=== PATIENT | male | born 1955 ===

== ENCOUNTER 2017-11-10 12:17 | Emergency (ER) | payer MEDICARE, MEDICAID ==
[2017-11-10 12:18] VITALS: BMI 22.7
[2017-11-10] MEDS ORDERED: Morphine 4 mg/ml ISec IVP STA (12:34)
[2017-11-10 12:37] VITALS: TEMP 97.8; O2SAT 98
--- NOTE | 2017-11-10 12:43 | ED PDOC ---
Arrival/HPI - General Chief Complaint: Abdominal Pain Time Seen by Provider: 11/10/17 12:21 Historian: Patient, Spouse - History of Present Illness Time/Duration: 1 week Symptom Onset: Gradual Symptom Course: Worsening Quality: Aching Severity Level: Moderate Activities at Onset: Rest Associated Symptoms (Text): 11/10/17 12:43 Patient complains of approximately a one-week history of right flank and right upper quadrant pain. Overnight he developed epigastric abdominal pain and presented to the emergency department for evaluation. Nausea but no vomiting or diarrhea. He did have dialysis yesterday. No fever or chills. No chest pain palpitations or dyspnea. No injury or trauma. He does make some urine. Past Medical History - Infectious Disease Hx of Infectious Diseases: None - Tetanus Immunization Tetanus Immunization: Unknown - Cardiac Hx Congestive Heart Failure: Yes Hx Hypertension: Yes Hx Pacemaker: No Hx Peripheral Edema: Yes Other/Comment: cardiac stent - Pulmonary Hx Respiratory Disorders: Yes Hx Asthma: Yes Hx Pneumonia: Yes - Neurological Hx Neurological Disorder: No Hx Paralysis: No - HEENT Hx HEENT Disorder: Yes Hx Cataracts: Yes Hx Deafness: Yes Hx Glaucoma: Yes - Renal Hx Renal Disorder: Yes Date of Last Dialysis Treatment: 11/09/17 - Endocrine/Metabolic Hx Endocrine Disorders: Yes Hx Diabetes Mellitus Type 2: Yes - Hematological/Oncological Hx Blood Disorders: No Hx Blood Transfusions: No - Integumentary Hx Dermatological Disorder: No - Musculoskeletal/Rheumatological Hx Musculoskeletal Disorders: No - Gastrointestinal Hx Gastrointestinal Disorders: Yes Hx Constipation: Yes - Genitourinary/Gynecological Hx Genitourinary Disorders: No Hx Reproductive Disorders: No - Psychiatric Hx Psychophysiologic Disorder: No Hx Emotional Abuse: No Hx Physical Abuse: No Hx Substance Use: No - Surgical History Hx Cholecystectomy: Yes Hx Coronary Artery Bypass Graft: Yes Hx Coronary Stent: Yes - Anesthesia Hx Anesthesia Reactions: No Hx Malignant Hyperthermia: No - Suicidal Assessment Feels Threatened In Home Enviroment: No Family/Social History - Physician Review Nursing Documentation Reviewed: Yes Family/Social History: Unknown Family HX Smoking Status: Never Smoked Hx Alcohol Use: No Hx Substance Use: No Hx Substance Use Treatment: No Allergies/Home Meds Allergies/Adverse Reactions: Allergies No Known Allergies Allergy (Verified 10/18/16 16:58) Home Medications: Home Meds Medication Instructions Recorded Confirmed Albuterol Sulfate [Proair Hfa] 2 puff INH Q6H 04/13/15 11/10/17 Aspirin [Aspirin EC] 325 mg PO DAILY 07/12/16 11/10/17 Cilostazol [Pletal] 1 tab PO BID 07/12/16 11/10/17 Clopidogrel [Plavix] 75 mg PO DAILY 07/12/16 11/10/17 Gabapentin [Neurontin] 300 mg PO DAILY 07/12/16 11/10/17 Mupirocin 2% Ointment [Bactroban 1 appful TOP BID 07/12/16 11/10/17 Ointment] Simvastatin 20 mg PO DAILY 07/12/16 11/10/17 predniSONE [predniSONE Tab] 5 mg PO DAILY 07/12/16 11/10/17 Acetaminophen with Codeine 1 tab PO PRN PRN 11/10/17 11/10/17 [Tylenol with Codeine No. 3 300 mg-30 mg] Albuterol/Ipratropium [Duoneb 3 3 ml IH Q6 11/10/17 11/10/17 MG/3 Ml-0.5 MG/3 Ml 3 Ml] Furosemide [Lasix] 80 mg PO DAILY 11/10/17 11/10/17 Hydroxyzine HCl 25 mg PO PRN 11/10/17 11/10/17 Insulin Degludec [Tresiba 6 unit SQ DAILY 11/10/17 11/10/17 Flextouch U-100] Isosorbide Mononitrate [Imdur] 120 mg PO DAILY 11/10/17 11/10/17 Levocetirizine Dihydrochloride 5 mg PO DAILY 11/10/17 11/10/17 [Xyzal] Linagliptin [Tradjenta] 5 mg PO DAILY 11/10/17 11/10/17 Sacubitril/Valsartan [Entresto 97 1 each PO BID 11/10/17 11/10/17 mg-103 mg Tablet] Review of Systems - Physician Review All systems were reviewed & negative as marked: Yes - Review of Systems Constitutional: Fatigue. absent: Fevers Respiratory: absent: SOB, Cough, Wheezing Cardiovascular: absent: Chest Pain, Palpitations, Syncope Gastrointestinal: Abdominal Pain, Nausea. absent: Diarrhea, Vomiting Neurological: absent: Headache, Dizziness, Focal Weakness Physical Exam Vital Signs Temp Pulse Resp BP Pulse Ox 11/10/17 14:18 84 18 144/74 98 11/10/17 12:21 97.8 F 86 20 155/84 H 98 Temperature: Afebrile Blood Pressure: Hypertensive Pulse: Regular Respiratory Rate: Normal Appearance: Positive for: Well-Appearing, Non-Toxic, Uncomfortable Pain Distress: Mild Mental Status: Positive for: Alert and Oriented X 3 - Systems Exam Head: Present: Atraumatic, Normocephalic Pupils: Present: PERRL Extroacular Muscles: Present: EOMI Conjunctiva: Present: Normal Mouth: Present: Moist Mucous Membranes Pharnyx: No: ERYTHEMA, EXUDATE, TONSILS ENLARGED Neck: Present: Normal Range of Motion Respiratory/Chest: Present: Clear to Auscultation, Good Air Exchange, Decreased Breath Sounds. No: Respiratory Distress, Accessory Muscle Use Cardiovascular: Present: Regular Rate and Rhythm, Normal S1, S2. No: Murmurs Abdomen: Present: Tenderness (Mild generalized abdominal tenderness with no guarding and no rebound and no CVA tenderness), Normal Bowel Sounds. No: Distention, Peritoneal Signs, Rebound, Guarding Back: Present: Normal Inspection. No: CVA Tenderness, Midline Tenderness, Paraspinal Tenderness Upper Extremity: Present: Normal Inspection. No: Cyanosis, Edema Lower Extremity: Present: Normal Inspection. No: Edema Neurological: Present: GCS=15, CN II-XII Intact, Speech Normal, Motor Func Grossly Intact Skin: Present: Warm, Dry, Normal Color. No: Rashes Psychiatric: Present: Alert, Oriented x 3, Normal Insight, Normal Concentration Medical Decision Making ED Course and Treatment: 11/10/17 13:45 EKG shows normal sinus rhythm rate approximately 85 with inverted T waves laterally and nonspecific intraventricular conduction delay with no old available for comparison 11/10/17 15:15 Symptoms have improved. Workup shows no acute findings. Discharged home accompanied by to follow up with PMD. Follow up in ER as needed. - Lab Interpretations Lab Results: 11/10/17 12:30 11/10/17 12:30 Lab Results 11/10/17 12:30: Sodium 138, Potassium 4.1, Chloride 93 L, Carbon Dioxide 33, Anion Gap 16, BUN 18, Creatinine 4.1 H, Est GFR ( Amer) 18, Est GFR (Non- Af Amer) 15, Random Glucose 126 H, Calcium 8.9, Total Bilirubin 1.0, AST 46, ALT 37, Alkaline Phosphatase 245 H, Lactate Dehydrogenase 506, Total Creatine Kinase 58, Troponin I 0.10 D, Total Protein 7.4, Albumin 3.6, Globulin 3.8, Albumin/Globulin Ratio 0.9 L, Amylase 81, Lipase 117 11/10/17 12:30: PT 19.6 H, INR 1.69 H, APTT 32.1 11/10/17 12:30: WBC 6.0 D, RBC 3.79, Hgb 10.5 L, Hct 31.6 L, MCV 83.4, MCH 27.7 , MCHC 33.2, RDW 16.8 H, Plt Count 113 L, MPV 10.7, Gran % 81.1 H, Lymph % (Auto ) 9.0 L, [place] % (Auto) 6.2 H, Eos % (Auto) 3.4, Baso % (Auto) 0.3, Gran # 4.84, Lymph # (Auto) 0.5 L, [place] # (Auto) 0.4, Eos # (Auto) 0.2, Baso # (Auto) 0.02 - RAD Interpretation Radiology Orders: 11/10/17 12:34 ABDOMEN COMPLETE [US] Stat 11/10/17 12:35 CHEST PORTABLE [RAD] Stat Ultrasound of the abdomen is read by the radiologist shows small pleural effusion and ascites, unchanged from previous. Chest one view shows a small right pleural effusion as read by the radiologist. Game Room Attendant: Radiologist - Medication Orders Current Medication Orders: Discontinued Medications Morphine Sulfate (Morphine) 4 mg IVP STAT STA Stop: 11/10/17 12:35 Last Admin: 11/10/17 12:53 Dose: 4 mg MAR Pain Assessment Document 11/10/17 12:53 EW (Rec: 11/10/17 12:54 [facility] [id number]) Pain Reassessment Is this a pain reassessment? No Sleep Is patient sleeping during reassessment? No Presence of Pain Presence of Pain Yes Pain Scale Used Pain Scale Used Numeric Location Pain Location Body Site Abdomen Description Description Constant Intensity of Pain at present 8 Pain Behavior Moaning IVP Administration Document 11/10/17 12:53 EWO (Rec: 11/10/17 12:54 [facility] [id number]) Charges for Administration # of IVP Administrations 1 Ondansetron HCl (Zofran Inj) 4 mg IVP STAT STA Stop: 11/10/17 12:35 Last Admin: 11/10/17 12:53 Dose: 4 mg IVP Administration Document 11/10/17 12:53 EW (Rec: 11/10/17 12:53 [facility] [id number]) Charges for Administration # of IVP Administrations 1 Disposition/Present on Arrival - Present on Arrival Any Indicators Present on Arrival: No History of DVT/PE: No History of Uncontrolled Diabetes: No Urinary Catheter: No History of Decub. Ulcer: No History Surgical Site Infection Following: None - Disposition Have Diagnosis and Disposition been Completed?: Yes Diagnosis: Chronic renal failure syndrome, Abdominal pain Disposition: HOME/ ROUTINE Disposition Time: 15:15 Patient Plan: Discharge Condition: IMPROVED Discharge Instructions (ExitCare): Acute Abdomen (Belly Pain) Additional Instructions: Tylenol as directed on bottle as needed. Follow-up with PMD. Follow up in the ER as needed. Forms: [employer] (Bulgarian)
[2017-11-10 12:57] LABS: BASO # 0.02 K/mm3 (0.0-2.0); BASO % 0.3 % (0.0-3.0); EOS # 0.2 (0.0-0.7); EOS % 3.4 % (1.5-5.0); GRAN # 4.84 (1.4-6.5); GRAN % 81.1 % (50.0-68.0); HEMOGLOBIN 10.5 g/dL (14.0-18.0); LYMPH # 0.5 (1.2-3.4); MEAN CELL VOLUME 83.4 fl (80.0-105.0); MEAN CORPUSCULAR HEMOGLOBIN 27.7 pg (25.0-35.0); MEAN CORPUSCULAR HGB CONC 33.2 g/dl (31.0-37.0); MEAN PLATELET VOLUME 10.7 fl (7.0-11.0); MONO # 0.4 (0.1-0.6); MONO % 6.2 % (1.0-6.0); RBC 3.79 10^6/uL (3.5-6.1); RED CELL DISTRIBUTION WIDTH 16.8 % (11.5-14.5)
[2017-11-10 13:07] LABS: INR 1.69 (0.93-1.08); PARTIAL THROMBOPLASTIN TIME 32.1 Seconds (25.1-36.5); PROTHROMBIN TIME 19.6 SECONDS (9.4-12.5)
[2017-11-10 13:08] LABS: ALB/GLOB RATIO 0.9 (1.1-1.8); ALBUMIN 3.6 g/dL (3.0-4.8); CALCIUM 8.9 mg/dL (8.4-10.5)
[2017-11-10 13:18] LABS: TROPONIN I 0.1 ng/mL
--- NOTE | 2017-11-10 14:35 | US ---
HISTORY: Right upper quadrant pain. COMPARISON: 04/08/2017 TECHNIQUE: Sonographic evaluation of the abdomen. FINDINGS: LIVER: Measures 16.5 cm. Hepatopedal blood flow. Fatty infiltration manifest ultrasonographically as increased echogenicity of the liver parenchyma. Nodular contour to the liver. GALLBLADDER: Status post cholecystectomy. No abnormality is seen in the gallbladder fossa. COMMON BILE DUCT: Measures 3.5 mm. No stones. No dilatation. PANCREAS: Unremarkable as visualized. No mass. No ductal dilatation. RIGHT KIDNEY: Measures 3.8 x 8.3cm. Increased echogenicity compatible with medical renal disease. LEFT KIDNEY: Measures 4.2 x 7.5 cm. Increased echogenicity compatible with medical renal disease. Incidental finding(s): Simple cyst 6 mm left kidney SPLEEN: Normal in size and contour. No mass. AORTA: No aneurysmal dilatation. IVC: Unremarkable. OTHER FINDINGS: Low volume ascites. Right pleural effusion. IMPRESSION: No acute findings related to/accounting for the clinical presentation. Right pleural effusion, incompletely visualized, low volume ascites. Additional benign and/or incidental findings described above.
--- NOTE | 2017-11-10 14:53 | RAD ---
HISTORY: Abdominal pain COMPARISON: 04/29/2017 FINDINGS: LUNGS: Increasing right lower lobe infiltrate. Interval improvement left lower lobe infiltrate. PLEURA: Increasing right pleural effusion. Decreasing left pleural effusion. CARDIOVASCULAR: No significant interval change compared to the prior examination(s). OSSEOUS STRUCTURES: No significant abnormalities. VISUALIZED UPPER ABDOMEN: Normal. OTHER FINDINGS: None. IMPRESSION: Increasing right pleural effusion and right lower lobe infiltrate. Interval improvement in left lower lobe infiltrate, left pleural effusion.
[2017-11-10 15:20] VITALS: BP 144/74; PULSE 84; RESP 18
--- NOTE | 2017-11-10 22:49 | CARD ---
APPROVED REPORT EKG Measurement Heart [id number] <Conclusion> Normal sinus rhythm Left axis deviation Incomplete left bundle branch block Minimal voltage criteria for LVH, may be normal variant T wave abnormality, consider lateral ischemia Prolonged QT Abnormal ECG
== END 2017-11-10 15:25 | disposition home or self-care (01) ==
LOC: ED 12:17
DX: I12.9 Hypertensive chronic kidney disease with stage 1 through stage 4 chronic kidney disease, or unspecified chronic kidney disease (principal); E11.22 Type 2 diabetes mellitus with diabetic chronic kidney disease; N18.9 Chronic kidney disease, unspecified; Z99.2 Dependence on renal dialysis; R10.9 Unspecified abdominal pain
CPT/HCPCS: 71045; 76700; 80053; 82150; 82550; 83615; 83690; 84484; 85025; 85610; 85730; 93005; 96374; 96375; 99284; J2270; J2405

== ENCOUNTER 2018-03-22 02:52 | Emergency (ER) | payer MEDICARE, MEDICAID ==
[2018-03-22 02:53] VITALS: BMI 22.7
[2018-03-22 03:06] VITALS: RESP 18; TEMP 98.3
[2018-03-22] MEDS ORDERED: Collagen Hemostat Powder MM ONE (03:30)
--- NOTE | 2018-03-22 05:09 | ED PDOC ---
Arrival/HPI - General Chief Complaint: Dental Pain Time Seen by Provider: 03/22/18 02:56 Historian: Patient - History of Present Illness Narrative History of Present Illness (Text): 03/22/18 05:06 62 year old male, whose past medical history includes end stage renal disease and diabetes, who presents to the emergency department complaining of bleeding from the posterior gum sight of mouth. Patient states he was cleaning his teeth with an electric tooth brush, when shortly after hsi gums began to bleed. Patient states oozing of blood has not stopped despite applied pressure. Patient denies any fever, chills, chest pain, shortness of breath, nausea, vomiting, diarrhea, back pain, neck pain, headache, dizziness, or any other complaints. Time/Duration: Prior to Arrival Symptom Onset: Sudden Symptom Course: Unchanged Activities at Onset: Light Context: Home Past Medical History - Provider Review Nursing Documentation Reviewed: Yes - Infectious Disease Hx of Infectious Diseases: None - Tetanus Immunization Tetanus Immunization: Unknown - Cardiac Hx Cardiac Disorders: Yes Hx Congestive Heart Failure: Yes Hx Hypertension: Yes - Pulmonary Hx Respiratory Disorders: Yes Hx Asthma: Yes Hx Pneumonia: Yes - Neurological Hx Neurological Disorder: No Hx Paralysis: No - HEENT Hx HEENT Disorder: Yes Hx Cataracts: Yes Hx Deafness: Yes Hx Glaucoma: Yes - Renal Hx Renal Failure: Yes (ESRD, CKD) - Endocrine/Metabolic Hx Diabetes Mellitus Type 2: Yes - Hematological/Oncological Hx Blood Disorders: Yes Hx Anemia: Yes - Integumentary Hx Dermatological Disorder: No - Musculoskeletal/Rheumatological Hx Musculoskeletal Disorders: No Hx Falls: No - Gastrointestinal Hx Gastrointestinal Disorders: Yes Hx Constipation: Yes - Genitourinary/Gynecological Hx Genitourinary Disorders: No Hx Reproductive Disorders: No - Psychiatric Hx Psychophysiologic Disorder: Yes Hx Depression: Yes Hx Substance Use: No - Surgical History Hx Cholecystectomy: Yes Hx Coronary Artery Bypass Graft: Yes Hx Coronary Stent: Yes - Anesthesia Hx Anesthesia: Yes Hx Anesthesia Reactions: No Hx Malignant Hyperthermia: No - Suicidal Assessment Feels Threatened In Home Enviroment: No Family/Social History - Physician Review Nursing Documentation Reviewed: Yes Family/Social History: Unknown Family HX Smoking Status: Never Smoked Hx Alcohol Use: No Hx Substance Use: No Hx Substance Use Treatment: No Allergies/Home Meds Allergies/Adverse Reactions: Allergies No Known Allergies Allergy (Verified 11/13/17 00:48) Home Medications: Home Meds Medication Instructions Recorded Confirmed Albuterol Sulfate [Proair Hfa] 2 puff INH Q6H 04/13/15 03/22/18 Aspirin [Aspirin EC] 325 mg PO DAILY 07/12/16 03/22/18 Cilostazol [Pletal] 1 tab PO BID 07/12/16 03/22/18 Clopidogrel [Plavix] 75 mg PO DAILY 07/12/16 03/22/18 Gabapentin [Neurontin] 300 mg PO DAILY 07/12/16 03/22/18 Simvastatin 20 mg PO DAILY 07/12/16 03/22/18 predniSONE [predniSONE Tab] 2.5 mg PO DAILY 07/12/16 03/22/18 Acetaminophen with Codeine 1 tab PO PRN PRN 11/10/17 03/22/18 [Tylenol with Codeine #3 Tablet] Furosemide [Lasix] 80 mg PO DAILY 11/10/17 03/22/18 Hydroxyzine HCl 25 mg PO PRN 11/10/17 03/22/18 Isosorbide Mononitrate [Imdur] 120 mg PO DAILY 11/10/17 03/22/18 Albuterol HFA [Ventolin HFA 90 2 puff IH [id number] PRN 03/22/18 03/22/18 mcg/actuation (8 g)] Benzonatate [Tessalon Perles] 100 mg PO TID PRN 03/22/18 03/22/18 Budesonide/Formoterol Fumarate 2 puff IH BID 03/22/18 03/22/18 [Symbicort] Clindamycin 1% [Cleocin] 1 appl TP DAILY 03/22/18 03/22/18 Doxycycline Hyclate [Doryx] 100 mg PO DAILY 03/22/18 03/22/18 Insulin Aspart [Novolog FLEXPEN] 3 - 10 units SC TID 03/22/18 03/22/18 Lactulose [Generlac] 10 gm PO HS 03/22/18 03/22/18 Mupirocin 1 gm TP TID 03/22/18 03/22/18 SITagliptin [Januvia] 25 mg PO DAILY 03/22/18 03/22/18 Sacubitril/Valsartan [Entresto 97 1 each PO DAILY 07/21/18 07/21/18 mg-103 mg Tablet] Spironolactone [Aldactone] 25 mg PO DAILY 03/22/18 03/22/18 hydrALAZINE [hydralazine 25 mg PO DAILY 03/22/18 03/22/18 Hydrochloride] Review of Systems - Physician Review All systems were reviewed & negative as marked: Yes - Review of Systems Constitutional: Normal Eyes: Normal ENT: Other (bleeding from gum sight of mouth) Respiratory: Normal. absent: SOB, Cough Cardiovascular: Normal. absent: Chest Pain Gastrointestinal: Normal. absent: Abdominal Pain, Diarrhea, Nausea, Vomiting Genitourinary Male: Normal. absent: Dysuria, Frequency Musculoskeletal: Normal. absent: Back Pain, Neck Pain Skin: Normal. absent: Rash Neurological: Normal. absent: Headache, Dizziness Endocrine: Normal Hemo/Lymphatic: Normal Psychiatric: Normal Physical Exam Vital Signs Reviewed: Yes Vital Signs Temp Pulse Resp BP Pulse Ox 03/22/18 07:25 82 18 136/75 99 03/22/18 03:05 98.3 F 77 18 148/73 95 Temperature: Afebrile Blood Pressure: Normal Pulse: Regular Respiratory Rate: Normal Appearance: Positive for: Well-Appearing, Non-Toxic, Comfortable Pain Distress: None Mental Status: Positive for: Alert and Oriented X 3 - Systems Exam Head: Present: Atraumatic, Normocephalic Pupils: Present: PERRL Extroacular Muscles: Present: EOMI Conjunctiva: Present: Normal Mouth: Present: Other (oozing of blood from rigth posteriot upper molar gingival area; no evidence of laceration) Neck: Present: Normal Range of Motion Respiratory/Chest: Present: Clear to Auscultation, Good Air Exchange. No: Respiratory Distress, Accessory Muscle Use Cardiovascular: Present: Regular Rate and Rhythm, Normal S1, S2. No: Murmurs Abdomen: No: Tenderness, Distention, Peritoneal Signs Back: Present: Normal Inspection Upper Extremity: Present: Normal Inspection. No: Cyanosis, Edema Lower Extremity: Present: Normal Inspection. No: Edema Neurological: Present: GCS=15, CN II-XII Intact, Speech Normal Skin: Present: Warm, Dry, Normal Color. No: Rashes Psychiatric: Present: Alert, Oriented x 3, Normal Insight, Normal Concentration Medical Decision Making ED Course and Treatment: 03/22/18 05:12 Impression: 62 year old male presents to the emergency department complaining of bleeding from posterior gum sight of mouth. Plan: -- Labs -- Ativene -- Reassess and disposition Progress Notes: Treated in emergency department with Avitene hemostat, applied with direct pressure to area of bleeding to tamponade the bleeding. 03/22/18 06:50 Patient with period of observation in emergency department with no recurrent bleeding. - Lab Interpretations Lab Results: 03/22/18 04:45 03/22/18 04:45 Lab Results 03/22/18 04:45: WBC 4.3 L D, RBC 4.06, Hgb 11.4 L, Hct 33.4 L, MCV 82.3, MCH 28.1, MCHC 34.1, RDW 16.1 H, Plt Count 140, MPV 11.3 H 03/22/18 04:45: Sodium 142, Potassium 4.8, Chloride 95 L, Carbon Dioxide 32, Anion Gap 20, BUN 28 H, Creatinine 4.4 H, Est GFR ( Amer) 17, Est GFR ( Non-Af Amer) 14, Random Glucose 164 H, Calcium 8.8, Total Bilirubin 1.4 H, AST 51, ALT 31, Alkaline Phosphatase 263 H D, Total Protein 7.7, Albumin 3.9, Globulin 3.8, Albumin/Globulin Ratio 1.0 L 03/22/18 04:45: PT 19.7 H, INR 1.69 H, APTT 32.8 - Medication Orders Current Medication Orders: Discontinued Medications Collagen (Avitene) 1 pow MM ONCE ONE Stop: 03/22/18 03:31 Last Admin: 03/22/18 03:39 Dose: 1 pow - Scribe Statement The provider has reviewed the documentation as recorded by the Scribrush Cortes All medical record entries made by the Scribe were at my direction and personally dictated by me. I have reviewed the chart and agree that the record accurately reflects my personal performance of the history, physical exam, medical decision making, and the department course for this patient. I have also personally directed, reviewed, and agree with the discharge instructions and disposition. Disposition/Present on Arrival - Present on Arrival Any Indicators Present on Arrival: No History of DVT/PE: No History of Uncontrolled Diabetes: No Urinary Catheter: No History of Decub. Ulcer: No History Surgical Site Infection Following: None - Disposition Have Diagnosis and Disposition been Completed?: Yes Diagnosis: Gingival bleeding Disposition: HOME/ ROUTINE Disposition Time: 07:00 Patient Plan: Discharge Condition: GOOD Discharge Instructions (ExitCare): Bleeding Gums (DC) Additional Instructions: Avoid any trauma to the area /follow up with your doctor /dentist this week/any recurrent persistent bleeding return to the emergency room Referrals: Chip Mensah [Primary Care Provider] - Follow up with primary Forms: [employer] (Irish)
[2018-03-22 05:39] LABS: ALBUMIN 3.9 g/dL (3.0-4.8); CALCIUM 8.8 mg/dL (8.4-10.5)
[2018-03-22 05:45] LABS: HEMOGLOBIN 11.4 g/dL (14.0-18.0); MEAN CELL VOLUME 82.3 fl (80.0-105.0); MEAN CORPUSCULAR HEMOGLOBIN 28.1 pg (25.0-35.0); MEAN CORPUSCULAR HGB CONC 34.1 g/dl (31.0-37.0); MEAN PLATELET VOLUME 11.3 fl (7.0-11.0); RBC 4.06 10^6/uL (3.5-6.1); RED CELL DISTRIBUTION WIDTH 16.1 % (11.5-14.5); WHITE BLOOD COUNT 4.3 10^3/ul (4.5-11.0)
[2018-03-22 06:23] LABS: INR 1.69 (0.93-1.08); PARTIAL THROMBOPLASTIN TIME 32.8 Seconds (25.1-36.5); PROTHROMBIN TIME 19.7 SECONDS (9.4-12.5)
[2018-03-22 07:26] VITALS: BP 136/75; PULSE 82; O2SAT 99
== END 2018-03-22 07:25 | disposition home or self-care (01) ==
LOC: ED 02:52
DX: K06.8 Other specified disorders of gingiva and edentulous alveolar ridge (principal); I50.9 Heart failure, unspecified; I12.0 Hypertensive chronic kidney disease with stage 5 chronic kidney disease or end stage renal disease; N18.6 End stage renal disease; E11.9 Type 2 diabetes mellitus without complications

== ENCOUNTER 2018-04-18 04:13 | Inpatient (IN) | payer MEDICARE, MEDICAID ==
--- NOTE | 2018-04-18 04:52 | ED PDOC ---
Arrival/HPI - General Chief Complaint: Abdominal Pain Time Seen by Provider: 04/18/18 04:39 Historian: Patient, Spouse - History of Present Illness Narrative History of Present Illness (Text): 04/18/18 04:48 62 y/o M w/ h/o CAD w/ multiple stents, CABG, CHF, PVD, DM, dyslipidemia, ESRD ( on HD:T/TH/Sat), HTN, osteoporosis, osteoarthritis, and sarcoidosis, presents to the emergency department complaining of abdominal pain on going for the past 3 days. Patient said he's been experiencing more discomfort as well as difficulty with food intact. Patient is unable to keep anything down. As per , she noticed patient's abdomen is distended and reported symptoms began after dialysis treatment 3 days ago. Patient reports vomiting x3 today and nausea, but denies any fever, chills, chest pain, shortness of breath, diarrhea , urinary symptoms, back pain, neck pain, headache, dizziness, or any other complaints. PMD: Dr. Eid Time/Duration: Prior to Arrival Symptom Onset: Gradual Symptom Course: Worsening Quality: Unable to Describe Severity Level: Moderate Activities at Onset: Light Context: Home Past Medical History - Provider Review Nursing Documentation Reviewed: Yes - Travel History Have you recently traveled outside [place] w/in the past 3 mons?: No - Infectious Disease Hx of Infectious Diseases: None - Tetanus Immunization Tetanus Immunization: Unknown - Cardiac Hx Cardiac Disorders: Yes Hx Congestive Heart Failure: Yes Hx Hypertension: Yes - Pulmonary Hx Respiratory Disorders: Yes Hx Asthma: Yes Hx Pneumonia: Yes - Neurological Hx Neurological Disorder: No Hx Paralysis: No - HEENT Hx HEENT Disorder: Yes Hx Cataracts: Yes Hx Deafness: Yes Hx Glaucoma: Yes - Renal Hx Renal Failure: Yes (ESRD, CKD) - Endocrine/Metabolic Hx Diabetes Mellitus Type 2: Yes - Hematological/Oncological Hx Blood Disorders: Yes Hx Anemia: Yes - Integumentary Hx Dermatological Disorder: No - Musculoskeletal/Rheumatological Hx Musculoskeletal Disorders: No Hx Falls: No - Gastrointestinal Hx Gastrointestinal Disorders: Yes Hx Constipation: Yes - Genitourinary/Gynecological Hx Genitourinary Disorders: No Hx Reproductive Disorders: No - Psychiatric Hx Psychophysiologic Disorder: Yes Hx Depression: Yes Hx Substance Use: No - Surgical History Hx Cholecystectomy: Yes Hx Coronary Artery Bypass Graft: Yes Hx Coronary Stent: Yes - Anesthesia Hx Anesthesia: Yes Hx Anesthesia Reactions: No Hx Malignant Hyperthermia: No - Suicidal Assessment Feels Threatened In Home Enviroment: No Family/Social History - Physician Review Nursing Documentation Reviewed: Yes Family/Social History: No Known Family HX Smoking Status: Never Smoked Hx Alcohol Use: No Hx Substance Use: No Hx Substance Use Treatment: No Allergies/Home Meds Allergies/Adverse Reactions: Allergies No Known Allergies Allergy (Verified 11/13/17 00:48) Home Medications: Home Meds Medication Instructions Recorded Confirmed Albuterol Sulfate [Proair Hfa] 2 puff INH Q6H 04/13/15 04/18/18 Aspirin [Aspirin EC] 325 mg PO DAILY 07/12/16 04/19/18 Cilostazol [Pletal] 1 tab PO BID 07/12/16 04/19/18 Clopidogrel [Plavix] 75 mg PO DAILY 07/12/16 04/19/18 Gabapentin [Neurontin] 300 mg PO DAILY 07/12/16 04/19/18 Simvastatin 20 mg PO DAILY 07/12/16 04/18/18 Acetaminophen with Codeine 1 tab PO PRN PRN 11/10/17 04/18/18 [Tylenol with Codeine #3 Tablet] Hydroxyzine HCl 25 mg PO PRN 11/10/17 04/18/18 Isosorbide Mononitrate [Imdur] 120 mg PO DAILY 11/10/17 04/19/18 Albuterol HFA [Ventolin HFA 90 2 puff IH [id number] PRN 03/22/18 04/18/18 mcg/actuation (8 g)] Benzonatate [Tessalon Perle] 100 mg PO TID PRN 03/22/18 04/18/18 Budesonide/Formoterol Fumarate 2 puff IH BID 03/22/18 04/18/18 [Symbicort 160-4.5 Mcg Inhaler] Clindamycin 1% [Cleocin] 1 appl TP DAILY 03/22/18 04/18/18 Doxycycline Hyclate [Doryx] 100 mg PO DAILY 03/22/18 04/18/18 Insulin Aspart [Novolog Flexpen] 3 - 10 units SC TID 03/22/18 04/18/18 Lactulose [Generlac] 10 gm PO HS 03/22/18 04/18/18 Mupirocin 1 gm TP TID 03/22/18 04/18/18 SITagliptin [Januvia] 25 mg PO DAILY 03/22/18 04/18/18 Sacubitril/Valsartan [Entresto 97 1 each PO DAILY 03/22/18 04/18/18 mg-103 mg Tablet] hydrALAZINE [Apresoline] 25 mg PO DAILY 03/22/18 04/18/18 Review of Systems - Physician Review All systems were reviewed & negative as marked: Yes - Review of Systems Constitutional: absent: Fevers, Other (Chills) Cardiovascular: absent: Chest Pain Gastrointestinal: Abdominal Pain (noted abdomen is distended), Nausea, Vomiting , Other (difficulty with food intact). absent: Diarrhea Genitourinary Male: absent: Dysuria, Frequency, Hematuria Musculoskeletal: absent: Back Pain, Neck Pain Neurological: absent: Headache, Dizziness Physical Exam Vital Signs Reviewed: Yes Vital Signs Temp Pulse Resp BP Pulse Ox 04/18/18 08:51 98.0 F 69 18 142/71 96 04/18/18 08:09 142/71 04/18/18 07:10 70 18 142/75 94 L 04/18/18 04:14 112 H 12 166/84 H 94 L Temperature: Afebrile Blood Pressure: Hypertensive Pulse: Tachycardic Respiratory Rate: Normal Appearance: Positive for: Non-Toxic, Comfortable, Cachectic (Older man) Pain Distress: None Mental Status: Positive for: Alert and Oriented X 3 - Systems Exam Head: Present: Atraumatic, Normocephalic Pupils: Present: PERRL Extroacular Muscles: Present: EOMI Conjunctiva: Present: Normal Mouth: Present: Moist Mucous Membranes Neck: Present: Normal Range of Motion Respiratory/Chest: Present: Clear to Auscultation, Good Air Exchange. No: Respiratory Distress, Accessory Muscle Use Cardiovascular: Present: Regular Rate and Rhythm, Normal S1, S2. No: Murmurs Abdomen: Present: Distention (Ascities postive fluid shift.). No: Tenderness, Peritoneal Signs Back: Present: Normal Inspection Upper Extremity: Present: Normal Inspection. No: Cyanosis, Edema Lower Extremity: Present: Normal Inspection. No: Edema Neurological: Present: GCS=15, CN II-XII Intact, Speech Normal Skin: Present: Warm, Dry, Normal Color. No: Rashes Psychiatric: Present: Alert, Oriented x 3, Normal Insight, Normal Concentration Medical Decision Making ED Course and Treatment: 04/18/18 04:45 Impression: 62 year old male presents complaining of abdominal pain associated with difficulty with food intact, nausea and vomiting x3 that began 3 days ago after dialysis treatment. Plan: -- Labs -- Chest X-Ray -- Blood Culture -- EKG -- CT Abd and Pelvis -- Morphine -- reassess and disposition Prior Visits: Notes and results from pervious visits were reviewed. Patient was last seen in the emergency department on11/10/17 presents complaining of one-week history of right flank and right upper quadrant pain. Overnight he developed epigastric abdominal pain. Patient was admitted. Progress Notes: 04/18/18 04:22 EKG shows NSR at 78 BPM with left axis deviation and diffuse flipped t-wave. Interpreted by me. 04/18/18 06:16 CXR Impression: As read by me, cardiomegaly, pulmonary congestion noted to the lungs bilaterally. Right sided cardiac silhouette obscured slightly. Case discussed with house physician who will come down to evaluate patient. 04/18/18 0630 Patient admitted to hospitalist service. - Lab Interpretations Microbiology Results: Microbiology Results 04/18/18 05:26 Blood Blood Culture - Preliminary NO GROWTH AFTER 48 HOURS 04/18/18 04:56 Blood Blood Culture - Preliminary NO GROWTH AFTER 48 HOURS Lab Results: 04/18/18 04:56 04/18/18 04:56 Lab Results 04/18/18 04:56: Sodium 142, Potassium 3.6, Chloride 95 L, Carbon Dioxide 35 H, Anion Gap 17, BUN 28 H, Creatinine 3.4 H, Est GFR ( Amer) 22, Est GFR ( Non-Af Amer) 19, Random Glucose 276 H, Calcium 8.5, Total Bilirubin 1.2, AST 60 H, ALT 48, Alkaline Phosphatase 256 H, Troponin I 0.09, NT-Pro-B Natriuret Pep > [id number] H, Total Protein 7.7, Albumin 3.8, Globulin 3.9, Albumin/Globulin Ratio 1.0 L, Lipase 144 04/18/18 04:56: PT 19.6 H, INR 1.69, APTT 30.8 04/18/18 04:56: WBC 4.3 L, RBC 4.02, Hgb 11.4 L, Hct 32.9 L, MCV 81.8, MCH 28.4 , MCHC 34.7, RDW 17.2 H, Plt Count 131, Gran % 79.0 H, Lymph % (Auto) 12.6 L, [place] % (Auto) 6.3 H, Eos % (Auto) 1.9, Baso % (Auto) 0.2, Gran # 3.37, Lymph # ( Auto) 0.5 L, [place] # (Auto) 0.3, Eos # (Auto) 0.1, Baso # (Auto) 0.01 I have reviewed the lab results: Yes - RAD Interpretation Radiology Orders: 04/18/18 04:42 CHEST PORTABLE [RAD] Stat 04/18/18 05:01 ABD & PELVIS W/O PO OR IV CONT [CT] Stat - EKG Interpretation Interpreted by ED Physician: Yes Type: 12 lead EKG - Medication Orders Current Medication Orders: Discontinued Medications Albuterol Sulfate (Albuterol 0.083% Inhal Catarina (2.5 Mg/3 Ml) Ud) 2.5 mg INH [id number] [facility] Last Admin: 04/19/18 14:00 Dose: Aspirin (Ecotrin) 325 mg PO DAILY [facility] Last Admin: 04/19/18 09:09 Dose: Not Given Non-Admin Reason: Patient in Dialysis Cilostazol (Pletal) 50 mg PO BID [facility] Last Admin: 04/19/18 09:10 Dose: Not Given Non-Admin Reason: Patient in Dialysis Clopidogrel Bisulfate (Plavix) 75 mg PO DAILY [facility] Last Admin: 04/19/18 09:10 Dose: Not Given Non-Admin Reason: Patient in Dialysis Dextrose (Dextrose 50% Inj) 50 ml IV STAT PRN; Protocol PRN Reason: Hypoglycemia Protocol Famotidine (Pepcid) 40 mg PO HS [facility] Last Admin: 04/18/18 21:34 Dose: 40 mg Famotidine (Pepcid) 20 mg PO HS [facility] Furosemide (Lasix) 40 mg IVP STAT STA Stop: 04/18/18 06:54 Last Admin: 04/18/18 08:09 Dose: 40 mg MAR Blood Pressure Document 04/18/18 08:09 SF (Rec: 04/18/18 08:09 [id number]) Blood Pressure Blood Pressure (100/60-150/90) 142/71 IVP Administration Document 04/18/18 08:09 SF (Rec: 04/18/18 08:09 [id number]) Charges for Administration # of IVP Administrations 1 Furosemide (Lasix) 40 mg PO DAILY [facility] Last Admin: 04/19/18 09:09 Dose: Not Given Non-Admin Reason: Patient in Dialysis Gabapentin (Neurontin) 300 mg PO DAILY [facility] PRN Reason: Protocol Last Admin: 04/19/18 09:10 Dose: Not Given Non-Admin Reason: Patient in Dialysis Hydralazine HCl (Apresoline) 25 mg PO DAILY [facility] Last Admin: 04/19/18 09:08 Dose: Not Given Non-Admin Reason: Patient in Dialysis Dextrose (Dextrose 5% In Water 1000 Ml) 1,000 mls @ 0 mls/hr IV .Q0M PRN; Protocol; Per Protocol PRN Reason: Hypoglycemia Protocol Insulin Human Lispro (Humalog Low) 0 units SC ACHS [facility] PRN Reason: Protocol Last Admin: 04/19/18 09:09 Dose: Not Given Non-Admin Reason: Patient in Dialysis [facility] Blood Glucose Document 04/19/18 09:09 LM (Rec: 04/19/18 09:09 LM [id number]) Blood Glucose Finger Stick Blood Glucose (70-120) 203 Isosorbide Mononitrate (Imdur) 120 mg PO DAILY [facility] Last Admin: 04/19/18 09:09 Dose: Not Given Non-Admin Reason: Patient in Dialysis Metoprolol Tartrate (Lopressor) 50 mg PO BID [facility] Last Admin: 04/19/18 09:10 Dose: Not Given Non-Admin Reason: Patient in Dialysis Morphine Sulfate (Morphine) 4 mg IVP STAT STA Stop: 04/18/18 05:01 Last Admin: 04/18/18 05:17 Dose: 4 mg [facility] Pain Assessment Document 04/18/18 05:17 JOL (Rec: 04/18/18 05:18 JOL [id number]) Pain Reassessment Is this a pain reassessment? No Sleep Is patient sleeping during reassessment? No Presence of Pain Presence of Pain Yes Pain Scale Used Pain Scale Used Numeric Location Upper or Lower Upper Pain Location Body Site Abdomen Description Intensity of Pain at present 6 Acceptable Level of Pain 2 Pain Behavior Moaning Withdrawal from Touch Restlessness Facial Grimacing Aggravating Factors ADL's IVP Administration Document 04/18/18 05:17 JO (Rec: 04/18/18 05:18 [id number]) Charges for Administration # of IVP Administrations 1 Re-Assess: KIM Pain Assessment Document 04/18/18 10:36 CD (Rec: 04/18/18 10:36 CD [id number]) Pain Reassessment Is this a pain reassessment? Yes Presence of Pain Presence of Pain No Non-Formulary Medication (Budesonide/Formoterol Fumarate [Symbicort 160-4.5 Mcg Inhaler]) 2 puff IH BID [facility] Last Admin: 04/19/18 09:09 Dose: Not Given Non-Admin Reason: Patient in Dialysis Ondansetron HCl (Zofran Inj) 2 mg IVP STAT STA Stop: 04/18/18 05:03 Last Admin: 04/18/18 05:17 Dose: 2 mg IVP Administration Document 04/18/18 05:17 JO (Rec: 04/18/18 05:17 [id number]) Charges for Administration # of IVP Administrations 1 Prednisone (Prednisone Tab) 2.5 mg PO DAILY [facility] Last Admin: 04/19/18 09:10 Dose: Not Given Non-Admin Reason: Patient in Dialysis Spironolactone (Aldactone) 50 mg PO BID [facility] Last Admin: 04/19/18 09:08 Dose: Not Given Non-Admin Reason: Patient in Dialysis - Scribe Statement The provider has reviewed the documentation as recorded by the Rudi Rogers Provider Scribe Attestation: All medical record entries made by the Rudi were at my direction and personally dictated by me. I have reviewed the chart and agree that the record accurately reflects my personal performance of the history, physical exam, medical decision making, and the department course for this patient. I have also personally directed, reviewed, and agree with the discharge instructions and disposition. Disposition/Present on Arrival - Present on Arrival Any Indicators Present on Arrival: No History of DVT/PE: No History of Uncontrolled Diabetes: No Urinary Catheter: No History of Decub. Ulcer: No History Surgical Site Infection Following: None - Disposition Have Diagnosis and Disposition been Completed?: Yes Diagnosis: Dyspnea Disposition: HOSPITALIZED Disposition Time: 06:00 Patient Plan: Admission Condition: GOOD
[2018-04-18] MEDS ORDERED: Morphine 4 mg/ml ISec IVP STA (05:00)
[2018-04-18] MEDS ORDERED: Morphine 4 mg/ml ISec ONE (05:14)
[2018-04-18 05:23] LABS: INR 1.69; PARTIAL THROMBOPLASTIN TIME 30.8 Seconds (25.1-36.5); PROTHROMBIN TIME 19.6 SECONDS (9.4-12.5)
[2018-04-18 05:30] LABS: BASO # 0.01 K/mm3 (0.0-2.0); BASO % 0.2 % (0.0-3.0); EOS # 0.1 (0.0-0.7); EOS % 1.9 % (1.5-5.0); GRAN # 3.37 (1.4-6.5); HEMOGLOBIN 11.4 g/dL (14.0-18.0); LYMPH # 0.5 (1.2-3.4); LYMPH % 12.6 % (22.0-35.0); MEAN CELL VOLUME 81.8 fl (80.0-105.0); MEAN CORPUSCULAR HEMOGLOBIN 28.4 pg (25.0-35.0); MEAN CORPUSCULAR HGB CONC 34.7 g/dl (31.0-37.0); MONO # 0.3 (0.1-0.6); MONO % 6.3 % (1.0-6.0); PLATELET COUNT 131 10^3/uL (120.0-450.0); RBC 4.02 10^6/uL (3.5-6.1); RED CELL DISTRIBUTION WIDTH 17.2 % (11.5-14.5); WHITE BLOOD COUNT 4.3 10^3/ul (4.5-11.0)
[2018-04-18 05:57] LABS: TROPONIN I 0.09 ng/mL
[2018-04-18 06:32] LABS: ALBUMIN 3.8 g/dL (3.0-4.8); ALT/SGPT 48 U/L (7-56); AST/SGOT 60 U/L (17-59); B-TYPE NATRIURETIC PEPTIDE > 175000 pg/mL (0-450); BLOOD UREA NITROGEN 28 mg/dL (7-21); CALCIUM 8.5 mg/dL (8.4-10.5); GFR AFRICAN-AMERICAN 22; GFR NON-AFRICAN AMERICAN 19; LIPASE 144 U/L (23-300)
--- NOTE | 2018-04-18 09:00 | CARD ---
APPROVED REPORT Date of service: 04/18/2018 EKG Measurement Heart [id number] <Conclusion> Normal sinus rhythm Possible Left atrial enlargement Left axis deviation Left bundle branch block Abnormal ECG
[2018-04-18] MEDS ORDERED: Dextrose 50% SYRINGE Inj (50 ml) IV PRN ×2 (09:53→10:01)
--- NOTE | 2018-04-18 09:57 | CT ---
Date of service: 04/18/2018 PROCEDURE: CT Abdomen and Pelvis without intravenous contrast HISTORY: abdominal pain COMPARISON: None. TECHNIQUE: Without contrast.. Contrast dose: Radiation dose: Total exam DLP = 390 mGy-cm. This CT exam was performed using one or more of the following dose reduction techniques: Automated exposure control, adjustment of the mA and/or kV according to patient size, and/or use of iterative reconstruction technique. FINDINGS: LOWER THORAX: Large bilateral pleural effusions and bibasilar atelectasis. LIVER: There is an irregular contour of the liver consistent with cirrhosis. GALLBLADDER AND BILE DUCTS: Gallbladder removed PANCREAS: Unremarkable. No gross lesion or ductal dilatation. SPLEEN: Unremarkable. ADRENALS: Unremarkable. No mass. KIDNEYS AND URETERS: Unremarkable. No hydronephrosis. No solid mass. VASCULATURE: Unremarkable. No aortic aneurysm. BOWEL: Unremarkable. No obstruction. No gross mural thickening. APPENDIX: Unremarkable. Normal appendix. PERITONEUM: There is severe ascites and mesenteric edema. Anasarca LYMPH NODES: Unremarkable. No enlarged lymph nodes. BLADDER: Unremarkable. REPRODUCTIVE: Unremarkable. BONES: No acute fracture. OTHER FINDINGS: The report concurs with the preliminary [facility] report IMPRESSION: Cirrhosis. Large bilateral pleural effusions, ascites, mesenteric edema and anasarca Bibasilar consolidation adjacent to pleural effusions.
[2018-04-18] MEDS ORDERED: Cilostazol 50 mg Tab UD PO SCH (10:00)
[2018-04-18] MEDS ORDERED: Non Formulary Medication (Budesonide/Formoterol Fumarate [Symbicort 160-4.5 Mcg Inhaler] 2 IH SCH (10:00)
--- NOTE | 2018-04-18 10:21 | RAD ---
Date of service: 04/18/2018 HISTORY: Shortness of breath COMPARISON: 11/10/2017. FINDINGS: Stable appearance of left axillary endovascular stent graft. LUNGS: There is interval improved aeration in the right lower lobe with persistent residual consolidation. PLEURA: Small pleural effusions, larger on the right. No pneumothorax apparent. CARDIOVASCULAR: Persistent mild cardiomegaly with prominent central vasculature. Status post CABG. OSSEOUS STRUCTURES: No significant abnormalities. VISUALIZED UPPER ABDOMEN: Normal. OTHER FINDINGS: None. IMPRESSION: Improving right lower lobe pneumonia. Background of congestive heart failure.
--- NOTE | 2018-04-18 10:25 | CP.PCM.CON ---
<Hawa Sims - Last Filed: 04/18/18 11:35> History of Present Illness - History of Present Illness History of Present Illness: PGY-[address] Siu Nephro consult: ESRD on HD, TTSa Mr Estrada, 62 M, PMHx of Sarcoidosis, DM, vasculopath complicated with CAD w/ CABG/stents, CHF, cirrhosis, PVD, ESRD on hemodialysis T//Sat, complaining of abdominal pain x 1 day with intractable nausea and vomiting. He experienced 3 vomiting episodes yesterday, bilous vomitus, non-bloody. He denies increase salt intake, recent change of medicine, increase water intake. Last dialysis was here on the ground floor yesterday. ROS: (+) chills. (+) SOB (+) N/V. No abdominal pain. (+) constipation. (+) Oliguria, chronic (+) claudication (+) blister. Denies CP, KRUEGER, dizziness ED course: VS Afebrile hr 112. BNP [id number] EKG shows NSR at 78 BPM with left axis deviation and diffuse flipped t-wave CXR cardiomegaly, pulmonary congestion noted to the lungs bilaterally He received lasix, morphine, zofran CT C/A/P: large b/l pleural effusion, ascites mesenteric edema, anarsarca, PMH CAD w/ CABG/stents, CHF PVD/HLD/HTN Diabetes DM2 ESRD on hemodialysis T//Sat. Started HD x 3 and a half years ago osteoporosis, osteoarthritis, sarcoidosis Constipation Cirrhosis complicated by new onset ascites in 11/16/17 hard of hearing, hearing aids Depression PSHx: CAD with PCI, CABG, cholecystectomy, left arm fistula FHx: NC SHx: Denied any tobacco, ETOH or illicit drug use All: NKDA Meds: As per OCT PMD: Dr Chip Mensah Belt Buckle Maker: Dr Lockwood Moving Van Driver: Dr Moses Past Patient History - Infectious Disease Hx of Infectious Diseases: None - Tetanus Immunizations Tetanus Immunization: Unknown - Past Medical History & Family History Past Medical History?: Yes - Past Social History Smoking Status: Never Smoked - CARDIAC Hx Cardiac Disorders: Yes Hx Congestive Heart Failure: Yes Hx Hypertension: Yes - PULMONARY Hx Respiratory Disorders: Yes Hx Asthma: Yes Hx Pneumonia: Yes - NEUROLOGICAL Hx Neurological Disorder: No Hx Paralysis: No - HEENT Hx HEENT Problems: Yes Hx Cataracts: Yes Hx Deafness: Yes Hx Glaucoma: Yes - RENAL Hx Renal Failure: Yes (ESRD, CKD) - ENDOCRINE/METABOLIC Hx Diabetes Mellitus Type 2: Yes - HEMATOLOGICAL/ONCOLOGICAL Hx Blood Disorders: Yes Hx Anemia: Yes - INTEGUMENTARY Hx Dermatological Problems: No - MUSCULOSKELETAL/RHEUMATOLOGICAL Hx Musculoskeletal Disorders: No Hx Falls: No - GASTROINTESTINAL Hx Gastrointestinal Disorders: Yes Hx Constipation: Yes - GENITOURINARY/GYNECOLOGICAL Hx Genitourinary Disorders: No Hx Reproductive Disorders: No - PSYCHIATRIC Hx Psychophysiologic Disorder: Yes Hx Depression: Yes Hx Substance Use: No - SURGICAL HISTORY Hx Cholecystectomy: Yes Hx Coronary Artery Bypass Graft: Yes Hx Coronary Stent: Yes - ANESTHESIA Hx Anesthesia: Yes Hx Anesthesia Reactions: No Hx Malignant Hyperthermia: No Meds Allergies/Adverse Reactions: Allergies Allergy/AdvReac Type Severity Reaction Status Date / Time No Known Allergies Allergy Verified 11/13/17 00:48 - Medications Medications: Current Medications Albuterol Sulfate (Albuterol 0.083% Inhal Catarina (2.5 Mg/3 Ml) Ud) 2.5 mg INH [id number] [facility] Aspirin (Ecotrin) 325 mg PO DAILY [facility] Cilostazol (Pletal) 50 mg PO BID [facility] Clopidogrel Bisulfate (Plavix) 75 mg PO DAILY [facility] Dextrose (Dextrose 50% Inj) 50 ml IV STAT PRN; Protocol PRN Reason: Hypoglycemia Protocol Furosemide (Lasix) 40 mg PO DAILY [facility] Gabapentin (Neurontin) 300 mg PO DAILY [facility] PRN Reason: Protocol Hydralazine HCl (Apresoline) 25 mg PO DAILY [facility] Dextrose (Dextrose 5% In Water 1000 Ml) 1,000 mls @ 0 mls/hr IV .Q0M PRN; Protocol; Per Protocol PRN Reason: Hypoglycemia Protocol Insulin Human Lispro (Humalog Low) 0 units SC ACHS [facility] PRN Reason: Protocol Isosorbide Mononitrate (Imdur) 120 mg PO DAILY [facility] Metoprolol Tartrate (Lopressor) 50 mg PO BID [facility] Non-Formulary Medication (Budesonide/Formoterol Fumarate [Symbicort 160-4.5 Mcg Inhaler]) 2 puff IH BID [facility] Prednisone (Prednisone Tab) 2.5 mg PO DAILY [facility] Spironolactone (Aldactone) 50 mg PO BID [facility] Physical Exam - Constitutional Appears: No Acute Distress - Head Exam Head Exam: ATRAUMATIC, NORMAL INSPECTION, NORMOCEPHALIC - Eye Exam Eye Exam: EOMI, Normal appearance, PERRL. absent: Scleral icterus - ENT Exam ENT Exam: Mucous Membranes Moist - Neck Exam Additional comments: supple - Respiratory Exam Respiratory Exam: Decreased Breath Sounds (b/l lung bases), Rales, Wheezes. absent: Rhonchi - Cardiovascular Exam Cardiovascular Exam: REGULAR RHYTHM, +S1, +S2 - GI/Abdominal Exam GI & Abdominal Exam: Distended, Normal Bowel Sounds, Soft. absent: Firm, Guarding, Rigid, Tenderness - Extremities Exam Extremities exam: Positive for: normal capillary refill, pedal edema (R > L), pedal pulses present. Negative for: calf tenderness - Back Exam Back exam: absent: CVA tenderness (L), CVA tenderness (R) - Neurological Exam Neurological exam: Alert, Oriented x3 - Psychiatric Exam Psychiatric exam: Normal Affect, Normal Mood - Skin Skin Exam: Dry, Warm Results - Vital Signs Recent Vital Signs: Last Vital Signs Temp 98.0 F 04/18/18 08:51 Pulse 72 04/18/18 09:30 Resp 18 04/18/18 09:30 BP 141/69 04/18/18 09:30 Pulse Ox 95 04/18/18 09:30 - Labs Result Diagrams: 04/18/18 04:56 04/18/18 04:56 Assessment & Plan - Assessment and Plan (Free Text) Plan: Fluid overload manifested as dyspnea, b/l pleural effusion, mesenteric edema, ascites, anarsarca, likely due to decompensated cirrhosis. R/O CHF exacerbation - O2 NC PRN - lasix large Bibasilar pleural effusion - NPO for IR intervention Ascites - NPO for IR intervention to r/o SBP - F/u AFP, hepatitis panel - resume lasic BOD and aldactone per GI Bibasilar consolidation r/o PNA (HCAP) - (+) chills per patient. Afebrile. No leukopenia/leukocytosis - manage per primary. f/u blood culture, observe off antibiotics ESRD likely from sarcoidosis, DM, HTN - Dialysis tomorrow Anemia, likely due to Fe def and ESRD, stable - Follow up Fe study Alkalosis likely from vomiting Elevated troponin likely due to fluid overload in thoracic area - treat primary cause: fluid removal Sarcoidosis - on chronic prednison Hx CAD - continue ASA, plavix, metoprolol, imdur DM - tight sugar control. f/u A1c s/r/d/w Dr Siu <Pascual Siu S - Last Filed: 04/18/18 17:45> Meds - Medications Medications: Current Medications Albuterol Sulfate (Albuterol 0.083% Inhal Catarina (2.5 Mg/3 Ml) Ud) 2.5 mg INH [id number] [facility] Last Admin: 04/18/18 15:55 Dose: 2.5 mg Aspirin (Ecotrin) 325 mg PO DAILY [facility] Cilostazol (Pletal) 50 mg PO BID [facility] Last Admin: 04/18/18 10:48 Dose: 50 mg Clopidogrel Bisulfate (Plavix) 75 mg PO DAILY [facility] Dextrose (Dextrose 50% Inj) 50 ml IV STAT PRN; Protocol PRN Reason: Hypoglycemia Protocol Furosemide (Lasix) 40 mg PO DAILY [facility] Last Admin: 04/18/18 10:57 Dose: 40 mg Gabapentin (Neurontin) 300 mg PO DAILY [facility] PRN Reason: Protocol Last Admin: 04/18/18 10:49 Dose: 300 mg Hydralazine HCl (Apresoline) 25 mg PO DAILY [facility] Last Admin: 04/18/18 10:57 Dose: 25 mg Dextrose (Dextrose 5% In Water 1000 Ml) 1,000 mls @ 0 mls/hr IV .Q0M PRN; Protocol; Per Protocol PRN Reason: Hypoglycemia Protocol Insulin Human Lispro (Humalog Low) 0 units SC ACHS [facility] PRN Reason: Protocol Last Admin: 04/18/18 11:02 Dose: Not Given Isosorbide Mononitrate (Imdur) 120 mg PO DAILY [facility] Last Admin: 04/18/18 10:49 Dose: 120 mg Metoprolol Tartrate (Lopressor) 50 mg PO BID [facility] Last Admin: 04/18/18 10:57 Dose: 50 mg Non-Formulary Medication (Budesonide/Formoterol Fumarate [Symbicort 160-4.5 Mcg Inhaler]) 2 puff IH BID [facility] Last Admin: 04/18/18 17:15 Dose: Not Given Prednisone (Prednisone Tab) 2.5 mg PO DAILY [facility] Last Admin: 04/18/18 10:49 Dose: 2.5 mg Spironolactone (Aldactone) 50 mg PO BID [facility] Results - Vital Signs Recent Vital Signs: Last Vital Signs Temp 97.7 F 04/18/18 17:23 Pulse 73 04/18/18 17:23 Resp 19 04/18/18 17:23 BP 121/59 L 04/18/18 17:23 Pulse Ox 91 L 04/18/18 17:23 - Labs Result Diagrams: 04/18/18 04:56 04/18/18 04:56 Labs: Laboratory Results - last 24 hr 04/18/18 04/18/18 04/18/18 10:30 10:30 11:02 POC Glucose (mg/dL) 191 H Alpha Fetoprotein 6.8 Fluid Source Fluid Appearance Fluid WBC Fluid RBC Fluid Tot Cell Count Fluid Neutrophils Fluid Lymphocytes Fld Monocyte/Macrophag Fluid Comment Hepatitis A IgM Ab Negative Hep Bs Antigen Negative Hep B Core IgM Ab Negative Hepatitis C Antibody Negative 04/18/18 04/18/18 13:00 16:24 POC Glucose (mg/dL) 231 H Alpha Fetoprotein Fluid Source Peritoneal/ascites Fluid Appearance Turbid Fluid WBC 350.0 H Fluid RBC 33569.0 H Fluid Tot Cell Count 100 H Fluid Neutrophils 4.6 H Fluid Lymphocytes 95.4 H Fld Monocyte/Macrophag TEST NOT PERFORMED Fluid Comment TEST NOT PERFORMED Hepatitis A IgM Ab Hep Bs Antigen Hep B Core IgM Ab Hepatitis C Antibody Assessment & Plan - Assessment and Plan (Free Text) Plan: Pt seen and examined. I have reviewed the note of the medical and health services manager and agree with it. I have discussed the assessment and plan with the resident. I have reviewed the patient's labs and medications. Pt with volume overload. He will continue with HD on T//. He has ascites and may need tap. Spoke to at bedside. spoke to HD nurse. He has consent on the chart.
--- NOTE | 2018-04-18 10:45 | CON ---
Copied To: Luis Friedman MD Attending MD: Luis Friedman MD DATE: 04/18/2018 CONSULTATION IN GASTROENTEROLOGY REQUESTING PHYSICIAN: Dr. Flynn. REASON FOR CONSULT: I have been asked to see this 62-year-old male with multiple comorbidities including coronary artery disease; end-stage renal disease, on dialysis; congestive heart failure; peripheral vascular disease; hypertension; diabetes mellitus; sarcoidosis; cirrhosis of the liver, presumably secondary to sarcoidosis; who comes to the hospital with 1-day history of diffuse abdominal pain, nausea, vomiting and loss of appetite. The patient was unable to keep any food or liquid down. CT scan of the abdomen and pelvis performed in the emergency room shows large bilateral pleural effusions as well as a large amount of ascites with a cirrhotic-appearing liver. He currently denies any abdominal pain, nausea, vomiting and is asking for something to eat. There is no evidence of bowel obstruction on the CAT scan. He denies any fevers, chills, hematemesis or melena. PAST MEDICAL HISTORY: As above. Again, he has a history of coronary artery disease, status post multiple coronary artery stents; end-stage renal disease, on hemodialysis; diabetes mellitus; cirrhosis of the liver; sarcoidosis; congestive heart failure; peripheral vascular disease. PAST SURGICAL HISTORY: Notable for coronary artery bypass surgery, cholecystectomy. SOCIAL HISTORY: He denies cigarette smoking or alcohol use. FAMILY HISTORY: Noncontributory. REVIEW OF SYSTEMS: Fourteen-point review of systems is notable for abdominal pain, nausea, vomiting. MEDICATIONS AT HOME: Include aspirin, Pletal, Plavix, Neurontin, simvastatin, prednisone, Tylenol No. 3, Lasix, hydroxyzine and aspirin. PHYSICAL EXAMINATION: GENERAL: Well-developed male, lying in bed, in no acute distress. VITAL SIGNS: Reveal temperature of 98, blood pressure 141/69, heart rate of 72. HEENT: Reveals sclerae to be white. Conjunctivae pale. NECK: Supple. CHEST: Reveals decreased breath sounds. HEART: Reveals a regular rate and rhythm. ABDOMEN: Distended with ascites, nontender. No mass. EXTREMITIES: Show 2+ pedal edema. LABORATORY DATA: Reveal white blood cell count 4.3, hemoglobin 11.4, platelet count of 131,000. Coags reveal PT 19.6, INR 1.69. Chemistries reveal BUN 28, creatinine 3.4, blood sugar 276, AST 60, ALT 48, alkaline phosphatase of 256, BNP of 175,000, albumin of 3.8. IMPRESSION: A 62-year-old male with multiple comorbidities including coronary artery disease, congestive heart failure, diabetes mellitus, end-stage renal disease, cirrhosis, apparently secondary to sarcoidosis with chronic ascites with a 1-day history of diffuse abdominal pain, nausea and vomiting. I suspect that this is related to a gastroenteritis. There is no evidence of bowel obstruction on CAT scan. One must to also rule out spontaneous bacterial peritonitis. The patient is now hungry, asking for something to eat. There is no evidence of any diarrhea. The patient is volume overloaded with large amount of ascites and bilateral pleural effusions. He does make some urine stating he urinates twice a day. RECOMMENDATIONS: 1. We will request Interventional Radiology to do a paracentesis to rule out SBP. 2. We will resume the patient's Lasix 40 mg twice a day as well as Aldactone 50 mg b.i.d. 3. We will advance diet. If diet is tolerated and the paracentesis is okay, the patient can be discharged home with outpatient followup. 4. Check hepatitis serology and alpha-fetoprotein tumor marker levels. Luis Friedman MD
[2018-04-18] MEDS: Cilostazol 50 mg Tab UD PO SCH ×2 (10:48→17:51)
[2018-04-18] MEDS: Insulin Lispro (humaLOG) LOW Coverage SC SCH ×3 (11:02→21:33)
[2018-04-18 13:34] LABS: BODY FLUID TYPE PERITONEAL/ASCITES
--- NOTE | 2018-04-18 13:41 | CP.PCM.HP ---
<José Perrin - Last Filed: 04/18/18 18:07> History of Present Illness - History of Present Illness History of Present Illness: Hospitalist Service H&P José Perrin, PGY-3 IM CC: Nausea/emesis x3 since yesterday, Abd fullness This is a 62 yo M with PMH of Sarcoidosis, DM, HTN, HLD, CAD s/p Stents and CABG, CHF, cirrhosis, PVD, ESRD on HD (//Sat), osteoarthritis, and osteoporosis who presents with complaint of nausea and 3x emesis (non-bloody /non-bilious), and also with complaint of increasing abdominal fullness, all beginning yesterday. Reports compliance with HD schedule, last went yesterday for 3.5 hrs, which is his normal amount. Reports mild sensation of malaise later in day, and then emesis after eating a light meal at approx 4pm yesterday. Nausea has persisted, and pt reports worsening sensation of abdominal fullness, but no other acute complaints. Denies abdominal pain, fevers, chills, bilious or bloody emesis, diarrhea, melena, hematochezia, PO intolerance (still tolerating fluids), chest pain, shortness of breath. Admits to baseline constipation, chronic cough with clear-yellow secretions, and abdominal fullness (but not pain). Does still make some urine. Reports these symptoms are similar to those he experienced before being admitted to [facility] in October 2017 (when he was found to have cirrhosis), except he did not have any emesis prior to that admission. Reports compliance with all home medications. All other ROS in 12-system review were negative. Of note, in the ED, labs were concerning for BNP > 175,000, and CT abd/pelvis was notable for Cirrhosis, Large bilateral pleural effusions, ascites, mesenteric edema, anasarca, and bibasilar consolidation adjacent to pleural effusions. PMH: as above PSH: cardiac cath with stenting, CABG, cholecystectomy, left arm fistula Fam Hx: denies any fam hx of renal disease, liver disease, or malignancy Soc Hx: Denies ever any tobacco, ETOH, or illicits/IVDA PMD: Dr. Mensah Materials Buyer: Dr. Lockwood Colorer Machine: Dr. Perdue Present on Admission - Present on Admission Any Indicators Present on Admission: No History of DVT/PE: No History of Uncontrolled Diabetes: No Urinary Catheter: No Review of Systems - Review of Systems All systems: reviewed and no additional remarkable complaints except (as per HPI ) Past Patient History - Infectious Disease Hx of Infectious Diseases: None - Tetanus Immunizations Tetanus Immunization: Unknown - Past Medical History & Family History Past Medical History?: Yes - Past Social History Smoking Status: Never Smoked - CARDIAC Hx Cardiac Disorders: Yes Hx Congestive Heart Failure: Yes Hx Hypertension: Yes - PULMONARY Hx Respiratory Disorders: Yes Hx Asthma: Yes Hx Pneumonia: Yes - NEUROLOGICAL Hx Neurological Disorder: No Hx Paralysis: No - HEENT Hx HEENT Problems: Yes Hx Cataracts: Yes Hx Deafness: Yes Hx Glaucoma: Yes - RENAL Hx Renal Failure: Yes (ESRD, CKD) - ENDOCRINE/METABOLIC Hx Diabetes Mellitus Type 2: Yes - HEMATOLOGICAL/ONCOLOGICAL Hx Blood Disorders: Yes Hx Anemia: Yes - INTEGUMENTARY Hx Dermatological Problems: No - MUSCULOSKELETAL/RHEUMATOLOGICAL Hx Musculoskeletal Disorders: No Hx Falls: No - GASTROINTESTINAL Hx Gastrointestinal Disorders: Yes Hx Constipation: Yes - GENITOURINARY/GYNECOLOGICAL Hx Genitourinary Disorders: No Hx Reproductive Disorders: No - PSYCHIATRIC Hx Psychophysiologic Disorder: Yes Hx Depression: Yes Hx Substance Use: No - SURGICAL HISTORY Hx Cholecystectomy: Yes Hx Coronary Artery Bypass Graft: Yes Hx Coronary Stent: Yes - ANESTHESIA Hx Anesthesia: Yes Hx Anesthesia Reactions: No Hx Malignant Hyperthermia: No Meds Allergies/Adverse Reactions: Allergies Allergy/AdvReac Type Severity Reaction Status Date / Time No Known Allergies Allergy Verified 11/13/17 00:48 Physical Exam - Constitutional Appears: Non-toxic, No Acute Distress - Head Exam Head Exam: ATRAUMATIC, NORMAL INSPECTION, NORMOCEPHALIC - Eye Exam Eye Exam: EOMI, Normal appearance. absent: Conjunctival injection, Scleral icterus Pupil Exam: absent: Fixed, Irregular - ENT Exam ENT Exam: Mucous Membranes Moist. absent: Mucous Membranes Dry - Neck Exam Neck exam: Positive for: Full Rom. Negative for: Lymphadenopathy - Respiratory Exam Respiratory Exam: Decreased Breath Sounds (decreased breath sounds at bilateral bases), Rales (mild bibasilar rales), NORMAL BREATHING PATTERN. absent: Accessory Muscle Use, Chest Wall Tenderness, Clear to Auscultation Bilateral, Rhonchi, Wheezes, Respiratory Distress - Cardiovascular Exam Cardiovascular Exam: REGULAR RHYTHM, RRR, +S1, +S2. absent: Bradycardia, Tachycardia, Irregular Rhythm, JVD, +S4 - GI/Abdominal Exam Additional comments: abd grossly distended, firm but not rigid on palpation, mildly pitting on palpation of abd (trace to +1), hyper-resonant bowel sounds, abdominal fullness dependant on gravity/changing with position changes, dullness to percussion throughout abdomen - Rectal Exam Rectal Exam: Deferred - Extremities Exam Extremities exam: Positive for: pedal edema (+2-3 pitting edema in bilateral feet, +2 from ankle to mid-millan, R>L). Negative for: calf tenderness, joint swelling, tenderness, pedal pulses present (unable to palpate through edema) Additional comments: bandage on right medial aspect of right millan, site of burst fluid-filled bulla ( several days prior as per pt), no appreciable blood or pus at site, no surrounding erythema or fluctuance, no tenderness on palpation - Back Exam Back exam: absent: CVA tenderness (L), CVA tenderness (R) - Neurological Exam Additional comments: awake and alert, following all commands appropriately, moving all extremities spontaneously - Psychiatric Exam Psychiatric exam: Normal Affect, Normal Mood - Skin Skin Exam: Dry, Intact (except as documented in extremities exam), Normal Color , Warm Results - Vital Signs Recent Vital Signs: Last Vital Signs Temp 98.0 F 04/18/18 08:51 Pulse 69 04/18/18 10:57 Resp 18 04/18/18 09:30 BP 135/76 04/18/18 10:57 Pulse Ox 95 04/18/18 09:30 - Labs Result Diagrams: 04/18/18 04:56 04/18/18 04:56 Labs: Laboratory Results - last 24 hr 04/18/18 11:02 POC Glucose (mg/dL) 191 H Assessment & Plan - Assessment and Plan (Free Text) Assessment: This is a 62 yo M with PMH of Sarcoidosis, DM, HTN, HLD, CAD s/p Stents and CABG, CHF, cirrhosis, PVD, ESRD on HD (//Sat), osteoarthritis, and osteoporosis who presents with complaint of nausea and 3x emesis (non-bloody /non-bilious), and also with complaint of increasing abdominal fullness, all beginning yesterday. Being worked up for significant abdominal ascites in setting of ESRD and Cirrhosis, as well as likely pleural effusion. Plan: 1) Nausea/emesis - improved by time of exam -likely 2/2 extensive abdominal ascites compressing stomach +/- cirrhotic gastropathy -no current emesis or nausea, but will keep NPO pending possible paracentesis for ascites -labs obtained in ED negative for acute electrolyte abnormalities, will continue to monitor; suggestive of mild alkalosis, most likely 2/2 emesis -given heart history, will defer on Zofran, if becomes acutely nauseous or has new episodes of emesis will reconsider 2) Abdominal ascites -ddx: 2/2 cirrhosis vs ESRD vs CHF, likely multifactorial -Pt reports ESRD and Cirrhosis 2/2 Sarcoidosis -compliant with T/Th/Sat HD, last session yesterday, no recent shortened or missed sessions as per patient -LFTs reviewed, mild AST and Alk phos elevations, appears to be new baseline when compared to levels from October 2017 admission -BNP severely elevated at > [id number], will recheck in AM to confirm real elevation and not machine error -lack of fever or leukocytosis, no abd pain, low suspicion for SBP -Pt's Colorer Machine is Dr. Siu, consulted, appreciate all recs; will continue home diuretic regimen pending his recs -GI (Dr. Friedman) consulted, appreciate all recs -IR consulted for possible therapeutic and diagnostic paracentesis 3) ESRD -Nephro consulted, appreciate all recs -Schedule is T/Th/Sat, defer to Nephro for determination if extra session needed 4) Hx Sarcoidosis -continue home steroids 5) Anemia -borderline microcytic with wide RDW, Iron deficiency vs anemia of chronic disease vs anemia 2/2 ESRD -iron studies pending -no need for transfusion at this time, will monitor on daily labs 6) Elevated troponin -likely renal leak from ESRD vs myocardial strain 2/2 CHF with severely elevated BNP -appears to be baseline for this patient based on chart review -not complaining of any chest pain or shortness of breath -EKG NSR without signs of ST depressions or elevations, only notable for LBBB also seen on EKG in October 2017 -concern/suspicion for ACS very low, will repeat trop in AM 7) Hx CAD/CABG/CHF, HTN -holding ASA/Plavix today for possible procedure, will restart tomorrow -continue home Imdur, Metoprolol, Aldactone, Hydralazine, holding other BP meds at this time to prevent too-aggressive BP drop, will restart others as tolerated or as per Nephro/GI recs Dispo: Telemetry, pending possible paracentesis, pending HD as per Nephro FEN: NPO pending possible procedure, if no procedure then will start on clear liquid diet Access: Peripheral IV, L arm AV fistula Consults: Nephro, GI, IR Ppx: Pepcid for GI ppx, SCDs for DVT (avoid AC in setting of active liver disease, increased risk of bleeding) Patient seen, reviewed, and discussed with attending, Dr. Flynn Decision To Admit - Pt Status Changed To: Hospital Disposition Of: Inpatient Admission - Admit Certification Admit to Inpatient:: After my assessment, the patient will require hospitalization for at least two midnights. This is because of the severity of symptoms shown, intensity of services needed, and/or the medical risk in this patient being treated as an outpatient. - . Bed Request Type: Telemetry <Miracle Flynn - Last Filed: 04/19/18 07:21> Results - Vital Signs Recent Vital Signs: Last Vital Signs Temp 97.8 F 04/19/18 06:00 Pulse 69 04/19/18 06:00 Resp 20 04/19/18 06:00 BP 146/82 04/19/18 06:00 Pulse Ox 95 04/19/18 06:00 - Labs Result Diagrams: 04/18/18 04:56 04/18/18 04:56 Labs: Laboratory Results - last 24 hr 04/18/18 04/18/18 04/18/18 10:30 10:30 11:02 POC Glucose (mg/dL) 191 H Alpha Fetoprotein 6.8 Fluid Source Fluid Appearance Fluid WBC Fluid RBC Fluid Tot Cell Count Fluid Neutrophils Fluid Lymphocytes Fld Monocyte/Macrophag Fluid Comment Hepatitis A IgM Ab Negative Hep Bs Antigen Negative Hep B Core IgM Ab Negative Hepatitis C Antibody Negative 04/18/18 04/18/18 13:00 16:24 POC Glucose (mg/dL) 231 H Alpha Fetoprotein Fluid Source Peritoneal/ascites Fluid Appearance Turbid Fluid WBC 350.0 H Fluid RBC 12155.0 H Fluid Tot Cell Count 100 H Fluid Neutrophils 4.6 H Fluid Lymphocytes 95.4 H Fld Monocyte/Macrophag TEST NOT PERFORMED Fluid Comment TEST NOT PERFORMED Hepatitis A IgM Ab Hep Bs Antigen Hep B Core IgM Ab Hepatitis C Antibody Attending/Attestation - Attestation I have personally seen and examined this patient.: Yes I have fully participated in the care of the patient.: Yes I have reviewed all pertinent clinical information: Yes Notes (Text): 04/18/18 62 year old male with past medical history of diabetes, hypertension, CAD, CHF, cirrhosis and ESRD on HD T// who presents with complaint of abdominal pain with nausea and vomiting. On CT scan he was found to have significant ascites and pleural effusion in setting of ESRD and cirrhosis. GI and IR evaluation were requested for paracentesis. He is on lasix and spironalactone. Nephrology consulted for hemodialysis, next session would be tomorrow. Miracle Flynn MD Hospitalist.
[2018-04-18 13:50] LABS: BF GROSS APPEARANCE TURBID (CLEAR)
[2018-04-18 13:51] LABS: BODY FLUID TOTAL COUNT 100 (0-0)
--- NOTE | 2018-04-18 15:03 | US ---
PROCEDURE: Ultrasound guided paracentesis. HISTORY: CHF. Sarcoid cirrhosis. Recurrent ascites with abdominal pain. Needs diagnostic and therapeutic paracentesis PHYSICIAN(S): Nolberto Fitzgerald MD. TECHNIQUE: The relative risks and indications for the procedure were explained to the patient and informed written consent obtained. Sonography of the abdomen was performed in a supine position. This revealed a small to moderate amount of non-loculated ascites, greatest in the right lower abdomen. A puncture site was selected and the area was prepped and draped in the usual sterile fashion. 1% Xylocaine was used to anesthetize the skin and soft tissues. A 7 Maori paracentesis catheter was trocared into the right lower abdomenand 2100 cc of johnathan fluid aspirated. The appropriate labs were sent. IMPRESSION: Ultrasound-guided paracentesis in the right lower abdomen. 2100 cc of fluid were aspirated. Labs were sent
--- NOTE | 2018-04-18 15:03 | US ---
HISTORY: Leg pain and swelling. Evaluate for DVT PHYSICIAN(S): Nolberto Fitzgerald MD. TECHNIQUE: Duplex sonography and color-flow Doppler with graded compression were used to evaluate the deep venous systems of both lower extremities. The exam is limited by the FINDINGS: The visualized deep venous systems of both lower extremities are sonographically normal and compressible. Normal wave forms and augmentation are seen. There is no sonographic evidence for deep venous thrombosis in the visualized segments of both lower extremities. IMPRESSION: No sonographic evidence for deep venous thrombosis in the visualized segments of both lower extremities.
[2018-04-18] MEDS: Albuterol 0.083% Inhal Sol (2.5 mg/3 mL) UD INH SCH ×2 (15:55→19:32)
[2018-04-18 16:21] LABS: HEPATITIS B SURFACE AG Negative (NEGATIVE)
[2018-04-18 16:27] LABS: HEPATITIS A IGM NEGATIVE (NEGATIVE); HEPATITIS B CORE AB NEGATIVE (NEGATIVE)
[2018-04-18 16:38] LABS: HEPATITIS C ANTIBODY NEGATIVE (NEGATIVE)
[2018-04-18] MEDS: Non Formulary Medication (Budesonide/Formoterol Fumarate [Symbicort 160-4.5 Mcg Inhaler] 2 IH SCH (17:15)
[2018-04-19] MEDS: Albuterol 0.083% Inhal Sol (2.5 mg/3 mL) UD INH SCH ×3 (02:17→14:00)
[2018-04-19 02:55] VITALS: RESP 20; TEMP 97.8
[2018-04-19 06:50] VITALS: O2SAT 95
[2018-04-19 07:08] LABS: BASO # 0.02 K/mm3 (0.0-2.0); BASO % 0.5 % (0.0-3.0); EOS # 0.2 (0.0-0.7); EOS % 5.3 % (1.5-5.0); GRAN # 2.91 (1.4-6.5); GRAN % 70.3 % (50.0-68.0); LYMPH # 0.7 (1.2-3.4); LYMPH % 17.1 % (22.0-35.0); MEAN CELL VOLUME 81.8 fl (80.0-105.0); MEAN CORPUSCULAR HEMOGLOBIN 28.4 pg (25.0-35.0); MEAN CORPUSCULAR HGB CONC 34.7 g/dl (31.0-37.0); MONO # 0.3 (0.1-0.6); MONO % 6.8 % (1.0-6.0); PLATELET COUNT 118 10^3/uL (120.0-450.0); RBC 4.23 10^6/uL (3.5-6.1); WHITE BLOOD COUNT 4.1 10^3/ul (4.5-11.0)
[2018-04-19 07:21] LABS: IRON 60 ug/dL (45-180)
[2018-04-19 07:23] LABS: ALBUMIN 3.4 g/dL (3.0-4.8); CALCIUM 8.1 mg/dL (8.4-10.5)
[2018-04-19 07:30] LABS: % IRON SATURATION 26 % (20-55); TOTAL IRON BINDING CAPACITY 233 ug/dL (261-462)
[2018-04-19] MEDS: Non Formulary Medication (Budesonide/Formoterol Fumarate [Symbicort 160-4.5 Mcg Inhaler] 2 IH SCH (09:09)
[2018-04-19] MEDS: Insulin Lispro (humaLOG) LOW Coverage SC SCH (09:09)
[2018-04-19] MEDS: Cilostazol 50 mg Tab UD PO SCH (09:10)
[2018-04-19] MEDS ORDERED: Aspirin 325 mg EC Tablets PO SCH (10:00)
--- NOTE | 2018-04-19 10:56 | CP.PCM.PN ---
Addendum entered and electronically signed by Hawa Sims DO 04/19/18 10:57 : small volume 2100 cc ascitic fluid removed. turbid. wbc only 350. Original Note: <Hawa Sims - Last Filed: 04/19/18 10:53> Subjective - Date & Time of Evaluation Date of Evaluation: 04/19/18 Time of Evaluation: 10:53 - Subjective Subjective: PGY-[address] Siu No acute event overnight. No acute complained. Objective - Vital Signs/Intake and Output Vital Signs (last 24 hours): Temp Pulse Resp BP Pulse Ox 97.8 F 69 20 146/82 95 04/19/18 06:00 04/19/18 06:00 04/19/18 06:00 04/19/18 06:00 04/19/18 06:00 Intake and Output: 04/19/18 04/19/18 06:59 18:59 Intake Total 0 Balance 0 - Medications Medications: Current Medications Albuterol Sulfate (Albuterol 0.083% Inhal Catarina (2.5 Mg/3 Ml) Ud) 2.5 mg INH [id number] [facility] Last Admin: 04/19/18 07:38 Dose: 2.5 mg Aspirin (Ecotrin) 325 mg PO DAILY [facility] Last Admin: 04/19/18 09:09 Dose: Not Given Cilostazol (Pletal) 50 mg PO BID [facility] Last Admin: 04/19/18 09:10 Dose: Not Given Clopidogrel Bisulfate (Plavix) 75 mg PO DAILY [facility] Last Admin: 04/19/18 09:10 Dose: Not Given Dextrose (Dextrose 50% Inj) 50 ml IV STAT PRN; Protocol PRN Reason: Hypoglycemia Protocol Famotidine (Pepcid) 20 mg PO HS [facility] Furosemide (Lasix) 40 mg PO DAILY [facility] Last Admin: 04/19/18 09:09 Dose: Not Given Gabapentin (Neurontin) 300 mg PO DAILY [facility] PRN Reason: Protocol Last Admin: 04/19/18 09:10 Dose: Not Given Hydralazine HCl (Apresoline) 25 mg PO DAILY [facility] Last Admin: 04/19/18 09:08 Dose: Not Given Dextrose (Dextrose 5% In Water 1000 Ml) 1,000 mls @ 0 mls/hr IV .Q0M PRN; Protocol; Per Protocol PRN Reason: Hypoglycemia Protocol Insulin Human Lispro (Humalog Low) 0 units SC ACHS [facility] PRN Reason: Protocol Last Admin: 04/19/18 09:09 Dose: Not Given Isosorbide Mononitrate (Imdur) 120 mg PO DAILY [facility] Last Admin: 04/19/18 09:09 Dose: Not Given Metoprolol Tartrate (Lopressor) 50 mg PO BID [facility] Last Admin: 04/19/18 09:10 Dose: Not Given Non-Formulary Medication (Budesonide/Formoterol Fumarate [Symbicort 160-4.5 Mcg Inhaler]) 2 puff IH BID [facility] Last Admin: 04/19/18 09:09 Dose: Not Given Prednisone (Prednisone Tab) 2.5 mg PO DAILY [facility] Last Admin: 04/19/18 09:10 Dose: Not Given Spironolactone (Aldactone) 50 mg PO BID [facility] Last Admin: 04/19/18 09:08 Dose: Not Given - Labs Labs: 04/19/18 06:00 04/19/18 06:00 PT 19.6 SECONDS (9.4-12.5) H 04/18/18 04:56 INR 1.69 04/18/18 04:56 APTT 30.8 Seconds (25.1-36.5) 04/18/18 04:56 - Constitutional Appears: No Acute Distress - Head Exam Head Exam: ATRAUMATIC, NORMAL INSPECTION, NORMOCEPHALIC - Eye Exam Eye Exam: EOMI, Normal appearance, PERRL. absent: Scleral icterus Pupil Exam: NORMAL ACCOMODATION - ENT Exam ENT Exam: Mucous Membranes Moist - Neck Exam Additional comments: supple - Respiratory Exam Respiratory Exam: Decreased Breath Sounds (b/l lung bases - improve as compared to yesterday), Rales. absent: Rhonchi, Wheezes - Cardiovascular Exam Cardiovascular Exam: REGULAR RHYTHM, +S1, +S2 - GI/Abdominal Exam GI & Abdominal Exam: Distended, Hypoactive Bowel Sounds. absent: Tenderness Additional comments: dressing with mild serous drainage - Extremities Exam Extremities Exam: Normal Capillary Refill, Pedal Edema. absent: Calf Tenderness - Back Exam Back Exam: absent: CVA tenderness (L), CVA tenderness (R) - Neurological Exam Neurological Exam: Alert, Awake, Oriented x3 - Psychiatric Exam Psychiatric exam: Normal Affect, Normal Mood - Skin Skin Exam: Dry, Warm Assessment and Plan - Assessment and Plan (Free Text) Plan: Fluid overload manifested as dyspnea, b/l pleural effusion, mesenteric edema, ascites, anarsarca likely due to decompensated cirrhosis. R/O CHF exacerbation Elevated BNP - O2 NC PRN - Continue diuresis & hemodialysis T T Sa with ultrafiltration to remove fluid Ascites, s/p paracentesis, POD #__1__ - Pending SAAG, gram stain, culture, cytology - Hepatitis negative - F/u AFP HTN - continue hydralazine, lasix, aldactone large Bibasilar pleural effusion Bibasilar consolidation unlikely PNA (HCAP) - (+) chills per patient. Afebrile. Obseerve off ABX. managed per primar - breathing improves s/p paracentesis Anemia, likely due to ESRD, stable - Not Fe deficient - Pending ferritin Alkalosis likely from vomiting - improves Elevated troponin likely due to fluid overload in thoracic area in the setting of decrease clearance from ESRD - treat primary cause: fluid removal ESRD likely from sarcoidosis, DM, HTN - Continue dialysis Sarcoidosis - on chronic prednison Hx CAD - continue ASA, plavix, metoprolol, imdur Hx COPD - continue symbicort DM - tight sugar control. f/u A1c Prophylaxis - renal dose of pepcid s/r/d/w Dr Siu <Pascual Siu S - Last Filed: 04/19/18 18:24> Objective - Vital Signs/Intake and Output Vital Signs (last 24 hours): Temp Pulse Resp BP Pulse Ox 97.8 F 76 20 136/54 L 95 04/19/18 06:00 04/19/18 14:00 04/19/18 06:00 04/19/18 13:15 04/19/18 06:00 Intake and Output: 04/19/18 04/19/18 06:59 18:59 Intake Total 0 Balance 0 - Medications Medications: Current Medications Albuterol Sulfate (Albuterol 0.083% Inhal Catarina (2.5 Mg/3 Ml) Ud) 2.5 mg INH [id number] [facility] Last Admin: 04/19/18 14:00 Dose: Not Given Aspirin (Ecotrin) 325 mg PO DAILY [facility] Last Admin: 04/19/18 09:09 Dose: Not Given Cilostazol (Pletal) 50 mg PO BID [facility] Last Admin: 04/19/18 09:10 Dose: Not Given Clopidogrel Bisulfate (Plavix) 75 mg PO DAILY [facility] Last Admin: 04/19/18 09:10 Dose: Not Given Dextrose (Dextrose 50% Inj) 50 ml IV STAT PRN; Protocol PRN Reason: Hypoglycemia Protocol Famotidine (Pepcid) 20 mg PO [facility] Furosemide (Lasix) 40 mg PO DAILY [facility] Last Admin: 04/19/18 09:09 Dose: Not Given Gabapentin (Neurontin) 300 mg PO DAILY [facility] PRN Reason: Protocol Last Admin: 04/19/18 09:10 Dose: Not Given Hydralazine HCl (Apresoline) 25 mg PO DAILY [facility] Last Admin: 04/19/18 09:08 Dose: Not Given Dextrose (Dextrose 5% In Water 1000 Ml) 1,000 mls @ 0 mls/hr IV .Q0M PRN; Protocol; Per Protocol PRN Reason: Hypoglycemia Protocol Insulin Human Lispro (Humalog Low) 0 units SC ACHS [facility] PRN Reason: Protocol Last Admin: 04/19/18 09:09 Dose: Not Given Isosorbide Mononitrate (Imdur) 120 mg PO DAILY [facility] Last Admin: 04/19/18 09:09 Dose: Not Given Metoprolol Tartrate (Lopressor) 50 mg PO BID [facility] Last Admin: 04/19/18 09:10 Dose: Not Given Non-Formulary Medication (Budesonide/Formoterol Fumarate [Symbicort 160-4.5 Mcg Inhaler]) 2 puff IH BID [facility] Last Admin: 04/19/18 09:09 Dose: Not Given Prednisone (Prednisone Tab) 2.5 mg PO DAILY [facility] Last Admin: 04/19/18 09:10 Dose: Not Given Spironolactone (Aldactone) 50 mg PO BID [facility] Last Admin: 04/19/18 09:08 Dose: Not Given - Labs Labs: 04/19/18 06:00 04/19/18 06:00 PT 19.6 SECONDS (9.4-12.5) H 04/18/18 04:56 INR 1.69 04/18/18 04:56 APTT 30.8 Seconds (25.1-36.5) 04/18/18 04:56 Assessment and Plan - Assessment and Plan (Free Text) Plan: Pt seen and examined. I have reviewed the note of the medical billing specialist and agree with it. I have discussed the assessment and plan with the resident. I have reviewed the patient's labs and medications. Pt has volume overload and ascites. He had a abd tap done yesterday. He feels better. He was seen on dialysis. Pt is feeling better. Eating well. Pain is controlled. Will try to remove fluid on HD today.
--- NOTE | 2018-04-19 14:02 | PN ---
Copied To: Luis Friedman MD Attending MD: Luis Friedman MD DATE: 04/19/2018 SUBJECTIVE: The patient was seen in hemodialysis. He feels much better. He is status post paracentesis. He denies any further nausea, vomiting, abdominal pain. He is tolerating solid foods. PHYSICAL EXAMINATION: VITAL SIGNS: Reveal temperature of 97.8, blood pressure 146/82, heart rate of 69. HEENT: Reveals sclerae to be white. Conjunctivae are pale. NECK: Supple. CHEST: Reveals lungs to be clear. HEART: Reveals a regular rate and rhythm. ABDOMEN: Distended with ascites. EXTREMITIES: Show trace pedal edema. LABORATORY DATA: Reveals white blood cell count 4.1, hemoglobin 12. Ascites fluid shows wbc's of 350 with total cell count of 100 and fluid neutrophils of 4.6. CBC reveals white blood cell count 4.1, hemoglobin 12, platelet count of 118,000. Serologies show hepatitis serology to be negative. IMPRESSION: 1. A 62-year-old male with end-stage renal disease, on hemodialysis with cirrhosis of the liver, ascites. Admitted to the hospital with abdominal pain, nausea and vomiting. The patient underwent a paracentesis. The cell count of the fluid is not suggestive of spontaneous bacterial peritonitis. 2. Coronary artery disease. 3. Congestive heart failure. 4. Sarcoid. 5. Peripheral vascular disease. RECOMMENDATIONS: Continue Lasix and Aldactone. Luis Friedman MD
[2018-04-19 14:16] VITALS: BMI 23.8
[2018-04-19 14:41] VITALS: BP 136/54
--- NOTE | 2018-04-19 14:58 | CP.PCM.DIS ---
Provider - Provider Date of Admission: 04/18/18 07:13 Attending physician: Miracle Flynn MD Primary care physician: Meli Eid MD Time Spent in preparation of Discharge (in minutes): 45 Diagnosis - Discharge Diagnosis (1) Ascites Status: Resolved Priority: Medium (2) ESRD (end stage renal disease) Status: Chronic Priority: Medium (3) Nausea Status: Resolved Priority: Medium (4) Diabetes mellitus Status: Chronic Priority: Medium (5) Sarcoidosis Status: Chronic Priority: Medium (6) CHF (congestive heart failure) Status: Chronic Priority: Medium (7) HLD (hyperlipidemia) Status: Chronic Priority: Medium (8) HTN (hypertension) Status: Chronic Priority: Medium (9) CAD (coronary artery disease) Status: Chronic Priority: Medium Hospital Course - Lab Results Lab Results: Micro Results 04/18/18 13:00 Ascitic Fluid Gram Stain - Final 04/18/18 13:00 Ascitic Fluid Anaerobic Culture - Final NO ANAEROBES ISOLATED. 04/18/18 13:00 Ascitic Fluid Body Fluid Culture - Preliminary NO GROWTH AFTER 24 HOURS Most Recent Lab Values WBC 4.1 10^3/ul (4.5-11.0) L 04/19/18 06:00 RBC 4.23 10^6/uL (3.5-6.1) 04/19/18 06:00 Hgb 12.0 g/dL (14.0-18.0) L 04/19/18 06:00 Hct 34.6 % (42.0-52.0) L 04/19/18 06:00 MCV 81.8 fl (80.0-105.0) 04/19/18 06:00 MCH 28.4 pg (25.0-35.0) 04/19/18 06:00 MCHC 34.7 g/dl (31.0-37.0) 04/19/18 06:00 RDW 17.0 % (11.5-14.5) H 04/19/18 06:00 Plt Count 118 10^3/uL (120.0-450.0) L 04/19/18 06:00 Gran % 70.3 % (50.0-68.0) H 04/19/18 06:00 Lymph % (Auto) 17.1 % (22.0-35.0) L 04/19/18 06:00 [place] % (Auto) 6.8 % (1.0-6.0) H 04/19/18 06:00 Eos % (Auto) 5.3 % (1.5-5.0) H 04/19/18 06:00 Baso % (Auto) 0.5 % (0.0-3.0) 04/19/18 06:00 Gran # 2.91 (1.4-6.5) 04/19/18 06:00 Lymph # (Auto) 0.7 (1.2-3.4) L 04/19/18 06:00 [place] # (Auto) 0.3 (0.1-0.6) 04/19/18 06:00 Eos # (Auto) 0.2 (0.0-0.7) 04/19/18 06:00 Baso # (Auto) 0.02 K/mm3 (0.0-2.0) 04/19/18 06:00 PT 19.6 SECONDS (9.4-12.5) H 04/18/18 04:56 INR 1.69 04/18/18 04:56 APTT 30.8 Seconds (25.1-36.5) 04/18/18 04:56 Sodium 138 mmol/L (132-148) 04/19/18 06:00 Potassium 4.3 mmol/L (3.6-5.0) 04/19/18 06:00 Chloride 93 mmol/L (98-107) L 04/19/18 06:00 Carbon Dioxide 32 mmol/L (21-33) 04/19/18 06:00 Anion Gap 17 (10-20) 04/19/18 06:00 BUN 37 mg/dL (7-21) H 04/19/18 06:00 Creatinine 4.2 mg/dl (0.8-1.5) H 04/19/18 06:00 Est GFR ( Amer) 18 04/19/18 06:00 Est GFR (Non-Af Amer) 15 04/19/18 06:00 POC Glucose (mg/dL) 231 mg/dL (65-110) H 04/18/18 16:24 Random Glucose 200 mg/dL (70-110) H 04/19/18 06:00 Calcium 8.1 mg/dL (8.4-10.5) L 04/19/18 06:00 Phosphorus 4.2 mg/dL (2.5-4.5) 04/19/18 06:00 Magnesium 2.8 mg/dL (1.7-2.2) H 04/19/18 06:00 Iron 60 ug/dL (45-180) 04/19/18 06:00 TIBC 233 ug/dL (261-462) L 04/19/18 06:00 % Saturation 26 % (20-55) 04/19/18 06:00 Ferritin 579.0 ng/mL 04/19/18 06:00 Total Bilirubin 1.0 mg/dL (0.2-1.3) 04/19/18 06:00 AST 51 U/L (17-59) 04/19/18 06:00 ALT 40 U/L (7-56) 04/19/18 06:00 Alkaline Phosphatase 248 U/L (38-126) H 04/19/18 06:00 Troponin I 0.09 ng/mL 04/18/18 04:56 NT-Pro-B Natriuret Pep > 913199 pg/mL (0-450) H 04/18/18 04:56 Total Protein 6.9 g/dL (5.8-8.3) 04/19/18 06:00 Albumin 3.4 g/dL (3.0-4.8) 04/19/18 06:00 Globulin 3.5 gm/dL 04/19/18 06:00 Albumin/Globulin Ratio 1.0 (1.1-1.8) L 04/19/18 06:00 Lipase 144 U/L (23-300) 04/18/18 04:56 Alpha Fetoprotein 6.8 ng/mL (0.0-7.5) 04/18/18 10:30 Fluid Source Peritoneal/ascites 04/18/18 13:00 Fluid Appearance Turbid (CLEAR) 04/18/18 13:00 Fluid WBC 350.0 /uL (0.0-300.0) H 04/18/18 13:00 Fluid RBC 20738.0 /uL (0.0-0.0) H 04/18/18 13:00 Fluid Tot Cell Count 100 (0-0) H 04/18/18 13:00 Fluid Neutrophils 4.6 % (0-0) H 04/18/18 13:00 Fluid Lymphocytes 95.4 % (0-0) H 04/18/18 13:00 Fld Monocyte/Macrophag TEST NOT PERFORMED 04/18/18 13:00 Fluid Comment TEST NOT PERFORMED 04/18/18 13:00 Hepatitis A IgM Ab Negative (NEGATIVE) 04/18/18 10:30 Hep Bs Antigen Negative (NEGATIVE) 04/18/18 10:30 Hep B Core IgM Ab Negative (NEGATIVE) 04/18/18 10:30 Hepatitis C Antibody Negative (NEGATIVE) 04/18/18 10:30 - Hospital Course Hospital Course: This is a 62 yo male with PMH of Sarcoidosis, DM, HTN, HLD, CAD s/p Stents and CABG, CHF, cirrhosis, PVD, ESRD on HD (//Sat), osteoarthritis, and osteoporosis who was admitted for the management and treatment of abdominal ascites. Patient was treated with albuterol, aspirin, clopidogrel, pepcid, lasix , gabapentin, hydralazine, insulin, isosorbide mononitrate, lopressor, symbicort , predisone, and aldactone. Paracentesis was done and 2100cc of fluid was aspirated. During the course of his hospital stay, patient got an EKG that showed NSR at 77 bpm, and no signs of ischemia. Chest xray showed improving lower right pneumonia and background of congestive heart failure. Extremity ultrasound showed no DVT. CT abdomen and pelvis showed cirrhosis, large bilateral pleural effusions, ascites, mesenteric edema, and anasarca. Nephrology (Dr. Siu) was consulted and recommended to continue diuresis and hemodialysis with ultrafiltration to remove fluid. Also to continue hydralazine, lasix, and aldactone. Patient instructed to continue home medications upon discharge. He was instructed to stop taking Lasix 80mg and start new dose: Lasix 40mg by mouth, once daily. Patient was also instructed to take new medication Aldactone 25mg by mouth, twice daily. He was educated on the correct way to take medications and to follow up with his primary doctor within 3-5 days of discharge, Dr. Chip Mensah and follow up with his solar sales associate (Dr. Siu) within 1-2 weeks of discharge. Patient was instructed to resume activity as tolerated. Patient further informed to return to the ED for worsening or newly concerning symptoms.Patient is now medically stable for discharge. Discharge Exam - Head Exam Head Exam: ATRAUMATIC, NORMAL INSPECTION, NORMOCEPHALIC - Eye Exam Eye Exam: Normal appearance - ENT Exam ENT Exam: Mucous Membranes Moist - Respiratory Exam Respiratory Exam: Clear to PA & Lateral. absent: Rales, Rhonchi, Wheezes, Respiratory Distress - Cardiovascular Exam Cardiovascular Exam: REGULAR RHYTHM, +S1, +S2. absent: Gallop, Rubs, Systolic Murmur - GI/Abdominal Exam GI & Abdominal Exam: Normal Bowel Sounds, Soft. absent: Tenderness - Extremities Exam Additional comments: +2 pitting edema in bilateral feet, +2 from ankle to mid-millan - Neurological Exam Neurological exam: Alert, Oriented x3 - Psychiatric Exam Psychiatric exam: Normal Affect, Normal Mood - Skin Skin Exam: Dry, Intact, Normal Color, Warm Discharge Plan - Discharge Medications Prescriptions: Furosemide [Lasix] 40 mg PO DAILY #30 tab Spironolactone [Aldactone] 25 mg PO BID #60 tab - Follow Up Plan Condition: GOOD Disposition: HOME/ ROUTINE Instructions: Heart Failure (DC), Ascites (DC) Additional Instructions: 1. Please resume all home medications as previously prescribed except for the following changes: -Stop taking Lasix 80mg. Start new dose: Lasix 40mg by mouth, once daily -Please take Aldactone 25mg by mouth, twice daily 2. Please follow up with your primary care doctor (Dr. Chip Mensah) within one week of discharge 3. Please follow up with your solar sales associate (Dr. Siu) within 1-2 weeks of discharge 4. Return to the nearest emergency room if you experience worsening or newly concerning symptoms Referrals: Chip Mensah [Medical Doctor] - (Primary Care doctor) Pascual Siu MD [Staff Provider] -
[2018-04-19 16:41] VITALS: PULSE 76
== END 2018-04-19 15:45 | disposition home or self-care (01) | DRG 947 ==
LOC: ED 04:13 → ERH 07:13 → 2RNO 09:38
PROVIDERS: ADMIT Internal Medicine; ATTEND Internal Medicine
PROC: BW40ZZZ Ultrasonography of Abdomen (ICD-10-PCS; 2018-04-18)
PROC: 5A1D70Z Performance of Urinary Filtration, Intermittent, Less than 6 Hours Per Day (ICD-10-PCS; 2018-04-18)
PROC: 0W9G3ZZ Drainage of Peritoneal Cavity, Percutaneous Approach (ICD-10-PCS; principal; 2018-04-18 13:00)
DX: R18.8 Other ascites (principal); N18.6 End stage renal disease; J18.9 Pneumonia, unspecified organism; I13.2 Hypertensive heart and chronic kidney disease with heart failure and with stage 5 chronic kidney disease, or end stage renal disease; K74.60 Unspecified cirrhosis of liver; I50.9 Heart failure, unspecified; D86.9 Sarcoidosis, unspecified; E11.22 Type 2 diabetes mellitus with diabetic chronic kidney disease; E11.51 Type 2 diabetes mellitus with diabetic peripheral angiopathy without gangrene; E78.5 Hyperlipidemia, unspecified; H40.9 Unspecified glaucoma; H91.90 Unspecified hearing loss, unspecified ear; I25.10 Atherosclerotic heart disease of native coronary artery without angina pectoris; J45.909 Unspecified asthma, uncomplicated; K59.00 Constipation, unspecified; M19.90 Unspecified osteoarthritis, unspecified site; E11.36 Type 2 diabetes mellitus with diabetic cataract; M81.0 Age-related osteoporosis without current pathological fracture; D64.9 Anemia, unspecified; Z79.02 Long term (current) use of antithrombotics/antiplatelets; Z79.51 Long term (current) use of inhaled steroids; Z79.82 Long term (current) use of aspirin; Z87.01 Personal history of pneumonia (recurrent); Z90.49 Acquired absence of other specified parts of digestive tract; Z95.1 Presence of aortocoronary bypass graft; Z95.5 Presence of coronary angioplasty implant and graft; Z99.2 Dependence on renal dialysis

== ENCOUNTER 2018-06-02 12:28 | Inpatient (IN) | payer MEDICARE, MEDICAID ==
[2018-06-02 12:46] VITALS: BMI 22.1
[2018-06-02] MEDS ORDERED: Albuterol-Ipratrop 3 mg / 0.5 (3 ml) UD IH STA (12:48)
--- NOTE | 2018-06-02 13:03 | ED PDOC ---
Arrival/HPI - General Chief Complaint: Dizziness/Lightheaded Time Seen by Provider: 06/02/18 12:34 Historian: Patient - History of Present Illness Narrative History of Present Illness (Text): 06/02/18 12:40 62 year old male, whose past medical history includes CAD w/ multiple stents, CABG, CHF, PVD, DM, dyslipidemia, ESRD (on HD:T//Sat), HTN, osteoporosis, osteoarthritis, and sarcoidosis, who presents to the Emergency department complaining of several days of lightheadedness. Patient notes several days of weakness/fatigue, nonproductive cough, light headedness, dizziness, shortness of breath, nausea, and loss of appetite. Patient states his most recent dialysis was on 05/31/18. Patient denies vomiting, diarrhea, chest pain, sputum, fever, or any other complaints. Patient never smoker and not a drinker. Time/Duration: Other (patient notes symptoms present for several days) Symptom Onset: Sudden Symptom Course: Unchanged Activities at Onset: Light Associated Symptoms (Text): 06/02/18 13:53 Multiple complaints including several days of cough congestion shortness of breath weakness fatigue poor by mouth intake dizziness and lightheadedness. Straight coronary artery disease with stents and renal failure with hepatic failure and ascites. Past Medical History - Provider Review Nursing Documentation Reviewed: Yes - Infectious Disease Hx of Infectious Diseases: None - Tetanus Immunization Tetanus Immunization: Unknown - Cardiac Hx Cardiac Disorders: Yes Hx Circulatory Problems: Yes Hx Congestive Heart Failure: Yes Hx Hypertension: Yes Hx Pacemaker: No Hx Peripheral Edema: Yes Hx Peripheral Vascular Disease: Yes Other/Comment: cardiac stent - Pulmonary Hx Respiratory Disorders: Yes Hx Asthma: Yes Hx Chronic Obstructive Pulmonary Disease (COPD): Yes Hx Pneumonia: Yes Hx Respiratory Tract Infection: Yes Hx Sleep Apnea: Yes Other/Comment: Sarcoidosis - Neurological Hx Neurological Disorder: No Hx Paralysis: No Other/Comment: sarcoidosis - HEENT Hx HEENT Disorder: Yes Hx Cataracts: Yes Hx Deafness: Yes Hx Glaucoma: Yes - Renal Hx Renal Disorder: Yes Date of Last Dialysis Treatment: 05/27/18 Hx Kidney Stones: No Hx Neurogenic Bladder: No Hx Pyelonephritis: No Hx Renal Cancer: No Hx Renal Failure: Yes (ESRD, CKD) - Endocrine/Metabolic Hx Endocrine Disorders: Yes Hx Diabetes Mellitus Type 1: Yes Hx Diabetes Mellitus Type 2: Yes - Hematological/Oncological Hx Blood Disorders: Yes Hx Anemia: Yes Hx Blood Transfusions: No Hx Cirrhosis: Yes Hx Shingles: Yes - Integumentary Hx Dermatological Disorder: No - Musculoskeletal/Rheumatological Hx Musculoskeletal Disorders: No Hx Back Pain: Yes Hx Falls: No Hx Unsteady Gait: Yes - Gastrointestinal Hx Gastrointestinal Disorders: Yes Hx Gall Bladder Disease: Yes - Genitourinary/Gynecological Hx Genitourinary Disorders: No Hx Reproductive Disorders: No - Psychiatric Hx Psychophysiologic Disorder: Yes Hx Depression: Yes Hx Emotional Abuse: No Hx Physical Abuse: No Hx Substance Use: No - Surgical History Hx Arteriovenous Shunt: Yes (LT ARM) Hx Cardiac Catheterization: Yes Hx Cholecystectomy: Yes Hx Coronary Artery Bypass Graft: Yes Hx Coronary Stent: Yes Hx Eye Surgery: Yes Hx Open Heart Surgery: Yes Other/Comment: cardiac bypass 2010, FISTULOGRAM, RT SHOULDER TENDON - Anesthesia Hx Anesthesia: Yes Hx Anesthesia Reactions: No Hx Malignant Hyperthermia: No - Suicidal Assessment Feels Threatened In Home Enviroment: No Family/Social History - Physician Review Nursing Documentation Reviewed: Yes Family/Social History: No Known Family HX Smoking Status: Never Smoked Hx Alcohol Use: No Hx Substance Use: No Hx Substance Use Treatment: No Allergies/Home Meds Allergies/Adverse Reactions: Allergies No Known Allergies Allergy (Verified 06/02/18 15:09) Home Medications: Home Meds Medication Instructions Recorded Confirmed RX: Aspirin [Aspirin EC] 325 mg PO DAILY 07/12/16 05/28/18 RX: Cilostazol [Pletal] 1 tab PO BID 07/12/16 05/28/18 RX: Clopidogrel [Plavix] 75 mg PO DAILY 07/12/16 04/19/18 RX: Gabapentin [Neurontin] 300 mg PO DAILY 07/12/16 04/19/18 RX: Simvastatin 20 mg PO DAILY 07/12/16 04/18/18 RX: Hydroxyzine HCl 25 mg PO PRN 11/10/17 04/18/18 RX: Isosorbide Mononitrate [Imdur] 120 mg PO DAILY 11/10/17 04/19/18 RX: Albuterol HFA [Ventolin HFA 90 2 puff IH [id number] PRN 03/22/18 05/28/18 mcg/actuation (8 g)] RX: Budesonide/Formoterol Fumarate 2 puff IH BID 03/22/18 05/28/18 [Symbicort 160-4.5 Mcg Inhaler] RX: Insulin Aspart [Novolog 3 - 10 units SC TID 03/22/18 04/18/18 Flexpen] RX: Mupirocin 1 gm TP TID 03/22/18 05/28/18 RX: SITagliptin [Januvia] 25 mg PO DAILY 03/22/18 05/28/18 RX: Sacubitril/Valsartan [Entresto 1 each PO DAILY 03/22/18 04/18/18 97 mg-103 mg Tablet] RX: hydrALAZINE [Apresoline] 25 mg PO DAILY 03/22/18 05/28/18 RX: Famotidine 1 tab PO DAILY 05/28/18 05/28/18 RX: predniSONE 1 tab PO DAILY 05/28/18 05/28/18 Review of Systems - Physician Review All systems were reviewed & negative as marked: Yes - Review of Systems Constitutional: Fatigue (patient notes several days of fatigue/weakness). absent: Normal, Fevers Respiratory: SOB (Patient notes SOB ), Cough (patient notes nonproductive cough). absent: Normal, Sputum, Wheezing Cardiovascular: absent: Chest Pain, Palpitations, Syncope Gastrointestinal: Nausea (Patient notes nausea), Appetite Changes (Patient notes loss of appetite). absent: Normal, Diarrhea, Vomiting Neurological: Dizziness (patient notes dizziness), Other (Patient notes lightheadedness). absent: Normal, Headache, Focal Weakness Physical Exam Vital Signs Reviewed: Yes Vital Signs Temp Pulse Resp BP Pulse Ox 06/02/18 12:47 99.7 F H 88 23 142/76 100 06/02/18 12:42 99.7 F H 88 18 142/76 99 Temperature: Febrile (at 99.7) Blood Pressure: Normal Pulse: Regular Respiratory Rate: Normal Appearance: Positive for: Non-Toxic, Comfortable, Ill-Appearing (Chronically ill-appearing) Pain Distress: None Mental Status: Positive for: Alert and Oriented X 3 - Systems Exam Head: Present: Atraumatic, Normocephalic Pupils: Present: PERRL Extroacular Muscles: Present: EOMI Conjunctiva: Present: Normal Ears: Present: NORMAL TM, Normal Canal. No: Erythema, TM Bulging Mouth: Present: Moist Mucous Membranes Pharnyx: Present: Normal. No: ERYTHEMA, EXUDATE, TONSILS ENLARGED Neck: Present: Normal Range of Motion Respiratory/Chest: Present: Clear to Auscultation, Good Air Exchange, Wheezes (mild bilaterally), Decreased Breath Sounds, Rhonchi (rhonci mild bilaterally). No: Respiratory Distress, Accessory Muscle Use, Rales Cardiovascular: Present: Regular Rate and Rhythm, Normal S1, S2. No: Murmurs Abdomen: Present: Distention (abdomen mildly distended), Other (Ascites). No: Tenderness, Peritoneal Signs, Rebound, Guarding Back: Present: Normal Inspection Upper Extremity: Present: Normal Inspection. No: Cyanosis, Edema Lower Extremity: Present: Edema (2+ edema bilateral lower extremities) Neurological: Present: GCS=15, CN II-XII Intact, Speech Normal, Motor Func Grossly Intact Skin: Present: Warm, Dry, Normal Color. No: Rashes Psychiatric: Present: Alert, Oriented x 3, Normal Insight, Normal Concentration Medical Decision Making ED Course and Treatment: 06/02/18 12:40 Impression: 62 year old male complaining of several days of lightheadedness, weakness/fatigue, nonproductive cough, light headedness, dizziness, shortness of breath, nausea, and loss of appetite. Plan: -- EKG -- Labs -- CBC (with differential) -- Partial Thromboplastin time (coag) -- Prothrombin time (coag) -- X-Ray of chest -- Duoneb 3mg/0.5 mg (3 mL) Progress notes: 06/02/2018 13:26 Chest X-ray IMPRESSION: Persistent right lower lobe infiltrate. Dictator: Stephan Hi MD 06/02/18 13:55 EKG shows normal sinus rhythm rate approximately 90 with a left bundle branch block and nonspecific lateral T-wave changes - RAD Interpretation Radiology Orders: 06/02/18 12:49 CHEST PORTABLE [RAD] Stat Chest one view as read by the radiologist shows a persistent unchanged right lower lobe infiltrate. Header Up: Radiologist - Medication Orders Current Medication Orders: Discontinued Medications Albuterol/Ipratropium (Duoneb 3 Mg/0.5 Mg (3 Ml) Ud) 3 ml IH STAT STA Stop: 06/02/18 12:49 - Scribe Statement The provider has reviewed the documentation as recorded by the Scribe Sil Grover All medical record entries made by the Scribe were at my direction and personally dictated by me. I have reviewed the chart and agree that the record accurately reflects my personal performance of the history, physical exam, medical decision making, and the department course for this patient. I have also personally directed, reviewed, and agree with the discharge instructions and disposition. Disposition/Present on Arrival - Present on Arrival Any Indicators Present on Arrival: No History of DVT/PE: No History of Uncontrolled Diabetes: No Urinary Catheter: No History of Decub. Ulcer: No History Surgical Site Infection Following: None - Disposition Have Diagnosis and Disposition been Completed?: Yes Diagnosis: Pneumonia, IDDM (insulin dependent diabetes mellitus), HTN (hypertension), Ascites, Dyspnea, ESRD (end stage renal disease), CAD (coronary artery disease), Near syncope, Dizziness, Elevated troponin Disposition: HOSPITALIZED Disposition Time: 14:11 Patient Plan: Observation, Telemetry Patient Problems: Current Active Problems Problem Status Onset Ascites Acute Dizziness Acute Dyspnea Acute IDDM (insulin dependent diabetes mellitus) Acute Near syncope Acute Pneumonia Acute CAD (coronary artery disease) Chronic ESRD (end stage renal disease) Chronic HTN (hypertension) Chronic Condition: FAIR
--- NOTE | 2018-06-02 13:28 | RAD ---
Date of service: 06/02/2018 HISTORY: sob COMPARISON: 04/18/2018 FINDINGS: LUNGS: There is a persistent infiltrate in the right lower lobe. The left lung is clear PLEURA: No significant pleural effusion identified, no pneumothorax apparent. CARDIOVASCULAR: Mild cardiomegaly OSSEOUS STRUCTURES: Sternal wires VISUALIZED UPPER ABDOMEN: Normal. OTHER FINDINGS: None. IMPRESSION: Persistent right lower lobe infiltrate
[2018-06-02 13:39] LABS: VENOUS BLOOD GAS BASE EXCESS 5.8 mmol/L (0.0-2.0); VENOUS BLOOD GAS PO2 172 mm/Hg (30-55); VENOUS BLOOD PH 7.48 (7.32-7.43)
[2018-06-02 13:44] LABS: BASO # 0.02 K/mm3 (0.0-2.0); BASO % 0.4 % (0.0-3.0); EOS # 0.3 (0.0-0.7); GRAN # 4.19 (1.4-6.5); GRAN % 74.7 % (50.0-68.0); HEMOGLOBIN 10.4 g/dL (14.0-18.0); LYMPH # 0.7 (1.2-3.4); LYMPH % 11.9 % (22.0-35.0); MEAN CELL VOLUME 80.6 fl (80.0-105.0); MEAN CORPUSCULAR HEMOGLOBIN 27.3 pg (25.0-35.0); MEAN CORPUSCULAR HGB CONC 33.9 g/dl (31.0-37.0); MONO # 0.5 (0.1-0.6); PLATELET COUNT 92 10^3/uL (120.0-450.0); RBC 3.81 10^6/uL (3.5-6.1); RED CELL DISTRIBUTION WIDTH 17.4 % (11.5-14.5); WHITE BLOOD COUNT 5.6 10^3/ul (4.5-11.0)
[2018-06-02 13:48] LABS: INR 1.74; PARTIAL THROMBOPLASTIN TIME 32.7 Seconds (25.1-36.5); PROTHROMBIN TIME 20.1 SECONDS (9.4-12.5)
[2018-06-02 13:50] LABS: ALB/GLOB RATIO 0.9 (1.1-1.8); ALBUMIN 3.8 g/dL (3.0-4.8); CALCIUM 8.4 mg/dL (8.4-10.5)
[2018-06-02 14:01] LABS: TROPONIN I 0.05 ng/mL
[2018-06-02] MEDS ORDERED: Albuterol-Ipratrop 3 mg / 0.5 (3 ml) UD IH PRN (15:37)
--- NOTE | 2018-06-02 15:54 | CP.PCM.HP ---
<Jensen Agelly - Last Filed: 06/02/18 17:14> History of Present Illness - History of Present Illness History of Present Illness: PGY-1 Emily Ag H&P for Dr. Shahid's service Patient is a 62yo male with PMH of CAD w/ multiple stents, CABG, CHF (EF 67 in 2017), PVD, DM, dyslipidemia, ESRD (T, Th Sat), HTN, osteoporosis, osteoarthritis, sarcoidosis presents to hospital for 2 days of weakness, lightheadedness, cough productive at times, and dizziness for past. Patient states that his had the cold for last couple of days. Patient has been taking Tylenol for relief at home but was unhelpful. Patient states he has no appetite due to him feeling overall weak. Patient states the appetite has been decreased due to ongoing nausea during this time as well. Patient had recent colonoscopy/EGD with Dr. Kendrick however it was a bad prep and needs to be repeated. Patient is on 3L of oxygen only at night time. Patient states he had an episode of PNA 3 years ago. Patient admits to chills, nausea, weakeness, dizziness, lightheadedness, and cough. Patient denies fevers, headaches, sob, pleuritic pain, chest pain, abomdinal pain, constipation or diarrhea, COLLIER, dysuria. PMH- AD w/ multiple stents, CABG, CHF (EF 67 in 2017), PVD, DM, dyslipidemia, ESRD (T, Th Sat), HTN, osteoporosis, osteoarthritis, sarcoidosis PSH- CABG, cholecystectomy FH- Mom (heart disease) Meds- Prednisone, Hydralazine, Aldactone, Simvastatin, Entresto, Januvia, Lopressor, Imdur, Symbicort, Cilastozol, Plavix, Famotidine, Lasix, Neurontin, Insulin, Hydroxyzine, ASA, Albuterol Social hx- Denies alcohol, tobacco, and drug use PMD- Dr. Mensah; Alisonhpro: Vee Pulm: Shantel; Cardio: Tashi Code: Full code Present on Admission - Present on Admission Any Indicators Present on Admission: No Review of Systems - Review of Systems Review of Systems: 12 point ROS noted and listed in HPI Past Patient History - Infectious Disease Hx of Infectious Diseases: None - Tetanus Immunizations Tetanus Immunization: Unknown - Past Medical History & Family History Past Medical History?: Yes - Past Social History Smoking Status: Never Smoked - CARDIAC Hx Cardiac Disorders: Yes Hx Circulatory Problems: Yes Hx Congestive Heart Failure: Yes Hx Hypertension: Yes Hx Pacemaker: No Hx Peripheral Edema: Yes Hx Peripheral Vascular Disease: Yes Other/Comment: cardiac stent - PULMONARY Hx Respiratory Disorders: Yes Hx Asthma: Yes Hx Chronic Obstructive Pulmonary Disease (COPD): Yes Hx Pneumonia: Yes Hx Respiratory Tract Infection: Yes Hx Sleep Apnea: Yes Other/Comment: Sarcoidosis - NEUROLOGICAL Hx Neurological Disorder: No Hx Paralysis: No Other/Comment: sarcoidosis - HEENT Hx HEENT Problems: Yes Hx Cataracts: Yes Hx Deafness: Yes Hx Glaucoma: Yes - RENAL Hx Chronic Kidney Disease: Yes Date of Last Dialysis Treatment: 05/27/18 Hx Kidney Stones: No Hx Neurogenic Bladder: No Hx Pyelonephritis: No Hx Renal (Kidney) Cancer: No Hx Renal Failure: Yes (ESRD, CKD) - ENDOCRINE/METABOLIC Hx Endocrine Disorders: Yes Hx Diabetes Mellitus Type 1: Yes Hx Diabetes Mellitus Type 2: Yes - HEMATOLOGICAL/ONCOLOGICAL Hx Blood Disorders: Yes Hx Anemia: Yes Hx Blood Transfusions: No Hx Cirrhosis: Yes Hx Shingles: Yes - INTEGUMENTARY Hx Dermatological Problems: No - MUSCULOSKELETAL/RHEUMATOLOGICAL Hx Musculoskeletal Disorders: No Hx Back Pain: Yes Hx Falls: No Hx Unsteady Gait: Yes - GASTROINTESTINAL Hx Gastrointestinal Disorders: Yes Hx Gall Bladder Disease: Yes - GENITOURINARY/GYNECOLOGICAL Hx Genitourinary Disorders: No Hx Reproductive Disorders: No - PSYCHIATRIC Hx Psychophysiologic Disorder: Yes Hx Depression: Yes Hx Emotional Abuse: No Hx Physical Abuse: No Hx Substance Use: No - SURGICAL HISTORY Hx Arteriovenous Shunt: Yes (LT ARM) Hx Cardiac Catheterization: Yes Hx Cholecystectomy: Yes Hx Coronary Artery Bypass Graft: Yes Hx Coronary Stent: Yes Hx Eye Surgery: Yes Hx Open Heart Surgery: Yes Other/Comment: cardiac bypass 2010, FISTULOGRAM, RT SHOULDER TENDON - ANESTHESIA Hx Anesthesia: Yes Hx Anesthesia Reactions: No Hx Malignant Hyperthermia: No Meds Allergies/Adverse Reactions: Allergies Allergy/AdvReac Type Severity Reaction Status Date / Time No Known Allergies Allergy Verified 06/02/18 15:09 Physical Exam - Constitutional Appears: Non-toxic, No Acute Distress - Head Exam Head Exam: NORMAL INSPECTION, NORMOCEPHALIC - Eye Exam Eye Exam: EOMI, Normal appearance. absent: Nystagmus, Scleral icterus - ENT Exam ENT Exam: Mucous Membranes Moist - Respiratory Exam Respiratory Exam: Rhonchi, Wheezes, NORMAL BREATHING PATTERN. absent: Accessory Muscle Use, Rales - Cardiovascular Exam Cardiovascular Exam: REGULAR RHYTHM, +S1, +S2. absent: Systolic Murmur - GI/Abdominal Exam GI & Abdominal Exam: Distended, Normal Bowel Sounds, Soft. absent: Firm, Guarding, Tenderness Additional comments: R>L - Extremities Exam Extremities exam: Positive for: normal inspection, pedal edema. Negative for: calf tenderness Additional comments: +2 pitting edema b/l - Neurological Exam Neurological exam: Alert, Oriented x3 - Psychiatric Exam Psychiatric exam: Normal Affect, Normal Mood - Skin Skin Exam: Intact, Normal Color Results - Vital Signs Recent Vital Signs: Last Vital Signs Temp 99.7 F H 06/02/18 12:47 Pulse 88 06/02/18 12:47 Resp 23 06/02/18 12:47 BP 142/76 06/02/18 12:47 Pulse Ox 100 06/02/18 12:47 - Labs Result Diagrams: 06/02/18 13:20 06/02/18 13:20 Labs: Laboratory Results - last 24 hr 06/02/18 06/02/18 06/02/18 13:20 13:20 13:20 WBC 5.6 D RBC 3.81 Hgb 10.4 L Hct 30.7 L MCV 80.6 MCH 27.3 MCHC 33.9 RDW 17.4 H Plt Count 92 L Gran % 74.7 H Lymph % (Auto) 11.9 L [place] % (Auto) 8.0 H Eos % (Auto) 5.0 Baso % (Auto) 0.4 Gran # 4.19 Lymph # (Auto) 0.7 L [place] # (Auto) 0.5 Eos # (Auto) 0.3 Baso # (Auto) 0.02 PT 20.1 H INR 1.74 APTT 32.7 pO2 172 H VBG pH 7.48 H VBG pCO2 40.0 VBG HCO3 29.8 H VBG Total CO2 31.0 H VBG O2 Sat (Calc) 99.6 H VBG Base Excess 5.8 H VBG Potassium 4.7 Sodium 132.0 Chloride 97.0 L Glucose 160 H Lactate 1.3 FiO2 21.0 Potassium Carbon Dioxide Anion Gap BUN Creatinine Est GFR ( Amer) Est GFR (Non-Af Amer) Random Glucose Calcium Magnesium Total Bilirubin AST ALT Alkaline Phosphatase Lactate Dehydrogenase Total Creatine Kinase Troponin I Total Protein Albumin Globulin Albumin/Globulin Ratio Lipase Venous Blood Potassium 4.7 06/02/18 13:20 WBC RBC Hgb Hct MCV MCH MCHC RDW Plt Count Gran % Lymph % (Auto) [place] % (Auto) Eos % (Auto) Baso % (Auto) Gran # Lymph # (Auto) [place] # (Auto) Eos # (Auto) Baso # (Auto) PT INR APTT pO2 VBG pH VBG pCO2 VBG HCO3 VBG Total CO2 VBG O2 Sat (Calc) VBG Base Excess VBG Potassium Sodium 134 Chloride 93 L Glucose Lactate FiO2 Potassium 4.6 Carbon Dioxide 28 Anion Gap 17 BUN 32 H Creatinine 4.3 H Est GFR ( Amer) 17 Est GFR (Non-Af Amer) 14 Random Glucose 155 H Calcium 8.4 Magnesium 2.2 Total Bilirubin 1.5 H AST 38 ALT 26 Alkaline Phosphatase 292 H Lactate Dehydrogenase 586 Total Creatine Kinase 47 Troponin I 0.05 D Total Protein 7.9 Albumin 3.8 Globulin 4.1 Albumin/Globulin Ratio 0.9 L Lipase 125 Venous Blood Potassium Assessment & Plan - Assessment and Plan (Free Text) Assessment: Patient is a 62 yo male w/ PMH CAD w/ multiple stents, CABG, CHF (EF 67 in 2017), PVD, DM, dyslipidemia, ESRD (T, Th Sat), HTN, osteoporosis, osteoarthritis, sarcoidosis presents for lightheadedness and cough Plan: Cough PNA vs pleural effusion Pulm/Crit Care Consult- Dr. Urena- recommendations appreciated- considering paracentesis 06-02-18 Right basilar opacity suspicious for PNA. Possible small right upper lobe opacity. Small bilateral pleural effusion PNA studies pending; Strated patient on linezolid and Cefepime Duonebs q6h jesse Duonebs q4h prn PAD Cilostazol 50mg po bid Aspirin 325mg po daily Lipitor 10mg po din CHF exacerbation Echo pending Lasix IVP 60mg bid Aldactone 25mg po bid Isosorbide Mononitrate 120mg po daily DM2 with neuropathy ISS low dose ACHS Januvia 25mg po daily Gabapentin 300mg po daily HTN Metoprolol 50mg po bid Entresto po daily Hydralazine 25mg po daily Aldactone 25mg po bid Isosorbide Mononitrate 120mg po daily ESRD Nephrology Consult- Dr. Siu- consent for HD possibly tomorrow- further recs appreciated On Dialysis (T, Th, Sat); Possible HD for tomrrow as per nephro Dyslipidemia Lipitor 10mg po din Hx of CABG Plavix 75 mg po daily Asa 325mg po daily Metoprol 50mg po bid Entresto po daily Hx of Sarcoidosis Prednisone 2.5mg po daily PPx GI ppx- Pepcid 40mg HS DVT ppx- heparin 5000 sc q12 <Roldan Shahid - Last Filed: 06/03/18 07:57> Results - Vital Signs Recent Vital Signs: Last Vital Signs Temp 98.2 F 06/03/18 06:00 Pulse 81 06/03/18 06:00 Resp 22 06/03/18 06:00 BP 135/79 06/03/18 06:00 Pulse Ox 100 06/03/18 06:00 - Labs Result Diagrams: 06/02/18 13:20 06/02/18 13:20 Labs: Laboratory Results - last 24 hr 06/02/18 06/02/18 06/02/18 13:20 13:20 13:20 WBC 5.6 D RBC 3.81 Hgb 10.4 L Hct 30.7 L MCV 80.6 MCH 27.3 MCHC 33.9 RDW 17.4 H Plt Count 92 L Gran % 74.7 H Lymph % (Auto) 11.9 L [place] % (Auto) 8.0 H Eos % (Auto) 5.0 Baso % (Auto) 0.4 Gran # 4.19 Lymph # (Auto) 0.7 L [place] # (Auto) 0.5 Eos # (Auto) 0.3 Baso # (Auto) 0.02 PT 20.1 H INR 1.74 APTT 32.7 pO2 172 H VBG pH 7.48 H VBG pCO2 40.0 VBG HCO3 29.8 H VBG Total CO2 31.0 H VBG O2 Sat (Calc) 99.6 H VBG Base Excess 5.8 H VBG Potassium 4.7 Sodium 132.0 Chloride 97.0 L Glucose 160 H Lactate 1.3 FiO2 21.0 Potassium Carbon Dioxide Anion Gap BUN Creatinine Est GFR ( Amer) Est GFR (Non-Af Amer) POC Glucose (mg/dL) Random Glucose Calcium Magnesium Total Bilirubin AST ALT Alkaline Phosphatase Ammonia Lactate Dehydrogenase Total Creatine Kinase Troponin I Total Protein Albumin Globulin Albumin/Globulin Ratio Lipase Venous Blood Potassium 4.7 06/02/18 06/02/18 06/02/18 13:20 15:45 16:48 WBC RBC Hgb Hct MCV MCH MCHC RDW Plt Count Gran % Lymph % (Auto) [place] % (Auto) Eos % (Auto) Baso % (Auto) Gran # Lymph # (Auto) [place] # (Auto) Eos # (Auto) Baso # (Auto) PT INR APTT pO2 VBG pH VBG pCO2 VBG HCO3 VBG Total CO2 VBG O2 Sat (Calc) VBG Base Excess VBG Potassium Sodium 134 Chloride 93 L Glucose Lactate FiO2 Potassium 4.6 Carbon Dioxide 28 Anion Gap 17 BUN 32 H Creatinine 4.3 H Est GFR ( Amer) 17 Est GFR (Non-Af Amer) 14 POC Glucose (mg/dL) 133 H Random Glucose 155 H Calcium 8.4 Magnesium 2.2 Total Bilirubin 1.5 H AST 38 ALT 26 Alkaline Phosphatase 292 H Ammonia 17 Lactate Dehydrogenase 586 Total Creatine Kinase 47 Troponin I 0.05 D Total Protein 7.9 Albumin 3.8 Globulin 4.1 Albumin/Globulin Ratio 0.9 L Lipase 125 Venous Blood Potassium 06/02/18 06/03/18 21:39 07:30 WBC RBC Hgb Hct MCV MCH MCHC RDW Plt Count Gran % Lymph % (Auto) [place] % (Auto) Eos % (Auto) Baso % (Auto) Gran # Lymph # (Auto) [place] # (Auto) Eos # (Auto) Baso # (Auto) PT INR APTT pO2 VBG pH VBG pCO2 VBG HCO3 VBG Total CO2 VBG O2 Sat (Calc) VBG Base Excess VBG Potassium Sodium Chloride Glucose Lactate FiO2 Potassium Carbon Dioxide Anion Gap BUN Creatinine Est GFR ( Amer) Est GFR (Non-Af Amer) POC Glucose (mg/dL) 154 H 154 H Random Glucose Calcium Magnesium Total Bilirubin AST ALT Alkaline Phosphatase Ammonia Lactate Dehydrogenase Total Creatine Kinase Troponin I Total Protein Albumin Globulin Albumin/Globulin Ratio Lipase Venous Blood Potassium Attending/Attestation - Attestation I have personally seen and examined this patient.: Yes I have fully participated in the care of the patient.: Yes I have reviewed all pertinent clinical information: Yes Notes (Text): 06/03/18 07:50 Medical record note made by the resident after discussion with my direction and input after the patient was personally seen and examined by me. I have reviewed the chart and agree that the record accurately reflects by personal performance of the history, physical exam, data review, and medical decision-making, in the course for the patient. I have also personally directed the plan of care. 62 year old male with past medical history of diabetes, hypertension, CAD, CHF, cirrhosis and ESRD on HD Saturday//Saturday, ascites is admitted with H/O cough, worsening dyspnea and leg swelling Patient symptoms are likely due to fluid overload rather than infection etiology.Pleural effusion is chronic.Patient has been started on treatment for possible HCAP Pneumonia.We will follow up blood cultures and Procalcitonin level.Antibiotics can be discontinued if Procalcitonin level is normal. Patient is scheduled for hemodialysis on Saturday, currently on IV lasix.We will pulmonary consult as he may need thoracentesis as his right pleural effusion has not improved with dialysis and diuretics. Management plan was discussed in detail with patient. Education was provided.
--- NOTE | 2018-06-02 16:27 | RAD ---
Date of service: 06/02/2018 HISTORY: Eval BL pleural effusions COMPARISON: 06/02/2018 at 12:58 p.m. TECHNIQUE: Chest PA and lateral FINDINGS: LUNGS: Extensive opacity at right base suspicious for pneumonia. Unchanged. Possible small right upper lobe opacity as well. No abnormal left-sided opacity. PLEURA: Small bilateral pleural effusion. No pneumothorax. CARDIOVASCULAR: Normal heart size. Sternotomy wires. Left axillary/brachials vascular stent. OSSEOUS STRUCTURES: No significant abnormalities. VISUALIZED UPPER ABDOMEN: Normal. OTHER FINDINGS: None. IMPRESSION: Right basilar opacity suspicious for pneumonia. Possible small right upper lobe opacity. Small bilateral pleural effusion.
--- NOTE | 2018-06-02 17:36 | CARD ---
APPROVED REPORT Date of service: 06/02/2018 EKG Measurement Heart [id number] <Conclusion> Normal sinus rhythm Left axis deviation Incomplete left bundle branch block T wave abnormality, consider lateral ischemia Prolonged QT Abnormal ECG
[2018-06-02] MEDS: Insulin Reg-LOW-Coverage SC SCH ×2 (17:38→22:30)
[2018-06-02] MEDS ORDERED: MUPIROCIN 1 GM TP SCH (18:00)
[2018-06-02] MEDS: Cefepime 1gm in NS 100ml 1 GM/100 ML BAG IVPB SCH (18:20)
[2018-06-02] MEDS: Cilostazol 50 mg Tab UD PO SCH (18:21)
[2018-06-02] MEDS ORDERED: Pneumococcal 23-Valent Vaccine IM ONE (18:57)
[2018-06-02] MEDS ORDERED: Influenza Vaccine 60 mcg/0.5 mL SYR (4YR UP) IM ONE (18:57)
[2018-06-02] MEDS: Albuterol-Ipratrop 3 mg / 0.5 (3 ml) UD IH SCH (19:50)
[2018-06-02] MEDS ORDERED: Linezolid 600 mg in D5W 300 ml 600 MG/300 ML BAG IVPB SCH (22:00)
[2018-06-03] MEDS: Albuterol-Ipratrop 3 mg / 0.5 (3 ml) UD IH SCH ×4 (02:25→19:43)
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
[2018-06-03 07:58] LABS: BASO # 0.02 K/mm3 (0.0-2.0); BASO % 0.5 % (0.0-3.0); EOS # 0.2 (0.0-0.7); EOS % 4.5 % (1.5-5.0); GRAN # 2.77 (1.4-6.5); GRAN % 69.8 % (50.0-68.0); LYMPH # 0.6 (1.2-3.4); LYMPH % 15.4 % (22.0-35.0); MEAN CORPUSCULAR HEMOGLOBIN 27.4 pg (25.0-35.0); MEAN CORPUSCULAR HGB CONC 34.2 g/dl (31.0-37.0); MONO # 0.4 (0.1-0.6); MONO % 9.8 % (1.0-6.0); PLATELET COUNT 73 10^3/uL (120.0-450.0); RBC 3.65 10^6/uL (3.5-6.1); RED CELL DISTRIBUTION WIDTH 17.3 % (11.5-14.5)
[2018-06-03] MEDS: Insulin Reg-LOW-Coverage SC SCH ×3 (08:01→17:52)
[2018-06-03 08:11] LABS: ALBUMIN 3.8 g/dL (3.0-4.8); CALCIUM 8.4 mg/dL (8.4-10.5)
[2018-06-03 11:33] LABS: FREE T4 1.55 ng/dL (0.78-2.19)
--- NOTE | 2018-06-03 13:24 | CP.PCM.PN ---
Addendum entered and electronically signed by Emily Ag DO 06/04/18 09:25: Under plan the ABx listed should be meropenem and doxycycline Addendum entered and electronically signed by Emily Ag DO 06/03/18 13:43: U/S was prefromed with Dr. Urena which showed PNA. Will consult IR for thoracentesis and paracentesis. Original Note: <Emily Ag - Last Filed: 06/03/18 13:14> Subjective - Date & Time of Evaluation Date of Evaluation: 06/03/18 Time of Evaluation: 10:00 - Subjective Subjective: PGY-1 Emily Ag Medicine Progress note for Dr. Shahid's service Patient seen and examined in dialysis room. Patient continues to have cough productive at times. Patient states he had diarrhea yesterday but no episodes today. Patient denies abdominal pain, fevers, chills, n/v, chest pain, sob, headaches, dysuria. Objective - Vital Signs/Intake and Output Vital Signs (last 24 hours): Temp Pulse Resp BP Pulse Ox 98.2 F 81 22 135/79 100 06/03/18 06:00 06/03/18 06:00 06/03/18 06:00 06/03/18 06:00 06/03/18 06:00 Intake and Output: 06/03/18 06/03/18 06:59 18:59 Intake Total 240 Balance 240 - Medications Medications: Current Medications Acetaminophen (Tylenol 325mg Tab) 650 mg PO Q6H PRN PRN Reason: Fever >100.4 F Albuterol/Ipratropium (Duoneb 3 Mg/0.5 Mg (3 Ml) Ud) 3 ml IH [id number] [facility] Last Admin: 06/03/18 08:10 Dose: Not Given Albuterol/Ipratropium (Duoneb 3 Mg/0.5 Mg (3 Ml) Ud) 3 ml IH [id number] PRN PRN Reason: Shortness of Breath Aspirin (Ecotrin) 325 mg PO DAILY [facility] Atorvastatin Calcium (Lipitor) 10 mg PO DIN [facility] Last Admin: 06/02/18 18:21 Dose: 10 mg Cilostazol (Pletal) 50 mg PO BID [facility] Last Admin: 06/02/18 18:21 Dose: 50 mg Clopidogrel Bisulfate (Plavix) 75 mg PO DAILY [facility] Famotidine (Pepcid) 40 mg PO HS [facility] Last Admin: 06/02/18 22:19 Dose: 40 mg Furosemide (Lasix) 60 mg IVP Q12 [facility] Last Admin: 06/02/18 22:18 Dose: 60 mg Gabapentin (Neurontin) 300 mg PO DAILY [facility]; Protocol Heparin Sodium (Porcine) (Heparin) 5,000 units SC Q8 [facility]; Protocol Last Admin: 06/03/18 05:52 Dose: 5,000 units Hydralazine HCl (Apresoline) 25 mg PO DAILY [facility] Hydroxyzine HCl (Atarax) 25 mg PO DAILY PRN PRN Reason: Itching / Pruritus Cefepime HCl (Maxipime 1gm) 1 gm in 100 mls @ 100 mls/hr IVPB Q24H [facility]; Protocol Last Admin: 06/02/18 18:20 Dose: 100 mls/hr Insulin Human Regular (Humulin R Low) 0 units SC ACHS [facility]; Protocol Last Admin: 06/03/18 08:01 Dose: Not Given Isosorbide Mononitrate (Imdur) 120 mg PO DAILY [facility] Metoprolol Tartrate (Lopressor) 50 mg PO BID [facility] Last Admin: 06/02/18 18:22 Dose: 50 mg Prednisone (Prednisone Tab) 40 mg PO DAILY [facility] Sacubitril/Valsartan (Entresto 97 Mg-103 Mg Tablet) 1 each PO DAILY [facility] Sitagliptin Phosphate (Januvia) 25 mg PO DAILY [facility] Spironolactone (Aldactone) 25 mg PO BID [facility] Last Admin: 06/02/18 18:21 Dose: 25 mg - Labs Labs: 06/03/18 07:50 06/03/18 07:50 PT 20.1 SECONDS (9.4-12.5) H 06/02/18 13:20 INR 1.74 06/02/18 13:20 APTT 32.7 Seconds (25.1-36.5) 06/02/18 13:20 - Additional Findings Additional findings: - Constitutional Appears: Non-toxic, No Acute Distress - Head Exam Head Exam: NORMAL INSPECTION, NORMOCEPHALIC - Eye Exam Eye Exam: EOMI, Normal appearance. absent: Nystagmus, Scleral icterus - ENT Exam ENT Exam: Mucous Membranes Moist - Respiratory Exam Respiratory Exam: Rhonchi, Wheezes, NORMAL BREATHING PATTERN. absent: Accessory Muscle Use, Rales Additional comments: R>L - Cardiovascular Exam Cardiovascular Exam: REGULAR RHYTHM, +S1, +S2. absent: Systolic Murmur - GI/Abdominal Exam GI & Abdominal Exam: Distended, Normal Bowel Sounds, Soft. absent: Firm, Guarding, Tenderness - Extremities Exam Extremities exam: Positive for: normal inspection, pedal edema. Negative for: calf tenderness Additional comments: +2 pitting edema b/l - Neurological Exam Neurological exam: Alert, Oriented x3 - Psychiatric Exam Psychiatric exam: Normal Affect, Normal Mood - Skin Skin Exam: Intact, Normal Color Assessment and Plan - Assessment and Plan (Free Text) Assessment: Patient is a 62 yo male w/ PMH CAD w/ multiple stents, CABG, CHF (EF 67 in 2017), PVD, DM, dyslipidemia, ESRD (T, Th Sat), HTN, osteoporosis, osteoarthritis, sarcoidosis presents for lightheadedness and cough. Patient had dialysis scheduled for today (71kg) to removed 2500L of fluid. Possible paracentesis as per ICU team. Plan: Cough HCAP PNA vs pleural effusion Pulm/Crit Care Consult- Dr. Urena- recommendations appreciated- considering paracentesis Nephrology consult- Dr. Siu- patient underwent dialysis today ID consult- Dr. Garcia- recommendations appreciated 06-02-18 Right basilar opacity suspicious for PNA. Possible small right upper lobe opacity. Small bilateral pleural effusion PNA studies pending; Continuing patient on linezolid and Cefepime until ID furth er recommendations Procal 7.8; Afebrile; No leukocytosis Duonebs q6h jesse Duonebs q4h prn Patient had Dialysis today with goal of 2500 ultrafiltrate removal PAD Cilostazol 50mg po bid Aspirin 325mg po daily Lipitor 10mg po din CHF exacerbation Echo pending Lasix and Aldactone held in setting of very minimal urine output Isosorbide Mononitrate 120mg po daily DM2 with neuropathy ISS low dose ACHS Januvia 25mg po daily Gabapentin 300mg po daily HTN Metoprolol 50mg po bid Entresto po daily Hydralazine 25mg po daily Aldactone 25mg po bid Isosorbide Mononitrate 120mg po daily ESRD Nephrology Consult- Dr. Siu- consent for HD possibly tomorrow- further recs appreciated On Dialysis (T, Th, Sat); Possible HD for tomrrow as per nephro Dyslipidemia Lipitor 10mg po din Hx of CABG Plavix 75 mg po daily Asa 325mg po daily Metoprol 50mg po bid Entresto po daily Hx of Sarcoidosis Prednisone 40mg po daily PPx GI ppx- Pepcid 40mg HS DVT ppx- heparin 5000 sc q12 Plan discussed with Dr. Shahid. Emily Ag PGY-2 <Roldan Shahid - Last Filed: 06/05/18 15:12> Objective - Vital Signs/Intake and Output Vital Signs (last 24 hours): Temp Pulse Resp BP Pulse Ox 98.1 F 75 19 156/81 H 95 06/05/18 12:00 06/05/18 12:00 06/05/18 12:00 06/05/18 12:00 06/05/18 05:58 Intake and Output: 06/05/18 06/05/18 06:59 18:59 Intake Total 1180 Output Total 0 Balance 1180 - Medications Medications: Current Medications Acetaminophen (Tylenol 325mg Tab) 650 mg PO Q6H PRN PRN Reason: Fever >100.4 F Albuterol/Ipratropium (Duoneb 3 Mg/0.5 Mg (3 Ml) Ud) 3 ml IH [id number] [facility] Last Admin: 06/05/18 14:13 Dose: 3 ml Albuterol/Ipratropium (Duoneb 3 Mg/0.5 Mg (3 Ml) Ud) 3 ml IH [id number] PRN PRN Reason: Shortness of Breath Aspirin (Ecotrin) 325 mg PO DAILY [facility] Last Admin: 06/05/18 12:56 Dose: 325 mg Atorvastatin Calcium (Lipitor) 10 mg PO DIN [facility] Last Admin: 06/03/18 17:45 Dose: 10 mg Cilostazol (Pletal) 50 mg PO BID [facility] Last Admin: 06/03/18 17:45 Dose: 50 mg Clopidogrel Bisulfate (Plavix) 75 mg PO DAILY [facility] Last Admin: 06/05/18 12:55 Dose: 75 mg Doxycycline Hyclate (Doryx) 100 mg PO Q12 [facility]; Protocol Stop: 06/11/18 10:01 Last Admin: 06/05/18 12:55 Dose: 100 mg Famotidine (Pepcid) 40 mg PO HS [facility] Last Admin: 06/04/18 21:10 Dose: 40 mg Gabapentin (Neurontin) 300 mg PO DAILY [facility]; Protocol Last Admin: 06/03/18 14:23 Dose: 300 mg Heparin Sodium (Porcine) (Heparin) 5,000 units SC Q8 [facility]; Protocol Last Admin: 06/05/18 13:16 Dose: 5,000 units Hydralazine HCl (Apresoline) 25 mg PO DAILY [facility] Last Admin: 06/05/18 12:55 Dose: 25 mg Hydroxyzine HCl (Atarax) 25 mg PO DAILY PRN PRN Reason: Itching / Pruritus Meropenem 250 mg/ Sodium (Chloride) 100 mls @ 100 mls/hr IVPB Q12H [facility]; Protocol Stop: 06/11/18 23:46 Last Admin: 06/05/18 12:54 Dose: 100 mls/hr Insulin Human Regular (Humulin R Low) 0 units SC ACHS [facility]; Protocol Last Admin: 06/05/18 12:07 Dose: Not Given Isosorbide Mononitrate (Imdur) 120 mg PO DAILY [facility] Last Admin: 06/05/18 12:55 Dose: 120 mg Metoprolol Tartrate (Lopressor) 50 mg PO BID [facility] Last Admin: 06/05/18 12:56 Dose: 50 mg Prednisone (Prednisone Tab) 20 mg PO DAILY [facility] Sacubitril/Valsartan (Entresto 97 Mg-103 Mg Tablet) 1 each PO DAILY [facility] Last Admin: 06/05/18 12:56 Dose: 1 each Sitagliptin Phosphate (Januvia) 25 mg PO DAILY [facility] Last Admin: 06/05/18 12:55 Dose: 25 mg Spironolactone (Aldactone) 25 mg PO BID [facility] Last Admin: 06/03/18 14:24 Dose: Not Given - Labs Labs: 06/05/18 05:30 06/05/18 05:30 PT 20.1 SECONDS (9.4-12.5) H 06/02/18 13:20 INR 1.74 06/02/18 13:20 APTT 32.7 Seconds (25.1-36.5) 06/02/18 13:20 Attending/Attestation - Attestation I have personally seen and examined this patient.: Yes I have fully participated in the care of the patient.: Yes I have reviewed all pertinent clinical information, including history, physical exam and plan: Yes Notes (Text): 06/05/18 15:12 Medical record note made by the resident after discussion with my direction and input after the patient was personally seen and examined by me. I have reviewed the chart and agree that the record accurately reflects by personal performance of the history, physical exam, data review, and medical decision-making, in the course for the patient. I have also personally directed the plan of care.
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
[2018-06-03] MEDS: Cilostazol 50 mg Tab UD PO SCH ×2 (14:23→17:45)
[2018-06-03] MEDS: Aspirin 325 mg EC Tablets PO SCH (14:24)
[2018-06-03] MEDS: Cefepime 1gm in NS 100ml 1 GM/100 ML BAG IVPB SCH (16:15)
[2018-06-03] MEDS: SACUBITRIL 97mg/ VALSARTAN 103mg tab PO SCH (16:15)
[2018-06-03] MEDS ORDERED: Linezolid 600 mg in D5W 300 ml 600 MG/300 ML BAG IVPB SCH (22:00)
[2018-06-03] MEDS ORDERED: Vancomycin 1gm in NS 250ml 1 GM/250 ML BAG IVPB STA (23:41)
[2018-06-04] MEDS: Albuterol-Ipratrop 3 mg / 0.5 (3 ml) UD IH SCH ×4 (01:24→19:52)
[2018-06-04 08:01] LABS: GRAN # 2.71 (1.4-6.5); GRAN % 85.2 % (50.0-68.0); HEMOGLOBIN 9.9 g/dL (14.0-18.0); LYMPH # 0.3 (1.2-3.4); LYMPH % 8.5 % (22.0-35.0); MEAN CELL VOLUME 79.4 fl (80.0-105.0); MEAN CORPUSCULAR HEMOGLOBIN 27.6 pg (25.0-35.0); MEAN CORPUSCULAR HGB CONC 34.7 g/dl (31.0-37.0); MONO # 0.2 (0.1-0.6); MONO % 6.3 % (1.0-6.0); PLATELET COUNT 86 10^3/uL (120.0-450.0); RBC 3.59 10^6/uL (3.5-6.1); RED CELL DISTRIBUTION WIDTH 17.3 % (11.5-14.5); WHITE BLOOD COUNT 3.2 10^3/ul (4.5-11.0)
--- NOTE | 2018-06-04 08:08 | CP.PCM.PN ---
Subjective - Date & Time of Evaluation Date of Evaluation: 06/04/18 Time of Evaluation: 07:00 - Subjective Subjective: Nephrology Progress Note for Autumn Valdez PGY3 Patient seen and examined at bedside. There were no acute overnight events as per nursing staff. Patient continues to have a lot of watery diarrhea. He reports having diffuse abdominal pain that does not radiate. Patient reports his cough has improved. He denies chest pain, shortness of breath, nausea/vomiting, fever/chills, numbness or tingling. Objective - Vital Signs/Intake and Output Vital Signs (last 24 hours): Temp Pulse Resp BP Pulse Ox 97.5 F L 76 20 134/74 93 L 06/04/18 06:00 06/04/18 06:00 06/04/18 06:00 06/04/18 06:00 06/04/18 06:00 Intake and Output: 06/04/18 06/04/18 06:59 18:59 Intake Total 1250 Balance 1250 - Medications Medications: Current Medications Acetaminophen (Tylenol 325mg Tab) 650 mg PO Q6H PRN PRN Reason: Fever >100.4 F Albuterol/Ipratropium (Duoneb 3 Mg/0.5 Mg (3 Ml) Ud) 3 ml IH [id number] [facility] Last Admin: 06/04/18 01:24 Dose: Not Given Albuterol/Ipratropium (Duoneb 3 Mg/0.5 Mg (3 Ml) Ud) 3 ml IH [id number] PRN PRN Reason: Shortness of Breath Aspirin (Ecotrin) 325 mg PO DAILY [facility] Last Admin: 06/03/18 14:24 Dose: 325 mg Atorvastatin Calcium (Lipitor) 10 mg PO DIN [facility] Last Admin: 06/03/18 17:45 Dose: 10 mg Cilostazol (Pletal) 50 mg PO BID [facility] Last Admin: 06/03/18 17:45 Dose: 50 mg Clopidogrel Bisulfate (Plavix) 75 mg PO DAILY [facility] Last Admin: 06/03/18 14:24 Dose: 75 mg Doxycycline Hyclate (Doryx) 100 mg PO Q12 [facility]; Protocol Stop: 06/11/18 10:01 Famotidine (Pepcid) 40 mg PO HS [facility] Last Admin: 06/03/18 22:40 Dose: 40 mg Gabapentin (Neurontin) 300 mg PO DAILY [facility]; Protocol Last Admin: 06/03/18 14:23 Dose: 300 mg Heparin Sodium (Porcine) (Heparin) 5,000 units SC Q8 [facility]; Protocol Last Admin: 06/04/18 07:43 Dose: Not Given Hydralazine HCl (Apresoline) 25 mg PO DAILY [facility] Last Admin: 06/03/18 14:24 Dose: 25 mg Hydroxyzine HCl (Atarax) 25 mg PO DAILY PRN PRN Reason: Itching / Pruritus Meropenem 250 mg/ Sodium (Chloride) 100 mls @ 100 mls/hr IVPB Q12H [facility]; Protocol Stop: 06/11/18 23:46 Last Admin: 06/04/18 01:02 Dose: 100 mls/hr Insulin Human Regular (Humulin R Low) 0 units SC ACHS [facility]; Protocol Last Admin: 06/03/18 17:52 Dose: 1 unit Isosorbide Mononitrate (Imdur) 120 mg PO DAILY [facility] Last Admin: 06/03/18 14:21 Dose: 120 mg Metoprolol Tartrate (Lopressor) 50 mg PO BID [facility] Last Admin: 06/03/18 17:45 Dose: 50 mg Prednisone (Prednisone Tab) 40 mg PO DAILY [facility] Last Admin: 06/03/18 14:24 Dose: 40 mg Sacubitril/Valsartan (Entresto 97 Mg-103 Mg Tablet) 1 each PO DAILY [facility] Last Admin: 06/03/18 16:15 Dose: 1 each Sitagliptin Phosphate (Januvia) 25 mg PO DAILY [facility] Last Admin: 06/03/18 14:24 Dose: 25 mg Spironolactone (Aldactone) 25 mg PO BID [facility] Last Admin: 06/03/18 14:24 Dose: Not Given - Labs Labs: 06/04/18 06:30 06/03/18 07:50 PT 20.1 SECONDS (9.4-12.5) H 06/02/18 13:20 INR 1.74 06/02/18 13:20 APTT 32.7 Seconds (25.1-36.5) 06/02/18 13:20 - Constitutional Appears: No Acute Distress - Head Exam Head Exam: ATRAUMATIC, NORMAL INSPECTION, NORMOCEPHALIC - Eye Exam Eye Exam: Normal appearance, PERRL Pupil Exam: NORMAL ACCOMODATION, PERRL - ENT Exam ENT Exam: Mucous Membranes Moist - Neck Exam Neck Exam: Full ROM, Normal Inspection. absent: Tenderness - Respiratory Exam Respiratory Exam: Clear to Ausculation Bilateral, NORMAL BREATHING PATTERN. absent: Rales, Rhonchi, Wheezes - Cardiovascular Exam Cardiovascular Exam: REGULAR RHYTHM, +S1, +S2. absent: Gallop, Rubs, Murmur - GI/Abdominal Exam GI & Abdominal Exam: Soft, Tenderness (mild tenderness in RLQ and LLQ and umbilical region), Hyperactive Bowel Sounds. absent: Rigid, Mass, Rebound - Extremities Exam Extremities Exam: Pedal Edema (+ 3 pitting edema ). absent: Calf Tenderness Additional comments: L arm AV fistula with palpable thrill - Neurological Exam Neurological Exam: Alert, Awake, CN II-XII Intact, Oriented x3 - Psychiatric Exam Psychiatric exam: Normal Affect, Normal Mood - Skin Skin Exam: Dry, Warm Assessment and Plan - Assessment and Plan (Free Text) Assessment: 1. Cough - secondary to HCAP as well as CHF 2. Diarrhea - r/o c.diff 3. ESRD 4. Renal replacement therapy on HD 5. Anemia of chronic disease 6. Secondary hyperparathyroidism 7. L AV fistula access 8. Abdominal Ascites - secondary to cirrhosis v. CHF v. pulm HTN 9. CAD s/p CABG 10. DM type II 11. Essential HTN Plan: Labs and imaging reviewed. Will get CXR to assess volume status. Patient had thoracentesis today as per IR. 1500ml of rust colored fluid drained. Patient is hypervolemic and anuric. Will d/c Lasix. Lipitor and Pletal on hold for now to reduce polypharmacy. Echo done to assess LV function and RSVP. Will continue to check daily weights to assess volume status. Phosphate binder on hold because patient losing phosphate through diarrhea. Will continue HD as scheduled T,T,Sa. Case seen, discussed and reviewed with Dr. Siu. Autumn Marie PGY3
[2018-06-04 08:09] LABS: ALBUMIN 3.8 g/dL (3.0-4.8); CALCIUM 8.7 mg/dL (8.4-10.5)
[2018-06-04 09:54] LABS: BODY FLUID TYPE PLEURAL
[2018-06-04 10:06] LABS: BF GROSS APPEARANCE BLOODY (CLEAR); BODY FLUID TOTAL COUNT 100 (0-0)
--- NOTE | 2018-06-04 10:12 | RAD ---
Date of service: 06/04/2018 HISTORY: rt thora COMPARISON: 06/02/2018 TECHNIQUE: Chest PA and lateral FINDINGS: LUNGS: Improved right-sided infiltrate PLEURA: Decreased right-sided pleural effusion. No evidence of pneumothorax. CARDIOVASCULAR: Mild cardiomegaly OSSEOUS STRUCTURES: No significant abnormalities. VISUALIZED UPPER ABDOMEN: Normal. OTHER FINDINGS: None. IMPRESSION: Improved right-sided infiltrate. Decreased right-sided pleural effusion. No evidence of pneumothorax
[2018-06-04] MEDS: Insulin Reg-LOW-Coverage SC SCH ×4 (11:50→21:41)
[2018-06-04] MEDS: Aspirin 325 mg EC Tablets PO SCH (12:18)
[2018-06-04] MEDS: SACUBITRIL 97mg/ VALSARTAN 103mg tab PO SCH (12:52)
[2018-06-04] MEDS ORDERED: Sod Polystyrene Sulf 15 gm/60 ml Susp PO ONE (13:33)
--- NOTE | 2018-06-04 13:34 | CP.PCM.PN ---
<Emily Ag - Last Filed: 06/04/18 13:36> Subjective - Date & Time of Evaluation Date of Evaluation: 06/04/18 Time of Evaluation: 10:00 - Subjective Subjective: PGY-1 Emily Ag Medicine Progress Note for Dr. Shahid's service Patient seen and examined at bedside. Patient reports multiple episodes of diarrhea today. Patient also complains of abdominal pain. Patient denies chest pain, sob, n/v, constipation or diarrhea, weakness, fevers or chills. Objective - Vital Signs/Intake and Output Vital Signs (last 24 hours): Temp Pulse Resp BP Pulse Ox 97.5 F L 72 19 144/78 93 L 06/04/18 12:00 06/04/18 12:17 06/04/18 12:00 06/04/18 12:17 06/04/18 06:00 Intake and Output: 06/04/18 06/04/18 06:59 18:59 Intake Total 1250 Balance 1250 - Medications Medications: Current Medications Acetaminophen (Tylenol 325mg Tab) 650 mg PO Q6H PRN PRN Reason: Fever >100.4 F Albuterol/Ipratropium (Duoneb 3 Mg/0.5 Mg (3 Ml) Ud) 3 ml IH [id number] [facility] Last Admin: 06/04/18 09:01 Dose: Not Given Albuterol/Ipratropium (Duoneb 3 Mg/0.5 Mg (3 Ml) Ud) 3 ml IH [id number] PRN PRN Reason: Shortness of Breath Aspirin (Ecotrin) 325 mg PO DAILY [facility] Last Admin: 06/04/18 12:18 Dose: 325 mg Atorvastatin Calcium (Lipitor) 10 mg PO DIN [facility] Last Admin: 06/03/18 17:45 Dose: 10 mg Cilostazol (Pletal) 50 mg PO BID [facility] Last Admin: 06/03/18 17:45 Dose: 50 mg Clopidogrel Bisulfate (Plavix) 75 mg PO DAILY [facility] Last Admin: 06/04/18 12:17 Dose: 75 mg Doxycycline Hyclate (Doryx) 100 mg PO Q12 [facility]; Protocol Stop: 06/11/18 10:01 Last Admin: 06/04/18 12:01 Dose: 100 mg Famotidine (Pepcid) 40 mg PO HS [facility] Last Admin: 06/03/18 22:40 Dose: 40 mg Gabapentin (Neurontin) 300 mg PO DAILY [facility]; Protocol Last Admin: 06/03/18 14:23 Dose: 300 mg Heparin Sodium (Porcine) (Heparin) 5,000 units SC Q8 [facility]; Protocol Last Admin: 06/04/18 07:43 Dose: Not Given Hydralazine HCl (Apresoline) 25 mg PO DAILY [facility] Last Admin: 06/04/18 12:17 Dose: 25 mg Hydroxyzine HCl (Atarax) 25 mg PO DAILY PRN PRN Reason: Itching / Pruritus Meropenem 250 mg/ Sodium (Chloride) 100 mls @ 100 mls/hr IVPB Q12H [facility]; Protocol Stop: 06/11/18 23:46 Last Admin: 06/04/18 11:28 Dose: 100 mls/hr Insulin Human Regular (Humulin R Low) 0 units SC ACHS [facility]; Protocol Last Admin: 06/04/18 11:58 Dose: 1 unit Isosorbide Mononitrate (Imdur) 120 mg PO DAILY [facility] Last Admin: 06/04/18 12:02 Dose: 120 mg Metoprolol Tartrate (Lopressor) 50 mg PO BID [facility] Last Admin: 06/04/18 12:02 Dose: 50 mg Prednisone (Prednisone Tab) 40 mg PO DAILY [facility] Last Admin: 06/04/18 12:01 Dose: 40 mg Sacubitril/Valsartan (Entresto 97 Mg-103 Mg Tablet) 1 each PO DAILY [facility] Last Admin: 06/04/18 12:52 Dose: 1 each Sitagliptin Phosphate (Januvia) 25 mg PO DAILY [facility] Last Admin: 06/04/18 12:01 Dose: 25 mg Spironolactone (Aldactone) 25 mg PO BID [facility] Last Admin: 06/03/18 14:24 Dose: Not Given - Labs Labs: 06/04/18 06:30 06/04/18 06:30 PT 20.1 SECONDS (9.4-12.5) H 06/02/18 13:20 INR 1.74 06/02/18 13:20 APTT 32.7 Seconds (25.1-36.5) 06/02/18 13:20 - Constitutional Appears: Non-toxic, No Acute Distress - Head Exam Head Exam: NORMAL INSPECTION, NORMOCEPHALIC - Eye Exam Eye Exam: EOMI, Normal appearance. absent: Nystagmus, Scleral icterus - ENT Exam ENT Exam: Mucous Membranes Moist - Respiratory Exam Respiratory Exam: Clear to Ausculation Bilateral, NORMAL BREATHING PATTERN. absent: Rales, Rhonchi, Wheezes - Cardiovascular Exam Cardiovascular Exam: REGULAR RHYTHM, +S1, +S2 - GI/Abdominal Exam GI & Abdominal Exam: Soft, Tenderness, Normal Bowel Sounds. absent: Distended, Firm, Guarding, Rigid - Extremities Exam Extremities Exam: Normal Inspection. absent: Calf Tenderness, Pedal Edema - Neurological Exam Neurological Exam: Alert, Awake, Oriented x3 - Psychiatric Exam Psychiatric exam: Normal Affect, Normal Mood - Skin Skin Exam: Intact, Normal Color Assessment and Plan - Assessment and Plan (Free Text) Assessment: Patient is a 62 yo male w/ PMH CAD w/ multiple stents, CABG, CHF (EF 67 in 2017), PVD, DM, dyslipidemia, ESRD (T, Th Sat), HTN, osteoporosis, osteoarthritis, sarcoidosis presents for lightheadedness and cough. Patient had dialysis scheduled for today (71kg) to removed 2500L of fluid. Multiple episodes of diarrhea today; Patient went thoracentesis and fluid studies were sent out; Paracentesis was cancelled in the setting of not enough ascitic fluid Plan: Pleural effusion Pulm/Crit Care Consult- Dr. Urena- recommended thoracentesis and paracentesis IR consulted Dr. Fitzgerald- Thoracentesis done today; Paracentesis cancelled due to not enough fluid; pleural fluid studies pending Nephrology consult- Dr. Siu- Dialysis scheduled for tomorrow 06-02-18 Cxray Right basilar opacity suspicious for PNA. Possible small right upper lobe opacity. Small bilateral pleural effusion Duonebs q6h jesse Duonebs q4h prn Patient had Dialysis today with goal of 2500 ultrafiltrate removal HCAP pnuemonia ID consulted- Dr. Garcia- started Doxycycline 100mg po q12 til 06-04; Started Meropenem and end on [id number] Cxray Right basilar opacity suspicious for PNA. Possible small right upper lobe opacity. Small bilateral pleural effusion Currently on meropenem and doxycycline Blood cx , sputum cx pending Procal 7.8 Diarrhea Lipitor, Cilastozol held in setting of diarrhea ESRD Nephrology Consult- Dr. Sherron- HD tomorrow On Dialysis (T, Th, Sat) Hyperkalemia noted will be adjusted with HD PAD Cilostazol 50mg po bid - held Aspirin 325mg po daily Lipitor 10mg po din- held CHF exacerbation Echo pending Lasix and Aldactone held in setting of very minimal urine output Patient will continue to receive HD; Next session tomorrow Isosorbide Mononitrate 120mg po daily DM2 with neuropathy ISS low dose ACHS Januvia 25mg po daily Gabapentin 300mg po daily HTN Metoprolol 50mg po bid Entresto po daily Hydralazine 25mg po daily Aldactone 25mg po bid Isosorbide Mononitrate 120mg po daily Dyslipidemia Lipitor 10mg po din- held in setting of diarrhea Anemia Likely due to ESRD Hemodynmically stable Continue to monitor with serial CBCs Hx of CABG Plavix 75 mg po daily Asa 325mg po daily Metoprol 50mg po bid Entresto po daily Hx of Sarcoidosis Prednisone 40mg po daily PPx GI ppx- Pepcid 40mg HS DVT ppx- heparin 5000 sc q12 Plan discussed with Dr. Shahid. Emily Ag PGY-2 <Roldan Shahid - Last Filed: 06/05/18 15:11> Objective - Vital Signs/Intake and Output Vital Signs (last 24 hours): Temp Pulse Resp BP Pulse Ox 98.1 F 75 19 156/81 H 95 06/05/18 12:00 06/05/18 12:00 06/05/18 12:00 06/05/18 12:00 06/05/18 05:58 Intake and Output: 06/05/18 06/05/18 06:59 18:59 Intake Total 1180 Output Total 0 Balance 1180 - Medications Medications: Current Medications Acetaminophen (Tylenol 325mg Tab) 650 mg PO Q6H PRN PRN Reason: Fever >100.4 F Albuterol/Ipratropium (Duoneb 3 Mg/0.5 Mg (3 Ml) Ud) 3 ml IH [id number] [facility] Last Admin: 06/05/18 14:13 Dose: 3 ml Albuterol/Ipratropium (Duoneb 3 Mg/0.5 Mg (3 Ml) Ud) 3 ml IH [id number] PRN PRN Reason: Shortness of Breath Aspirin (Ecotrin) 325 mg PO DAILY [facility] Last Admin: 06/05/18 12:56 Dose: 325 mg Atorvastatin Calcium (Lipitor) 10 mg PO DIN [facility] Last Admin: 06/03/18 17:45 Dose: 10 mg Cilostazol (Pletal) 50 mg PO BID [facility] Last Admin: 06/03/18 17:45 Dose: 50 mg Clopidogrel Bisulfate (Plavix) 75 mg PO DAILY [facility] Last Admin: 06/05/18 12:55 Dose: 75 mg Doxycycline Hyclate (Doryx) 100 mg PO Q12 [facility]; Protocol Stop: 06/11/18 10:01 Last Admin: 06/05/18 12:55 Dose: 100 mg Famotidine (Pepcid) 40 mg PO HS [facility] Last Admin: 06/04/18 21:10 Dose: 40 mg Gabapentin (Neurontin) 300 mg PO DAILY [facility]; Protocol Last Admin: 06/03/18 14:23 Dose: 300 mg Heparin Sodium (Porcine) (Heparin) 5,000 units SC Q8 [facility]; Protocol Last Admin: 06/05/18 13:16 Dose: 5,000 units Hydralazine HCl (Apresoline) 25 mg PO DAILY [facility] Last Admin: 06/05/18 12:55 Dose: 25 mg Hydroxyzine HCl (Atarax) 25 mg PO DAILY PRN PRN Reason: Itching / Pruritus Meropenem 250 mg/ Sodium (Chloride) 100 mls @ 100 mls/hr IVPB Q12H [facility]; Protocol Stop: 06/11/18 23:46 Last Admin: 06/05/18 12:54 Dose: 100 mls/hr Insulin Human Regular (Humulin R Low) 0 units SC ACHS [facility]; Protocol Last Admin: 06/05/18 12:07 Dose: Not Given Isosorbide Mononitrate (Imdur) 120 mg PO DAILY [facility] Last Admin: 06/05/18 12:55 Dose: 120 mg Metoprolol Tartrate (Lopressor) 50 mg PO BID [facility] Last Admin: 06/05/18 12:56 Dose: 50 mg Prednisone (Prednisone Tab) 20 mg PO DAILY [facility] Sacubitril/Valsartan (Entresto 97 Mg-103 Mg Tablet) 1 each PO DAILY [facility] Last Admin: 06/05/18 12:56 Dose: 1 each Sitagliptin Phosphate (Januvia) 25 mg PO DAILY [facility] Last Admin: 06/05/18 12:55 Dose: 25 mg Spironolactone (Aldactone) 25 mg PO BID [facility] Last Admin: 06/03/18 14:24 Dose: Not Given - Labs Labs: 06/05/18 05:30 06/05/18 05:30 PT 20.1 SECONDS (9.4-12.5) H 06/02/18 13:20 INR 1.74 06/02/18 13:20 APTT 32.7 Seconds (25.1-36.5) 06/02/18 13:20 Attending/Attestation - Attestation I have personally seen and examined this patient.: Yes I have fully participated in the care of the patient.: Yes I have reviewed all pertinent clinical information, including history, physical exam and plan: Yes Notes (Text): 06/05/18 15:11 Medical record note made by the resident after discussion with my direction and input after the patient was personally seen and examined by me. I have reviewed the chart and agree that the record accurately reflects by personal performance of the history, physical exam, data review, and medical decision-making, in the course for the patient. I have also personally directed the plan of care.
--- NOTE | 2018-06-04 14:58 | PN ---
DATE: 06/04/2018 SUBJECTIVE: The patient is seen and examined at bedside. He is comfortable. He talks full sentences. He is finishing his lunch. He is not in respiratory or otherwise distress. OBJECTIVE: VITAL SIGNS: Temperature 97.5, heart rate 74, blood pressure 134/74, respiratory rate 20, oxygen saturation 93% on room air. ENT: Head and neck atraumatic. NECK: There is JVD engorgement in the neck present. LUNGS: A few rales and crackles bilaterally. HEART: Regular rate and rhythm. S1, S2 distant. ABDOMEN: Soft, nontender, nondistended. MUSCULOSKELETAL: A 1+ to 2+ bilateral pedal and ankle edema. NEUROLOGICAL: The patient moves all extremities spontaneously. SKIN: Moist. PSYCHIATRIC: The patient is alert, awake and oriented x3. LABORATORY DATA: WBC 3.2, hemoglobin 9.9, platelet count 86. Sodium 138, potassium 5.3, chloride 95, carbon dioxide 27, BUN 32, creatinine 3.7, glucose 206, AST 24, ALT 23, alkaline phosphatase 297. Procalcitonin 7.8. Lactic acid as of two days ago 1.3. The patient did have thoracentesis today, which revealed pH 7.5 and lymphocyte predominance, in WBC count in pleural effusion with overall RBC predominance. MEDICATIONS: Tylenol p.r.n., DuoNeb every 6 hours, aspirin, Lipitor, Pletal, Plavix, doxycycline, Neurontin, hydralazine, hydroxyzine, regular insulin sliding scale, isosorbide mononitrate, meropenem, metoprolol, prednisone 40 mg p.o. daily, spironolactone, vancomycin and Januvia. ASSESSMENT AND PLAN: This is 62-year-old gentleman who presented with CAP (previously would be called as HCAP) and was treated accordingly by Infectious Disease service with broad-spectrum antibiotics (ESRD/HD patient who was in the hospital for more then 3 days within last 3 months) and doxycycline to empirically cover for potential MDR pathogens as well as for atypical microorganisms, respectively . Patient also has been treated with steroids for sarcoidosis prior to admission. It appears that his home dose is 2.5 mg daily. I think we can start tapering down his dose to his baseline dose for now. Procalcitonin substantially elevated. However, part of it can be falsely high as patient has end-stage renal disease and is on hemodialysis. Nevertheless, it may be worthwhile to trend it to objectively ascertain improvement in his infection course. History of sarcoidosis, might potentially explain multiorgan system involvement, including pulmonary hypertension (which in sarcoidosis may be combination of pre and postcapillary PH), hepatic and cardiac involvement. Thus cardiology consult would be helpful to consider left and right cardiac cath. Of note, the patient's calcium is normal at 8.7 and EKG showed normal sinus rhythm with incomplete left bundle branch block, but no other conduction abnormalities. QTc 469. We will continue to target euvolemia, normothermia and oxygen saturation more than 90%. We will continue with scheduled dialysis. We will continue to await results of the pleural effusion analysis, status post thoracentesis. Volodymyr Acharya MD [facility]
--- NOTE | 2018-06-04 15:16 | CON ---
DATE: 06/04/2018 LOCATION: The patient is seen earlier this morning in 264, bed 1. CHIEF COMPLAINT: Weakness, diarrhea and cough times several days. HISTORY OF PRESENT ILLNESS: This is a 62-year-old male with peripheral vascular disease; coronary artery disease; end-stage renal disease, on hemodialysis; diabetes mellitus; sarcoidosis and asthma; congestive heart failure with ejection fraction of 67%; peripheral vascular disease who was admitted with weakness and dizziness. The patient also complaining of diarrhea, cough, shortness of breath and low-grade fevers. REVIEW OF SYSTEMS: The 12-point review of systems is performed. No abdominal pain, headaches or blurred vision. He does have fevers, which is low grade. Occasional chills. There is diarrhea, nonbloody and no new joint pain. PAST MEDICAL HISTORY: Significant for end-stage renal disease, on dialysis; coronary artery disease; diabetes; sarcoidosis; asthma; congestive heart failure with ejection fraction of 67%. PAST SURGICAL HISTORY: Significant for coronary artery bypass graft and cardiac catheterization with stent placement, cholecystectomy. ALLERGIES: THE PATIENT HAS NO KNOWN ALLERGIES TO ANY ANTIBIOTICS. MEDICATIONS: At home include prednisone, , statins, insulin, Plavix. PHYSICAL EXAMINATION: GENERAL: On exam, the patient is in bed, in no acute distress. However, chronically ill, debilitated. VITAL SIGNS: Temperature of 100.2, heart rate of 95, respiratory rate of 22 and blood pressure of 128/70, oxygen saturation is at 93 on room air with a BMI of 23. HEENT: Examination is unremarkable. NECK: Supple. LUNGS: Have decreased breath sounds. HEART: Normal S1, S2. ABDOMEN: Soft, nontender. LABORATORY DATA: Laboratory examination reveals the patient's white count of 5.6, hemoglobin of 10, platelets of 92 and coagulation is noted. INR of 1.7. ABGs were reviewed with a pH of 7.48, pCO2 of 40, pO2 is noted, and FiO2 of 21%. Chemistries reveals a BUN of 40, creatinine of 5.4. Alkaline phosphatase is elevated at 289. Procalcitonin is elevated 7.8. Microbiology is pending. The patient had two chest x-rays, both with right lower lobe infiltrate. ASSESSMENT AND PLAN: This is a 62-year-old male with diabetes mellitus, end-stage renal disease and on hemodialysis, sarcoidosis and diastolic congestive heart failure with ejection fraction of 67%, presenting with low-grade fevers, tachycardia, dyspnea, infiltrate and diarrhea. Sepsis with right healthcare-associated pneumonia, must rule out bacteremia from the access and also consider Legionella because of the diarrhea. We will order vancomycin, meropenem, and doxycycline, pending blood cultures and urine cultures, MRSA screen, and sputum cultures. Stool for Clostridium difficile has been ordered and urine for Legionella has been ordered and we will treat with vancomycin, meropenem and doxycycline and make further recommendations. We will follow closely with you. Beny Garcia MD
--- NOTE | 2018-06-04 16:42 | US ---
Date of service: 06/04/2018 PROCEDURE: Ultrasound-guided right thoracentesis HISTORY: US MELANIA Patrick/ [facility] COMPARISON: TECHNIQUE: Preliminary sonography of the abdomen revealed a cirrhotic appearing liver and a small amount of ascites. There was not enough fluid for therapeutic paracentesis. The patient was placed in a sitting position sonography both chest performed. This revealed a moderate right pleural effusion and a small to moderate left pleural effusion. A right posterior lateral intercostal approach was selected the area prepped and draped usual sterile fashion. 1 percent xylocaine was used to anesthetize skin soft tissues. A 7 Malay catheter was trocar into the right pleural space and 1500 cc of serosanguineous fluid aspirated. The appropriate labs were sent. The patient tolerated the procedure well. FINDINGS: IMPRESSION: Ultrasound-guided right thoracentesis. 1500 cc of serosanguineous fluid was aspirated. The appropriate labs were sent
--- NOTE | 2018-06-04 17:06 | CARD ---
APPROVED REPORT Date of service: 06/04/2018 EXAM: Two-dimensional and M-mode echocardiogram with Doppler and color Doppler. INDICATION CHF,PLEURAL EFFUSION 2D DIMENSIONS Left Atrium (2D)3.8 (1.6-4.0cm)IVSd1.4 (0.7-1.1cm) LVDd4.7 (3.9-5.9cm)PWd1.4 (0.7-1.1cm) M-Mode DIMENSIONS Aortic Root3.30 (2.2-3.7cm)Aortic Cusp Exc.1.70 (1.5-2.0cm) Aortic Valve AoV Peak Aosmuamo966.0cm/Chelsea Peak GR.10mmHg Mitral Valve MV E Hyugtuvi309.0cm/sMV A Rwkfsegm13.0cm/sE/A ratio1.8 TDI Lateral E' Peak V7.60cm/sMedial E' Peak V3.51cm/sE/Lateral E'17.9 E/Medial E'38.7 Pulmonary Valve PV Peak Wgtcqjok78.4cm/sPV Peak Grad.1mmHg Tricuspid Valve TR Peak Vsadhryz817ql/sRAP [id number] Peak Gr.34mmHg [id number] LEFT VENTRICLE The left ventricle is normal size. There is mild concentric left ventricular hypertrophy. Left ventricle systolic function is moderately to severely impaired. The Ejection Fraction is 35-40%. Paradoxic septum The left ventricular diastolic function is normal. No left ventricle thrombus noted on this study. RIGHT VENTRICLE The right ventricle is mildly dilated. There is normal right ventricular wall thickness. The right ventricular Systolic function is moderately to severely reduced. ATRIA The left atrium size is normal. The right atrium is severely dilated. AORTIC VALVE The aortic valve is probably bicuspid. No aortic regurgitation is present. There is no aortic valvular stenosis. MITRAL VALVE The mitral valve is mildly thickened. Mitral regurgitation is moderate. There is no mitral valve stenosis. TRICUSPID VALVE The tricuspid valve is normal in structure. There is severe tricuspid regurgitation. There is mild to moderate pulmonary hypertension. PULMONIC VALVE The pulmonary valve is normal in structure. There is trace pulmonic valvular regurgitation. GREAT VESSELS The aortic root is normal in size. The IVC is normal in size and collapses >50% with inspiration. PERICARDIAL EFFUSION There is moderate right pleural effusion. There is a trace circumferential pericardial effusion. <Conclusion> The left ventricle is normal size. There is mild concentric left ventricular hypertrophy. Left ventricle systolic function is moderately to severely impaired. The Ejection Fraction is 35-40%. Paradoxic septum The right ventricular Systolic function is moderately to severely reduced. The right atrium is severely dilated. Mitral regurgitation is moderate. There is severe tricuspid regurgitation. There is mild to moderate pulmonary hypertension.
[2018-06-05] MEDS: Albuterol-Ipratrop 3 mg / 0.5 (3 ml) UD IH SCH ×4 (01:34→20:03)
--- NOTE | 2018-06-05 06:22 | CP.PCM.PN ---
Subjective - Date & Time of Evaluation Date of Evaluation: 06/05/18 Time of Evaluation: 07:00 - Subjective Subjective: Nephrology Progress Note for Autumn Valdez PGY3 Patient seen and examined at bedside. As per nursing staff, patient only had one episode of diarrhea after antibiotics. Otherwise, patient reports feeling a little better. He still complains of cough with clear phlegm. He denies abdominal pain, chest pain, shortness of breath, nausea/vomiting, fever/chills, numbness or tingling. Objective - Vital Signs/Intake and Output Vital Signs (last 24 hours): Temp Pulse Resp BP Pulse Ox 97.8 F 73 19 143/75 95 06/05/18 05:58 06/05/18 05:58 06/05/18 05:58 06/05/18 05:58 06/05/18 05:58 Intake and Output: 06/04/18 06/05/18 18:59 06:59 Intake Total 880 1180 Output Total 220 0 Balance 660 1180 - Medications Medications: Current Medications Acetaminophen (Tylenol 325mg Tab) 650 mg PO Q6H PRN PRN Reason: Fever >100.4 F Albuterol/Ipratropium (Duoneb 3 Mg/0.5 Mg (3 Ml) Ud) 3 ml IH [id number] [facility] Last Admin: 06/05/18 01:34 Dose: 3 ml Albuterol/Ipratropium (Duoneb 3 Mg/0.5 Mg (3 Ml) Ud) 3 ml IH [id number] PRN PRN Reason: Shortness of Breath Aspirin (Ecotrin) 325 mg PO DAILY [facility] Last Admin: 06/04/18 12:18 Dose: 325 mg Atorvastatin Calcium (Lipitor) 10 mg PO DIN [facility] Last Admin: 06/03/18 17:45 Dose: 10 mg Cilostazol (Pletal) 50 mg PO BID [facility] Last Admin: 06/03/18 17:45 Dose: 50 mg Clopidogrel Bisulfate (Plavix) 75 mg PO DAILY [facility] Last Admin: 06/04/18 12:17 Dose: 75 mg Doxycycline Hyclate (Doryx) 100 mg PO Q12 [facility]; Protocol Stop: 06/11/18 10:01 Last Admin: 06/04/18 21:10 Dose: 100 mg Famotidine (Pepcid) 40 mg PO HS [facility] Last Admin: 06/04/18 21:10 Dose: 40 mg Gabapentin (Neurontin) 300 mg PO DAILY [facility]; Protocol Last Admin: 06/03/18 14:23 Dose: 300 mg Heparin Sodium (Porcine) (Heparin) 5,000 units SC Q8 [facility]; Protocol Last Admin: 06/05/18 05:09 Dose: 5,000 units Hydralazine HCl (Apresoline) 25 mg PO DAILY [facility] Last Admin: 06/04/18 12:17 Dose: 25 mg Hydroxyzine HCl (Atarax) 25 mg PO DAILY PRN PRN Reason: Itching / Pruritus Meropenem 250 mg/ Sodium (Chloride) 100 mls @ 100 mls/hr IVPB Q12H [facility]; Protocol Stop: 06/11/18 23:46 Last Admin: 06/04/18 23:18 Dose: 100 mls/hr Insulin Human Regular (Humulin R Low) 0 units SC ACHS [facility]; Protocol Last Admin: 06/04/18 21:41 Dose: Not Given Isosorbide Mononitrate (Imdur) 120 mg PO DAILY [facility] Last Admin: 06/04/18 12:02 Dose: 120 mg Metoprolol Tartrate (Lopressor) 50 mg PO BID [facility] Last Admin: 06/04/18 17:56 Dose: 50 mg Prednisone (Prednisone Tab) 30 mg PO DAILY [facility] Sacubitril/Valsartan (Entresto 97 Mg-103 Mg Tablet) 1 each PO DAILY [facility] Last Admin: 06/04/18 12:52 Dose: 1 each Sitagliptin Phosphate (Januvia) 25 mg PO DAILY [facility] Last Admin: 06/04/18 12:01 Dose: 25 mg Spironolactone (Aldactone) 25 mg PO BID [facility] Last Admin: 06/03/18 14:24 Dose: Not Given - Labs Labs: 06/04/18 06:30 06/04/18 06:30 PT 20.1 SECONDS (9.4-12.5) H 06/02/18 13:20 INR 1.74 06/02/18 13:20 APTT 32.7 Seconds (25.1-36.5) 06/02/18 13:20 - Constitutional Appears: No Acute Distress - Head Exam Head Exam: ATRAUMATIC, NORMAL INSPECTION, NORMOCEPHALIC - Eye Exam Eye Exam: Normal appearance, PERRL Pupil Exam: NORMAL ACCOMODATION - ENT Exam ENT Exam: Mucous Membranes Moist - Respiratory Exam Respiratory Exam: Rales (on lower lobes bilaterally ), NORMAL BREATHING PATTERN. absent: Rhonchi, Wheezes, Respiratory Distress, Stridor - Cardiovascular Exam Cardiovascular Exam: REGULAR RHYTHM, +S1, +S2. absent: Gallop, Rubs, Murmur - GI/Abdominal Exam GI & Abdominal Exam: Distended, Normal Bowel Sounds. absent: Rigid, Tenderness, Mass, Rebound - Extremities Exam Extremities Exam: Pedal Edema Additional comments: L AVF in place with palpable thrill - Neurological Exam Neurological Exam: Alert, Awake, CN II-XII Intact, Oriented x3 - Psychiatric Exam Psychiatric exam: Normal Affect, Normal Mood - Skin Skin Exam: Dry, Warm Assessment and Plan - Assessment and Plan (Free Text) Assessment: 1. Cough - secondary to HCAP as well as CHF 2. Diarrhea (improving) - C. diff negative 3. LE edema - secondary to ESRD v. CHF 4. ESRD 5. Renal replacement therapy on HD 6. Anemia of chronic disease 7. Secondary hyperparathyroidism 8. L AV fistula access 9. Abdominal Ascites - secondary to cirrhosis v. CHF v. pulm HTN 10. CHF - recent echo showed decreased EF from 67% in 2017 to 35-40% 11. CAD s/p CABG 12. DM type II 13. Essential HTN Plan: Labs and imaging reviewed. Patient will get HD as scheduled today. Will remove 2L with 3K bath. Continue to hold phosphate binder for now. Echo reviewed which showed decreased EF since 2017. Will continue to assess daily weights. Patient is on Merrem and doxycycline for HCAP. Patient is on Aranesp during HD for a nemia of chronic disease. Case seen, discussed and reviewed with Dr. Siu. Autumn Marie PGY3
--- NOTE | 2018-06-05 06:27 | CP.PCM.PN ---
<Emily Ag - Last Filed: 06/05/18 14:32> Subjective - Date & Time of Evaluation Date of Evaluation: 06/05/18 Time of Evaluation: 11:00 - Subjective Subjective: PGY-1 Medicine Progress Note for Dr. Shahid's service Patient seen and examined at bedside. Patient offers no acute complaints. Patient reports he had 1 episode of diarrhea at 4 am today. Patient denies chest pain, sob, n/v, constipation or diarrhea, headaches, dysuria. Objective - Vital Signs/Intake and Output Vital Signs (last 24 hours): Temp Pulse Resp BP Pulse Ox 97.8 F 73 19 143/75 95 06/05/18 05:58 06/05/18 05:58 06/05/18 05:58 06/05/18 05:58 06/05/18 05:58 Intake and Output: 06/04/18 06/05/18 18:59 06:59 Intake Total 880 1180 Output Total 220 0 Balance 660 1180 - Medications Medications: Current Medications Acetaminophen (Tylenol 325mg Tab) 650 mg PO Q6H PRN PRN Reason: Fever >100.4 F Albuterol/Ipratropium (Duoneb 3 Mg/0.5 Mg (3 Ml) Ud) 3 ml IH [id number] [facility] Last Admin: 06/05/18 01:34 Dose: 3 ml Albuterol/Ipratropium (Duoneb 3 Mg/0.5 Mg (3 Ml) Ud) 3 ml IH [id number] PRN PRN Reason: Shortness of Breath Aspirin (Ecotrin) 325 mg PO DAILY [facility] Last Admin: 06/04/18 12:18 Dose: 325 mg Atorvastatin Calcium (Lipitor) 10 mg PO DIN [facility] Last Admin: 06/03/18 17:45 Dose: 10 mg Cilostazol (Pletal) 50 mg PO BID [facility] Last Admin: 06/03/18 17:45 Dose: 50 mg Clopidogrel Bisulfate (Plavix) 75 mg PO DAILY [facility] Last Admin: 06/04/18 12:17 Dose: 75 mg Doxycycline Hyclate (Doryx) 100 mg PO Q12 [facility]; Protocol Stop: 06/11/18 10:01 Last Admin: 06/04/18 21:10 Dose: 100 mg Famotidine (Pepcid) 40 mg PO HS [facility] Last Admin: 06/04/18 21:10 Dose: 40 mg Gabapentin (Neurontin) 300 mg PO DAILY [facility]; Protocol Last Admin: 06/03/18 14:23 Dose: 300 mg Heparin Sodium (Porcine) (Heparin) 5,000 units SC Q8 [facility]; Protocol Last Admin: 06/05/18 05:09 Dose: 5,000 units Hydralazine HCl (Apresoline) 25 mg PO DAILY [facility] Last Admin: 06/04/18 12:17 Dose: 25 mg Hydroxyzine HCl (Atarax) 25 mg PO DAILY PRN PRN Reason: Itching / Pruritus Meropenem 250 mg/ Sodium (Chloride) 100 mls @ 100 mls/hr IVPB Q12H [facility]; Protocol Stop: 06/11/18 23:46 Last Admin: 06/04/18 23:18 Dose: 100 mls/hr Insulin Human Regular (Humulin R Low) 0 units SC ACHS [facility]; Protocol Last Admin: 06/04/18 21:41 Dose: Not Given Isosorbide Mononitrate (Imdur) 120 mg PO DAILY [facility] Last Admin: 06/04/18 12:02 Dose: 120 mg Metoprolol Tartrate (Lopressor) 50 mg PO BID [facility] Last Admin: 06/04/18 17:56 Dose: 50 mg Prednisone (Prednisone Tab) 30 mg PO DAILY [facility] Sacubitril/Valsartan (Entresto 97 Mg-103 Mg Tablet) 1 each PO DAILY [facility] Last Admin: 06/04/18 12:52 Dose: 1 each Sitagliptin Phosphate (Januvia) 25 mg PO DAILY [facility] Last Admin: 06/04/18 12:01 Dose: 25 mg Spironolactone (Aldactone) 25 mg PO BID [facility] Last Admin: 06/03/18 14:24 Dose: Not Given - Labs Labs: 06/04/18 06:30 06/04/18 06:30 PT 20.1 SECONDS (9.4-12.5) H 06/02/18 13:20 INR 1.74 06/02/18 13:20 APTT 32.7 Seconds (25.1-36.5) 06/02/18 13:20 - Constitutional Appears: Non-toxic, No Acute Distress - Head Exam Head Exam: NORMAL INSPECTION, NORMOCEPHALIC - Eye Exam Eye Exam: EOMI, Normal appearance. absent: Nystagmus, Scleral icterus - Respiratory Exam Respiratory Exam: Clear to Ausculation Bilateral, NORMAL BREATHING PATTERN. absent: Rhonchi, Wheezes - Cardiovascular Exam Cardiovascular Exam: REGULAR RHYTHM, +S1, +S2 - GI/Abdominal Exam GI & Abdominal Exam: Distended, Normal Bowel Sounds. absent: Firm, Guarding, Rigid, Tenderness - Extremities Exam Extremities Exam: Normal Inspection, Pedal Edema. absent: Calf Tenderness - Neurological Exam Neurological Exam: Alert, Awake, Oriented x3 - Psychiatric Exam Psychiatric exam: Normal Affect, Normal Mood - Skin Skin Exam: Intact, Normal Color Assessment and Plan - Assessment and Plan (Free Text) Assessment: Patient is a 62 yo male w/ PMH CAD w/ multiple stents, CABG, CHF (EF 67 in 2017), PVD, DM, dyslipidemia, ESRD (T, Th Sat), HTN, osteoporosis, osteoarthritis, sarcoidosis presents for lightheadedness and cough. Patient had dialysis scheduled for today (71kg) to removed 2500L of fluid. Multiple episodes of diarrhea today; Patient went thoracentesis and fluid studies were sent out; Paracentesis was cancelled in the setting of not enough ascitic fluid; Complete fluid studies pending Plan: Pleural effusion Pulm/Crit Care Consult- Dr. Urena- recommended thoracentesis and paracentesis IR consulted Dr. Fitzgerald- Thoracentesis done today; Paracentesis cancelled due to not enough fluid; complete pleural fluid studies pending Nephrology consult- Dr. Siu- Dialysis scheduled for today 06-02-18 Cxray Right basilar opacity suspicious for PNA. Possible small right upper lobe opacity. Small bilateral pleural effusion Duonebs q6h jesse Duonebs q4h prn Complete pleural fluid studies pending including cytology HCAP pnuemonia ID consulted- Dr. Garcia- started Doxycycline 100mg po q12 til -; Started Meropenem and end on [id number] Cxray Right basilar opacity suspicious for PNA. Possible small right upper lobe opacity. Small bilateral pleural effusion Currently on meropenem and doxycycline Blood cx , sputum cx pending Procal 7.8 CHF exacerbation 06/04/18 Echo- EF (35-40); Moderately to severely impaired; RV systolic function is moderately to severely reduced; RA severely dilated; MR is moderate; Severe TR; mild to moderate pulm HTN Lasix and Aldactone held in setting of very minimal urine output Isosorbide Mononitrate 120mg po daily Dialysis today Diarrhea Resolved- consider restarting lipitor, cilastozol, gabapentin ESRD Nephrology Consult- Dr. Siu- On Dialysis (T, Th, Sat) Hyperkalemia noted will be adjusted with HD PAD Cilostazol 50mg po bid - held Aspirin 325mg po daily Lipitor 10mg po din- held DM2 with neuropathy ISS low dose ACHS Januvia 25mg po daily Gabapentin 300mg po daily HTN Metoprolol 50mg po bid Entresto po daily Hydralazine 25mg po daily Aldactone 25mg po bid Isosorbide Mononitrate 120mg po daily Dyslipidemia Lipitor 10mg po din- held in setting of diarrhea Anemia Likely due to ESRD Hemodynmically stable Continue to monitor with serial CBCs Hx of CABG Plavix 75 mg po daily Asa 325mg po daily Metoprol 50mg po bid Entresto 1 tab po daily Hx of Sarcoidosis Prednisone 30mg po daily PPx GI ppx- Pepcid 40mg HS DVT ppx- heparin 5000 sc q12 Dispo: Pending TRCU eval for possible transfer for rehab Plan discussed with Dr. Shahid. Emily Ag PGY-2 <Roldan Shahid - Last Filed: 06/05/18 15:10> Objective - Vital Signs/Intake and Output Vital Signs (last 24 hours): Temp Pulse Resp BP Pulse Ox 98.1 F 75 19 156/81 H 95 06/05/18 12:00 06/05/18 12:00 06/05/18 12:00 06/05/18 12:00 06/05/18 05:58 Intake and Output: 06/05/18 06/05/18 06:59 18:59 Intake Total 1180 Output Total 0 Balance 1180 - Medications Medications: Current Medications Acetaminophen (Tylenol 325mg Tab) 650 mg PO Q6H PRN PRN Reason: Fever >100.4 F Albuterol/Ipratropium (Duoneb 3 Mg/0.5 Mg (3 Ml) Ud) 3 ml IH [id number] Last Admin: 06/05/18 14:13 Dose: 3 ml Albuterol/Ipratropium (Duoneb 3 Mg/0.5 Mg (3 Ml) Ud) 3 ml IH [id number] PRN PRN Reason: Shortness of Breath Aspirin (Ecotrin) 325 mg PO DAILY [facility] Last Admin: 06/05/18 12:56 Dose: 325 mg Atorvastatin Calcium (Lipitor) 10 mg PO DIN [facility] Last Admin: 06/03/18 17:45 Dose: 10 mg Cilostazol (Pletal) 50 mg PO BID [facility] Last Admin: 06/03/18 17:45 Dose: 50 mg Clopidogrel Bisulfate (Plavix) 75 mg PO DAILY [facility] Last Admin: 06/05/18 12:55 Dose: 75 mg Doxycycline Hyclate (Doryx) 100 mg PO Q12 [facility]; Protocol Stop: 06/11/18 10:01 Last Admin: 06/05/18 12:55 Dose: 100 mg Famotidine (Pepcid) 40 mg PO HS [facility] Last Admin: 06/04/18 21:10 Dose: 40 mg Gabapentin (Neurontin) 300 mg PO DAILY [facility]; Protocol Last Admin: 06/03/18 14:23 Dose: 300 mg Heparin Sodium (Porcine) (Heparin) 5,000 units SC Q8 [facility]; Protocol Last Admin: 06/05/18 13:16 Dose: 5,000 units Hydralazine HCl (Apresoline) 25 mg PO DAILY [facility] Last Admin: 06/05/18 12:55 Dose: 25 mg Hydroxyzine HCl (Atarax) 25 mg PO DAILY PRN PRN Reason: Itching / Pruritus Meropenem 250 mg/ Sodium (Chloride) 100 mls @ 100 mls/hr IVPB Q12H [facility]; Protocol Stop: 06/11/18 23:46 Last Admin: 06/05/18 12:54 Dose: 100 mls/hr Insulin Human Regular (Humulin R Low) 0 units SC ACHS [facility]; Protocol Last Admin: 06/05/18 12:07 Dose: Not Given Isosorbide Mononitrate (Imdur) 120 mg PO DAILY [facility] Last Admin: 06/05/18 12:55 Dose: 120 mg Metoprolol Tartrate (Lopressor) 50 mg PO BID [facility] Last Admin: 06/05/18 12:56 Dose: 50 mg Prednisone (Prednisone Tab) 20 mg PO DAILY [facility] Sacubitril/Valsartan (Entresto 97 Mg-103 Mg Tablet) 1 each PO DAILY [facility] Last Admin: 06/05/18 12:56 Dose: 1 each Sitagliptin Phosphate (Januvia) 25 mg PO DAILY [facility] Last Admin: 06/05/18 12:55 Dose: 25 mg Spironolactone (Aldactone) 25 mg PO BID [facility] Last Admin: 06/03/18 14:24 Dose: Not Given - Labs Labs: 06/05/18 05:30 06/05/18 05:30 PT 20.1 SECONDS (9.4-12.5) H 06/02/18 13:20 INR 1.74 06/02/18 13:20 APTT 32.7 Seconds (25.1-36.5) 06/02/18 13:20 Attending/Attestation - Attestation I have personally seen and examined this patient.: Yes I have fully participated in the care of the patient.: Yes I have reviewed all pertinent clinical information, including history, physical exam and plan: Yes Notes (Text): 06/05/18 15:07 Medical record note made by the resident after discussion with my direction and input after the patient was personally seen and examined by me. I have reviewed the chart and agree that the record accurately reflects by personal performance of the history, physical exam, data review, and medical decision-making, in the course for the patient. I have also personally directed the plan of care. 62 year old male with past medical history of diabetes, hypertension, CAD, CHF, cirrhosis and ESRD on HD Saturday//Saturday, ascites is admitted with H/O cough, worsening dyspnea and leg swelling Patient was found to have HCAP , Procalcitonin level was elevated, bilateral Pleural effusion Rt>Lt, and Ascites. Patient is afebrile, cultures are negative, on IV antibiotics as per ID.He is SP thoracentesis yesterday, results are pending. Echo showed systolic dysfunction.Cardiology evaluation is appreciated. Management plan was discussed in detail with patient. Education was provided.
[2018-06-05 06:37] LABS: GRAN # 3.99 (1.4-6.5); GRAN % 91.6 % (50.0-68.0); HEMOGLOBIN 10.4 g/dL (14.0-18.0); LYMPH # 0.2 (1.2-3.4); MEAN CELL VOLUME 78.6 fl (80.0-105.0); MEAN CORPUSCULAR HEMOGLOBIN 27.1 pg (25.0-35.0); MEAN CORPUSCULAR HGB CONC 34.4 g/dl (31.0-37.0); MONO # 0.2 (0.1-0.6); MONO % 3.4 % (1.0-6.0); PLATELET COUNT 96 10^3/uL (120.0-450.0); RBC 3.84 10^6/uL (3.5-6.1); RED CELL DISTRIBUTION WIDTH 17.2 % (11.5-14.5); WHITE BLOOD COUNT 4.4 10^3/ul (4.5-11.0)
[2018-06-05 07:04] LABS: ALBUMIN 3.9 g/dL (3.0-4.8); CALCIUM 8.6 mg/dL (8.4-10.5)
[2018-06-05] MEDS: Insulin Reg-LOW-Coverage SC SCH ×4 (07:52→21:48)
[2018-06-05 08:28] LABS: LYMPHOCYTE 5 % (22.0-35.0); MONOCYTE 1 % (1.0-6.0); NEUTROPHIL 94 % (50.0-70.0)
[2018-06-05 08:29] LABS: ANISOCYTOSIS SLIGHT; LARGE PLATELETS PRESENT; PLATELET ESTIMATE LOW (NORMAL); TARGET CELLS SLIGHT
[2018-06-05] MEDS: SACUBITRIL 97mg/ VALSARTAN 103mg tab PO SCH (12:56)
[2018-06-05] MEDS: Aspirin 325 mg EC Tablets PO SCH (12:56)
--- NOTE | 2018-06-05 14:53 | CON ---
DATE: 06/05/2018 CARDIOLOGY CONSULTATION HISTORY: The patient is a 62-year-old male, end-stage renal disease who presents with epigastric pressure followed by shortness of breath. PAST MEDICAL HISTORY: Includes end-stage renal disease, hypertension, hypercholesterolemia with an ischemic dilated cardiomyopathy, treated with Entresto as well as on Plavix for peripheral vascular disease. He suffers from diabetes mellitus. The patient seems to be unclear of his symptoms. He underwent thoracentesis because of pleural effusion. SOCIAL HISTORY: The patient does not smoke. REVIEW OF SYSTEMS: The 14-point review of systems is reviewed in detail. The patient's coronary bypass surgery was nine years ago down in [place]. His potentially anginal equivalent symptoms are associated with exertion. PHYSICAL EXAMINATION: VITAL SIGNS: Blood pressure is 140 to 156, heart rate is in the 70s. NECK: Negative JVD. LUNGS: Decreased breath sounds bilaterally. HEART: Reveal S1, S2 with 2/6 ejection murmur. LABORATORY DATA: BUN and creatinine is 52 and 4.6 with a potassium of 5, glucose 321, hemoglobin is 10.4. IMPRESSION: 1. Acute systolic congestive heart failure. 2. Ischemic dilated cardiomyopathy. 3. Pleural effusion. 4. History of coronary artery bypass surgery. 5. Anginal equivalent. 6. Dyspnea. 7. Diabetes mellitus. Given these findings, we will need to be aggressive in terms of negative fluid balance, on dialysis. I have discussed with the patient about the plus, minuses and benefits of cardiac catheterization to explain his exertional epigastric discomfort, which initiated his dyspnea. The patient will think about and consider cardiac catheterization. If he agrees, we will proceed in the morning. Nolberto Akins MD
--- NOTE | 2018-06-05 15:22 | PN ---
DATE: 06/05/2018 SUBJECTIVE: The patient is seen and examined at bedside. He is comfortable. He talks full sentences. He is not in respiratory or otherwise distress. PHYSICAL EXAMINATION: VITAL SIGNS: Temperature 98.1, heart rate 75, blood pressure 156/81, respiratory rate 19, oxygen saturation 95% on room air. ENT: Head and neck atraumatic. LUNGS: There are a few rales and crackles bilaterally with decreased breath sounds in the right base. HEART: Regular rate and rhythm. S1 and S2 normal. ABDOMEN: Soft, nontender and nondistended. MUSCULOSKELETAL: 2+ bilateral pedal and ankle edema. NEURO: The patient moves all extremities spontaneously. SKIN: Moist. PSYCH: The patient is alert, awake and oriented x3. LABORATORY DATA: WBC 4.4, hemoglobin 10.4, platelet count 96. Sodium 133, potassium 5.1, chloride 94, carbon dioxide 23, BUN 52, creatinine 4.6 (the patient is on chronic dialysis), glucose 321, AST 42, ALT 25, total bilirubin 1.1, alkaline phosphatase 268. MEDICATIONS: Tylenol p.r.n., DuoNeb p.r.n., DuoNeb every 6 hours on standing basis, aspirin, Lipitor, Pletal, Plavix, doxycycline, Neurontin, Pepcid, heparin subcu, hydralazine and hydroxyzine, isosorbide mononitrate, meropenem, metoprolol, prednisone 30 mg p.o. daily, Entresto, Januvia, Aldactone, intermittent vancomycin. ASSESSMENT AND PLAN: This is a 62-year-old gentleman with history of end-stage renal disease, liver cirrhosis of unclear etiology (spoke with the patient's private student financial services counselor, who suggested that previous workup was negative for specific intrinsic etiology and it was attributed to right ventricular failure/congestive hepatopathy), Left ventricular systolic dysfunction and history of sarcoidosis, who has been treated for community-acquired pneumonia with intermittent vancomycin, meropenem and doxycycline. The patient's respiratory status somewhat improved. He also undergone right-sided thoracentesis; however, fluid analysis is pending except for it was a lymphocyte predominant with pH 7.5. I did touch base with the patient's private student financial services counselor, Dr. Harris regarding diagnosis of sarcoidosis. He mentioned that the patient had bronchoscopy with biopsy a while ago, which was consistent with diagnosis of sarcoidosis. Multiple attempts at weaning off prednisone were made since then; however, the minimum dose 2.5 mg everyday or every other day still required. He was nonspecific as to how those flares were manifesting and identified. I also spoke with Cardiology Service (Dr. Akins), who recommended to proceed with cardiac catheterization; however, the patient was reluctant to do so for now. At present time, I would continue with conservative fluid management including dialysis as scheduled, completing course of antibiotics, steroid taper. Right (preferrably with vasodilatory challenge) and left ventricular catheterization is also recommended. We will continue to target euvolemia, euglycemia, normothermia and oxygen saturation more than 90%. We will continue with deep venous thrombosis, gastrointestinal prophylaxis. We will continue with nitroglycerin/hydralazine for afterload reduction. ccm time 40 min Volodymyr Acharya MD MTDKristin
--- NOTE | 2018-06-06 00:36 | PN ---
DATE: 06/05/2018 PHYSICAL EXAMINATION: VITAL SIGNS: , blood pressure is 140/60, respiratory rate of 18. HEENT: Examination of HEENT is unremarkable. NECK: Supple. LUNGS: Have decreased breath sounds. HEART: Normal S1, S2. ABDOMEN: Soft, nontender. LABORATORY DATA: Laboratory examination reveals a white count of 4.4, hemoglobin of 10. Chemistries reveals a BUN of 52, creatinine of 4.6 and pleural fluid is noted. Mycoplasma pneumoniae is negative. Microbiology reveals the blood cultures have no growth. Pleural cultures have no growth and stool for C. Diff toxin and antigen is negative from yesterday. ASSESSMENT AND PLAN: A 62-year-old male who was seen in [facility], bed 1 earlier today with diabetes mellitus, end-stage renal disease on hemodialysis, sarcoidosis, diastolic congestive heart failure, ejection fraction 67%, presenting with low-grade fevers, tachycardia, dyspnea, infiltrates and diarrhea with sepsis with right healthcare-associated pneumonia, currently with negative blood cultures, negative C. Diff, negative pleural fluid cultures, on intermittent vancomycin and meropenem, on prednisone and doxycycline. Overall improving. We will follow closely with you. Beny Garcia MD
[2018-06-06] MEDS: Albuterol-Ipratrop 3 mg / 0.5 (3 ml) UD IH SCH ×4 (02:12→20:01)
[2018-06-06 06:37] LABS: GRAN # 4.99 (1.4-6.5); GRAN % 88.9 % (50.0-68.0); HEMOGLOBIN 10.4 g/dL (14.0-18.0); LYMPH # 0.2 (1.2-3.4); LYMPH % 3.6 % (22.0-35.0); MEAN CELL VOLUME 77.5 fl (80.0-105.0); MEAN CORPUSCULAR HEMOGLOBIN 27.5 pg (25.0-35.0); MEAN CORPUSCULAR HGB CONC 35.5 g/dl (31.0-37.0); MONO # 0.4 (0.1-0.6); MONO % 7.5 % (1.0-6.0); PLATELET COUNT 80 10^3/uL (120.0-450.0); RBC 3.78 10^6/uL (3.5-6.1); RED CELL DISTRIBUTION WIDTH 17.1 % (11.5-14.5); WHITE BLOOD COUNT 5.6 10^3/ul (4.5-11.0)
--- NOTE | 2018-06-06 06:40 | CP.PCM.PN ---
<Nina Marie - Last Filed: 06/06/18 12:50> Subjective - Date & Time of Evaluation Date of Evaluation: 06/06/18 Time of Evaluation: 07:00 - Subjective Subjective: Medicine Progress Note for Autumn Valdez PGY3 Patient seen and examined at bedside. There were no acute overnight events as per nursing staff. Diarrhea has resolved as per patient. He denies chest pain, shortness of breath, nausea/vomiting/diarrhea, fever/chills, numbness/tingling. Objective - Vital Signs/Intake and Output Vital Signs (last 24 hours): Temp Pulse Resp BP Pulse Ox 97.6 F 72 18 139/75 97 06/06/18 06:00 06/06/18 06:00 06/06/18 06:00 06/06/18 06:00 06/06/18 06:00 Intake and Output: 06/05/18 06/06/18 18:59 06:59 Intake Total 100 1240 Output Total 2 Balance 100 1238 - Medications Medications: Current Medications Acetaminophen (Tylenol 325mg Tab) 650 mg PO Q6H PRN PRN Reason: Fever >100.4 F Albuterol/Ipratropium (Duoneb 3 Mg/0.5 Mg (3 Ml) Ud) 3 ml IH [id number] [facility] Last Admin: 06/06/18 02:12 Dose: 3 ml Albuterol/Ipratropium (Duoneb 3 Mg/0.5 Mg (3 Ml) Ud) 3 ml IH [id number] PRN PRN Reason: Shortness of Breath Aspirin (Ecotrin) 325 mg PO DAILY [facility] Last Admin: 06/05/18 12:56 Dose: 325 mg Atorvastatin Calcium (Lipitor) 10 mg PO DIN [facility] Last Admin: 06/03/18 17:45 Dose: 10 mg Cilostazol (Pletal) 50 mg PO BID [facility] Last Admin: 06/03/18 17:45 Dose: 50 mg Clopidogrel Bisulfate (Plavix) 75 mg PO DAILY [facility] Last Admin: 06/05/18 12:55 Dose: 75 mg Doxycycline Hyclate (Doryx) 100 mg PO Q12 [facility]; Protocol Stop: 06/11/18 10:01 Last Admin: 06/05/18 21:46 Dose: 100 mg Famotidine (Pepcid) 40 mg PO HS [facility] Last Admin: 06/05/18 21:49 Dose: 40 mg Gabapentin (Neurontin) 300 mg PO DAILY [facility]; Protocol Last Admin: 06/03/18 14:23 Dose: 300 mg Heparin Sodium (Porcine) (Heparin) 5,000 units SC Q8 [facility]; Protocol Last Admin: 06/06/18 05:35 Dose: 5,000 units Hydralazine HCl (Apresoline) 25 mg PO DAILY [facility] Last Admin: 06/05/18 12:55 Dose: 25 mg Hydroxyzine HCl (Atarax) 25 mg PO DAILY PRN PRN Reason: Itching / Pruritus Meropenem 250 mg/ Sodium (Chloride) 100 mls @ 100 mls/hr IVPB Q12H [facility]; Protocol Stop: 06/11/18 23:46 Last Admin: 06/05/18 23:18 Dose: 100 mls/hr Insulin Human Regular (Humulin R Low) 0 units SC ACHS [facility]; Protocol Last Admin: 06/05/18 21:48 Dose: 3 unit Isosorbide Mononitrate (Imdur) 120 mg PO DAILY [facility] Last Admin: 06/05/18 12:55 Dose: 120 mg Metoprolol Tartrate (Lopressor) 50 mg PO BID [facility] Last Admin: 06/05/18 17:36 Dose: 50 mg Prednisone (Prednisone Tab) 20 mg PO DAILY [facility] Sacubitril/Valsartan (Entresto 97 Mg-103 Mg Tablet) 1 each PO DAILY [facility] Last Admin: 06/05/18 12:56 Dose: 1 each Sitagliptin Phosphate (Januvia) 25 mg PO DAILY [facility] Last Admin: 06/05/18 12:55 Dose: 25 mg Spironolactone (Aldactone) 25 mg PO BID [facility] Last Admin: 06/03/18 14:24 Dose: Not Given - Labs Labs: 06/05/18 05:30 06/05/18 05:30 PT 20.1 SECONDS (9.4-12.5) H 06/02/18 13:20 INR 1.74 06/02/18 13:20 APTT 32.7 Seconds (25.1-36.5) 06/02/18 13:20 - Constitutional Appears: No Acute Distress - Head Exam Head Exam: ATRAUMATIC, NORMAL INSPECTION, NORMOCEPHALIC - Eye Exam Eye Exam: Normal appearance, PERRL Pupil Exam: NORMAL ACCOMODATION - ENT Exam ENT Exam: Mucous Membranes Moist - Respiratory Exam Respiratory Exam: Rales, NORMAL BREATHING PATTERN. absent: Rhonchi, Wheezes - Cardiovascular Exam Cardiovascular Exam: REGULAR RHYTHM, +S1, +S2. absent: Gallop, Rubs, Murmur - GI/Abdominal Exam GI & Abdominal Exam: Soft, Normal Bowel Sounds. absent: Rigid, Tenderness, Mas s, Rebound - Extremities Exam Extremities Exam: Pedal Edema. absent: Calf Tenderness - Neurological Exam Neurological Exam: Alert, Awake, CN II-XII Intact, Oriented x3 - Psychiatric Exam Psychiatric exam: Normal Affect, Normal Mood - Skin Skin Exam: Dry, Warm Assessment and Plan - Assessment and Plan (Free Text) Assessment: 1. Cough - secondary to HCAP as well as CHF 2. Diarrhea- resolved 3. LE edema - secondary to ESRD v. CHF 4. ESRD 5. Renal replacement therapy on HD 6. Anemia of chronic disease 7. Secondary hyperparathyroidism 8. L AV fistula access 9. Abdominal Ascites - secondary to cirrhosis v. CHF v. pulm HTN 10. CHF - recent echo showed decreased EF from 67% in 2017 to 35-40% 11. CAD s/p CABG 12. DM type II 13. Essential HTN Plan: Labs and imaging reviewed. Patient had cardiac cath this AM without any stents placed. Cardiology recommended medical management. Patient will have HD tomorrow as scheduled. Continue to monitor daily weights and hold phosphate binders. Patient receives Aranesp during HD for anemia. Merrem and Doxy for HCAP. Patient is pending TCU evaluation. Case seen, discussed and reviewed with Dr. Siu. Autumn Marie PGY3 <Pascual Siu S - Last Filed: 06/08/18 19:27> Objective - Vital Signs/Intake and Output Vital Signs (last 24 hours): Temp Pulse Resp BP Pulse Ox 97.5 F L 100 H 21 147/76 97 06/07/18 14:00 06/07/18 17:19 06/07/18 14:00 06/07/18 17:19 06/07/18 13:45 - Labs Labs: 06/07/18 07:00 06/07/18 07:00 PT 20.1 SECONDS (9.4-12.5) H 06/02/18 13:20 INR 1.74 06/02/18 13:20 APTT 32.7 Seconds (25.1-36.5) 06/02/18 13:20 Assessment and Plan - Assessment and Plan (Free Text) Plan: Pt seen and examined by me. This is a late entry. I have reviewed the note by the biomedical electronics technician. The case was discussed and reviewed with the resident. I reviewed the medications and labs. He is going to continue with HD and is tolerating well. i have been trying to take extra fluid off to help with improving his LE edema. He is waiting to go to TCU. His next HD is in the am.
[2018-06-06 07:12] LABS: ALB/GLOB RATIO 0.9 (1.1-1.8); ALBUMIN 3.8 g/dL (3.0-4.8); CALCIUM 8.5 mg/dL (8.4-10.5)
[2018-06-06] MEDS ORDERED: Lidocaine 2% PF (10 ml) Amp ONE (09:26)
[2018-06-06] MEDS ORDERED: Iodixanol 320 MG/ML 200 ML BOTTLE IV ONE (09:26)
[2018-06-06] MEDS: Midazolam 2 MG/2 ML VIAL ONE ×2 (09:39→13:02)
[2018-06-06] MEDS ORDERED: Sodium Chloride 0.9% 1,000 ML IV SCH ×2 (10:45)
[2018-06-06] MEDS: Insulin Reg-LOW-Coverage SC SCH ×4 (11:19→21:10)
--- NOTE | 2018-06-06 12:11 | CARDCATH ---
PROCEDURE DATE: 06/06/2018 HISTORY: The patient is a 62-year-old male with multiple cardiac risk factors who presents with angina and shortness of breath consistent with CHF. The patient's past medical history is notable for history of coronary bypass surgery, PCI as well as a dilated cardiomyopathy documented because of these symptoms. Cardiac catheterization is recommended. PROCEDURES: Left heart catheterization with coronary arteriography, left ventriculogram, JIMENEZ angiogram, saphenous vein graft angiogram as well as an FFR were performed. COMPLICATIONS: None. The right femoral artery was cannulated with 6-Spanish sheath. I performed moderate sedation, which included the presence of an independent trained observer that monitored the patient's physiologic status. After administration of fentanyl and Versed, my intra service time was 30 minutes. The findings on catheterization revealed a left ventricle that was dilated and diffusely hypokinetic with an ejection fraction of 35-40%. There was no mitral regurgitation. His coronary anatomy revealed a right dominant circulation. The RCA was diffusely diseased with a 50% stenosis at its ostium, followed by a 50-60% stenosis in the midportion followed by a 60% stenoses in the proximal portion of the posterolateral branch. The left main artery was unremarkable. The circumflex artery revealed a patent stent in its proximal portion. The first OM was a small vessel with diffuse disease with a 70% to 80% stenosis in the proximal portion. The LAD revealed diffuse and irregular critical stenoses, 70-80% stenosis in the proximal portion. To-and-fro flow was noted in the LAD and the diagonal vessel. The JIMENEZ was visualized and found to provide good antegrade flow to the mid and distal LAD. Saphenous vein graft to the diagonal vessel was found to be patent and provided good antegrade flow. The patient was started on Angiomax. An FFR was performed of the posterior lateral branch of the right coronary artery. The FFR was 1. No intervention was performed. The Angio-Seal was used to close the femoral artery site. The patient tolerated the procedure well. In summary, the procedure revealed triple-vessel CAD with a patent stent in the proximal circumflex artery, 60% stenoses in the posterior lateral branch of the RCA, 50% ostial stenosis of the RCA, a 70-80% stenosis of the proximal LAD. The JIMENEZ to the LAD was patent and provided good antegrade flow. The saphenous vein graft to the diagonal vessel was found to be patent. The saphenous vein graft to the RCA was found to be patent and went to the PDA. The FFR was s 1. LV function revealed an EF of 35-40%. Given these findings, the patient's treatment will be medical. We will continue him on statin therapy along with a cardiac risk reduction program. Dialysis to help his shortness of breath would be appropriate. Nolberto Akins MD
[2018-06-06] MEDS: SACUBITRIL 97mg/ VALSARTAN 103mg tab PO SCH (13:19)
--- NOTE | 2018-06-06 14:09 | CP.PCM.PN ---
Addendum entered and electronically signed by Emily Ag DO 06/07/18 07:02: Under plan Aspirin should be 81 mg not 325 mg Original Note: <Emily Ag - Last Filed: 06/06/18 14:03> Subjective - Date & Time of Evaluation Date of Evaluation: 06/06/18 Time of Evaluation: 10:25 - Subjective Subjective: PGY-1 Medicine Progress note for Dr. Shahid's service Patient seen and examined s/p cardiac cath at bedside. Patient's was at bedside. Patient offers no acute complaints. Patient reports improved breathing. Patient denies chest pain, sob, n/v, constipation or diarrhea, weakness. Objective - Vital Signs/Intake and Output Vital Signs (last 24 hours): Temp Pulse Resp BP Pulse Ox 98.5 F 64 18 141/69 97 06/06/18 12:00 06/06/18 13:19 06/06/18 12:00 06/06/18 13:19 06/06/18 06:00 Intake and Output: 06/06/18 06/06/18 06:59 18:59 Intake Total 1240 Output Total 2 Balance 1238 - Medications Medications: Current Medications Acetaminophen (Tylenol 325mg Tab) 650 mg PO Q6H PRN PRN Reason: Fever >100.4 F Albuterol/Ipratropium (Duoneb 3 Mg/0.5 Mg (3 Ml) Ud) 3 ml IH [id number] [facility] Last Admin: 06/06/18 13:33 Dose: 3 ml Albuterol/Ipratropium (Duoneb 3 Mg/0.5 Mg (3 Ml) Ud) 3 ml IH [id number] PRN PRN Reason: Shortness of Breath Aspirin (Ecotrin) 325 mg PO DAILY [facility] Last Admin: 06/05/18 12:56 Dose: 325 mg Aspirin (Ecotrin) 81 mg PO DAILY [facility] Atorvastatin Calcium (Lipitor) 10 mg PO DIN [facility] Last Admin: 06/03/18 17:45 Dose: 10 mg Atorvastatin Calcium (Lipitor) 40 mg PO DIN [facility] Cilostazol (Pletal) 50 mg PO BID [facility] Last Admin: 06/03/18 17:45 Dose: 50 mg Clopidogrel Bisulfate (Plavix) 75 mg PO DAILY [facility] Last Admin: 06/06/18 07:05 Dose: 75 mg Doxycycline Hyclate (Doryx) 100 mg PO Q12 [facility]; Protocol Stop: 06/11/18 10:01 Last Admin: 06/06/18 13:19 Dose: 100 mg Famotidine (Pepcid) 40 mg PO HS [facility] Last Admin: 06/05/18 21:49 Dose: 40 mg Gabapentin (Neurontin) 300 mg PO DAILY [facility]; Protocol Last Admin: 06/03/18 14:23 Dose: 300 mg Heparin Sodium (Porcine) (Heparin) 5,000 units SC Q8 [facility]; Protocol Last Admin: 06/06/18 13:25 Dose: Not Given Hydralazine HCl (Apresoline) 25 mg PO DAILY [facility] Last Admin: 06/06/18 13:19 Dose: 25 mg Hydroxyzine HCl (Atarax) 25 mg PO DAILY PRN PRN Reason: Itching / Pruritus Meropenem 250 mg/ Sodium (Chloride) 100 mls @ 100 mls/hr IVPB Q12H [facility]; Protocol Stop: 06/11/18 23:46 Last Admin: 06/05/18 23:18 Dose: 100 mls/hr Sodium Chloride (Sodium Chloride 0.9%) 1,000 mls @ 10 mls/hr IV .Q24H [facility] Stop: 06/06/18 15:00 Last Admin: 06/06/18 11:17 Dose: 10 mls/hr Insulin Human Regular (Humulin R Low) 0 units SC ACHS [facility]; Protocol Last Admin: 06/06/18 13:18 Dose: 2 unit Isosorbide Mononitrate (Imdur) 120 mg PO DAILY [facility] Last Admin: 06/06/18 13:19 Dose: 120 mg Metoprolol Tartrate (Lopressor) 50 mg PO BID [facility] Last Admin: 06/06/18 11:19 Dose: Not Given Prednisone (Prednisone Tab) 10 mg PO DAILY [facility] Sacubitril/Valsartan (Entresto 97 Mg-103 Mg Tablet) 1 each PO DAILY [facility] Last Admin: 06/06/18 13:19 Dose: 1 each Sitagliptin Phosphate (Januvia) 25 mg PO DAILY [facility] Last Admin: 06/06/18 11:19 Dose: Not Given Spironolactone (Aldactone) 25 mg PO BID [facility] Last Admin: 06/03/18 14:24 Dose: Not Given - Labs Labs: 06/06/18 06:00 06/06/18 06:00 PT 20.1 SECONDS (9.4-12.5) H 06/02/18 13:20 INR 1.74 06/02/18 13:20 APTT 32.7 Seconds (25.1-36.5) 06/02/18 13:20 - Constitutional Appears: Non-toxic, No Acute Distress - Head Exam Head Exam: NORMAL INSPECTION, NORMOCEPHALIC - Eye Exam Eye Exam: EOMI, Normal appearance. absent: Nystagmus, Scleral icterus - ENT Exam ENT Exam: Mucous Membranes Moist - Respiratory Exam Respiratory Exam: Clear to Ausculation Bilateral, NORMAL BREATHING PATTERN. absent: Rales, Rhonchi, Wheezes - Cardiovascular Exam Cardiovascular Exam: REGULAR RHYTHM, +S1, +S2 - GI/Abdominal Exam GI & Abdominal Exam: Soft, Normal Bowel Sounds. absent: Distended, Firm, Ten derness - Extremities Exam Extremities Exam: Normal Inspection, Pedal Edema. absent: Calf Tenderness Additional comments: +1 pitting edema b/l Tegoderm wrapping at site of catheter insertion - Neurological Exam Neurological Exam: Alert, Awake, Oriented x3 - Psychiatric Exam Psychiatric exam: Normal Affect, Normal Mood - Skin Skin Exam: Intact, Normal Color Assessment and Plan - Assessment and Plan (Free Text) Assessment: Patient is a 62 yo male w/ PMH CAD w/ multiple stents, CABG, CHF (EF 67 in 2017), PVD, DM, dyslipidemia, ESRD (T, Th Sat), HTN, osteoporosis, osteoarthritis, sarcoidosis presents for lightheadedness and cough. On T, , Sa to optimize medical treatment of CHF Patient went thoracentesis and fluid studies were sent out; Paracentesis was cancelled in the setting of not enough ascitic fluid; Complete fluid studies pending; Patient underwent cardiac cath for worsening CHF shows nonischemic cardiomyopathy; TRCU eval pending Plan: Pleural effusion Pulm/Crit Care Consult- Dr. Urena- recommended thoracentesis and paracentesis IR consulted Dr. Fitzgerald- Thoracentesis done today; Paracentesis cancelled due to not enough fluid; complete pleural fluid studies pending Nephrology consult- Dr. Siu- Dialysis scheduled for today 06-02-18 Cxray Right basilar opacity suspicious for PNA. Possible small right upper lobe opacity. Small bilateral pleural effusion Duonebs q6h jesse Duonebs q4h prn Complete pleural fluid studies pending including cytology HCAP pnuemonia ID consulted- Dr. Garcia-pending recs for oral agent for possible TRCU trans jana 06-02-18 Cxray Right basilar opacity suspicious for PNA. Possible small right upper lobe opacity. Small bilateral pleural effusion Meropenem Day 4 Doxycycline Day 3 Blood cx , sputum cx pending Procal 7.8 CHF exacerbation Cardio Consult- Dr. Akins - medical treatment for CHF with dialysis; intiated statin agent 06/04/18 Echo- EF (35-40); Moderately to severely impaired; RV systolic function is moderately to severely reduced; RA severely dilated; MR is moderate; Severe TR; mild to moderate pulm HTN 06-06-18 Cardiac Cath shows patent grafts and stents; Stain therapy reinaited Lasix and Aldactone held in setting of very minimal urine output Isosorbide Mononitrate 120mg; Metoprolol 50mg bid; Entresto 1 tab daily Dialysis , , ESRD Nephrology Consult- Dr. Siu- On Dialysis (, , Sat) Hyperkalemia noted will be adjusted with HD PAD Cilostazol 50mg po bid Aspirin 81mg po daily Lipitor 40mg po din DM2 with neuropathy ISS low dose ACHS Januvia 25mg po daily Gabapentin 300mg po daily HTN Metoprolol 50mg po bid Entresto po daily Hydralazine 25mg po daily Aldactone 25mg po bid Isosorbide Mononitrate 120mg po daily Dyslipidemia Lipitor 40mg po din Anemia Likely due to ESRD Hemodynmically stable Continue to monitor with serial CBCs Hx of CABG Plavix 75 mg po daily Asa 325mg po daily Metoprol 50mg po bid Entresto 1 tab po daily Hx of Sarcoidosis Prednisone 10mg po daily PPx GI ppx- Pepcid 40mg HS DVT ppx- heparin 5000 sc q12 Dispo: Pending TRCU eval for possible transfer for rehab Plan discussed with Dr. Shahid. Emily Ag PGY-2 <Roldan Shahid - Last Filed: 06/07/18 18:42> Objective - Vital Signs/Intake and Output Vital Signs (last 24 hours): Temp Pulse Resp BP Pulse Ox 97.5 F L 100 H 21 147/76 97 06/07/18 14:00 06/07/18 17:19 06/07/18 14:00 06/07/18 17:19 06/07/18 13:45 Intake and Output: 06/07/18 06/07/18 06:59 18:59 Intake Total 520 Output Total 200 Balance 320 - Labs Labs: 06/07/18 07:00 06/07/18 07:00 PT 20.1 SECONDS (9.4-12.5) H 06/02/18 13:20 INR 1.74 06/02/18 13:20 APTT 32.7 Seconds (25.1-36.5) 06/02/18 13:20 Attending/Attestation - Attestation I have personally seen and examined this patient.: Yes I have fully participated in the care of the patient.: Yes I have reviewed all pertinent clinical information, including history, physical exam and plan: Yes Notes (Text): 06/07/18 18:42 Medical record note made by the resident after discussion with my direction and input after the patient was personally seen and examined by me. I have reviewed the chart and agree that the record accurately reflects by personal performance of the history, physical exam, data review, and medical decision-making, in the course for the patient. I have also personally directed the plan of care.
--- NOTE | 2018-06-06 14:34 | CARD ---
APPROVED REPORT Date of service: 06/06/2018 EKG Measurement Heart [id number] <Conclusion> Normal sinus rhythm Possible Left atrial enlargement Left anterior fascicular block Nonspecific ST and T wave abnormality Abnormal ECG
--- NOTE | 2018-06-06 15:20 | CP.PCM.DIS ---
Addendum entered and electronically signed by Emily Ag DO 06/07/18 15:36: Patient is not amenable to be transferred to TCU as per PT requests. Patient was made aware of risks of not following the recommendations of PT as listed: , MS, falls, fractures, bleeding, and stroke Patient understands the risks and agrees to the plan including outpatient dialysis on T,Th, Sa schedule and continuing Doxycycline and Cefpoxidime for 7 days as prescribed. Patient will not continue the following home meds: Aldactone and Lasix. Patient will continue all of his medications as reconciled at the end of this admission. Original Note: <Emily Ag - Last Filed: 06/07/18 10:59> Provider - Provider Date of Admission: 06/03/18 08:00 Attending physician: Roldan Shahid MD Primary care physician: Chip Mensah MD Time Spent in preparation of Discharge (in minutes): 45 Hospital Course - Lab Results Lab Results: Micro Results 06/04/18 09:45 Pleural Fluid Gram Stain - Final 06/04/18 09:45 Pleural Fluid Anaerobic Culture - Final NO ANAEROBES ISOLATED. 06/04/18 09:45 Pleural Fluid Body Fluid Culture - Preliminary NO GROWTH AFTER 2 DAYS 06/04/18 06:15 Blood Blood Culture - Preliminary NO GROWTH AFTER 48 HOURS 06/04/18 06:00 Blood Blood Culture - Preliminary NO GROWTH AFTER 48 HOURS 06/04/18 09:45 Other: Please Indicate Fungal Culture - Preliminary 06/04/18 09:45 Other: Please Indicate Mycobacterial Culture - Preliminary 06/04/18 16:18 Stool C. difficile Antigen & Toxins A,B - Final 06/03/18 18:47 Stool C. difficile Antigen & Toxins A,B - Final Most Recent Lab Values WBC 5.6 10^3/ul (4.5-11.0) D 06/06/18 06:00 RBC 3.78 10^6/uL (3.5-6.1) 06/06/18 06:00 Hgb 10.4 g/dL (14.0-18.0) L 06/06/18 06:00 Hct 29.3 % (42.0-52.0) L 06/06/18 06:00 MCV 77.5 fl (80.0-105.0) L 06/06/18 06:00 MCH 27.5 pg (25.0-35.0) 06/06/18 06:00 MCHC 35.5 g/dl (31.0-37.0) 06/06/18 06:00 RDW 17.1 % (11.5-14.5) H 06/06/18 06:00 Plt Count 80 10^3/uL (120.0-450.0) L 06/06/18 06:00 Gran % 88.9 % (50.0-68.0) H 06/06/18 06:00 Lymph % (Auto) 3.6 % (22.0-35.0) L 06/06/18 06:00 [place] % (Auto) 7.5 % (1.0-6.0) H 06/06/18 06:00 Eos % (Auto) 0.0 % (1.5-5.0) L 06/06/18 06:00 Baso % (Auto) 0.0 % (0.0-3.0) 06/06/18 06:00 Gran # 4.99 (1.4-6.5) 06/06/18 06:00 Lymph # (Auto) 0.2 (1.2-3.4) L 06/06/18 06:00 [place] # (Auto) 0.4 (0.1-0.6) 06/06/18 06:00 Eos # (Auto) 0.0 (0.0-0.7) 06/06/18 06:00 Baso # (Auto) 0.00 K/mm3 (0.0-2.0) 06/06/18 06:00 Neutrophils % (Manual) 94 % (50.0-70.0) H 06/05/18 05:30 Lymphocytes % (Manual) 5 % (22.0-35.0) L 06/05/18 05:30 Monocytes % (Manual) 1 % (1.0-6.0) 06/05/18 05:30 Platelet Evaluation Low (NORMAL) 06/05/18 05:30 Large Platelets Present 06/05/18 05:30 Anisocytosis (manual) Slight 06/05/18 05:30 Target Cells Slight 06/05/18 05:30 PT 20.1 SECONDS (9.4-12.5) H 06/02/18 13:20 INR 1.74 06/02/18 13:20 APTT 32.7 Seconds (25.1-36.5) 06/02/18 13:20 pO2 172 mm/Hg (30-55) H 06/02/18 13:20 VBG pH 7.48 (7.32-7.43) H 06/02/18 13:20 VBG pCO2 40.0 (40-60) 06/02/18 13:20 VBG HCO3 29.8 mmol/l (21-28) H 06/02/18 13:20 VBG Total CO2 31.0 mmol.L (22-28) H 06/02/18 13:20 VBG O2 Sat (Calc) 99.6 % (40-65) H 06/02/18 13:20 VBG Base Excess 5.8 mmol/L (0.0-2.0) H 06/02/18 13:20 VBG Potassium 4.7 mmol/L (3.6-5.2) 06/02/18 13:20 Sodium 132.0 mmol/L (132-148) 06/02/18 13:20 Chloride 97.0 mmol/L (98-107) L 06/02/18 13:20 Glucose 160 mg/dl (75-110) H 06/02/18 13:20 Lactate 1.3 mmol/L (0.7-2.1) 06/02/18 13:20 FiO2 21.0 % 06/02/18 13:20 Sodium 136 mmol/L (132-148) 06/06/18 06:00 Potassium 4.4 mmol/L (3.6-5.0) 06/06/18 06:00 Chloride 95 mmol/L (98-107) L 06/06/18 06:00 Carbon Dioxide 25 mmol/L (21-33) 06/06/18 06:00 Anion Gap 20 (10-20) 06/06/18 06:00 BUN 39 mg/dL (7-21) H 06/06/18 06:00 Creatinine 3.7 mg/dl (0.8-1.5) H 06/06/18 06:00 Est GFR ( Amer) 20 06/06/18 06:00 Est GFR (Non-Af Amer) 17 06/06/18 06:00 POC Glucose (mg/dL) 229 mg/dL (65-110) H 06/06/18 12:13 Random Glucose 162 mg/dL (70-110) H 06/06/18 06:00 Hemoglobin A1c 7.3 % (4.2-6.5) H 06/03/18 06:30 Calcium 8.5 mg/dL (8.4-10.5) 06/06/18 06:00 Phosphorus 5.6 mg/dL (2.5-4.5) H 06/03/18 07:50 Magnesium 2.2 mg/dL (1.7-2.2) 06/02/18 13:20 Total Bilirubin 1.0 mg/dL (0.2-1.3) 06/06/18 06:00 AST 39 U/L (17-59) 06/06/18 06:00 ALT 24 U/L (7-56) 06/06/18 06:00 Alkaline Phosphatase 244 U/L (38-126) H 06/06/18 06:00 Ammonia 17 umol/L (9-33) 06/02/18 15:45 Lactate Dehydrogenase 586 U/L (333-699) 06/02/18 13:20 Total Creatine Kinase 47 U/L (35-230) 06/02/18 13:20 Troponin I 0.08 ng/mL D 06/03/18 06:30 Total Protein 7.9 g/dL (5.8-8.3) 06/06/18 06:00 Albumin 3.8 g/dL (3.0-4.8) 06/06/18 06:00 Globulin 4.1 gm/dL 06/06/18 06:00 Albumin/Globulin Ratio 0.9 (1.1-1.8) L 06/06/18 06:00 Lipase 125 U/L (23-300) 06/02/18 13:20 Procalcitonin 7.80 NG/ML (0.19-0.49) H 06/03/18 08:00 Free T4 1.55 ng/dL (0.78-2.19) 06/03/18 06:30 TSH 3rd Generation 2.81 mIU/mL (0.46-4.68) 06/03/18 06:30 Venous Blood Potassium 4.7 mmol/L (3.6-5.2) 06/02/18 13:20 Fluid Source Pleural 06/04/18 09:40 Fluid Appearance Bloody (CLEAR) 06/04/18 09:40 Fluid WBC 296.0 /uL (0.0-300.0) 06/04/18 09:40 Fluid RBC 80561.0 /uL (0.0-0.0) H 06/04/18 09:40 Fluid Tot Cell Count 100 (0-0) H 06/04/18 09:40 Fluid Neutrophils 17.6 % (0-0) H 06/04/18 09:40 Fluid Lymphocytes 82.4 % (0-0) H 06/04/18 09:40 Fld Monocyte/Macrophag TEST NOT PERFORMED 06/04/18 09:40 Fluid Comment TEST NOT PERFORMED 06/04/18 09:40 Pleural pH 7.5 06/04/18 09:46 Influenza Typ A,B (EIA) Negative for flu a/b (NEGATIVE) 06/05/18 23:15 Ur L.pneumophila Ag Negative (NEGATIVE) 06/05/18 23:25 Mycoplasma pneumon IgM Negative (NEGATIVE) 06/04/18 06:30 Discharge Exam - Additional Findings Additional findings: - Constitutional Appears: Non-toxic, No Acute Distress - Head Exam Head Exam: NORMAL INSPECTION, NORMOCEPHALIC - Eye Exam Eye Exam: EOMI, Normal appearance. absent: Nystagmus, Scleral icterus - ENT Exam ENT Exam: Mucous Membranes Moist - Respiratory Exam Respiratory Exam: Clear to Ausculation Bilateral, NORMAL BREATHING PATTERN. absent: Rales, Rhonchi, Wheezes - Cardiovascular Exam Cardiovascular Exam: REGULAR RHYTHM, +S1, +S2 - GI/Abdominal Exam GI & Abdominal Exam: Soft, Normal Bowel Sounds. absent: Distended, Firm, Tenderness - Extremities Exam Extremities Exam: Normal Inspection, Pedal Edema. absent: Calf Tenderness Additional comments: +1 pitting edema b/l Tegoderm wrapping at site of catheter insertion - Neurological Exam Neurological Exam: Alert, Awake, Oriented x3 - Psychiatric Exam Psychiatric exam: Normal Affect, Normal Mood - Skin Skin Exam: Intact, Normal Color Discharge Plan - Discharge Medications Prescriptions: RX: Cefpodoxime [Vantin] 200 mg PO BID #14 tab RX: Doxycycline Hyclate [Doryx] 100 mg PO DAILY #7 cap - Follow Up Plan Condition: FAIR Disposition: HOSPICE - HOME Instructions: Pneumonia in Adults, Fluid in the Belly (Ascites) (DC), Hypertension (DC) Additional Instructions: 1. Patient is stable for transfer for home against the wishes of PT. Patient was explained the risks for leaving home without receiving rehabilitation before hand. Risks included were increased mortality, falls, fractures, brain bleed, stroke, heart attack, and . 2. Patient will continue all of the medications at home as reconciled in the medication list for this hospital admission. Patient will be discharged with the following antibiotics to be taken at home for the next 7 days: Doxycycline 100mg by mouth twice a day for next 7 days and Cefpodoxime 200mg by mouth once a day for next 7 days. Patient will continue to have dialysis on a Sat schedule at [facility] in the outpatient dialysis center. 3. Patient and his at bedside were explained the plan before discharge to home. 4. Patient understands the plan and agrees to above. [facility] Care Visiting Nurse Diet: REnal - dialysis diet; diabetic exchange menu and heart healthy diet Patient states he is up to date with the flu and the pneumococcal vaccines. Referrals: Chip Mensah [Primary Care Provider] - <Roldan Shahid - Last Filed: 06/07/18 18:41> Provider - Provider Date of Admission: 06/03/18 08:00 Attending physician: Roldan Shahid MD Primary care physician: Chip Mensah MD Hospital Course - Lab Results Lab Results: Micro Results 06/04/18 09:45 Pleural Fluid Gram Stain - Final 06/04/18 09:45 Pleural Fluid Anaerobic Culture - Final NO ANAEROBES ISOLATED. 06/04/18 09:45 Pleural Fluid Body Fluid Culture - Preliminary NO GROWTH AFTER 3 DAYS 06/04/18 06:15 Blood Blood Culture - Preliminary NO GROWTH AFTER 3 DAYS 06/04/18 06:00 Blood Blood Culture - Preliminary NO GROWTH AFTER 3 DAYS 06/05/18 13:30 Naris MRSA Culture (Admit) - Final MRSA NOT DETECTED 06/04/18 09:45 Other: Please Indicate Fungal Culture - Preliminary 06/04/18 09:45 Other: Please Indicate Mycobacterial Culture - Preliminary 06/04/18 16:18 Stool C. difficile Antigen & Toxins A,B - Final 06/03/18 18:47 Stool C. difficile Antigen & Toxins A,B - Final Most Recent Lab Values WBC 5.1 10^3/ul (4.5-11.0) 06/07/18 07:00 RBC 3.81 10^6/uL (3.5-6.1) 06/07/18 07:00 Hgb 10.4 g/dL (14.0-18.0) L 06/07/18 07:00 Hct 29.8 % (42.0-52.0) L 06/07/18 07:00 MCV 78.2 fl (80.0-105.0) L 06/07/18 07:00 MCH 27.3 pg (25.0-35.0) 06/07/18 07:00 MCHC 34.9 g/dl (31.0-37.0) 06/07/18 07:00 RDW 17.0 % (11.5-14.5) H 06/07/18 07:00 Plt Count 67 10^3/uL (120.0-450.0) L 06/07/18 07:00 Gran % 86.0 % (50.0-68.0) H 06/07/18 07:00 Lymph % (Auto) 5.1 % (22.0-35.0) L 06/07/18 07:00 [place] % (Auto) 8.9 % (1.0-6.0) H 06/07/18 07:00 Eos % (Auto) 0.0 % (1.5-5.0) L 06/07/18 07:00 Baso % (Auto) 0.0 % (0.0-3.0) 06/07/18 07:00 Gran # 4.36 (1.4-6.5) 06/07/18 07:00 Lymph # (Auto) 0.3 (1.2-3.4) L 06/07/18 07:00 [place] # (Auto) 0.5 (0.1-0.6) 06/07/18 07:00 Eos # (Auto) 0.0 (0.0-0.7) 06/07/18 07:00 Baso # (Auto) 0.00 K/mm3 (0.0-2.0) 06/07/18 07:00 Neutrophils % (Manual) 94 % (50.0-70.0) H 06/05/18 05:30 Lymphocytes % (Manual) 5 % (22.0-35.0) L 06/05/18 05:30 Monocytes % (Manual) 1 % (1.0-6.0) 06/05/18 05:30 Platelet Evaluation Low (NORMAL) 06/05/18 05:30 Large Platelets Present 06/05/18 05:30 Anisocytosis (manual) Slight 06/05/18 05:30 Target Cells Slight 06/05/18 05:30 PT 20.1 SECONDS (9.4-12.5) H 06/02/18 13:20 INR 1.74 06/02/18 13:20 APTT 32.7 Seconds (25.1-36.5) 06/02/18 13:20 pO2 172 mm/Hg (30-55) H 06/02/18 13:20 VBG pH 7.48 (7.32-7.43) H 06/02/18 13:20 VBG pCO2 40.0 (40-60) 06/02/18 13:20 VBG HCO3 29.8 mmol/l (21-28) H 06/02/18 13:20 VBG Total CO2 31.0 mmol.L (22-28) H 06/02/18 13:20 VBG O2 Sat (Calc) 99.6 % (40-65) H 06/02/18 13:20 VBG Base Excess 5.8 mmol/L (0.0-2.0) H 06/02/18 13:20 VBG Potassium 4.7 mmol/L (3.6-5.2) 06/02/18 13:20 Sodium 132.0 mmol/L (132-148) 06/02/18 13:20 Chloride 97.0 mmol/L (98-107) L 06/02/18 13:20 Glucose 160 mg/dl (75-110) H 06/02/18 13:20 Lactate 1.3 mmol/L (0.7-2.1) 06/02/18 13:20 FiO2 21.0 % 06/02/18 13:20 Sodium 135 mmol/L (132-148) 06/07/18 07:00 Potassium 4.7 mmol/L (3.6-5.0) 06/07/18 07:00 Chloride 95 mmol/L (98-107) L 06/07/18 07:00 Carbon Dioxide 23 mmol/L (21-33) 06/07/18 07:00 Anion Gap 22 (10-20) H 06/07/18 07:00 BUN 59 mg/dL (7-21) H 06/07/18 07:00 Creatinine 4.8 mg/dl (0.8-1.5) H 06/07/18 07:00 Est GFR ( Amer) 15 06/07/18 07:00 Est GFR (Non-Af Amer) 12 06/07/18 07:00 POC Glucose (mg/dL) 335 mg/dL (65-110) H 06/07/18 17:08 Random Glucose 298 mg/dL (70-110) H 06/07/18 07:00 Hemoglobin A1c 7.3 % (4.2-6.5) H 06/03/18 06:30 Calcium 8.2 mg/dL (8.4-10.5) L 06/07/18 07:00 Phosphorus 5.6 mg/dL (2.5-4.5) H 06/03/18 07:50 Magnesium 2.2 mg/dL (1.7-2.2) 06/02/18 13:20 Total Bilirubin 1.1 mg/dL (0.2-1.3) 06/07/18 07:00 AST 35 U/L (17-59) 06/07/18 07:00 ALT 22 U/L (7-56) 06/07/18 07:00 Alkaline Phosphatase 228 U/L (38-126) H 06/07/18 07:00 Ammonia 17 umol/L (9-33) 06/02/18 15:45 Lactate Dehydrogenase 586 U/L (333-699) 06/02/18 13:20 Total Creatine Kinase 47 U/L (35-230) 06/02/18 13:20 Troponin I 0.08 ng/mL D 06/03/18 06:30 Total Protein 7.7 g/dL (5.8-8.3) 06/07/18 07:00 Albumin 3.7 g/dL (3.0-4.8) 06/07/18 07:00 Globulin 4.0 gm/dL 06/07/18 07:00 Albumin/Globulin Ratio 0.9 (1.1-1.8) L 06/07/18 07:00 Lipase 125 U/L (23-300) 06/02/18 13:20 Procalcitonin 6.46 NG/ML (0.19-0.49) H 06/07/18 12:00 Free T4 1.55 ng/dL (0.78-2.19) 06/03/18 06:30 TSH 3rd Generation 2.81 mIU/mL (0.46-4.68) 06/03/18 06:30 Venous Blood Potassium 4.7 mmol/L (3.6-5.2) 06/02/18 13:20 Fluid Source Pleural 06/04/18 09:40 Fluid Appearance Bloody (CLEAR) 06/04/18 09:40 Fluid WBC 296.0 /uL (0.0-300.0) 06/04/18 09:40 Fluid RBC 05345.0 /uL (0.0-0.0) H 10 09:40 Fluid Tot Cell Count 100 (0-0) H 06/04/18 09:40 Fluid Neutrophils 17.6 % (0-0) H 06/04/18 09:40 Fluid Lymphocytes 82.4 % (0-0) H 10 09:40 Fld Monocyte/Macrophag TEST NOT PERFORMED 06/04/18 09:40 Fluid Comment TEST NOT PERFORMED 06/04/18 09:40 Pleural pH 7.5 06/04/18 09:46 Pleural Total Protein 3.2 g/dL 06/04/18 09:44 Pleural LDH 108 U/L 06/04/18 09:44 Pleural Glucose 225 mg/dL 06/04/18 09:44 Influenza Typ A,B (EIA) Negative for flu a/b (NEGATIVE) 06/05/18 23:15 Ur L.pneumophila Ag Negative (NEGATIVE) 06/05/18 23:25 Mycoplasma pneumon IgM Negative (NEGATIVE) 06/04/18 06:30 Attending/Attestation - Attestation I have personally seen and examined this patient.: Yes I have fully participated in the care of the patient.: Yes I have reviewed all pertinent clinical information, including history, physical exam and plan: Yes Notes (Text): 06/07/18 18:35 Medical record note made by the resident after discussion with my direction and input after the patient was personally seen and examined by me. I have reviewed the chart and agree that the record accurately reflects by personal performance of the history, physical exam, data review, and medical decision-making, in the course for the patient. I have also personally directed the plan of care. 62 year old male with past medical history of diabetes, hypertension, CAD, CHF, cirrhosis and ESRD on HD Saturday//Saturday, Sarcoidosis, ascites is admitted with H/O cough, worsening dyspnea and leg swelling.Patient was found to have HCAP ,( Procalcitonin level was elevated,) bilateral Pleural effusion Rt>Lt, and Ascites. He underwent thoracentesis , The effusion was transudate. Culttures remain negative.He also underwent HD.Dyspnea has improved.Antibiotics has been changed to oral Vantin and Doxycycline as recommended by ID. Echo showed systolic dysfunctionef 30-35%, underwent cardiac cath showed patent graft to LAD and RCA, Patient was evaluated by PT , TCU was recommended.Patient has refused TCU admission.This was discussed in detail with him. He and his family is aware of fall risk. Prognosis is guarded. Management plan was discussed in detail with patient. Education was provided. 06/07/18 18:41
--- NOTE | 2018-06-06 17:38 | PN ---
DATE: 06/06/2018 SUBJECTIVE: The patient is seen and examined at bedside. He is comfortable. He has undergone left ventricular catheterization which revealed some diffusely diseased coronary arteries and recommendations were made by Cardiology Service to proceed with medical therapy without need to put additional stents. Patient tolerated procedure well. He is comfortable. He reports that his breathing substantially improved. Of note, I spoke with Dr. Akins who said that LVEDP on LV catheterization was fairly low, ranging between 10 and 14 mmHg. PHYSICAL EXAMINATION: VITAL SIGNS: Temperature 97.6, blood pressure 141/69, respiratory rate 18. oxygen saturation 97% on room air. ENT: Head and neck atraumatic. LUNGS: Clear to auscultation bilaterally. HEART: Regular rate and rhythm. S1 and S2 normal. ABDOMEN: Soft, nontender, nondistended. MUSCULOSKELETAL: No C/C/E. There is no expanding hematoma in the right groin where needle insertion was made. Braun catheterization. SKIN: Moist. PSYCH: The patient is alert, awake and oriented x3. NEURO: The patient moves all extremities spontaneously. LABORATORY DATA: WBC 5.6, hemoglobin 10.4, platelet count 80. Sodium 136, potassium 4.4, chloride 95, carbon dioxide 25, BUN 39, creatinine 3.7 (the patient is on hemodialysis), glucose 229, AST 39, ALT 24, total bilirubin 1. MEDICATIONS: Tylenol p.r.n., DuoNeb p.r.n. and every 6 hours on standing basis, aspirin 81 mg p.o. daily, Lipitor 40 mg p.o. with dinner, Plavix, doxycycline, Pepcid, Neurontin, hydralazine, hydroxyzine, isosorbide mononitrate, meropenem, metoprolol, prednisone 20 mg p.o. daily, Entresto, Januvia. ASSESSMENT AND PLAN: A 62 old gentleman who presented with community-acquired pneumonia which appeared to be substantially improved with resolution of shortness of breath and cough. His comorbidities were also addressed with steroid taper for suspected sarcoidosis flare and cardiac catheterization to evaluate status of his coronary artery disease. The patient appears to have history of pulmonary hypertension. However, never had a right heart catheterization. The patient needs to be referred to pulmonary hypertension clinic for right heart catheterization as well with vasodilatory challenge. We will continue with steroid taper. He is to complete course of antibiotics as per ID service. We will continue to target euvolemia, euglycemia, normothermia and oxygen saturation more than 90%. The patient will be getting dialysis as scheduled. Volodymyr Acharya MD [facility]
[2018-06-06] MEDS: Cilostazol 50 mg Tab UD PO SCH (17:47)
[2018-06-07] MEDS: Albuterol-Ipratrop 3 mg / 0.5 (3 ml) UD IH SCH (01:33)
--- NOTE | 2018-06-07 06:24 | CP.PCM.PN ---
<Nina Marie - Last Filed: 06/07/18 11:37> Subjective - Date & Time of Evaluation Date of Evaluation: 06/07/18 Time of Evaluation: 07:00 - Subjective Subjective: Nephrology Progress Note for Autumn Valdez PGY3 Patient seen and examined at bedside. There were no acute overnight events as per nursing staff. Patient reports feeling well today. His diarrhea has resolved. Patient denies chest pain, shortness of breath, nausea/vomiting/diarrhea, numbness/tingling, fever/chills, or generalized pain. Objective - Vital Signs/Intake and Output Vital Signs (last 24 hours): Temp Pulse Resp BP Pulse Ox 97.8 F 71 19 134/82 95 06/07/18 06:00 06/07/18 06:00 06/07/18 06:00 06/07/18 06:00 06/07/18 06:00 Intake and Output: 06/06/18 06/07/18 18:59 06:59 Intake Total 740 100 Balance 740 100 - Medications Medications: Current Medications Acetaminophen (Tylenol 325mg Tab) 650 mg PO Q6H PRN PRN Reason: Fever >100.4 F Albuterol/Ipratropium (Duoneb 3 Mg/0.5 Mg (3 Ml) Ud) 3 ml IH [id number] [facility] Last Admin: 06/07/18 01:33 Dose: Not Given Albuterol/Ipratropium (Duoneb 3 Mg/0.5 Mg (3 Ml) Ud) 3 ml IH [id number] PRN PRN Reason: Shortness of Breath Aspirin (Ecotrin) 81 mg PO DAILY [facility] Atorvastatin Calcium (Lipitor) 40 mg PO DIN [facility] Last Admin: 06/06/18 17:47 Dose: 40 mg Cilostazol (Pletal) 50 mg PO BID [facility] Last Admin: 06/06/18 17:47 Dose: 50 mg Clopidogrel Bisulfate (Plavix) 75 mg PO DAILY [facility] Last Admin: 06/06/18 07:05 Dose: 75 mg Doxycycline Hyclate (Doryx) 100 mg PO Q12 [facility]; Protocol Stop: 06/11/18 10:01 Last Admin: 06/06/18 21:08 Dose: 100 mg Famotidine (Pepcid) 40 mg PO HS [facility] Last Admin: 06/06/18 21:08 Dose: 40 mg Gabapentin (Neurontin) 300 mg PO DAILY [facility]; Protocol Last Admin: 06/03/18 14:23 Dose: 300 mg Heparin Sodium (Porcine) (Heparin) 5,000 units SC Q8 [facility]; Protocol Last Admin: 06/07/18 05:02 Dose: 5,000 units Hydralazine HCl (Apresoline) 25 mg PO DAILY [facility] Last Admin: 06/06/18 13:19 Dose: 25 mg Hydroxyzine HCl (Atarax) 25 mg PO DAILY PRN PRN Reason: Itching / Pruritus Meropenem 250 mg/ Sodium (Chloride) 100 mls @ 100 mls/hr IVPB Q12H [facility]; Protocol Stop: 06/11/18 23:46 Last Admin: 06/06/18 22:45 Dose: 100 mls/hr Insulin Human Regular (Humulin R Low) 0 units SC ACHS [facility]; Protocol Last Admin: 06/06/18 21:10 Dose: Not Given Isosorbide Mononitrate (Imdur) 120 mg PO DAILY [facility] Last Admin: 06/06/18 13:19 Dose: 120 mg Metoprolol Tartrate (Lopressor) 50 mg PO BID [facility] Last Admin: 06/06/18 17:47 Dose: 50 mg Prednisone (Prednisone Tab) 10 mg PO DAILY [facility] Sacubitril/Valsartan (Entresto 97 Mg-103 Mg Tablet) 1 each PO DAILY [facility] Last Admin: 06/06/18 13:19 Dose: 1 each Sitagliptin Phosphate (Januvia) 25 mg PO DAILY [facility] Last Admin: 06/06/18 11:19 Dose: Not Given Spironolactone (Aldactone) 25 mg PO BID [facility] Last Admin: 06/03/18 14:24 Dose: Not Given - Labs Labs: 06/06/18 06:00 06/06/18 06:00 PT 20.1 SECONDS (9.4-12.5) H 06/02/18 13:20 INR 1.74 06/02/18 13:20 APTT 32.7 Seconds (25.1-36.5) 06/02/18 13:20 - Constitutional Appears: Younger Than Stated Age - Head Exam Head Exam: ATRAUMATIC, NORMAL INSPECTION, NORMOCEPHALIC - Eye Exam Eye Exam: Normal appearance, PERRL Pupil Exam: NORMAL ACCOMODATION, PERRL - ENT Exam ENT Exam: Mucous Membranes Moist - Respiratory Exam Respiratory Exam: Rales, NORMAL BREATHING PATTERN. absent: Rhonchi, Wheezes - Cardiovascular Exam Cardiovascular Exam: REGULAR RHYTHM, +S1, +S2. absent: Gallop, Rubs, Murmur - GI/Abdominal Exam GI & Abdominal Exam: Soft, Normal Bowel Sounds. absent: Rigid, Tenderness, Mass, Rebound - Extremities Exam Extremities Exam: Pedal Edema. absent: Calf Tenderness - Neurological Exam Neurological Exam: Alert, Awake, CN II-XII Intact, Normal Gait, Oriented x3 - Psychiatric Exam Psychiatric exam: Normal Affect, Normal Mood - Skin Skin Exam: Dry, Warm Assessment and Plan - Assessment and Plan (Free Text) Assessment: 1. LE edema - secondary to ESRD v. CHF 2. ESRD 3. Renal replacement therapy on HD 4. Anemia of chronic disease 5. Secondary hyperparathyroidism 6. L AV fistula access 7. Abdominal Ascites - secondary to cirrhosis v. CHF v. pulm HTN 8. CHF - recent echo showed decreased EF from 67% in 2017 to 35-40% - Cardiac cath done with out any stents placed 9. CAD s/p CABG 10. DM type II 11. Essential HTN Plan: Labs and imaging reviewed. Patient will get HD today. Will remove 3L with 3K bath. Cardiology recommended medical management for CHF. Monitor daily weights. Aranesp during HD for anemia. Patient will be going to TCU for further rehabilitation. Case seen, discussed and reviewed with Dr. Siu. Autumn Marie PGY3 <Pascual Siu S - Last Filed: 06/07/18 21:22> Objective - Vital Signs/Intake and Output Vital Signs (last 24 hours): Temp Pulse Resp BP Pulse Ox 97.5 F L 100 H 21 147/76 97 06/07/18 14:00 06/07/18 17:19 06/07/18 14:00 06/07/18 17:19 06/07/18 13:45 - Labs Labs: 06/07/18 07:00 06/07/18 07:00 PT 20.1 SECONDS (9.4-12.5) H 06/02/18 13:20 INR 1.74 06/02/18 13:20 APTT 32.7 Seconds (25.1-36.5) 06/02/18 13:20 Assessment and Plan - Assessment and Plan (Free Text) Plan: Pt seen and examined by me. I have reviewed the note by the medical legal investigator. The case was discussed and reviewed with the resident. I reviewed the medications and labs. Pt with ESRD on HD. I will take about 3 L of fluid off. His LE edema is better. He is going to TCU today. Pt will get rehab. His diarrhea is better. Spoke to HD nurse. Anemia is stable. AVF is working well.
[2018-06-07 07:45] LABS: GRAN # 4.36 (1.4-6.5); HEMOGLOBIN 10.4 g/dL (14.0-18.0); LYMPH # 0.3 (1.2-3.4); LYMPH % 5.1 % (22.0-35.0); MEAN CELL VOLUME 78.2 fl (80.0-105.0); MEAN CORPUSCULAR HEMOGLOBIN 27.3 pg (25.0-35.0); MEAN CORPUSCULAR HGB CONC 34.9 g/dl (31.0-37.0); MONO # 0.5 (0.1-0.6); MONO % 8.9 % (1.0-6.0); PLATELET COUNT 67 10^3/uL (120.0-450.0); RBC 3.81 10^6/uL (3.5-6.1); WHITE BLOOD COUNT 5.1 10^3/ul (4.5-11.0)
[2018-06-07] MEDS: Insulin Reg-LOW-Coverage SC SCH ×3 (08:18→17:18)
[2018-06-07 08:39] LABS: TOTAL PROTEIN PLEURAL FLUID 3.2 g/dL
[2018-06-07] MEDS: SACUBITRIL 97mg/ VALSARTAN 103mg tab PO SCH ×2 (09:52→14:53)
[2018-06-07] MEDS: Cilostazol 50 mg Tab UD PO SCH (09:53)
[2018-06-07 10:26] LABS: ALB/GLOB RATIO 0.9 (1.1-1.8); ALBUMIN 3.7 g/dL (3.0-4.8); CALCIUM 8.2 mg/dL (8.4-10.5)
[2018-06-07 14:04] VITALS: BP 147/76; PULSE 100; RESP 21; TEMP 97.5
--- NOTE | 2018-06-07 14:17 | CARD ---
APPROVED REPORT Date of service: 06/07/2018 EKG Measurement Heart [id number] <Conclusion> Normal sinus rhythm Left axis deviation Left ventricular hypertrophy with QRS widening T wave abnormality, consider lateral ischemia Abnormal ECG
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
[2018-06-07 17:32] VITALS: O2SAT 97
--- NOTE | 2018-06-09 08:29 | PN ---
DATE: 06/07/2018 REASON FOR DICTATION: Covering Dr. Nolberto Akins. SUBJECTIVE: The patient denies any chest pain, shortness of breath, or any palpitation. PHYSICAL EXAMINATION: GENERAL: Not in any apparent distress. VITAL SIGNS: Temperature afebrile, heart rate 72, blood pressure 134/85. HEENT: PERRLA. Extraocular muscles are intact. NECK: Supple. No carotid bruits or thyromegaly. CHEST: Clear to auscultation. HEART: S1 and S2 regular. ABDOMEN: Soft. EXTREMITIES: Clubbing and cyanosis negative. LABORATORY DATA: Blood workup as follows: WBC 5.9, hemoglobin 10.2, hematocrit 29.8, and platelet count 67. Chemistry shows sodium of 135, potassium 4.3, chloride 95, carbon dioxide 23, anion gap of , BUN 59, and creatinine 4.8. IMPRESSION: A 62-year-old male with past medical history significant for coronary artery disease, end-stage renal disease on dialysis, admitted with shortness of breath, dizziness, yesterday underwent cardiac catheterization with Dr. Akins that revealed ejection fraction 35%-40%, right-sided dominant coronary artery, 50% stenosis noted in the right coronary artery, left mid unremarkable, circumflex 70%-80% stenosis noted, left anterior descending artery 70%-80% stenosis, patent left internal mammary artery to left anterior descending artery, patent saphenous graft to diagonal 1, patent saphenous graft to the right coronary artery. Medical treatment recommended. PLAN: The patient is dialysis after the patient will be discharged, followed up with PMD, Dr. Akins/[facility] ([facility] Continue current treatment. If the patient remains in the hospital, we will sign off to Dr. Akins and transfer the care to Dr. Akins on Saturday, otherwise we will see as an outpatient . Roldan Charles MD
== END 2018-06-07 17:57 | disposition home or self-care (01) | DRG 193 ==
LOC: ED 12:28 → ERH 14:09 → 2RNO 16:10 → OBSVTOIN 06-03 08:00 → 2RSO 06-06 10:58
PROVIDERS: ADMIT Internal Medicine; ATTEND Internal Medicine
PROC: 5A1D70Z Performance of Urinary Filtration, Intermittent, Less than 6 Hours Per Day (ICD-10-PCS; 2018-06-03)
PROC: 0W993ZZ Drainage of Right Pleural Cavity, Percutaneous Approach (ICD-10-PCS; 2018-06-04)
PROC: BB4BZZZ Ultrasonography of Pleura (ICD-10-PCS; 2018-06-04)
PROC: 5A1D70Z Performance of Urinary Filtration, Intermittent, Less than 6 Hours Per Day (ICD-10-PCS; 2018-06-05)
PROC: 4A023N7 Measurement of Cardiac Sampling and Pressure, Left Heart, Percutaneous Approach (ICD-10-PCS; principal; 2018-06-06)
PROC: 4A033BC Measurement of Arterial Pressure, Coronary, Percutaneous Approach (ICD-10-PCS; 2018-06-06)
PROC: B2111ZZ Fluoroscopy of Multiple Coronary Arteries using Low Osmolar Contrast (ICD-10-PCS; 2018-06-06)
PROC: B2121ZZ Fluoroscopy of Single Coronary Artery Bypass Graft using Low Osmolar Contrast (ICD-10-PCS; 2018-06-06)
PROC: B2131ZZ Fluoroscopy of Multiple Coronary Artery Bypass Grafts using Low Osmolar Contrast (ICD-10-PCS; 2018-06-06)
PROC: B2151ZZ Fluoroscopy of Left Heart using Low Osmolar Contrast (ICD-10-PCS; 2018-06-06)
PROC: 5A1D70Z Performance of Urinary Filtration, Intermittent, Less than 6 Hours Per Day (ICD-10-PCS; 2018-06-07)
DX: J18.9 Pneumonia, unspecified organism (principal); N18.6 End stage renal disease; I50.41 Acute combined systolic (congestive) and diastolic (congestive) heart failure; I13.2 Hypertensive heart and chronic kidney disease with heart failure and with stage 5 chronic kidney disease, or end stage renal disease; J44.0 Chronic obstructive pulmonary disease with (acute) lower respiratory infection; R18.8 Other ascites; N25.81 Secondary hyperparathyroidism of renal origin; I42.0 Dilated cardiomyopathy; Z99.2 Dependence on renal dialysis; D86.9 Sarcoidosis, unspecified; K74.60 Unspecified cirrhosis of liver; M81.0 Age-related osteoporosis without current pathological fracture; E11.51 Type 2 diabetes mellitus with diabetic peripheral angiopathy without gangrene; E11.22 Type 2 diabetes mellitus with diabetic chronic kidney disease; D63.8 Anemia in other chronic diseases classified elsewhere; R19.7 Diarrhea, unspecified; E11.40 Type 2 diabetes mellitus with diabetic neuropathy, unspecified; I25.5 Ischemic cardiomyopathy; I25.118 Atherosclerotic heart disease of native coronary artery with other forms of angina pectoris; E78.00 Pure hypercholesterolemia, unspecified; E78.5 Hyperlipidemia, unspecified; G47.30 Sleep apnea, unspecified; H40.9 Unspecified glaucoma; H91.90 Unspecified hearing loss, unspecified ear; I27.29 Other secondary pulmonary hypertension; I44.7 Left bundle-branch block, unspecified; I50.82 Biventricular heart failure; Y95 Nosocomial condition; Z79.4 Long term (current) use of insulin; Z82.49 Family history of ischemic heart disease and other diseases of the circulatory system; Z87.01 Personal history of pneumonia (recurrent); Z90.49 Acquired absence of other specified parts of digestive tract; Z91.81 History of falling; Z95.1 Presence of aortocoronary bypass graft; Z95.5 Presence of coronary angioplasty implant and graft

== ENCOUNTER 2018-07-01 14:35 | Inpatient (IN) | payer MEDICARE, MEDICAID ==
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
[2018-07-01] MEDS ORDERED: Morphine 2 mg/ml ISec IVP STA (16:25)
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
--- NOTE | 2018-07-01 16:36 | RAD ---
Date of service: 07/01/2018 PROCEDURE: Left Femur Radiographs. HISTORY: trauma COMPARISON: None. TECHNIQUE: AP and Lateral Radiographs of the left femur. FINDINGS: FEMUR: Normal. No fracture. SOFT TISSUES: Normal. OTHER FINDINGS: There is a fracture of the left hip. The remainder of the femur is unremarkable IMPRESSION: Unremarkable radiographs of the left femur.
--- NOTE | 2018-07-01 16:37 | RAD ---
Date of service: 07/01/2018 PROCEDURE: Pelvis and left hip HISTORY: trauma COMPARISON: TECHNIQUE: Three views FINDINGS: There is a transverse displaced fracture of the femoral neck. The pelvis is intact IMPRESSION: Fracture of the left femoral neck
[2018-07-01 17:03] LABS: BASO # 0.01 K/mm3 (0.0-2.0); BASO % 0.2 % (0.0-3.0); EOS # 0.2 (0.0-0.7); EOS % 3.8 % (1.5-5.0); GRAN # 4.11 (1.4-6.5); GRAN % 78.6 % (50.0-68.0); HEMOGLOBIN 8.6 g/dL (14.0-18.0); LYMPH # 0.5 (1.2-3.4); LYMPH % 9.4 % (22.0-35.0); MEAN CELL VOLUME 81.1 fl (80.0-105.0); MEAN CORPUSCULAR HEMOGLOBIN 27.6 pg (25.0-35.0); MONO # 0.4 (0.1-0.6); PLATELET COUNT 113 10^3/uL (120.0-450.0); RBC 3.12 10^6/uL (3.5-6.1); RED CELL DISTRIBUTION WIDTH 19.7 % (11.5-14.5); WHITE BLOOD COUNT 5.2 10^3/uL (4.5-11.0)
[2018-07-01 17:14] LABS: INR 1.58; PARTIAL THROMBOPLASTIN TIME 33.1 Seconds (25.1-36.5); PROTHROMBIN TIME 18.2 SECONDS (9.4-12.5)
--- NOTE | 2018-07-01 17:45 | RAD ---
Date of service: 07/01/2018 HISTORY: preop COMPARISON: Chest radiograph dated 06/04/2018. FINDINGS: LUNGS: Extensive pulmonary vascular congestion.. PLEURA: Large right pleural effusion. Small left pleural effusion. CARDIOVASCULAR: Prior sternotomy with sternal wires and surgical clips redemonstrated. Aortic atherosclerotic calcifications. Cardiomediastinal silhouette stably enlarged. OSSEOUS STRUCTURES: Unchanged. VISUALIZED UPPER ABDOMEN: Normal. OTHER FINDINGS: None. IMPRESSION: Pulmonary vascular congestion/edema with large right and small left pleural effusions.
[2018-07-01 18:34] LABS: ALB/GLOB RATIO 0.9 (1.1-1.8); ALBUMIN 3.4 g/dL (3.0-4.8); CALCIUM 8.1 mg/dL (8.4-10.5)
--- NOTE | 2018-07-01 18:42 | CARD ---
APPROVED REPORT Date of service: 07/01/2018 EKG Measurement Heart [id number] <Conclusion> Normal sinus rhythm Left bundle branch block Abnormal ECG
[2018-07-01] MEDS ORDERED: TDAP Vaccine 0.5 mL Syr IM ONE (19:44)
[2018-07-01] MEDS ORDERED: Albuterol-Ipratrop 3 mg / 0.5 (3 ml) UD IH PRN (20:43)
[2018-07-01 20:45] LABS: IRON 123 ug/dL (45-180)
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
[2018-07-01 20:55] LABS: % IRON SATURATION 52 % (20-55); TOTAL IRON BINDING CAPACITY 238 ug/dL (261-462)
[2018-07-01] MEDS: Morphine 2 mg/ml ISec IVP PRN (21:14)
[2018-07-01] MEDS: Insulin Lispro (humaLOG) LOW Coverage SC SCH (22:27)
[2018-07-02] MEDS: Morphine 2 mg/ml ISec IVP PRN ×4 (00:50→21:54)
--- NOTE | 2018-07-02 03:19 | CON ---
DATE: 07/02/2018 ORTHOPEDIC CONSULT LOCATION: [facility] Emergency Room. HISTORY OF PRESENT ILLNESS: A 62-year-old male on renal dialysis for renal failure, who fell getting out of the dialysis unit and fractured his left hip. X-ray shows base of the neck fracture. Looks like it could be treated with a screw and IM briseyda as opposed to prosthesis which would be better for the patient. The patient ambulates with a walker. He is on dialysis on Saturday, , and Saturday. Hopefully, we could do it this week when he is medically cleared from cardiac viewpoint, renal viewpoint, and medical viewpoint, and check his labs out from dialysis. We plan to do surgery on Saturday morning at 7:30 if that is available and do pinning of the left hip so it will help his pain and mobility. FINAL DIAGNOSIS: Displaced base of the neck fracture of the left hip on renal dialysis. Stephan Garrison DO
[2018-07-02 06:29] LABS: BASO # 0.01 K/mm3 (0.0-2.0); BASO % 0.2 % (0.0-3.0); EOS # 0.2 (0.0-0.7); EOS % 4.7 % (1.5-5.0); GRAN # 2.96 (1.4-6.5); GRAN % 73.3 % (50.0-68.0); HEMOGLOBIN 8.5 g/dL (14.0-18.0); LYMPH # 0.5 (1.2-3.4); LYMPH % 12.1 % (22.0-35.0); MEAN CELL VOLUME 83.7 fl (80.0-105.0); MEAN CORPUSCULAR HEMOGLOBIN 27.8 pg (25.0-35.0); MEAN CORPUSCULAR HGB CONC 33.2 g/dl (31.0-37.0); MONO # 0.4 (0.1-0.6); MONO % 9.7 % (1.0-6.0); RBC 3.06 10^6/uL (3.5-6.1); RED CELL DISTRIBUTION WIDTH 19.7 % (11.5-14.5)
[2018-07-02 06:30] LABS: ALB/GLOB RATIO 0.9 (1.1-1.8); ALBUMIN 3.3 g/dL (3.0-4.8); CALCIUM 7.8 mg/dL (8.4-10.5)
[2018-07-02] MEDS: Insulin Lispro (humaLOG) LOW Coverage SC SCH ×2 (08:52→13:18)
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
--- NOTE | 2018-07-02 09:14 | CT ---
Date of service: 07/01/2018 PROCEDURE: CT HEAD WITHOUT CONTRAST. HISTORY: s/p fall COMPARISON: 07/12/2016 TECHNIQUE: Axial computed tomography images were obtained through the head/brain without intravenous contrast. Radiation dose: Total exam DLP = 1776.74 mGy-cm. This CT exam was performed using one or more of the following dose reduction techniques: Automated exposure control, adjustment of the mA and/or kV according to patient size, and/or use of iterative reconstruction technique. FINDINGS: HEMORRHAGE: No intracranial hemorrhage. BRAIN: No mass effect or edema. Severe chronic microvascular changes. Moderate atrophy. VENTRICLES: Unremarkable. No hydrocephalus. CALVARIUM: Unremarkable. PARANASAL SINUSES: Unremarkable as visualized. No significant inflammatory changes. MASTOID AIR CELLS: Unremarkable as visualized. No inflammatory changes. OTHER FINDINGS: The report concurs with the preliminary [facility] report IMPRESSION: No acute intracranial findings
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
[2018-07-02] MEDS: Cilostazol 50 mg Tab UD PO SCH ×2 (10:26→18:40)
--- NOTE | 2018-07-02 10:33 | PN ---
DATE: 07/02/2018 SUBJECTIVE: I saw Mr. Jim Estrada in 266, bed 2. We are preparing him for surgery by getting a medical clearance, renal clearance, and cardiac clearance. Hopefully, we could do this surgery by 07/04/2018, which will be Saturday, day after his dialysis session. His hemoglobin is 8.5, so I believe we can transfuse him in the dialysis session tomorrow on 07/03/2018 to bring it up over 9 for planned surgery of pinning of his left hip fracture for Saturday 7:30 a.m. and I am going to talk to Dr. Siu and Dr. Charles, and hopefully we could accomplish this on 07/04/2018 after he gets a unit of blood at dialysis tomorrow. Stephan Garrison DO
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
--- NOTE | 2018-07-02 11:35 | RAD ---
PROCEDURE: Left Hip X-ray Radiographs. HISTORY: HIP FX. LT. COMPARISON: 07/01/2018 left hip radiographs FINDINGS: BONES: Could confirmation of fracture of the left femoral neck better seen on the concurrent study of the pelvis. JOINTS: Preservation of femoral acetabular relationship. Degenerative changes noted. SOFT TISSUES: Normal. OTHER FINDINGS: None. IMPRESSION: Acute nondisplaced left femoral neck fracture.
--- NOTE | 2018-07-02 14:30 | RAD ---
Date of service: 07/02/2018 HISTORY: abdominal pain r/o constipation COMPARISON: None available. FINDINGS: BOWEL: Normal. No obstruction. No free air. BONES: Normal. OTHER FINDINGS: Known fracture of the left femoral neck unchanged compared to prior radiographs July 01, 2018. IMPRESSION: No evidence of obstruction, free air. No evidence of fecal impaction or constipation.
--- NOTE | 2018-07-02 14:48 | CP.PCM.PN ---
<Addy Fermin - Last Filed: 07/02/18 15:41> Subjective - Date & Time of Evaluation Date of Evaluation: 07/02/18 Time of Evaluation: 09:00 - Subjective Subjective: PGY-1 Medicine Progress Note for Dr. Shahid Patient seen and examined at bedside this AM. No acute overnight events reported. Patient continues to endorse localized L hip pain, although improved after pain meds. No other acute complaints. Of note, on last admission patient was given recommendations for discharge to TCU which patient refused. Patient now presents on current admission s/p fall. Patient states his next scheduled HD session is tomorrow. We discussed possibility of surgery on Saturday, pending clearance. Objective - Vital Signs/Intake and Output Vital Signs (last 24 hours): Temp Pulse Resp BP Pulse Ox 99.6 F 84 18 124/71 93 L 07/02/18 12:00 07/02/18 12:00 07/02/18 12:00 07/02/18 12:00 07/02/18 06:00 - Medications Medications: Current Medications Albuterol/Ipratropium (Duoneb 3 Mg/0.5 Mg (3 Ml) Ud) 3 ml IH [id number] PRN PRN Reason: Shortness of Breath Aspirin (Aspirin Chewable) 81 mg PO DAILY [facility] Cilostazol (Pletal) 50 mg PO BID [facility] Last Admin: 07/02/18 10:26 Dose: 50 mg Famotidine (Pepcid) 20 mg PO 1000,2200 [facility] Last Admin: 07/02/18 10:26 Dose: 20 mg Gabapentin (Neurontin) 300 mg PO DAILY [facility]; Protocol Last Admin: 07/02/18 10:26 Dose: 300 mg Heparin Sodium (Porcine) (Heparin) 5,000 units SC Q8 [facility]; Protocol Last Admin: 07/02/18 06:01 Dose: 5,000 units Hydralazine HCl (Apresoline) 25 mg PO TID [facility] Last Admin: 07/02/18 10:26 Dose: 25 mg Hydroxyzine HCl (Atarax) 25 mg PO TID [facility] Last Admin: 07/02/18 10:26 Dose: 25 mg Insulin Human Lispro (Humalog High) 0 units SC ACHS [facility]; Protocol Isosorbide Mononitrate (Imdur) 120 mg PO DAILY [facility] Last Admin: 07/02/18 10:26 Dose: 120 mg Metoprolol Tartrate (Lopressor) 50 mg PO BID [facility] Last Admin: 07/02/18 10:26 Dose: 50 mg Morphine Sulfate (Morphine) 2 mg IVP Q4H PRN PRN Reason: Pain, severe (8-10) Last Admin: 07/02/18 11:31 Dose: 2 mg Prednisone (Prednisone Tab) 5 mg PO DAILY [facility] Last Admin: 07/02/18 10:26 Dose: 5 mg - Labs Labs: 07/02/18 05:40 07/02/18 05:35 PT 18.2 SECONDS (9.4-12.5) H 07/01/18 16:45 INR 1.58 07/01/18 16:45 APTT 33.1 Seconds (25.1-36.5) 07/01/18 16:45 - Constitutional Appears: Non-toxic, Chronically Ill - Head Exam Head Exam: ATRAUMATIC, NORMAL INSPECTION, NORMOCEPHALIC - Eye Exam Eye Exam: EOMI Additional comments: R eye blindness, s/p 2 R eye surgeries; pupil unreactive to light - ENT Exam ENT Exam: Mucous Membranes Moist, Normal Exam - Neck Exam Neck Exam: Full ROM, Normal Inspection - Respiratory Exam Respiratory Exam: Rales, NORMAL BREATHING PATTERN. absent: Rhonchi, Wheezes, R espiratory Distress, Stridor - Cardiovascular Exam Cardiovascular Exam: REGULAR RHYTHM, +S1, +S2 - GI/Abdominal Exam GI & Abdominal Exam: Distended, Normal Bowel Sounds. absent: Guarding, Rigid, Tenderness, Rebound - Extremities Exam Extremities Exam: Normal Capillary Refill, Pedal Edema. absent: Calf Tenderness, Joint Swelling Additional comments: 2+ pitting edema b/l - Back Exam Back Exam: NORMAL INSPECTION - Neurological Exam Neurological Exam: Alert, Awake, CN II-XII Intact, Oriented x3 - Psychiatric Exam Psychiatric exam: Normal Affect, Normal Mood - Skin Skin Exam: Dry, Intact, Normal Color, Warm Assessment and Plan - Assessment and Plan (Free Text) Assessment: 62 yo male w/ PMH CAD w/ multiple stents, CABG, CHF (EF 67 in 2017), PVD, DM, dyslipidemia, ESRD (T, Th Sat), HTN, osteoporosis, osteoarthritis, s arcoidosis presents for L hip pain s/p mechanical fall, XR in ED shows L femoral neck fracture. Plan: L hip fracture s/p mechanical fall --Hip/Pelvis XR: transverse displaced fracture of L femoral neck, pelvis intact --Femur XR: no acute findings --Hand XR: no acute findings --Head CT: no acute findings --EKG: NSR @ 77 bpm, LBBB --morning labs --coags --type and screen --iron studies -iron 123 -TIB 238 -%saturation 52 --Morphine 2 mg IVP q4 PRN --Tylenol 650 mg PO q6 PRN --Orthopedics (Dr. Garrison) on board - planning for pin fixation for Saturday, pending cardiac clearance and medically optimization. --Cardiology (Dr. Charles) on board -cardiac risk stratification for OR B/L Pleural Effusion --CXR: pulmonary vascular congestion/edema with large R and small L pleural effusions --Pulmonology (Dr. Urena) on board -chronic pleural effusions, thoracentesis on 06/04/18, demonstrated transudative pleural effusion with negative cx -bedside lung u/s today demonstrated moderate R pleural effusion with B l howard, L side minimal pleural effusion with B lines -optimize fluid balance, HD, CHF -if going for surgery, would favor thoracentesis prior to surgery by IR Elevated LFTs & Ascites --AST 189 from 85 -- ALT 103 from 78 --ALP 356, may be elevated 2/2 femoral fracture --GI (Dr. Mcneill) on board -Calculated MELD-Na score: 26 -further recs to follow PAD --Cilostazol 50mg po bid --ASA 81 mg PO daily --held home plavix -f/u with cardio recs for when to restart plavix --held Lipitor 40 mg PO HS DM2 with neuropathy --ISS high dose --ACHS --home Januvia held --Gabapentin 300mg PO daily HTN --c/w home Metoprolol 50mg PO BID --c/w home Hydralazine 25mg PO TID --c/w home Isosorbide Mononitrate 120mg PO daily ESRD --pt is on HD , , Sat -- Cr up to 3.3 from 2.7 --Nephrology (Dr. Siu) recs appreciated - Pt to have HD tomorrow w goal of 2L UF per nephro - repeat CXR following HD tomorrow to monitor pleural effusions. Dyslipidemia -holding Lipitor due to transaminitis Hx of CABG --Plavix and ASA held for OR --c/w Metoprol 50mg PO BID Hx of Sarcoidosis --c/w Prednisone 2.5mg PO daily PPx, Diet, Disposition GI ppx: Pepcid 20mg BID DVT ppx: Heparin on hold Diet: HHD Case discussed with Dr. Kleber Fermin DO, PGY-1 <Roldan Shahid - Last Filed: 07/04/18 15:35> Objective - Vital Signs/Intake and Output Vital Signs (last 24 hours): Temp Pulse Resp BP Pulse Ox 98.5 F 91 H 14 36/20 L 100 07/04/18 07:35 07/04/18 14:40 07/04/18 10:47 07/04/18 11:00 07/04/18 14:40 Intake and Output: 07/04/18 07/04/18 06:59 18:59 Intake Total 0 Balance 0 - Medications Medications: Current Medications Albuterol/Ipratropium (Duoneb 3 Mg/0.5 Mg (3 Ml) Ud) 3 ml IH [id number] PRN PRN Reason: Shortness of Breath Last Admin: 07/04/18 13:20 Dose: 3 ml Aspirin (Aspirin Chewable) 81 mg PO DAILY [facility] Last Admin: 07/03/18 15:29 Dose: 81 mg Famotidine (Pepcid) 20 mg PO 1000,2200 [facility] Last Admin: 07/03/18 15:49 Dose: Not Given Gabapentin (Neurontin) 300 mg PO DAILY [facility]; Protocol Last Admin: 07/03/18 15:29 Dose: 300 mg Heparin Sodium (Porcine) (Heparin) 5,000 units SC Q8 [facility]; Protocol Last Admin: 07/02/18 06:01 Dose: 5,000 units Hydralazine HCl (Apresoline) 25 mg PO TID [facility] Last Admin: 07/03/18 18:26 Dose: 25 mg Hydrocortisone Sodium Succinate (Solu-Cortef) 50 mg IVP Q6H [facility] Hydroxyzine HCl (Atarax) 25 mg PO TID [facility] Last Admin: 07/03/18 18:26 Dose: 25 mg Epinephrine HCl 1 mg/ Sodium (Chloride) 51 mls @ 3.06 mls/hr IV .[id number] PRN; Protocol PRN Reason: TITRATE PER MD ORDER Dobutamine HCl/Dextrose (Dobutamine/Dextrose 5% 500mg/250ml) 500 mg in 250 mls @ 10.553 mls/hr IV .[id number] PRN; Protocol PRN Reason: TITRATE PER PROTOCOL Last Admin: 07/04/18 11:00 Dose: 5 mcg/kg/min, 10.553 mls/hr Vasopressin 20 units/ Sodium (Chloride) 101 mls @ 9.09 mls/hr IV .[id number] [facility]; Protocol Levetiracetam (Keppra 1000mg/100ml Ns) 100 mls @ 460 mls/hr IV Q12 [facility] Last Admin: 07/04/18 13:53 Dose: 460 mls/hr Midazolam 100 mg/100ml in NS (Midazolam 100 Mg/100ml In Ns) 100 mg in 100 mls @ 1 mls/hr IV .Q24H PRN; Protocol PRN Reason: Agitation Last Admin: 07/04/18 14:17 Dose: 1 mg/hr, 1 mls/hr Insulin Human Lispro (Humalog High) 0 units SC ACHS [facility]; Protocol Last Admin: 07/04/18 11:30 Dose: Not Given Isosorbide Mononitrate (Imdur) 120 mg PO DAILY [facility] Last Admin: 07/03/18 15:29 Dose: 120 mg Morphine Sulfate (Morphine) 2 mg IVP Q4H PRN PRN Reason: Pain, severe (8-10) Last Admin: 07/03/18 18:25 Dose: 2 mg Prednisone (Prednisone Tab) 5 mg PO DAILY [facility] Last Admin: 07/03/18 15:48 Dose: 5 mg - Labs Labs: 07/04/18 12:00 07/04/18 12:00 PT 18.2 SECONDS (9.4-12.5) H 07/01/18 16:45 INR 1.58 07/01/18 16:45 APTT 33.1 Seconds (25.1-36.5) 07/01/18 16:45 Attending/Attestation - Attestation I have personally seen and examined this patient.: Yes I have fully participated in the care of the patient.: Yes I have reviewed all pertinent clinical information, including history, physical exam and plan: Yes Notes (Text): 07/04/18 15:35 Medical record note made by the resident after discussion with my direction and input after the patient was personally seen and examined by me. I have reviewed the chart and agree that the record accurately reflects by personal performance of the history, physical exam, data review, and medical decision-making, in the course for the patient. I have also personally directed the plan of care.
[2018-07-02] MEDS: Insulin Lispro (HUMAlog) HIGH Coverage SC SCH ×2 (17:10→23:30)
--- NOTE | 2018-07-02 18:19 | US ---
HISTORY: Leg pain and swelling. Evaluate for DVT PHYSICIAN(S): Nolberto Fitzgerald MD. TECHNIQUE: Duplex sonography and color-flow Doppler with graded compression were used to evaluate the deep venous systems of both lower extremities. The exam is limited by edema. FINDINGS: The visualized deep venous systems of both lower extremities are sonographically normal and compressible. Normal wave forms and augmentation are seen. There is no sonographic evidence for deep venous thrombosis in the visualized segments of both lower extremities. IMPRESSION: No sonographic evidence for deep venous thrombosis in the visualized segments of both lower extremities.
--- NOTE | 2018-07-02 20:11 | CON ---
DATE OF CONSULTATION: 07/02/2018 HISTORY: The patient is a 62-year-old male who developed a fracture of the hip after a fall. The fall was described by his daughter to be a mechanical fall. No loss of consciousness noted. In addition, he suffers from end-stage renal disease treated with dialysis, hypercholesterolemia, and diabetes mellitus. He denies chest pain. PAST MEDICAL HISTORY: History of an ischemic dilated cardiomyopathy with an EF of approximately 35%. He has had recurrent CHF in the past. SOCIAL HISTORY: Unremarkable. REVIEW OF SYSTEMS: Unremarkable. PHYSICAL EXAMINATION: GENERAL: The patient is in bed in no acute distress. VITAL SIGNS: Blood pressure 123/70, heart rates in the 80s. NECK: Negative JVD. LUNGS: No rales noted. HEART: S1, S2. EXTREMITIES: Without edema. LABORATORIES: Elevated BUN and creatinine. The hemoglobin is 8.5, potassium is 4.5. EKG shows normal sinus rhythm with IVCD with a left anterior hemiblock and diffuse ST-T changes. IMPRESSION: 1. Status post hip fracture. 2. End-stage renal disease. 3. Compromised left ventricle with an EF of approximately 35%. 4. History of coronary bypass surgery. 5. History of PTCA and stent. 6. Diabetes mellitus. 7. Hypercholesterolemia. PLAN: Given these findings, his ischemic dilated cardiomyopathy makes his risk for anesthesia and surgery a higher risk. His end-stage renal disease also complicates his procedure. However, the patient's cardiac status is at its optimal state. No additional medications or interventions need to be performed prior to his hip surgery. Nolberto Akins MD
[2018-07-03 06:15] LABS: BASO # 0.01 K/mm3 (0.0-2.0); BASO % 0.1 % (0.0-3.0); EOS # 0.1 (0.0-0.7); EOS % 0.9 % (1.5-5.0); GRAN # 5.08 (1.4-6.5); GRAN % 73.5 % (50.0-68.0); LYMPH # 0.7 (1.2-3.4); LYMPH % 10.7 % (22.0-35.0); MEAN CELL VOLUME 84.4 fl (80.0-105.0); MEAN CORPUSCULAR HEMOGLOBIN 27.6 pg (25.0-35.0); MEAN CORPUSCULAR HGB CONC 32.7 g/dl (31.0-37.0); MONO % 14.8 % (1.0-6.0); RBC 3.26 10^6/uL (3.5-6.1); RED CELL DISTRIBUTION WIDTH 19.5 % (11.5-14.5); WHITE BLOOD COUNT 6.9 10^3/uL (4.5-11.0)
[2018-07-03 06:40] LABS: PLATELET COUNT 43 10^3/uL (120.0-450.0)
[2018-07-03 06:43] LABS: ALB/GLOB RATIO 0.9 (1.1-1.8); ALBUMIN 3.5 g/dL (3.0-4.8); ALT/SGPT 140 U/L (7-56); AST/SGOT 198 U/L (17-59); BLOOD UREA NITROGEN 41 mg/dL (7-21); CALCIUM 7.9 mg/dL (8.4-10.5); GFR NON-AFRICAN AMERICAN 12
--- NOTE | 2018-07-03 06:45 | CP.PCM.PN ---
<Sergo Noguera - Last Filed: 07/03/18 17:33> Subjective - Date & Time of Evaluation Date of Evaluation: 07/03/18 Time of Evaluation: 07:27 - Subjective Subjective: Sergo Noguera PGY2 Nephrology Progress Note for Dr. Siu Patient was seen and examined at bedside. He states that he did not sleep well due to the pain in his hip, and the abdominal swelling. Otherwise he denies any chest pain, shortness of breath. He is planned for dialysis today with 2k bath. Objective - Vital Signs/Intake and Output Vital Signs (last 24 hours): Temp Pulse Resp BP Pulse Ox 97.6 F 75 21 113/64 94 L 07/03/18 06:00 07/03/18 06:00 07/03/18 06:00 07/03/18 06:00 07/03/18 06:00 Intake and Output: 07/02/18 07/03/18 18:59 06:59 Intake Total 300 240 Output Total 0 Balance 300 240 - Medications Medications: Current Medications Albuterol/Ipratropium (Duoneb 3 Mg/0.5 Mg (3 Ml) Ud) 3 ml IH [id number] PRN PRN Reason: Shortness of Breath Aspirin (Aspirin Chewable) 81 mg PO DAILY [facility] Last Admin: 07/02/18 15:37 Dose: 81 mg Cilostazol (Pletal) 50 mg PO BID [facility] Last Admin: 07/02/18 18:40 Dose: 50 mg Famotidine (Pepcid) 20 mg PO 1000,2200 [facility] Last Admin: 07/02/18 21:55 Dose: 20 mg Gabapentin (Neurontin) 300 mg PO DAILY [facility]; Protocol Last Admin: 07/02/18 10:26 Dose: 300 mg Heparin Sodium (Porcine) (Heparin) 5,000 units SC Q8 [facility]; Protocol Last Admin: 07/02/18 06:01 Dose: 5,000 units Hydralazine HCl (Apresoline) 25 mg PO TID [facility] Last Admin: 07/02/18 18:40 Dose: 25 mg Hydroxyzine HCl (Atarax) 25 mg PO TID [facility] Last Admin: 07/02/18 18:40 Dose: 25 mg Insulin Human Lispro (Humalog High) 0 units SC ACHS [facility]; Protocol Last Admin: 07/02/18 23:30 Dose: Not Given Isosorbide Mononitrate (Imdur) 120 mg PO DAILY [facility] Last Admin: 07/02/18 10:26 Dose: 120 mg Metoprolol Tartrate (Lopressor) 50 mg PO BID [facility] Last Admin: 07/02/18 18:40 Dose: 50 mg Morphine Sulfate (Morphine) 2 mg IVP Q4H PRN PRN Reason: Pain, severe (8-10) Last Admin: 07/02/18 21:54 Dose: 2 mg Prednisone (Prednisone Tab) 5 mg PO DAILY [facility] Last Admin: 07/02/18 10:26 Dose: 5 mg - Labs Labs: 07/03/18 05:30 07/03/18 05:30 PT 18.2 SECONDS (9.4-12.5) H 07/01/18 16:45 INR 1.58 07/01/18 16:45 APTT 33.1 Seconds (25.1-36.5) 07/01/18 16:45 - Constitutional Appears: Non-toxic, No Acute Distress - Head Exam Head Exam: ATRAUMATIC, NORMAL INSPECTION, NORMOCEPHALIC - Eye Exam Eye Exam: EOMI, Normal appearance, PERRL - ENT Exam ENT Exam: Mucous Membranes Moist, Normal External Ear Exam, Normal Oropharynx - Neck Exam Neck Exam: Full ROM, Normal Inspection. absent: Tenderness - Respiratory Exam Respiratory Exam: Clear to Ausculation Bilateral, NORMAL BREATHING PATTERN. abs ent: Rales, Rhonchi, Wheezes, Respiratory Distress - Cardiovascular Exam Cardiovascular Exam: RRR, +S1, +S2 - GI/Abdominal Exam GI & Abdominal Exam: Distended, Soft, Normal Bowel Sounds. absent: Tenderness - Extremities Exam Extremities Exam: Full ROM, Pedal Edema (2+ b/l). 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 Anemia is stable. Hypocalcemia also noted, due to hyperphosphatemia due to CKD. Thrombocytopenia present due to cirrhosis with likely spleen sequestration. Hyperkalemia also noted Plan: - HD planned for today - goal is 2L UF - recommend f/u CXR after dialysis to evaluate effusions - Anemia is stable - monitor electrolytes and replete as necessary; HD today will normalize K - patient needs to be optimized pre-op - further recs per Dr. Siu Case was reviewed and discussed with attending, Dr. Sherron Noguera PGY2 <Pascual Siu S - Last Filed: 07/03/18 20:28> Objective - Vital Signs/Intake and Output Vital Signs (last 24 hours): Temp Pulse Resp BP Pulse Ox 98.2 F 78 20 150/81 94 L 07/03/18 17:18 07/03/18 18:28 07/03/18 17:18 07/03/18 18:28 07/03/18 06:00 Intake and Output: 07/03/18 07/04/18 18:59 06:59 Intake Total 600 Output Total 0 Balance 600 - Medications Medications: Current Medications Albuterol/Ipratropium (Duoneb 3 Mg/0.5 Mg (3 Ml) Ud) 3 ml IH [id number] PRN PRN Reason: Shortness of Breath Aspirin (Aspirin Chewable) 81 mg PO DAILY [facility] Last Admin: 07/03/18 15:29 Dose: 81 mg Cilostazol (Pletal) 50 mg PO BID [facility] Last Admin: 07/03/18 18:26 Dose: 50 mg Famotidine (Pepcid) 20 mg PO 1000,2200 [facility] Last Admin: 07/03/18 15:49 Dose: Not Given Gabapentin (Neurontin) 300 mg PO DAILY [facility]; Protocol Last Admin: 07/03/18 15:29 Dose: 300 mg Heparin Sodium (Porcine) (Heparin) 5,000 units SC Q8 [facility]; Protocol Last Admin: 07/02/18 06:01 Dose: 5,000 units Hydralazine HCl (Apresoline) 25 mg PO TID [facility] Last Admin: 07/03/18 18:26 Dose: 25 mg Hydroxyzine HCl (Atarax) 25 mg PO TID [facility] Last Admin: 07/03/18 18:26 Dose: 25 mg Insulin Human Lispro (Humalog High) 0 units SC ACHS [facility]; Protocol Last Admin: 07/03/18 18:28 Dose: Not Given Isosorbide Mononitrate (Imdur) 120 mg PO DAILY [facility] Last Admin: 07/03/18 15:29 Dose: 120 mg Metoprolol Tartrate (Lopressor) 50 mg PO BID [facility] Last Admin: 07/03/18 18:28 Dose: 50 mg Morphine Sulfate (Morphine) 2 mg IVP Q4H PRN PRN Reason: Pain, severe (8-10) Last Admin: 07/03/18 18:25 Dose: 2 mg Prednisone (Prednisone Tab) 5 mg PO DAILY [facility] Last Admin: 07/03/18 15:48 Dose: 5 mg - Labs Labs: 07/03/18 15:40 07/03/18 14:00 PT 18.2 SECONDS (9.4-12.5) H 07/01/18 16:45 INR 1.58 07/01/18 16:45 APTT 33.1 Seconds (25.1-36.5) 07/01/18 16:45 Assessment and Plan - Assessment and Plan (Free Text) Assessment: Pt seen and examined. I have reviewed the note of the biomedical equipment support specialist and agree with it. I have discussed the assessment and plan with the resident. I have reviewed the patient's labs and medications. Pt with ESRD on HD and will get HD today with 2 K bath due to hyperkalemia. DM-2 is controlled. Pt has thrombocytopenia most likely due to cirrhosis. Pt with L femoral fx. He is going to the OR in the AM. CAD with CABG. Secondary hyperparathyroidism. and will need to be on phosp binders due to high phosp. Pt had a fall prior to coming to the hospital.
--- NOTE | 2018-07-03 07:16 | CP.PCM.PN ---
<Addy Fermin - Last Filed: 07/03/18 15:59> Subjective - Date & Time of Evaluation Date of Evaluation: 07/03/18 Time of Evaluation: 07:16 - Subjective Subjective: PGY-1 Medicine Progress Note for Dr. Shahid Patient seen and examined at bedside this AM. No acute events reported overnight. Continues to endorse L hip pain, improved with morphine. Scheduled for dialysis session today. No fevers/chills, headaches, dizziness, acute changes in vision, chest pain, palpitations, sob, cough, abdominal pain, n/v/d/c, dysuria, or changes in stool. Objective - Vital Signs/Intake and Output Vital Signs (last 24 hours): Temp Pulse Resp BP Pulse Ox 97.6 F 75 21 113/64 94 L 07/03/18 06:00 07/03/18 06:00 07/03/18 06:00 07/03/18 06:00 07/03/18 06:00 Intake and Output: 07/03/18 07/03/18 06:59 18:59 Intake Total 240 Output Total 0 Balance 240 - Medications Medications: Current Medications Albuterol/Ipratropium (Duoneb 3 Mg/0.5 Mg (3 Ml) Ud) 3 ml IH [id number] PRN PRN Reason: Shortness of Breath Aspirin (Aspirin Chewable) 81 mg PO DAILY [facility] Last Admin: 07/02/18 15:37 Dose: 81 mg Cilostazol (Pletal) 50 mg PO BID [facility] Last Admin: 07/02/18 18:40 Dose: 50 mg Famotidine (Pepcid) 20 mg PO 1000,2200 [facility] Last Admin: 07/02/18 21:55 Dose: 20 mg Gabapentin (Neurontin) 300 mg PO DAILY [facility]; Protocol Last Admin: 07/02/18 10:26 Dose: 300 mg Heparin Sodium (Porcine) (Heparin) 5,000 units SC Q8 [facility]; Protocol Last Admin: 07/02/18 06:01 Dose: 5,000 units Hydralazine HCl (Apresoline) 25 mg PO TID [facility] Last Admin: 07/02/18 18:40 Dose: 25 mg Hydroxyzine HCl (Atarax) 25 mg PO TID [facility] Last Admin: 07/02/18 18:40 Dose: 25 mg Insulin Human Lispro (Humalog High) 0 units SC ACHS [facility]; Protocol Last Admin: 07/02/18 23:30 Dose: Not Given Isosorbide Mononitrate (Imdur) 120 mg PO DAILY [facility] Last Admin: 07/02/18 10:26 Dose: 120 mg Metoprolol Tartrate (Lopressor) 50 mg PO BID [facility] Last Admin: 07/02/18 18:40 Dose: 50 mg Morphine Sulfate (Morphine) 2 mg IVP Q4H PRN PRN Reason: Pain, severe (8-10) Last Admin: 07/02/18 21:54 Dose: 2 mg Prednisone (Prednisone Tab) 5 mg PO DAILY [facility] Last Admin: 07/02/18 10:26 Dose: 5 mg - Labs Labs: 07/03/18 05:30 07/03/18 05:30 PT 18.2 SECONDS (9.4-12.5) H 07/01/18 16:45 INR 1.58 07/01/18 16:45 APTT 33.1 Seconds (25.1-36.5) 07/01/18 16:45 - Constitutional Appears: Non-toxic, No Acute Distress, Chronically Ill - Head Exam Head Exam: ATRAUMATIC, NORMAL INSPECTION, NORMOCEPHALIC - Eye Exam Eye Exam: EOMI Additional comments: R eye blindness, s/p 2 R eye surgeries; pupil unreactive to light - ENT Exam ENT Exam: Mucous Membranes Moist, Normal Exam - Neck Exam Neck Exam: Full ROM, Normal Inspection - Respiratory Exam Respiratory Exam: Clear to Ausculation Bilateral, NORMAL BREATHING PATTERN. absent: Rales, Rhonchi, Wheezes, Respiratory Distress, Stridor - Cardiovascular Exam Cardiovascular Exam: REGULAR RHYTHM, +S1, +S2 - GI/Abdominal Exam GI & Abdominal Exam: Soft, Normal Bowel Sounds. absent: Distended, Firm, Guarding, Rigid, Tenderness, Rebound - Extremities Exam Extremities Exam: Normal Capillary Refill. absent: Calf Tenderness, Joint Swelling Additional comments: 2+ pitting edema b/l - Back Exam Back Exam: NORMAL INSPECTION - Neurological Exam Neurological Exam: Alert, Awake, CN II-XII Intact, Oriented x3 - Psychiatric Exam Psychiatric exam: Normal Affect, Normal Mood - Skin Skin Exam: Dry, Intact, Normal Color, Warm Assessment and Plan - Assessment and Plan (Free Text) Assessment: 62 yo male w/ PMH CAD w/ multiple stents, CABG, CHF (EF 67 in 2017), PVD, DM, dyslipidemia, ESRD (T, Th Sat), HTN, osteoporosis, osteoarthritis, sarcoidosis presents for L hip pain s/p mechanical fall, XR in ED shows L femoral neck fracture. Plan: L hip fracture s/p mechanical fall --Hip/Pelvis XR: transverse displaced fracture of L femoral neck, pelvis intact --Femur XR: no acute findings --Hand XR: no acute findings --Head CT: no acute findings --EKG: NSR @ 77 bpm, LBBB --continue to monitor labs --coags --type and screen --iron studies -iron 123 -TIB 238 -%saturation 52 --Medications -Morphine 2 mg IVP q4 PRN --Orthopedics (Dr. Garrison) on board - planning for pin fixation for Saturday morning, pending cardiac clearance and medically optimization. --Cardiology (Dr. Akins) on board -pt's ischemic dilated CM makes his risk for anesthesia and surgery a higher risk -his ESRD also complicates procedure; however, pt's cardiac status is at its optimal state -no additional meds or interventions required prior to surgery B/L Pleural Effusion --CXR: pulmonary vascular congestion/edema with large R and small L pleural effusions --Pulmonology (Dr. Urena) on board -chronic pleural effusions, thoracentesis on 06/04/18, demonstrated transudative pleural effusion with negative cx -bedside lung u/s today demonstrated moderate R pleural effusion with B lines, L side minimal pleural effusion with B lines -optimize fluid balance, HD, CHF -if going for surgery, would favor thoracentesis prior to surgery by IR --IR consult (Dr. Nolberto Fitzgerald) on board Thrombocytopenia --PLT 113->61->43 (07/03) --Heme/Onc (Dr. Giles) on board Elevated LFTs & Ascites --AST/ALT 198/140 --ALP 412 from 356, may be elevated 2/2 femoral fracture --GI (Dr. Mcneill) on board -Calculated MELD-Na score: 26 -suggest outpatient referral to liver transplant center for further evaluation given advanced disease -f/u with primary GI physician following discharge -no planned GI intervention, will sign off case PAD --Cilostazol 50mg po bid --ASA 81 mg PO daily --held home plavix -f/u with cardio recs for when to restart plavix --held Lipitor 40 mg PO HS DM2 with neuropathy --ISS high dose --ACHS --home Januvia held --Gabapentin 300mg PO daily HTN --c/w home Metoprolol 50mg PO BID --c/w home Hydralazine 25mg PO TID --c/w home Isosorbide Mononitrate 120mg PO daily ESRD --pt is on HD , , Sat -- Cr 4.8 --Nephrology (Dr. Siu) recs appreciated - Pt to have HD today w goal of 2L UF per nephro - repeat CXR following HD tomorrow to monitor pleural effusions. Dyslipidemia -holding Lipitor due to transaminitis Hx of CABG --Plavix and ASA held for OR --c/w Metoprol 50mg PO BID Hx of Sarcoidosis --c/w Prednisone 2.5mg PO daily PPx, Diet, Disposition GI ppx: Pepcid 20mg BID on hold DVT ppx: Heparin on hold Diet: HHD Case discussed with Dr. Kleber Fermin DO, PGY-1 <Roldan Shahid - Last Filed: 07/04/18 15:34> Objective - Vital Signs/Intake and Output Vital Signs (last 24 hours): Temp Pulse Resp BP Pulse Ox 98.5 F 91 H 14 36/20 L 100 07/04/18 07:35 07/04/18 14:40 07/04/18 10:47 07/04/18 11:00 07/04/18 14:40 Intake and Output: 07/04/18 07/04/18 06:59 18:59 Intake Total 0 Balance 0 - Medications Medications: Current Medications Albuterol/Ipratropium (Duoneb 3 Mg/0.5 Mg (3 Ml) Ud) 3 ml IH [id number] PRN PRN Reason: Shortness of Breath Last Admin: 07/04/18 13:20 Dose: 3 ml Aspirin (Aspirin Chewable) 81 mg PO DAILY [facility] Last Admin: 07/03/18 15:29 Dose: 81 mg Famotidine (Pepcid) 20 mg PO 1000,2200 [facility] Last Admin: 07/03/18 15:49 Dose: Not Given Gabapentin (Neurontin) 300 mg PO DAILY [facility]; Protocol Last Admin: 07/03/18 15:29 Dose: 300 mg Heparin Sodium (Porcine) (Heparin) 5,000 units SC Q8 [facility]; Protocol Last Admin: 07/02/18 06:01 Dose: 5,000 units Hydralazine HCl (Apresoline) 25 mg PO TID [facility] Last Admin: 07/03/18 18:26 Dose: 25 mg Hydrocortisone Sodium Succinate (Solu-Cortef) 50 mg IVP Q6H [facility] Hydroxyzine HCl (Atarax) 25 mg PO TID [facility] Last Admin: 07/03/18 18:26 Dose: 25 mg Epinephrine HCl 1 mg/ Sodium (Chloride) 51 mls @ 3.06 mls/hr IV .[id number] PRN; Protocol PRN Reason: TITRATE PER MD ORDER Dobutamine HCl/Dextrose (Dobutamine/Dextrose 5% 500mg/250ml) 500 mg in 250 mls @ 10.553 mls/hr IV .[id number] PRN; Protocol PRN Reason: TITRATE PER PROTOCOL Last Admin: 07/04/18 11:00 Dose: 5 mcg/kg/min, 10.553 mls/hr Vasopressin 20 units/ Sodium (Chloride) 101 mls @ 9.09 mls/hr IV .[id number] [facility]; Protocol Levetiracetam (Keppra 1000mg/100ml Ns) 100 mls @ 460 mls/hr IV Q12 [facility] Last Admin: 07/04/18 13:53 Dose: 460 mls/hr Midazolam 100 mg/100ml in NS (Midazolam 100 Mg/100ml In Ns) 100 mg in 100 mls @ 1 mls/hr IV .Q24H PRN; Protocol PRN Reason: Agitation Last Admin: 07/04/18 14:17 Dose: 1 mg/hr, 1 mls/hr Insulin Human Lispro (Humalog High) 0 units SC ACHS [facility]; Protocol Last Admin: 07/04/18 11:30 Dose: Not Given Isosorbide Mononitrate (Imdur) 120 mg PO DAILY [facility] Last Admin: 07/03/18 15:29 Dose: 120 mg Morphine Sulfate (Morphine) 2 mg IVP Q4H PRN PRN Reason: Pain, severe (8-10) Last Admin: 07/03/18 18:25 Dose: 2 mg Prednisone (Prednisone Tab) 5 mg PO DAILY [facility] Last Admin: 07/03/18 15:48 Dose: 5 mg - Labs Labs: 07/04/18 12:00 07/04/18 12:00 PT 18.2 SECONDS (9.4-12.5) H 07/01/18 16:45 INR 1.58 07/01/18 16:45 APTT 33.1 Seconds (25.1-36.5) 07/01/18 16:45 Attending/Attestation - Attestation I have personally seen and examined this patient.: Yes I have fully participated in the care of the patient.: Yes I have reviewed all pertinent clinical information, including history, physical exam and plan: Yes Notes (Text): 07/04/18 15:32 Medical record note made by the resident after discussion with my direction and input after the patient was personally seen and examined by me. I have reviewed the chart and agree that the record accurately reflects by personal performance of the history, physical exam, data review, and medical decision-making, in the course for the patient. I have also personally directed the plan of care. 62 year old male with past medical history of diabetes, hypertension, CAD, CHF with systolic dysfunction , cirrhosis and ESRD on HD Saturday//Saturday, Sarcoidosis, ascites was admitted with fall found to have ip/Pelvis XR: transverse displaced fracture of L femoral neck. Patient was evaluated by cardiology and Pulmonary , he is high risk for surgery. Patient platelet count is normal, thrmobocytopenia was due to clumping . Management plan was discussed in detail with patient . Prognosis is guarded.
[2018-07-03] MEDS ORDERED: Sod Polystyrene Sulf 15 gm/60 ml Susp PO ONE (07:58)
[2018-07-03] MEDS ORDERED: Albuterol 0.5% Inhal Sol (5 mg/ ml) 20 ml IH STA (07:58)
[2018-07-03] MEDS ORDERED: Albuterol 0.5% Inhal Sol (2.5 mg/0.5 ml) UD IH STA (08:19)
[2018-07-03] MEDS: Insulin Lispro (HUMAlog) HIGH Coverage SC SCH ×4 (08:43→22:32)
--- NOTE | 2018-07-03 08:47 | PN ---
DATE: 07/03/2018 CARDIOLOGY FOLLOWUP SUBJECTIVE: The patient is asymptomatic. PHYSICAL EXAMINATION: VITAL SIGNS: Blood pressure is 113/80. NECK: Negative JVD. LUNGS: Without rales. HEART: Reveals S1 and S2. EXTREMITIES: Without change. LABORATORY DATA: His potassium is 5.7. IMPRESSION: 1. Hip fracture. 2. End-stage renal disease. 3. Hyperkalemia. 4. Dilated cardiomyopathy. 5. History of coronary artery bypass surgery. 6. Diabetes mellitus. PLAN: Given these findings, I have discussed with Renal. The patient is scheduled for dialysis today to alleviate the hyperkalemia. Nolberto Akins MD
[2018-07-03 12:35] LABS: HEPATITIS B SURFACE AG Negative (NEGATIVE)
[2018-07-03 14:29] LABS: CALCIUM 7.8 mg/dL (8.4-10.5)
[2018-07-03 14:35] LABS: ARTERIAL BLOOD GAS HCO3 28.4 mmol/L (21-28); ARTERIAL BLOOD GAS HEMOGLOBIN 11.6 g/dL (11.7-17.4); ARTERIAL BLOOD GAS O2 CAPACITY 15.9 mL/dl (16-24); ARTERIAL BLOOD GAS O2 CONTENT 15.7 ML/dl (15-23); ARTERIAL BLOOD GAS O2 SAT 98.8 % (95-98); ARTERIAL BLOOD GAS PCO2 39 mm/Hg (35-45); ARTERIAL BLOOD GAS PH 7.47 (7.35-7.45); ARTERIAL BLOOD GAS TCO2 29.6 mmol.L (22-28)
--- NOTE | 2018-07-03 14:41 | RAD ---
Date of service: 07/03/2018 HISTORY: monitor b/l pleural effusions COMPARISON: 07/01/2018 FINDINGS: LUNGS: Severe vascular congestion and pleural effusions right greater than left PLEURA: As above CARDIOVASCULAR: Aortic calcification Moderate cardiomegaly severe vascular congestion OSSEOUS STRUCTURES: No significant abnormalities. VISUALIZED UPPER ABDOMEN: Normal. OTHER FINDINGS: None. IMPRESSION: Severe vascular congestion and pleural effusions right greater than left
--- NOTE | 2018-07-03 15:13 | CARD ---
APPROVED REPORT Date of service: 07/03/2018 EKG Measurement Heart [id number] <Conclusion> Normal sinus rhythm Left bundle branch block Abnormal ECG
--- NOTE | 2018-07-03 15:14 | PN ---
DATE: 07/03/2018 SUBJECTIVE: The patient is seen and examined at the bedside. He is comfortable. He just undergone dialysis, which he tolerated well. He is a little bit tired, but alert, awake and talks full sentences. PHYSICAL EXAMINATION: VITAL SIGNS: Temperature 97.6, blood pressure 113/64, heart rate 75, respiratory rate 20, oxygen saturation 94% on room air. ENT: Head and neck atraumatic. LUNGS: Clear to auscultation on both sides. Decreased breath sounds on the right side. HEART: Regular rate and rhythm. S1 and S2 distant. ABDOMEN: Soft, nontender, nondistended. MUSCULOSKELETAL: 1 to 2+ bilateral pedal and ankle edema. NEUROLOGIC: The patient moves all extremities spontaneously. SKIN: Moist. PSYCH: The patient is alert and awake. LABORATORY DATA: WBC 6.9, hemoglobin 9, platelet count 43. Sodium 137, potassium 5.7, chloride 94, carbon dioxide 24, BUN 41, creatinine 4.8 (the patient is on chronic hemodialysis), glucose 101, AST 198, ALT 140, total bilirubin 1.9, INR 1.58. Venous Doppler of lower extremity did not reveal any DVTs. Chest x-ray showed some layering on the right side consistent with diagnosis of pleural effusion. Of note, the patient had history of transudative pleural effusion, which was tapped last on 06/04/2018, which is approximately 1 month from now. It appears that the pleural fluid reaccumulated. MEDICATIONS: DuoNeb p.r.n., aspirin, Pletal, Pepcid, Neurontin, hydralazine 25 mg p.o. t.i.d., Atarax, regular insulin sliding scale high protocol, Imdur, metoprolol, morphine p.r.n., prednisone 5 mg p.o. daily. ASSESSMENT AND PLAN: This is a 62-year-old gentleman with nonischemic cardiomyopathy, recurrent transudative pleural effusion, coronary artery disease, hypertension, hyperlipidemia, diabetes, peripheral vascular disease who presented this time with hip fracture. Patient has been looked at by cardiology and nephrology services to optimize his cardiac and renal function to proceed with orthopedic surgery to fix the fracture. Dr. Garrison is on board for it. At present time, the patient is hemodynamically stable. He is getting his scheduled dialysis to correct electrolytes abnormalities and fluid status. His cardiac status was optimized as much as possible according to Dr. Akins's note. In terms of his pulmonary status, he is not in respiratory distress right now. I agree with getting pleural effusion drained by IR. I would get arterial blood gas as well to ascertain ventilatory and gas exchange status being within acceptable limits. Provided the patient's cardiopulmonary comorbidities, he will be high risk for perioperative complications. Thus, risk and benefits have to be weighed against each other carefully. His LFTs elevation maybe related to congestive hepatopathy. If needed GI consult may help to identify next step in this regard. We will continue to target euvolemia, euglycemia, normothermia and oxygen saturation more than 90%. We will continue with deep vein thrombosis and gastrointestinal prophylaxis. Volodymyr Acharya MD [facility]
[2018-07-03 15:47] LABS: BASO # 0.01 K/mm3 (0.0-2.0); BASO % 0.2 % (0.0-3.0); EOS # 0.1 (0.0-0.7); EOS % 1.4 % (1.5-5.0); GRAN # 4.47 (1.4-6.5); GRAN % 76.7 % (50.0-68.0); HEMOGLOBIN 11.6 g/dL (14.0-18.0); LYMPH # 0.7 (1.2-3.4); LYMPH % 11.1 % (22.0-35.0); MEAN CELL VOLUME 82.3 fl (80.0-105.0); MEAN CORPUSCULAR HEMOGLOBIN 28.2 pg (25.0-35.0); MEAN CORPUSCULAR HGB CONC 34.2 g/dl (31.0-37.0); MONO # 0.6 (0.1-0.6); MONO % 10.6 % (1.0-6.0); RBC 4.12 10^6/uL (3.5-6.1); WHITE BLOOD COUNT 5.8 10^3/uL (4.5-11.0)
[2018-07-03] MEDS: Cilostazol 50 mg Tab UD PO SCH ×2 (15:49→18:26)
[2018-07-03 15:59] LABS: PLATELET COUNT 105 10^3/uL (120.0-450.0)
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
[2018-07-03] MEDS: Morphine 2 mg/ml ISec IVP PRN (18:25)
[2018-07-04 06:32] LABS: EOS # 0.1 (0.0-0.7); EOS % 1.2 % (1.5-5.0); GRAN # 5.46 (1.4-6.5); GRAN % 79.5 % (50.0-68.0); HEMOGLOBIN 11.4 g/dL (14.0-18.0); LYMPH # 0.5 (1.2-3.4); LYMPH % 6.9 % (22.0-35.0); MEAN CORPUSCULAR HEMOGLOBIN 27.4 pg (25.0-35.0); MEAN CORPUSCULAR HGB CONC 33.4 g/dl (31.0-37.0); MONO # 0.9 (0.1-0.6); MONO % 12.4 % (1.0-6.0); RBC 4.16 10^6/uL (3.5-6.1); RED CELL DISTRIBUTION WIDTH 18.2 % (11.5-14.5)
[2018-07-04 06:38] LABS: WHITE BLOOD COUNT 6.9 10^3/uL (4.5-11.0)
[2018-07-04 06:59] LABS: ALB/GLOB RATIO 0.8 (1.1-1.8); ALBUMIN 3.1 g/dL (3.0-4.8); CALCIUM 7.4 mg/dL (8.4-10.5)
[2018-07-04 07:16] LABS: PLATELET COUNT 139 10^3/uL (120.0-450.0)
--- NOTE | 2018-07-04 07:28 | CP.PCM.PN ---
Addendum entered and electronically signed by Addy Fermin DO 07/04/18 14:40: Cardiac arrest called for patient post-orthopedic surgery for L femoral neck fracture at 1003. Patient was given 1 round of chest compressions and 2 doses of epinephrine, transferred to ICU for further monitoring. Patient was transferred to the ICU, where Tremayne Arredondo was called at 1122. 1 round of chest compressions and 1 dose of epinephrine were administered. He remains intubated at this time. Central line was placed for pressure support. DDAVP was administered for post- surgical bleeding. No transfusions were given. Patient's was updated on course using in-hospital Marshallese audio grief counselor (ID: [id number]). All questions were answered. Patient's status remains Full Code at this time. Original Note: <Addy Fermin - Last Filed: 07/04/18 12:34> Subjective - Date & Time of Evaluation Date of Evaluation: 07/04/18 Time of Evaluation: 07:25 - Subjective Subjective: PGY-1 Medicine Progress Note for Dr. Shahid Patient taken to OR early this AM for L femoral hip fracture. No acute events reported overnight. Per nursing, possible thoracentesis by IR tomorrow post- surgery. Objective - Vital Signs/Intake and Output Vital Signs (last 24 hours): Temp Pulse Resp BP Pulse Ox 97.9 F 67 18 118/55 L 94 L 07/04/18 00:01 07/04/18 00:01 07/04/18 00:01 07/04/18 00:01 07/03/18 06:00 Intake and Output: 07/04/18 07/04/18 06:59 18:59 Intake Total 0 Balance 0 - Medications Medications: Current Medications Albuterol/Ipratropium (Duoneb 3 Mg/0.5 Mg (3 Ml) Ud) 3 ml IH [id number] PRN PRN Reason: Shortness of Breath Aspirin (Aspirin Chewable) 81 mg PO DAILY [facility] Last Admin: 07/03/18 15:29 Dose: 81 mg Cilostazol (Pletal) 50 mg PO BID [facility] Last Admin: 07/03/18 18:26 Dose: 50 mg Famotidine (Pepcid) 20 mg PO 1000,2200 [facility] Last Admin: 07/03/18 15:49 Dose: Not Given Gabapentin (Neurontin) 300 mg PO DAILY [facility]; Protocol Last Admin: 07/03/18 15:29 Dose: 300 mg Heparin Sodium (Porcine) (Heparin) 5,000 units SC Q8 [facility]; Protocol Last Admin: 07/02/18 06:01 Dose: 5,000 units Hydralazine HCl (Apresoline) 25 mg PO TID [facility] Last Admin: 07/03/18 18:26 Dose: 25 mg Hydroxyzine HCl (Atarax) 25 mg PO TID [facility] Last Admin: 07/03/18 18:26 Dose: 25 mg Insulin Human Lispro (Humalog High) 0 units SC ACHS [facility]; Protocol Last Admin: 07/03/18 22:32 Dose: Not Given Isosorbide Mononitrate (Imdur) 120 mg PO DAILY [facility] Last Admin: 07/03/18 15:29 Dose: 120 mg Metoprolol Tartrate (Lopressor) 50 mg PO BID [facility] Last Admin: 07/03/18 18:28 Dose: 50 mg Morphine Sulfate (Morphine) 2 mg IVP Q4H PRN PRN Reason: Pain, severe (8-10) Last Admin: 07/03/18 18:25 Dose: 2 mg Prednisone (Prednisone Tab) 5 mg PO DAILY [facility] Last Admin: 07/03/18 15:48 Dose: 5 mg - Labs Labs: 07/04/18 05:15 07/04/18 05:15 PT 18.2 SECONDS (9.4-12.5) H 07/01/18 16:45 INR 1.58 07/01/18 16:45 APTT 33.1 Seconds (25.1-36.5) 07/01/18 16:45 - Constitutional Appears: Non-toxic, No Acute Distress, Chronically Ill - Head Exam Head Exam: ATRAUMATIC, NORMAL INSPECTION, NORMOCEPHALIC - Eye Exam Eye Exam: EOMI, Normal appearance Pupil Exam: NORMAL ACCOMODATION - ENT Exam ENT Exam: Mucous Membranes Moist, Normal Exam - Neck Exam Neck Exam: Full ROM, Normal Inspection - Respiratory Exam Respiratory Exam: Rales, NORMAL BREATHING PATTERN. absent: Rhonchi, Wheezes, Respiratory Distress, Stridor - Cardiovascular Exam Cardiovascular Exam: REGULAR RHYTHM, +S1, +S2 - GI/Abdominal Exam GI & Abdominal Exam: Distended, Normal Bowel Sounds. absent: Guarding, Rigid, Rebound - Extremities Exam Extremities Exam: Normal Capillary Refill, Pedal Edema. absent: Calf Tenderness Additional comments: 2+ pitting edema b/l LE - Back Exam Back Exam: NORMAL INSPECTION - Neurological Exam Neurological Exam: Alert, Awake, CN II-XII Intact, Oriented x3 - Psychiatric Exam Psychiatric exam: Normal Affect, Normal Mood - Skin Skin Exam: Dry, Intact, Normal Color, Warm Assessment and Plan - Assessment and Plan (Free Text) Assessment: 62 yo male w/ PMH CAD w/ multiple stents, CABG, CHF (EF 67 in 2017), PVD, DM, dyslipidemia, ESRD (T, Th Sat), HTN, osteoporosis, osteoarthritis, sarcoidosis presents for L hip pain s/p mechanical fall, XR in ED shows L femoral neck fracture. Plan: L hip fracture s/p mechanical fall --pt taken to OR for pin fixation early this AM --received 2 units pRBCs during HD yesterday --Hip/Pelvis XR: transverse displaced fracture of L femoral neck, pelvis intact --Femur XR: no acute findings --Hand XR: no acute findings --Head CT: no acute findings --EKG: NSR @ 77 bpm, LBBB --continue to monitor labs --coags --type and screen --iron studies -iron 123 -TIB 238 -%saturation 52 --Medications -Morphine 2 mg IVP q4 PRN --Orthopedics (Dr. Garrison) on board -pt medically optimized for surgery this AM --Cardiology (Dr. Akins) on board -pt's ischemic dilated CM makes his risk for anesthesia and surgery a higher risk -his ESRD also complicates procedure; however, pt's cardiac status is at its optimal state -no additional meds or interventions required prior to surgery B/L Pleural Effusion --CXR: pulmonary vascular congestion/edema with large R and small L pleural ef fusions --repeat CXR (07/04): severe pulmonary vascular congestion with pleural effusion R>L --Pulmonology (Dr. Urena) on board -chronic pleural effusions, thoracentesis on 06/04/18, demonstrated t ransudative pleural effusion with negative cx -bedside lung u/s demonstrated moderate R pleural effusion with B lines, L side minimal pleural effusion with B lines -optimize fluid balance, HD, CHF -thoracentesis may be done post-surgery --IR consult (Dr. Nolberto Fitzgerald) on board --possible thoracentesis tomorrow Thrombocytopenia --PLT 113->61->43->26 (07/04) --Heme/Onc (Dr. Giles) recs appreciated -Mild thrombocytopenia with superimposed pseudothrombocytopenia d/t platelet clumping -Mild thrombocytopenia likely secondary to chronic liver disease (Recently negative for hepatitis, HIV and H. Pylori) -Stop heparin and pepcid -May proceed with surgery but would advise to transfuse one unit of platelets and one unit of pRBC's just prior to surgical procedure -Platelet AB studies, cold agglutinins, and peripheral smear pending Elevated LFTs & Ascites --AST/ALT 140/122 (07/04) --ALP 365 (07/04); may be elevated 2/2 femoral fracture --GI (Dr. Mcneill) on board -Calculated MELD-Na score: 26 -suggest outpatient referral to liver transplant center for further evaluation given advanced disease -f/u with primary GI physician following discharge -no planned GI intervention, will sign off case PAD --Cilostazol 50mg po bid --ASA 81 mg PO daily --held home plavix -f/u with cardio recs for when to restart plavix --held Lipitor 40 mg PO HS DM2 with neuropathy --ISS high dose --ACHS --home Januvia held --Gabapentin 300mg PO daily HTN --c/w home Metoprolol 50mg PO BID --c/w home Hydralazine 25mg PO TID --c/w home Isosorbide Mononitrate 120mg PO daily ESRD --pt is on HD , , Sat -- Cr 3.6 (07/04) --Nephrology (Dr. Siu) recs appreciated - Pt had HD session yesterday, 2 units pRBCs transfused - repeat CXR: severe pulmonary vascular congestion w/ pleural effusion R > L Dyslipidemia -holding Lipitor due to transaminitis Hx of CABG --Plavix and ASA held for OR --c/w Metoprol 50mg PO BID Hx of Sarcoidosis --c/w Prednisone 2.5mg PO daily PPx, Diet, Disposition GI ppx: Pepcid 20mg BID on hold DVT ppx: Heparin on hold Diet: HHD Case discussed with Dr. Kleber Fermin DO, PGY-1 <Roldan Shahid - Last Filed: 07/04/18 15:31> Objective - Vital Signs/Intake and Output Vital Signs (last 24 hours): Temp Pulse Resp BP Pulse Ox 98.5 F 91 H 14 36/20 L 100 07/04/18 07:35 07/04/18 14:40 07/04/18 10:47 07/04/18 11:00 07/04/18 14:40 Intake and Output: 07/04/18 07/04/18 06:59 18:59 Intake Total 0 Balance 0 - Medications Medications: Current Medications Albuterol/Ipratropium (Duoneb 3 Mg/0.5 Mg (3 Ml) Ud) 3 ml IH [id number] PRN PRN Reason: Shortness of Breath Last Admin: 07/04/18 13:20 Dose: 3 ml Aspirin (Aspirin Chewable) 81 mg PO DAILY [facility] Last Admin: 07/03/18 15:29 Dose: 81 mg Famotidine (Pepcid) 20 mg PO 1000,2200 [facility] Last Admin: 07/03/18 15:49 Dose: Not Given Gabapentin (Neurontin) 300 mg PO DAILY [facility]; Protocol Last Admin: 07/03/18 15:29 Dose: 300 mg Heparin Sodium (Porcine) (Heparin) 5,000 units SC Q8 [facility]; Protocol Last Admin: 07/02/18 06:01 Dose: 5,000 units Hydralazine HCl (Apresoline) 25 mg PO TID [facility] Last Admin: 07/03/18 18:26 Dose: 25 mg Hydrocortisone Sodium Succinate (Solu-Cortef) 50 mg IVP Q6H [facility] Hydroxyzine HCl (Atarax) 25 mg PO TID [facility] Last Admin: 07/03/18 18:26 Dose: 25 mg Epinephrine HCl 1 mg/ Sodium (Chloride) 51 mls @ 3.06 mls/hr IV .[id number] PRN; Protocol PRN Reason: TITRATE PER MD ORDER Dobutamine HCl/Dextrose (Dobutamine/Dextrose 5% 500mg/250ml) 500 mg in 250 mls @ 10.553 mls/hr IV .[id number] PRN; Protocol PRN Reason: TITRATE PER PROTOCOL Last Admin: 07/04/18 11:00 Dose: 5 mcg/kg/min, 10.553 mls/hr Vasopressin 20 units/ Sodium (Chloride) 101 mls @ 9.09 mls/hr IV .[id number] [facility]; Protocol Levetiracetam (Keppra 1000mg/100ml Ns) 100 mls @ 460 mls/hr IV Q12 [facility] Last Admin: 07/04/18 13:53 Dose: 460 mls/hr Midazolam 100 mg/100ml in NS (Midazolam 100 Mg/100ml In Ns) 100 mg in 100 mls @ 1 mls/hr IV .Q24H PRN; Protocol PRN Reason: Agitation Last Admin: 07/04/18 14:17 Dose: 1 mg/hr, 1 mls/hr Insulin Human Lispro (Humalog High) 0 units SC ACHS [facility]; Protocol Last Admin: 07/04/18 11:30 Dose: Not Given Isosorbide Mononitrate (Imdur) 120 mg PO DAILY [facility] Last Admin: 07/03/18 15:29 Dose: 120 mg Morphine Sulfate (Morphine) 2 mg IVP Q4H PRN PRN Reason: Pain, severe (8-10) Last Admin: 07/03/18 18:25 Dose: 2 mg Prednisone (Prednisone Tab) 5 mg PO DAILY [facility] Last Admin: 07/03/18 15:48 Dose: 5 mg - Labs Labs: 07/04/18 12:00 07/04/18 12:00 PT 18.2 SECONDS (9.4-12.5) H 07/01/18 16:45 INR 1.58 07/01/18 16:45 APTT 33.1 Seconds (25.1-36.5) 07/01/18 16:45 Attending/Attestation - Attestation I have personally seen and examined this patient.: Yes I have fully participated in the care of the patient.: Yes I have reviewed all pertinent clinical information, including history, physical exam and plan: Yes Notes (Text): 07/04/18 15:30 Medical record note made by the resident after discussion with my direction and input after the patient was personally seen and examined by me. I have reviewed the chart and agree that the record accurately reflects by personal performance of the history, physical exam, data review, and medical decision-making, in the course for the patient. I have also personally directed the plan of care. 62 year old male with past medical history of diabetes, hypertension, CAD, CHF with systolic dysfunction , cirrhosis and ESRD on HD Saturday//Saturday, Sarcoidosis, ascites was admitted with fall found to have ip/Pelvis XR: transverse displaced fracture of L femoral neck. Patient was evaluated by cardiology and Pulmonary , he was high risk for surgery. He left ORIF today and after surgery has cardiac arrest, was resuscitated in OR, underwent 2nd episode of cardiac arrest in ICU.Currently patient is intubated and hypotensive and is on pressors. Prognosis is guarded.
[2018-07-04] MEDS ORDERED: Midazolam 2 MG/2 ML VIAL ONE (07:29)
[2018-07-04] MEDS ORDERED: Etomidate 20 mg/10ml Inj IV ONE (07:30)
[2018-07-04] MEDS ORDERED: Rocuronium 10 mg/ml (5 ml) ONE (07:31)
[2018-07-04] MEDS ORDERED: Succinylcholine 200 mg/10 ml Inj IV ONE (07:31)
[2018-07-04] MEDS ORDERED: ePHEDrine 50 mg/ml Inj ONE (07:51)
[2018-07-04] MEDS ORDERED: Phenylephrine 10 mg/ml Inj ONE (07:51)
[2018-07-04] MEDS ORDERED: Clindamycin 150 mg/mL Inj ONE (08:02)
[2018-07-04] MEDS ORDERED: Vancomycin 1 g Inj ONE ×2 (09:16→09:19)
[2018-07-04] MEDS ORDERED: Neostigmine Methylsulfate 3mg/3ml Syringe IV ONE (09:34)
[2018-07-04] MEDS ORDERED: Metoprolol 1 mg/ml Inj ONE (09:37)
[2018-07-04] MEDS ORDERED: Bupivacaine 0.5% 50 ML IJ ONE (09:39)
[2018-07-04] MEDS ORDERED: Vancomycin 1 g Inj IVPB ONE (09:40)
[2018-07-04] MEDS ORDERED: NOREPINEPHRINE BIT/0.9 % NACL 4 MG/250 ML BAG IV ONE (10:48)
[2018-07-04] MEDS ORDERED: DOBUTamine 500mg/250ml D5W 500 MG/250 ML BAG ONE (10:49)
--- NOTE | 2018-07-04 10:49 | PCM.SURG1 ---
Surgeon's Initial Post Op Note - Surgeon's Notes Surgeon: Tyrese Garrison MD Money Room Supervisor: Eloy Ellis PA-C Type of Anesthesia: General Endo Anesthesia Administered By: Dr. Thorpe Pre-Operative Diagnosis: Left hip basicervical fracture Operative Findings: After surgery was completed, patient became bradycardic and hypotensive, code blue called, CPR was performed. Patient was resuscitated in OR, regained pulses and BP, and transferred directly to ICU Post-Operative Diagnosis: as above Operation Performed: Left hip open reduction internal fixation with trochanteric nailing and AR screw Specimen/Specimens Removed: none Estimated Blood Loss: EBL {In ML}: 70 Blood Products Given: FFP, Platlets Drains Used: No Drains Post-Op Condition: Critical Date of Surgery/Procedure: 07/04/18 Time of Surgery/Procedure: 10:04
[2018-07-04] MEDS: DOBUTamine 500mg/250ml D5W 500 MG/250 ML BAG IV PRN (11:00)
[2018-07-04] MEDS ORDERED: EPINEPHrine- 1 MG in Sodium Chloride 0.9% 50 ML IV PRN (11:23)
[2018-07-04] MEDS: Insulin Lispro (HUMAlog) HIGH Coverage SC SCH (11:30)
[2018-07-04 12:07] LABS: ARTERIAL BLOOD GAS HCO3 17.6 mmol/L (21-28); ARTERIAL BLOOD GAS O2 SAT 99.8 % (95-98); ARTERIAL BLOOD GAS PCO2 54 mm/Hg (35-45); ARTERIAL BLOOD GAS TCO2 19.3 mmol.L (22-28)
[2018-07-04] MEDS ORDERED: Vancomycin 1gm in NS 250ml 1 GM/250 ML BAG IVPB STA (12:07)
[2018-07-04 12:10] LABS: ARTERIAL BLOOD GAS PH 7.12 (7.35-7.45)
--- NOTE | 2018-07-04 12:22 | RAD ---
Date of service: 07/04/2018 HISTORY: central line placement COMPARISON: 07/03/2018 FINDINGS: LUNGS: Right internal jugular line terminates in the upper right atrium. No pneumothorax. Endotracheal tube in satisfactory position PLEURA: Bilateral pleural effusions right greater than left CARDIOVASCULAR: Aortic calcification Mild cardiomegaly moderate vascular congestion OSSEOUS STRUCTURES: No significant abnormalities. VISUALIZED UPPER ABDOMEN: Normal. OTHER FINDINGS: None. IMPRESSION: Satisfactory position of right sided central line and endotracheal tube
[2018-07-04] MEDS ORDERED: Vasopressin 20 UNITS in Dextrose 5% In Water 100 ML IV SCH (12:30)
[2018-07-04 12:33] LABS: ALB/GLOB RATIO 0.9 (1.1-1.8); ALBUMIN 3.2 g/dL (3.0-4.8); CALCIUM 7.1 mg/dL (8.4-10.5)
[2018-07-04 12:36] LABS: EOS % 0.4 % (1.5-5.0); GRAN # 5.97 (1.4-6.5); GRAN % 81.7 % (50.0-68.0); HEMOGLOBIN 10.8 g/dL (14.0-18.0); LYMPH % 14.2 % (22.0-35.0); MEAN CELL VOLUME 83.5 fl (80.0-105.0); MEAN CORPUSCULAR HEMOGLOBIN 27.8 pg (25.0-35.0); MEAN CORPUSCULAR HGB CONC 33.2 g/dl (31.0-37.0); MONO # 0.3 (0.1-0.6); MONO % 3.7 % (1.0-6.0); RBC 3.89 10^6/uL (3.5-6.1); RED CELL DISTRIBUTION WIDTH 17.8 % (11.5-14.5); WHITE BLOOD COUNT 7.3 10^3/uL (4.5-11.0)
--- NOTE | 2018-07-04 12:43 | RAD ---
Date of service: 07/04/2018 PROCEDURE: Fluoroscopy up to 1 hr HISTORY: ORIF LT HIP COMPARISON: TECHNIQUE: 85.9 sec of fluoro time. 10.34 mGy dose. Three views submitted FINDINGS: Compression screws and an intramedullary briseyda are seen in the left hip. There is anatomic alignment. IMPRESSION: As above
[2018-07-04 12:56] LABS: TROPONIN I 0.62 ng/mL
[2018-07-04 13:12] LABS: PLATELET COUNT 144 10^3/uL (120.0-450.0)
[2018-07-04] MEDS: levETIRAcetam 1000mg/100ml NS 100 ML IV SCH ×2 (13:53→22:40)
[2018-07-04 14:08] LABS: ARTERIAL BLOOD GAS HCO3 16.9 mmol/L (21-28); ARTERIAL BLOOD GAS O2 SAT 99.8 % (95-98); ARTERIAL BLOOD GAS PCO2 26 mm/Hg (35-45); ARTERIAL BLOOD GAS PH 7.42 (7.35-7.45); ARTERIAL BLOOD GAS TCO2 17.7 mmol.L (22-28)
[2018-07-04] MEDS: Midazolam 100 mg/100ml in NS 100 MG/100 ML SOL IV PRN ×2 (14:17→20:27)
--- NOTE | 2018-07-04 16:08 | OP ---
PROCEDURE DATE: 07/04/2018 PROCEDURE: Right internal jugular central venous catheter placement. INDICATION: Vasopressor support and hemodynamic monitoring. DESCRIPTION OF PROCEDURE: After obtaining the informed consent, operational area was sterilized. Time-out performed. Maximum barrier precautions used. Right IJ vein was cannulated according to sterile Seldinger technique under real time ultrasound guidance. Guidewire removed. Hemostasis achieved. Sterile dressing applied. The patient tolerated the procedure well. EBL is minimal. Chest x-ray confirmed correct position of the right internal jugular line. Volodymyr Acharya MD MTDKristin
--- NOTE | 2018-07-04 16:12 | OP ---
PROCEDURE DATE: 07/04/2018 PROCEDURE: Right femoral artery arterial line placement. INDICATION: Hemodynamic monitoring. DESCRIPTION OF PROCEDURE: After obtaining informed consent, operational area was sterilized. Time-out performed. Maximum barrier precautions used. Right common femoral artery was cannulated by sterile Seldinger technique under real time ultrasound guidance. Guidewire removed. Hemostasis achieved. Sterile dressing applied. The patient tolerated the procedure well. Good waveform identified on monitor. Volodymyr Acharya MD BRUNILDA
[2018-07-04 16:19] LABS: VENOUS BLOOD GAS BASE EXCESS -6.2 mmol/L (0.0-2.0); VENOUS BLOOD GAS PO2 93 mm/Hg (30-55); VENOUS BLOOD PH 7.37 (7.32-7.43)
[2018-07-04 16:29] LABS: INR 2.23; PARTIAL THROMBOPLASTIN TIME 30.5 Seconds (25.1-36.5); PROTHROMBIN TIME 25.9 SECONDS (9.4-12.5)
--- NOTE | 2018-07-04 16:39 | CARD ---
APPROVED REPORT Date of service: 07/04/2018 EXAM: Two-dimensional and M-mode echocardiogram with Doppler and color Doppler. INDICATION CARDIOGENIC SHOCK 2D DIMENSIONS Left Atrium (2D)3.0 (1.6-4.0cm)IVSd1.7 (0.7-1.1cm) LVDd4.2 (3.9-5.9cm)PWd1.5 (0.7-1.1cm) LVDs3.5 (2.5-4.0cm)FS (%) 16.7 % LVEF (%)35.4 (>50%) M-Mode DIMENSIONS Aortic Root3.00 (2.2-3.7cm)Aortic Cusp Exc.1.80 (1.5-2.0cm) Aortic Valve AoV Peak Oshfoigt608.0cm/Chelsea Peak GR.9mmHg Mitral Valve E/A ratio0.0 TDI E/Lateral E'0.0E/Medial E'0.0 Tricuspid Valve TR Peak [id number] [id number] Peak Gr.37mmHg [id number] LEFT VENTRICLE The left ventricle is normal size. There is moderate concentric left ventricular hypertrophy. The systolic function is severely impaired. RIGHT VENTRICLE The right ventricle is moderately dilated. RV Systolic function is moderately reduced. ATRIA The left atrium size is normal. The right atrium is moderately dilated. AORTIC VALVE The aortic valve is normal in structure. No aortic regurgitation is present. MITRAL VALVE The mitral valve is mildly thickened. Mitral regurgitation is mild to moderate. TRICUSPID VALVE The tricuspid valve is normal in structure. There is moderate tricuspid regurgitation. There is mild to moderate pulmonary hypertension. PULMONIC VALVE The pulmonary valve is normal in structure. There is mild pulmonic valvular regurgitation. GREAT VESSELS The aortic root is normal in size. The IVC is dilated. <Conclusion> The left ventricle is normal size. There is moderate concentric left ventricular hypertrophy. The systolic function is severely impaired. RV Systolic function is moderately reduced. Mitral regurgitation is mild to moderate. There is moderate tricuspid regurgitation. There is mild to moderate pulmonary hypertension.
--- NOTE | 2018-07-04 17:19 | CT ---
Date of service: 07/04/2018 PROCEDURE: CT HEAD WITHOUT CONTRAST. HISTORY: ICH COMPARISON: CT head dated 07/01/2018. TECHNIQUE: Axial computed tomography images were obtained through the head/brain without intravenous contrast. Radiation dose: Total exam DLP = 793.16 mGy-cm. This CT exam was performed using one or more of the following dose reduction techniques: Automated exposure control, adjustment of the mA and/or kV according to patient size, and/or use of iterative reconstruction technique. FINDINGS: HEMORRHAGE: Small amount of subarachnoid/subdural hemorrhage laying along the tentorium. Subarachnoid hemorrhage within the cerebellar folia. Small amount subarachnoid hemorrhage within the 4th ventricle. BRAIN: No mass effect or edema. Atrophy. Chronic microvascular ischemic changes. VENTRICLES: Prominent. No hydrocephalus. CALVARIUM: Unremarkable. PARANASAL SINUSES: Unremarkable as visualized. No significant inflammatory changes. MASTOID AIR CELLS: Unremarkable as visualized. No inflammatory changes. OTHER FINDINGS: None. IMPRESSION: New subarachnoid/subdural hemorrhage layering along the tentorium with a subarachnoid hemorrhage seen layering dependently in the 4th ventricle and in the cerebellar folia. Findings discussed with Dr. Howard by Dr. Choi at 5:10 p.m. on 07/04/2018.
--- NOTE | 2018-07-04 17:54 | CP.PCM.PN ---
Subjective - Date & Time of Evaluation Date of Evaluation: 07/04/18 Time of Evaluation: 08:00 - Subjective Subjective: Hematology/Oncology Progress Note (Dr. Giles's Service) Patient seen and assessed at bedside. No acute events overnight noted. Patient for ORIF today and is aware. Patient denies any further complaints at this time including fevers, chills, headache, chest pain, SOB, abdominal pain, N/V/D/C, changes in urine output, skin changes or any numbness/tingling of any extremity. Objective - Vital Signs/Intake and Output Vital Signs (last 24 hours): Temp Pulse Resp BP Pulse Ox 98.5 F 90 14 133/48 L 100 07/04/18 07:35 07/04/18 17:20 07/04/18 10:47 07/04/18 16:00 07/04/18 16:10 Intake and Output: 07/04/18 07/04/18 06:59 18:59 Intake Total 0 Balance 0 - Medications Medications: Current Medications Albuterol/Ipratropium (Duoneb 3 Mg/0.5 Mg (3 Ml) Ud) 3 ml IH [id number] PRN PRN Reason: Shortness of Breath Last Admin: 07/04/18 13:20 Dose: 3 ml Aspirin (Aspirin Chewable) 81 mg PO DAILY [facility] Last Admin: 07/03/18 15:29 Dose: 81 mg Famotidine (Pepcid) 20 mg PO 1000,2200 [facility] Last Admin: 07/03/18 15:49 Dose: Not Given Gabapentin (Neurontin) 300 mg PO DAILY [facility]; Protocol Last Admin: 07/03/18 15:29 Dose: 300 mg Heparin Sodium (Porcine) (Heparin) 5,000 units SC Q8 [facility]; Protocol Last Admin: 07/02/18 06:01 Dose: 5,000 units Hydralazine HCl (Apresoline) 25 mg PO TID [facility] Last Admin: 07/04/18 15:41 Dose: Not Given Hydrocortisone Sodium Succinate (Solu-Cortef) 50 mg IVP Q6H [facility] Hydroxyzine HCl (Atarax) 25 mg PO TID [facility] Last Admin: 07/04/18 15:41 Dose: Not Given Epinephrine HCl 1 mg/ Sodium (Chloride) 51 mls @ 3.06 mls/hr IV .[id number] PRN; Protocol PRN Reason: TITRATE PER MD ORDER Dobutamine HCl/Dextrose (Dobutamine/Dextrose 5% 500mg/250ml) 500 mg in 250 mls @ 10.553 mls/hr IV .[id number] PRN; Protocol PRN Reason: TITRATE PER PROTOCOL Last Admin: 07/04/18 11:00 Dose: 5 mcg/kg/min, 10.553 mls/hr Vasopressin 20 units/ Sodium (Chloride) 101 mls @ 9.09 mls/hr IV .[id number] [facility]; Protocol Levetiracetam (Keppra 1000mg/100ml Ns) 100 mls @ 460 mls/hr IV Q12 [facility] Last Admin: 07/04/18 13:53 Dose: 460 mls/hr Midazolam 100 mg/100ml in NS (Midazolam 100 Mg/100ml In Ns) 100 mg in 100 mls @ 1 mls/hr IV .Q24H PRN; Protocol PRN Reason: Agitation Last Admin: 07/04/18 14:17 Dose: 1 mg/hr, 1 mls/hr Insulin Human Lispro (Humalog High) 0 units SC ACHS [facility]; Protocol Last Admin: 07/04/18 11:30 Dose: Not Given Isosorbide Mononitrate (Imdur) 120 mg PO DAILY [facility] Last Admin: 07/03/18 15:29 Dose: 120 mg Morphine Sulfate (Morphine) 2 mg IVP Q4H PRN PRN Reason: Pain, severe (8-10) Last Admin: 07/03/18 18:25 Dose: 2 mg Prednisone (Prednisone Tab) 5 mg PO DAILY [facility] Last Admin: 07/03/18 15:48 Dose: 5 mg - Labs Labs: 07/04/18 12:00 07/04/18 12:00 PT 25.9 SECONDS (9.4-12.5) H 07/04/18 16:10 INR 2.23 07/04/18 16:10 APTT 30.5 Seconds (25.1-36.5) 07/04/18 16:10 - Additional Findings Additional findings: - Constitutional Appears: Non-toxic, No Acute Distress - Head Exam Head Exam: ATRAUMATIC, NORMOCEPHALIC - Eye Exam Eye Exam: EOMI, Normal appearance, PERRL - ENT Exam ENT Exam: Mucous Membranes Dry - Neck Exam Neck exam: Positive for: Full Rom, Normal Inspection - Respiratory Exam Respiratory Exam: NORMAL BREATHING PATTERN. absent: Accessory Muscle Use, Chest Wall Tenderness, Decreased Breath Sounds, Clear to Auscultation Bilateral, Prolonged Expiratory Phase, Rales, Rhonchi, Wheezes, Respiratory Distress - Cardiovascular Exam Cardiovascular Exam: RRR, +S1, +S2. absent: JVD - GI/Abdominal Exam GI & Abdominal Exam: Distended, Normal Bowel Sounds, Soft. absent: Tenderness - Extremities Exam Extremities exam: Positive for: pedal edema (Trace pitting edema to b/l lower extremities extending to mid calf) - Neurological Exam Neurological exam: Alert, Oriented x3 - Psychiatric Exam Psychiatric exam: Normal Affect, Normal Mood - Skin Skin Exam: Dry, Warm Additional comments: NO PETECHIAE Assessment and Plan - Assessment and Plan (Free Text) Assessment: 62 year old male with a past medical history significant for ESRD on HD (, and ), DM2 complicated by neuropathy/retinopathy/nephropathy, systolic CHF, CAD s/p CABG, dilated CM, HLD, liver cirrhosis likely cryptogenic/NAFLD and sarcoidosis who was admitted for a left femoral neck fracture after mechanical fall. Hematology/Oncology was consulted for thrombocytopenia. Plan: -Platelets (CBC 07/04): 139 -Mild thrombocytopenia with superimposed pseudothrombocytopenia d/t platelet clumping -Mild thrombocytopenia likely secondary to chronic liver disease (Recently negative for hepatitis, HIV and H. Pylori) -May proceed with surgery but would advise to transfuse one unit of platelets and one unit of pRBC's just prior to surgical procedure -Platelet AB studies, cold agglutinins, and peripheral smear pending -Further recommendations as per Dr. Giles Patient seen and case discussed with attending, Dr. Giles. Abhilash Smith PGY2
--- NOTE | 2018-07-04 18:10 | PCM.RRT ---
RAILROAD OPERATING ENGINEER Nurse Assessment - Situation Date: 07/04/18 Time RAILROAD OPERATING ENGINEER was called: 11:16 RAILROAD OPERATING ENGINEER Location:: ICU Room Number: 128-4 [employer]ILROAD OPERATING ENGINEER Reason for Call: Hypotension - Respiratory Oxygen Delivery Method: Intubated - Ventilator Settings Mode: PRVC - Diagnostic Test Ordered Chest X-Ray: Yes CT Scan: Yes - Stat Labs Ordered RAILROAD OPERATING ENGINEER Stat Labs Ordered: CBC, BMP, TROPONIN, ABG I.Reason for RAILROAD OPERATING ENGINEER - A) Acute Change in Patient: Subjective: Pt is s/p ORIF when [facility] was called in OR. ROSC was achieved in OR and pt was sent to ICU. Pt had underwent central line placement for central access. After the procedure, went to PEA and [facility] was called. Pt was found to be in PEA. Code sarah called at 11:16. ACLS protocol was initiated. Pt received 1 round of CPR, 1 round of epinephrine, 1 amp of bicarbonate. ROSC was obtained. Pt was started on dobutamine. Pt was hemodynamically stable. A-line was subsequently placed. Pt closely monitored in ICU. - Neurological Status (Select all that apply): absent: Alert, Responsive - Respiratory Oxygen Delivery Method: Intubated - Constitutional Appears: Chronically Ill - Head Head Exam: NORMOCEPHALIC - Eyes Eye Exam: PERRL - Respiratory Exam Respiratory Exam: Clear to Ausculation Bilateral - Cardiovascular Exam Cardiovascular Exam: REGULAR RHYTHM, +S1, +S2 - GI/Abdominal Exam GI & Abdominal Exam: Distended, Soft - Neurological Exam Neurological Exam: absent: Alert, Awake Plan - Assessment of Findings&Treatment Plan 62 y/o s/p ORIF. Pt went into PEA. Was subsequently hypotensive. Central line and A-line placed with appropriate consent. Pt initiated on dobutamine. Family and PMD made aware. Monitor closely in ICU. Obtain stat labs. CT head. EEG. - Further details per attending physician, Dr. Acharya
--- NOTE | 2018-07-04 18:32 | PCM.RRT ---
<Abhilash Smith - Last Filed: 07/05/18 02:54> ELECTRICAL CONTROLS DESIGNER Nurse Assessment - Situation Date: 07/04/18 Time ELECTRICAL CONTROLS DESIGNER was called: 10:06 ELECTRICAL CONTROLS DESIGNER Location:: OR room 1 Room Number: 128-4 ELECTRICAL CONTROLS DESIGNER Reason for Call: Hypotension - Respiratory Oxygen Delivery Method: Intubated - Ventilator Settings Mode: PRVC - Diagnostic Test Ordered Chest X-Ray: Yes CT Scan: Yes - Stat Labs Ordered ELECTRICAL CONTROLS DESIGNER Stat Labs Ordered: CBC, BMP, TROPONIN, ABG I.Reason for ELECTRICAL CONTROLS DESIGNER - A) Acute Change in Patient: Subjective: [facility] CALL[facility] AT 1006 IN OR1 Medicine team responded Patient intubated and on table s/p left hip open reduction internal fixation with trochanteric nailing and AR screw upon arrival. Patient was noted to have become bradycardic and hypotensive immediately after the procedure. This progressed to PEA. One dose of epinephrine was given and CPR initiated. One additional dose of epinephrine given after first round of CPR. ROSC was achieved immediately after this at approximately 1012. Patient remained intubated and was transferred to the ICU for further monitoring. vice president compliance spoke with patients via material combiner. All questions and concerns addressed to her satisfaction, per patients . Attending physician present at [facility] [place]. Further details can be obtained from [facility] flow sheet. - Respiratory Oxygen Delivery Method: Intubated - Constitutional Appears: Chronically Ill - Respiratory Exam Respiratory Exam: Decreased Breath Sounds (Right sided). absent: NORMAL BREATHING PATTERN (Mechanical ventilation) - Cardiovascular Exam Cardiovascular Exam: RRR, +S1, +S2 - GI/Abdominal Exam GI & Abdominal Exam: Soft, Normal Bowel Sounds. absent: Tenderness <Roldan Shahid - Last Filed: 07/05/18 13:03> Attending/Attestation - Attestation I have personally seen and examined this patient.: Yes I have fully participated in the care of the patient.: Yes I have reviewed all pertinent clinical information, including history, physical exam and plan: Yes Notes (Text): 07/05/18 13:02 Please refer to progress note dated 07/04/18
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
--- NOTE | 2018-07-04 20:17 | PN ---
DATE: 07/04/2018 SUBJECTIVE: The patient went to OR today and coded 2 times in OR. After regaining spontaneous circulation, the patient was transferred to ICU where he was found to be hypotensive. Central venous line as well as arterial line were placed after an informed consent. The patient was started on norepinephrine 30 mcg per minute and dobutamine 5 mcg/kg per minute. He did have one additional code blue, regaining spontaneous circulation few minutes later. At present time, his blood pressure 111/73, heart rate 100, oxygen saturation 100% on 60% FiO2 and respiratory rate ventilator triggered at 20 breaths per minute. End-tidal CO2 on the monitor 44. The patient is on 30 mcg/minute of Levophed and 5 mcg/kg per minute of dobutamine. The patient received one pack of platelets, one FFP, and 400 mL of crystalloids in OR. Only 50 mL of urine over 2 hour period (the patient is on dialysis; however, Braun catheter was placed during the procedure) and only 100 mL of estimated blood loss. The patient did not receive PRBCs in OR. The patient did not require vasopressor therapy prior to code blue in OR. Rhythm was non-shockable and appears to be PEA during the code blue both in OR and in ICU. PHYSICAL EXAMINATION: VITAL SIGNS: As above. The patient is on PRVC 16/01/20 (respiratory rate was increased from 14 after initial ABG results become available), tidal volume 460. Some of the breath are patient initiated, however, mostly ventilator triggered. HEENT: Atraumatic. LUNGS: Clear to auscultation bilaterally. Decreased breath sounds on the right side. (Chest x-ray showed some pleural effusion on the right side which is not new). HEART: Regular rate and rhythm. S1, S2 distant. ABDOMEN: Soft, nontender, nondistended. MUSCULOSKELETAL: No C/C/E. NEURO: The patient was not observed moving all extremities spontaneously. SKIN: Moist. PSYCH: The patient is not communicative. LABORATORY DATA: Labs from the morning: WBC 6.9, hemoglobin 11.4, platelet count 139. Sodium 135, potassium 4.7, chloride 93, carbon dioxide 24, BUN 35, creatinine 3.6 (the patient is on chronic dialysis, last dialysis was yesterday), glucose 161 (during the code, glucose was checked and it was 107), total bilirubin 1.7, AST 140, ALT 122, both of which showed trend to decrease. Chest x-ray after central venous line placement, showed increased haziness and layering on the right side consistent with pleural effusion, right IJ CVC in the right atrium, endotracheal tube is in trachea in appropriate position. No pneumothorax. CURRENT MEDICATIONS: DuoNeb p.r.n., aspirin, DDAVP was given x1, dobutamine drip, Pepcid, hydrocortisone 50 mg IV every 6 hours, Atarax 25 mg p.o. t.i.d., regular insulin sliding scale high protocol, vancomycin x1. ASSESSMENT AND PLAN: This 62-year-old gentleman with history of pulmonary hypertension, right ventricular failure, diastolic left ventricular dysfunction and some systolic left ventricular dysfunction, who presented to [facility] with hip fracture and was taken to OR today where he had cardiorespiratory arrest. The patient was transferred to ICU intubated, hypotensive, in shock. Neuro: The patient is not responsive to painful stimuli which likely a combination of status post resuscitation for cardiorespiratory arrest as well as residual effect of general anesthesia that the patient had during surgery. If would not wake up within a day or 2, we will proceed with CT head. Meanwhile, we will obtain EEG to rule out nonconvulsive status due to anoxic brain injury. Pulmonary: The patient is intubated. Initial ABG showed acute respiratory acidosis. Minute ventilation adjusted. We will maintain pH above 7.3. We will however take precaution not to over ventilate in which case hemodynamics can be affected. We will maintain I:E ratio more than 1 to 2.5. We will continue with protective lung ventilation strategy including tidal volume 6 to 8 mL per predicted body weight and plateau pressure less than 30 cm of water to avoid acute lung injury. Head of bed elevated more than 35 degrees. Oral hygiene. Once shock resolve, we will consider daily weaning trials and daily sedation vacation. The patient does have history of right ventricular failure and pulmonary hypertension, thus I will work more with vasopressors than with fluids to maintain hemodynamic stability. We will try to avoid hypovolemia. We will try to avoid high PEEP, which may worsen right ventricular failure and hemodynamics as well. Cardiovascular: The patient is in cardiogenic versus distributive shock. He requires ionotropic support with dobutamine antihypertensive medications were held. Vasopressor support provided with norepinephrine at 30 mcg/minute and vasopressin 0.03 units per minute. We might need to repeat echocardiogram to see if dobutamine needs to be tapered up as long as the patient tolerates it. Cardiology followup will be obtained. Troponin will be trended. Possibility of septic shock is less likely provided clinical scenario in which shock was developed, however, cannot rule out with certainty. We will proceed with blood culture and will give one dose of vancomycin. We will get procalcitonin. Infectious Disease: The patient will receive one dose of vancomycin if leukocytosis present provided that the patient was on some corticosteroids and due to his end-stage renal disease status is relatively immunocompromised. We will get ID on board to see if empiric antibiotics would be indicated in this case. Meanwhile, blood culture and procalcitonin were ordered. One dose of vancomycin given. GI: The patient will remain n.p.o. His LFTs for morning labs appears to be improving and most likely were related to congestive hepatopathy which somewhat improved likely with hemodialysis. Renal: The patient has end-stage renal disease. He is on hemodialysis. His last hemodialysis was yesterday, which he tolerated well. We will continue with Nephrology followup. We will maintain mean arterial pressure more than 65. Endocrine: We will continue with stress dose steroids as the patient was on low-dose steroids prior. We will maintain blood glucose within 140-180 range according to night sugar trial to avoid hyperglycemia. Volodymyr Acharya MD
[2018-07-04 22:37] LABS: VENOUS BLOOD GAS BASE EXCESS -5.2 mmol/L (0.0-2.0); VENOUS BLOOD GAS PO2 63 mm/Hg (30-55); VENOUS BLOOD PH 7.38 (7.32-7.43)
[2018-07-05] MEDS: Midazolam 100 mg/100ml in NS 100 MG/100 ML SOL IV PRN ×3 (01:28→21:00)
[2018-07-05 06:20] LABS: VENOUS BLOOD GAS BASE EXCESS -4.3 mmol/L (0.0-2.0); VENOUS BLOOD GAS PO2 55 mm/Hg (30-55); VENOUS BLOOD PH 7.32 (7.32-7.43)
[2018-07-05 06:30] LABS: GRAN % 92.8 % (50.0-68.0); HEMOGLOBIN 7.9 g/dL (14.0-18.0); LYMPH # 0.4 (1.2-3.4); LYMPH % 4.7 % (22.0-35.0); MEAN CELL VOLUME 82.8 fl (80.0-105.0); MEAN CORPUSCULAR HEMOGLOBIN 27.7 pg (25.0-35.0); MEAN CORPUSCULAR HGB CONC 33.5 g/dl (31.0-37.0); MONO # 0.2 (0.1-0.6); MONO % 2.5 % (1.0-6.0); RBC 2.85 10^6/uL (3.5-6.1); RED CELL DISTRIBUTION WIDTH 17.6 % (11.5-14.5); WHITE BLOOD COUNT 7.7 10^3/uL (4.5-11.0)
[2018-07-05 06:32] LABS: ALB/GLOB RATIO 0.9 (1.1-1.8); CALCIUM 6.7 mg/dL (8.4-10.5)
[2018-07-05 06:39] LABS: PLATELET COUNT 108 10^3/uL (120.0-450.0)
[2018-07-05 06:49] LABS: ARTERIAL BLOOD GAS HCO3 18.8 mmol/L (21-28); ARTERIAL BLOOD GAS HEMOGLOBIN 8.4 g/dL (11.7-17.4); ARTERIAL BLOOD GAS O2 SAT 100.2 % (95-98); ARTERIAL BLOOD GAS PCO2 34 mm/Hg (35-45); ARTERIAL BLOOD GAS PH 7.35 (7.35-7.45); ARTERIAL BLOOD GAS TCO2 19.8 mmol.L (22-28)
--- NOTE | 2018-07-05 08:06 | PN ---
DATE: 10/13/2017 CARDIOLOGY FOLLOWUP COVERING FOR: Nolberto Akins MD. SUBJECTIVE: The patient underwent open reduction and internal fixation for left hip basicervical fracture. Following the surgery, patient became bradycardic, hypotensive, and code blue was called. The patient was resuscitated. The patient received CPR, one amp of epi and one amp of bicarbonate and was transferred to ICU. Head CT scan without contrast revealed new subarachnoid, subdural hemorrhage layering around the tentorium with subarachnoid hemorrhage seen layering dependently in the fourth ventricle and in the cerebellar folia. The patient had no reported hypertension or ventricular tachycardia. PHYSICAL EXAMINATION: VITAL SIGNS: Blood pressure 126/60, heart rate 91, temperature 98.5. HEENT: Pale conjunctivae. CHEST: Clear. HEART: S1 and S2 regular. EXTREMITIES: No edema. LABORATORY DATA: Today's hemoglobin and hematocrit 10.8 and 32.5. White count and platelet count are within normal limits. SMA-7: Sodium 138, potassium 4.9, chloride 96, CO2 of 19, glucose 139, BUN 36, creatinine 3.8. Troponin 0.62. Chest x-ray revealed cardiomegaly, diffuse haziness involving the entire right lung. Sternotomy scar is noted. ET tube is in the proper position. Echocardiographic study was repeated at the bedside and that revealed severely depressed left ventricular systolic function with moderately hypokinetic and dilated right ventricle, [id number] pulmonary hypertension. The most recent cardiac catheterization performed on 01/05/2018 revealed patent stent in the proximal circumflex artery, 60% stenosis of the posterior lateral branch of the right coronary artery, 70% to 80% stenosis of the proximal LAD with patent JIMENEZ to the LAD and patent saphenous vein graft to diagonal branch and patent saphenous vein graft to the RC with ejection fraction in the range of 35% to 40%. Medical therapy was recommended at that time. ASSESSMENT: 1. Status post open reduction and internal fixation of left hip fracture. 2. Subarachnoid and subdural hemorrhage. 3. Coronary artery disease, status post coronary artery bypass surgery and history of circumflex artery stenting with patent left internal mammary artery to the left anterior descending artery and patent saphenous vein graft to the diagonal branch and to the posterior descending artery. 4. Biventricular failure. RECOMMENDATIONS: Discontinue aspirin and subcutaneous heparin. Continue IV Keppra and IV midazolam. The patient did undergo venous Doppler of lower extremity as recent as 2 days ago which was negative for DVT. Abdiel Cisneros MD
[2018-07-05 08:22] LABS: PLATELET COUNT MANUAL 180 K/mm3 (120-450)
[2018-07-05 08:29] LABS: BAND 2 % (0-2); LYMPHOCYTE 8 % (22.0-35.0); MONOCYTE 1 % (1.0-6.0); NEUTROPHIL 89 % (50.0-70.0); PLATELET CLUMPS PRESENT
--- NOTE | 2018-07-05 08:33 | RAD ---
Date of service: 07/05/2018 HISTORY: Intubated COMPARISON: 07/04/2018 FINDINGS: LUNGS: No active pulmonary disease. PLEURA: Small right pleural effusion CARDIOVASCULAR: Aortic calcification Normal cardiac size. Mild vascular congestion OSSEOUS STRUCTURES: No significant abnormalities. VISUALIZED UPPER ABDOMEN: Normal. OTHER FINDINGS: Central lines and tubes unchanged IMPRESSION: Improved vascular congestion. Small right pleural effusion
--- NOTE | 2018-07-05 08:42 | RAD ---
Date of service: 07/04/2018 PROCEDURE: Left hip HISTORY: s/p hip ORIF, pt in ICU COMPARISON: TECHNIQUE: A single portable film was obtained FINDINGS: The study shows internal fixation of a femoral neck fracture with compression screws and intramedullary briseyda. There is anatomic alignment. IMPRESSION: As above
--- NOTE | 2018-07-05 08:57 | CP.CCUPN ---
<Frida Howard - Last Filed: 07/05/18 09:59> CCU Subjective - Physician Review Subjective (Free Text): CRITICAL CARE PROGRESS NOTE FOR DR. ZAHIDA Howard PGY-1 Pt seen and examined at bedside this am. Pt is non-responsive to verbal, tactile and painful stimuli. He is sedated with midazolam and intubated. Was on vasopressin overnight d/t hypotension. Currently on 0.03 u/min vasopressin, 10 mg/hr midazolam and 7.5 mcg/kg/min dobutamine, 2mcg/kg norepinephrine. He is being monitored on video EEG. 12 point ROS unable to be obtained. CCU Objective - Vital Signs / Intake & Output Vital Signs (Last 4 hours): Vital Signs Temp Pulse Pulse Ox 07/05/18 08:00 99.3 F 84 99 07/05/18 07:50 99.3 F 84 100 07/05/18 07:40 99.3 F 84 98 07/05/18 07:30 99.3 F 84 99 07/05/18 07:20 99.5 F 84 98 07/05/18 07:10 99.5 F 84 100 07/05/18 07:00 99.5 F 83 100 07/05/18 06:50 99.5 F 84 88 L 07/05/18 06:45 99.5 F 84 07/05/18 06:44 99.5 F 84 07/05/18 06:40 99.5 F 84 07/05/18 06:30 99.5 F 84 07/05/18 06:20 99.7 F H 84 07/05/18 06:10 99.7 F H 83 07/05/18 06:00 99.7 F H 82 07/05/18 05:50 99.9 F H 84 100 07/05/18 05:40 100.0 F H 85 100 07/05/18 05:30 85 100 07/05/18 05:20 100.2 F H 85 100 07/05/18 05:10 100.2 F H 85 100 07/05/18 05:00 100.2 F H 85 100 07/05/18 04:50 100.4 F H 86 100 Intake and Output (Last 8hrs): Intake & Output 07/04/18 07/05/18 07/05/18 22:59 06:59 14:59 Intake Total 100 100 Balance 100 100 Intake: IV 100 100 - Physical Exam Head: Positive for: Other (dressing around head) Pupils: Positive for: Non-Reactive Conjunctiva: Positive for: Normal Mouth: Positive for: Dry Respiratory/Chest: Positive for: Good Air Exchange, Other (intubated on ventilator). Negative for: Accessory Muscle Use, Rales Cardiovascular: Positive for: Regular Rate and Rhythm, Normal S1, S2. Negative for: Murmurs Abdomen: Negative for: Tenderness, Distention, Peritoneal Signs Genitourinary Male: Positive for: Other (garland in place) Back: Positive for: Normal Inspection Upper Extremity: Negative for: Cyanosis, Edema Lower Extremity: Negative for: Edema Skin: Positive for: Warm, Dry, Normal Color. Negative for: Rashes - Medications Active Medications: Active Medications Generic Name Dose Route Start Last Admin Trade Name Freq PRN Reason Stop Dose Admin Albuterol/Ipratropium 3 ml 07/01/18 20:43 07/04/18 13:20 Duoneb 3 Mg/0.5 Mg (3 Ml) Ud IH 3 ml [id number] PRN Administration Shortness of Breath Famotidine 20 mg 07/01/18 22:00 07/03/18 15:49 Pepcid PO Not Given 1000,2200 [facility] Gabapentin 300 mg 07/02/18 10:00 07/03/18 15:29 Neurontin PO 300 mg DAILY ARELIS Administration Protocol Hydralazine HCl 25 mg 07/02/18 10:00 07/04/18 15:41 Apresoline PO Not Given TID ARELIS Hydrocortisone Sodium Succinate 50 mg 07/04/18 12:15 07/05/18 06:00 Solu-Cortef IVP 50 mg Q6H ARELIS Administration Hydroxyzine HCl 25 mg 07/02/18 10:00 07/04/18 15:41 Atarax PO Not Given TID ARELIS Epinephrine HCl 1 mg/ Sodium 51 mls @ 3.06 mls/hr 07/04/18 11:23 Chloride IV .[id number] PRN TITRATE PER MD ORDER Protocol 1 MCG/MIN Dobutamine HCl/Dextrose 500 mg in 250 mls @ 10.553 mls/hr 07/04/18 12:08 07/04/18 12:00 Dobutamine/Dextrose 5% 500mg/250ml IV 7.5 mcg/kg/min .[id number] PRN 15.829 mls/hr TITRATE PER PROTOCOL Titration Protocol 5 MCG/KG/MIN Vasopressin 20 units/ Sodium 101 mls @ 9.09 mls/hr 07/04/18 13:00 07/05/18 01:12 Chloride IV 9.09 mls/hr .[id number] ARELIS Administration Protocol 0.03 U/MIN Levetiracetam 100 mls @ 460 mls/hr 07/04/18 14:00 07/04/18 22:40 Keppra 1000mg/100ml Ns IV 460 mls/hr Q12 ARELIS Administration Midazolam 100 mg/100ml in NS 100 mg in 100 mls @ 1 mls/hr 07/04/18 14:05 07/05/18 01:28 Midazolam 100 Mg/100ml In Ns IV 10 mg/hr .Q24H PRN 10 mls/hr Agitation Administration Protocol 1 MG/HR Insulin Human Lispro 0 units 07/02/18 16:30 07/04/18 11:30 Humalog High SC Not Given ACHS ARELIS Protocol Isosorbide Mononitrate 120 mg 07/02/18 10:00 07/03/18 15:29 Imdur PO 120 mg DAILY ARELIS Administration Morphine Sulfate 2 mg 07/01/18 20:43 07/03/18 18:25 Morphine IVP 2 mg Q4H PRN Administration Pain, severe (8-10) Pantoprazole Sodium 40 mg 07/05/18 10:00 Protonix Inj IVP DAILY ARELIS Prednisone 5 mg 07/02/18 10:00 07/03/18 15:48 Prednisone Tab PO 5 mg DAILY ARELIS Administration - Patient Studies Lab Studies: Lab Studies 07/05/18 07/05/18 07/05/18 Range/Units 06:30 06:00 06:00 WBC (4.5-11.0) 10^3/uL RBC (3.5-6.1) 10^6/uL Hgb (14.0-18.0) g/dL Hct (42.0-52.0) % MCV (80.0-105.0) fl MCH (25.0-35.0) pg MCHC (31.0-37.0) g/dl RDW (11.5-14.5) % Plt Count (120.0-450.0) 10^3/uL Manual Plt Count (120-450) K/mm3 Gran % (50.0-68.0) % Lymph % (Auto) (22.0-35.0) % [place] % (Auto) (1.0-6.0) % Eos % (Auto) (1.5-5.0) % Baso % (Auto) (0.0-3.0) % Gran # (1.4-6.5) Lymph # (Auto) (1.2-3.4) [place] # (Auto) (0.1-0.6) Eos # (Auto) (0.0-0.7) Baso # (Auto) (0.0-2.0) K/mm3 Neutrophils % (Manual) (50.0-70.0) % Band Neutrophils % (0-2) % Lymphocytes % (Manual) (22.0-35.0) % Monocytes % (Manual) (1.0-6.0) % Plt Clumps, EDTA PT (9.4-12.5) SECONDS INR APTT (25.1-36.5) Seconds Fibrinogen (200-400) mg/dl Fibrin Degrad Products (< 10 ug/mL) pCO2 34 L (35-45) mm/Hg pO2 195.0 H 55 (80-100) mm/Hg HCO3 18.8 L (21-28) mmol/L ABG pH 7.35 (7.35-7.45) ABG Total CO2 19.8 L (22-28) mmol.L ABG O2 Saturation 100.2 H (95-98) % ABG O2 Content 12.0 L (15-23) ML/dl ABG Base Excess -6.2 L (-2.0-3.0) mmol/L ABG Hemoglobin 8.4 L (11.7-17.4) g/dL ABG Carboxyhemoglobin 1.8 H (0.5-1.5) % POC ABG HHb (Measured) -0.2 L (0-5) % ABG Methemoglobin 0.6 (0.0-3.0) % ABG O2 Capacity 12.0 L (16-24) mL/dl ABG Potassium (3.6-5.2) mmol/L VBG pH 7.32 (7.32-7.43) VBG pCO2 42.0 (40-60) VBG HCO3 21.6 (21-28) mmol/l VBG Total CO2 22.9 (22-28) mmol.L VBG O2 Sat (Calc) 90.6 H (40-65) % VBG Base Excess -4.3 L (0.0-2.0) mmol/L VBG Potassium 5.6 H (3.6-5.2) mmol/L Hgb O2 Saturation 97.9 (95.0-98.0) % Glucose 427 H* (75-110) mg/dl Lactate 2.3 H (0.7-2.1) mmol/L Mechanical Rate FiO2 60.0 21.0 % Tidal Volume PEEP Sodium 133.0 136 (132-148) mmol/L Potassium 5.6 H* (3.6-5.0) mmol/L Chloride 96.0 L 93 L (98-107) mmol/L Carbon Dioxide 20 L (21-33) mmol/L Anion Gap 28 H (10-20) BUN 51 H (7-21) mg/dL Creatinine 4.4 H (0.8-1.5) mg/dl Est GFR ( Amer) 17 Est GFR (Non-Af Amer) 14 Random Glucose 408 H* D (70-110) mg/dL Calcium 6.7 L* (8.4-10.5) mg/dL Phosphorus (2.5-4.5) mg/dL Magnesium (1.7-2.2) mg/dL Total Bilirubin 1.6 H (0.2-1.3) mg/dL AST 113 H D (17-59) U/L ALT 84 H (7-56) U/L Alkaline Phosphatase 230 H D (38-126) U/L Troponin I ng/mL Total Protein 6.2 (5.8-8.3) g/dL Albumin 3.0 (3.0-4.8) g/dL Globulin 3.2 gm/dL Albumin/Globulin Ratio 0.9 L (1.1-1.8) Procalcitonin (0.19-0.49) NG/ML Arterial Blood Potassium (3.6-5.2) mmol/L Venous Blood Potassium 5.6 H (3.6-5.2) mmol/L Cold Agglutinins (NEGATIVE) 07/05/18 07/04/18 07/04/18 Range/Units 06:00 22:34 16:10 WBC 7.7 (4.5-11.0) 10^3/uL RBC 2.85 L (3.5-6.1) 10^6/uL Hgb 7.9 L D (14.0-18.0) g/dL Hct 23.6 L (42.0-52.0) % MCV 82.8 (80.0-105.0) fl MCH 27.7 (25.0-35.0) pg MCHC 33.5 (31.0-37.0) g/dl RDW 17.6 H (11.5-14.5) % Plt Count 108 L (120.0-450.0) 10^3/uL Manual Plt Count 180 (120-450) K/mm3 Gran % 92.8 H (50.0-68.0) % Lymph % (Auto) 4.7 L (22.0-35.0) % [place] % (Auto) 2.5 (1.0-6.0) % Eos % (Auto) 0.0 L (1.5-5.0) % Baso % (Auto) 0.0 (0.0-3.0) % Gran # 7.10 H (1.4-6.5) Lymph # (Auto) 0.4 L (1.2-3.4) [place] # (Auto) 0.2 (0.1-0.6) Eos # (Auto) 0.0 (0.0-0.7) Baso # (Auto) 0.00 (0.0-2.0) K/mm3 Neutrophils % (Manual) 89 H (50.0-70.0) % Band Neutrophils % 2 (0-2) % Lymphocytes % (Manual) 8 L (22.0-35.0) % Monocytes % (Manual) 1 (1.0-6.0) % Plt Clumps, EDTA Present PT (9.4-12.5) SECONDS INR APTT (25.1-36.5) Seconds Fibrinogen (200-400) mg/dl Fibrin Degrad Products (< 10 ug/mL) pCO2 (35-45) mm/Hg pO2 63 H 93 H (80-100) mm/Hg HCO3 (21-28) mmol/L ABG pH (7.35-7.45) ABG Total CO2 (22-28) mmol.L ABG O2 Saturation (95-98) % ABG O2 Content (15-23) ML/dl ABG Base Excess (-2.0-3.0) mmol/L ABG Hemoglobin (11.7-17.4) g/dL ABG Carboxyhemoglobin (0.5-1.5) % POC ABG HHb (Measured) (0-5) % ABG Methemoglobin (0.0-3.0) % ABG O2 Capacity (16-24) mL/dl ABG Potassium (3.6-5.2) mmol/L VBG pH 7.38 7.37 (7.32-7.43) VBG pCO2 32.0 L 31.0 L (40-60) VBG HCO3 18.9 L 17.9 L (21-28) mmol/l VBG Total CO2 19.9 L 18.9 L (22-28) mmol.L VBG O2 Sat (Calc) 95.6 H 98.9 H (40-65) % VBG Base Excess -5.2 L -6.2 L (0.0-2.0) mmol/L VBG Potassium 5.2 5.1 (3.6-5.2) mmol/L Hgb O2 Saturation (95.0-98.0) % Glucose 373 H 245 H (75-110) mg/dl Lactate 4.2 H* 7.5 H* (0.7-2.1) mmol/L Mechanical Rate FiO2 21.0 21.0 % Tidal Volume PEEP Sodium 134.0 134.0 (132-148) mmol/L Potassium (3.6-5.0) mmol/L Chloride 94.0 L 95.0 L (98-107) mmol/L Carbon Dioxide (21-33) mmol/L Anion Gap (10-20) BUN (7-21) mg/dL Creatinine (0.8-1.5) mg/dl Est GFR ( Amer) Est GFR (Non-Af Amer) Random Glucose (70-110) mg/dL Calcium (8.4-10.5) mg/dL Phosphorus (2.5-4.5) mg/dL Magnesium (1.7-2.2) mg/dL Total Bilirubin (0.2-1.3) mg/dL AST (17-59) U/L ALT (7-56) U/L Alkaline Phosphatase (38-126) U/L Troponin I ng/mL Total Protein (5.8-8.3) g/dL Albumin (3.0-4.8) g/dL Globulin gm/dL Albumin/Globulin Ratio (1.1-1.8) Procalcitonin (0.19-0.49) NG/ML Arterial Blood Potassium (3.6-5.2) mmol/L Venous Blood Potassium 5.2 5.1 (3.6-5.2) mmol/L Cold Agglutinins (NEGATIVE) 07/04/18 07/04/18 07/04/18 Range/Units 16:10 16:10 14:00 WBC (4.5-11.0) 10^3/uL RBC (3.5-6.1) 10^6/uL Hgb (14.0-18.0) g/dL Hct (42.0-52.0) % MCV (80.0-105.0) fl MCH (25.0-35.0) pg MCHC (31.0-37.0) g/dl RDW (11.5-14.5) % Plt Count (120.0-450.0) 10^3/uL Manual Plt Count (120-450) K/mm3 Gran % (50.0-68.0) % Lymph % (Auto) (22.0-35.0) % [place] % (Auto) (1.0-6.0) % Eos % (Auto) (1.5-5.0) % Baso % (Auto) (0.0-3.0) % Gran # (1.4-6.5) Lymph # (Auto) (1.2-3.4) [place] # (Auto) (0.1-0.6) Eos # (Auto) (0.0-0.7) Baso # (Auto) (0.0-2.0) K/mm3 Neutrophils % (Manual) (50.0-70.0) % Band Neutrophils % (0-2) % Lymphocytes % (Manual) (22.0-35.0) % Monocytes % (Manual) (1.0-6.0) % Plt Clumps, EDTA PT 25.9 H (9.4-12.5) SECONDS INR 2.23 APTT 30.5 (25.1-36.5) Seconds Fibrinogen 228 (200-400) mg/dl Fibrin Degrad Products >40 ug/ml (< 10 ug/mL) pCO2 26 L (35-45) mm/Hg pO2 169.0 H (80-100) mm/Hg HCO3 16.9 L (21-28) mmol/L ABG pH 7.42 (7.35-7.45) ABG Total CO2 17.7 L (22-28) mmol.L ABG O2 Saturation 99.8 H (95-98) % ABG O2 Content 14.0 L (15-23) ML/dl ABG Base Excess -6.4 L (-2.0-3.0) mmol/L ABG Hemoglobin 10.0 L (11.7-17.4) g/dL ABG Carboxyhemoglobin 1.9 H (0.5-1.5) % POC ABG HHb (Measured) 0.2 (0-5) % ABG Methemoglobin 0.9 (0.0-3.0) % ABG O2 Capacity 14.0 L (16-24) mL/dl ABG Potassium (3.6-5.2) mmol/L VBG pH (7.32-7.43) VBG pCO2 (40-60) VBG HCO3 (21-28) mmol/l VBG Total CO2 (22-28) mmol.L VBG O2 Sat (Calc) (40-65) % VBG Base Excess (0.0-2.0) mmol/L VBG Potassium (3.6-5.2) mmol/L Hgb O2 Saturation 96.9 (95.0-98.0) % Glucose (75-110) mg/dl Lactate (0.7-2.1) mmol/L Mechanical Rate FiO2 40.0 % Tidal Volume PEEP Sodium (132-148) mmol/L Potassium (3.6-5.0) mmol/L Chloride (98-107) mmol/L Carbon Dioxide (21-33) mmol/L Anion Gap (10-20) BUN (7-21) mg/dL Creatinine (0.8-1.5) mg/dl Est GFR ( Amer) Est GFR (Non-Af Amer) Random Glucose (70-110) mg/dL Calcium (8.4-10.5) mg/dL Phosphorus (2.5-4.5) mg/dL Magnesium (1.7-2.2) mg/dL Total Bilirubin (0.2-1.3) mg/dL AST (17-59) U/L ALT (7-56) U/L Alkaline Phosphatase (38-126) U/L Troponin I ng/mL Total Protein (5.8-8.3) g/dL Albumin (3.0-4.8) g/dL Globulin gm/dL Albumin/Globulin Ratio (1.1-1.8) Procalcitonin (0.19-0.49) NG/ML Arterial Blood Potassium (3.6-5.2) mmol/L Venous Blood Potassium (3.6-5.2) mmol/L Cold Agglutinins (NEGATIVE) 07/04/18 07/04/18 07/04/18 Range/Units 12:15 12:03 12:00 WBC (4.5-11.0) 10^3/uL RBC (3.5-6.1) 10^6/uL Hgb (14.0-18.0) g/dL Hct (42.0-52.0) % MCV (80.0-105.0) fl MCH (25.0-35.0) pg MCHC (31.0-37.0) g/dl RDW (11.5-14.5) % Plt Count (120.0-450.0) 10^3/uL Manual Plt Count (120-450) K/mm3 Gran % (50.0-68.0) % Lymph % (Auto) (22.0-35.0) % [place] % (Auto) (1.0-6.0) % Eos % (Auto) (1.5-5.0) % Baso % (Auto) (0.0-3.0) % Gran # (1.4-6.5) Lymph # (Auto) (1.2-3.4) [place] # (Auto) (0.1-0.6) Eos # (Auto) (0.0-0.7) Baso # (Auto) (0.0-2.0) K/mm3 Neutrophils % (Manual) (50.0-70.0) % Band Neutrophils % (0-2) % Lymphocytes % (Manual) (22.0-35.0) % Monocytes % (Manual) (1.0-6.0) % Plt Clumps, EDTA PT (9.4-12.5) SECONDS INR APTT (25.1-36.5) Seconds Fibrinogen (200-400) mg/dl Fibrin Degrad Products (< 10 ug/mL) pCO2 54 H (35-45) mm/Hg pO2 199.0 H (80-100) mm/Hg HCO3 17.6 L (21-28) mmol/L ABG pH 7.12 L* (7.35-7.45) ABG Total CO2 19.3 L (22-28) mmol.L ABG O2 Saturation 99.8 H (95-98) % ABG O2 Content (15-23) ML/dl ABG Base Excess -12.0 L (-2.0-3.0) mmol/L ABG Hemoglobin (11.7-17.4) g/dL ABG Carboxyhemoglobin (0.5-1.5) % POC ABG HHb (Measured) (0-5) % ABG Methemoglobin (0.0-3.0) % ABG O2 Capacity (16-24) mL/dl ABG Potassium 4.3 (3.6-5.2) mmol/L VBG pH (7.32-7.43) VBG pCO2 (40-60) VBG HCO3 (21-28) mmol/l VBG Total CO2 (22-28) mmol.L VBG O2 Sat (Calc) (40-65) % VBG Base Excess (0.0-2.0) mmol/L VBG Potassium (3.6-5.2) mmol/L Hgb O2 Saturation (95.0-98.0) % Glucose 126 H (75-110) mg/dl Lactate 9.7 H* (0.7-2.1) mmol/L Mechanical Rate 14 FiO2 100.0 % Tidal Volume 360 PEEP 5 Sodium 136.0 138 (132-148) mmol/L Potassium 4.9 (3.6-5.0) mmol/L Chloride 98.0 96 L (98-107) mmol/L Carbon Dioxide 19 L (21-33) mmol/L Anion Gap 28 H (10-20) BUN 36 H (7-21) mg/dL Creatinine 3.8 H (0.8-1.5) mg/dl Est GFR ( Amer) 20 Est GFR (Non-Af Amer) 16 Random Glucose 139 H (70-110) mg/dL Calcium 7.1 L (8.4-10.5) mg/dL Phosphorus 9.7 H (2.5-4.5) mg/dL Magnesium 2.5 H (1.7-2.2) mg/dL Total Bilirubin 1.9 H (0.2-1.3) mg/dL AST 149 H (17-59) U/L ALT 108 H (7-56) U/L Alkaline Phosphatase 319 H (38-126) U/L Troponin I 0.62 H* D ng/mL Total Protein 6.8 (5.8-8.3) g/dL Albumin 3.2 (3.0-4.8) g/dL Globulin 3.5 gm/dL Albumin/Globulin Ratio 0.9 L (1.1-1.8) Procalcitonin 4.06 H (0.19-0.49) NG/ML Arterial Blood Potassium 4.3 (3.6-5.2) mmol/L Venous Blood Potassium (3.6-5.2) mmol/L Cold Agglutinins (NEGATIVE) 07/04/18 07/03/18 Range/Units 12:00 17:00 WBC 7.3 (4.5-11.0) 10^3/uL RBC 3.89 (3.5-6.1) 10^6/uL Hgb 10.8 L (14.0-18.0) g/dL Hct 32.5 L (42.0-52.0) % MCV 83.5 (80.0-105.0) fl MCH 27.8 (25.0-35.0) pg MCHC 33.2 (31.0-37.0) g/dl RDW 17.8 H (11.5-14.5) % Plt Count 144 (120.0-450.0) 10^3/uL Manual Plt Count (120-450) K/mm3 Gran % 81.7 H (50.0-68.0) % Lymph % (Auto) 14.2 L (22.0-35.0) % [place] % (Auto) 3.7 (1.0-6.0) % Eos % (Auto) 0.4 L (1.5-5.0) % Baso % (Auto) 0.0 (0.0-3.0) % Gran # 5.97 (1.4-6.5) Lymph # (Auto) 1.0 L (1.2-3.4) [place] # (Auto) 0.3 (0.1-0.6) Eos # (Auto) 0.0 (0.0-0.7) Baso # (Auto) 0.00 (0.0-2.0) K/mm3 Neutrophils % (Manual) (50.0-70.0) % Band Neutrophils % (0-2) % Lymphocytes % (Manual) (22.0-35.0) % Monocytes % (Manual) (1.0-6.0) % Plt Clumps, EDTA PT (9.4-12.5) SECONDS INR APTT (25.1-36.5) Seconds Fibrinogen (200-400) mg/dl Fibrin Degrad Products (< 10 ug/mL) pCO2 (35-45) mm/Hg pO2 (80-100) mm/Hg HCO3 (21-28) mmol/L ABG pH (7.35-7.45) ABG Total CO2 (22-28) mmol.L ABG O2 Saturation (95-98) % ABG O2 Content (15-23) ML/dl ABG Base Excess (-2.0-3.0) mmol/L ABG Hemoglobin (11.7-17.4) g/dL ABG Carboxyhemoglobin (0.5-1.5) % POC ABG HHb (Measured) (0-5) % ABG Methemoglobin (0.0-3.0) % ABG O2 Capacity (16-24) mL/dl ABG Potassium (3.6-5.2) mmol/L VBG pH (7.32-7.43) VBG pCO2 (40-60) VBG HCO3 (21-28) mmol/l VBG Total CO2 (22-28) mmol.L VBG O2 Sat (Calc) (40-65) % VBG Base Excess (0.0-2.0) mmol/L VBG Potassium (3.6-5.2) mmol/L Hgb O2 Saturation (95.0-98.0) % Glucose (75-110) mg/dl Lactate (0.7-2.1) mmol/L Mechanical Rate FiO2 % Tidal Volume PEEP Sodium (132-148) mmol/L Potassium (3.6-5.0) mmol/L Chloride (98-107) mmol/L Carbon Dioxide (21-33) mmol/L Anion Gap (10-20) BUN (7-21) mg/dL Creatinine (0.8-1.5) mg/dl Est GFR ( Amer) Est GFR (Non-Af Amer) Random Glucose (70-110) mg/dL Calcium (8.4-10.5) mg/dL Phosphorus (2.5-4.5) mg/dL Magnesium (1.7-2.2) mg/dL Total Bilirubin (0.2-1.3) mg/dL AST (17-59) U/L ALT (7-56) U/L Alkaline Phosphatase (38-126) U/L Troponin I ng/mL Total Protein (5.8-8.3) g/dL Albumin (3.0-4.8) g/dL Globulin gm/dL Albumin/Globulin Ratio (1.1-1.8) Procalcitonin (0.19-0.49) NG/ML Arterial Blood Potassium (3.6-5.2) mmol/L Venous Blood Potassium (3.6-5.2) mmol/L Cold Agglutinins Negative (NEGATIVE) Laboratory Results - last 24 hr 07/03/18 07/04/18 07/04/18 17:00 12:00 12:00 WBC 7.3 RBC 3.89 Hgb 10.8 L Hct 32.5 L MCV 83.5 MCH 27.8 MCHC 33.2 RDW 17.8 H Plt Count 144 Manual Plt Count Gran % 81.7 H Lymph % (Auto) 14.2 L [place] % (Auto) 3.7 Eos % (Auto) 0.4 L Baso % (Auto) 0.0 Gran # 5.97 Lymph # (Auto) 1.0 L [place] # (Auto) 0.3 Eos # (Auto) 0.0 Baso # (Auto) 0.00 Neutrophils % (Manual) Band Neutrophils % Lymphocytes % (Manual) Monocytes % (Manual) Plt Clumps, EDTA PT INR APTT Fibrinogen Fibrin Degrad Products pCO2 pO2 HCO3 ABG pH ABG Total CO2 ABG O2 Saturation ABG O2 Content ABG Base Excess ABG Hemoglobin ABG Carboxyhemoglobin POC ABG HHb (Measured) ABG Methemoglobin ABG O2 Capacity ABG Potassium VBG pH VBG pCO2 VBG HCO3 VBG Total CO2 VBG O2 Sat (Calc) VBG Base Excess VBG Potassium Hgb O2 Saturation Glucose Lactate Mechanical Rate FiO2 Tidal Volume PEEP Sodium 138 Potassium 4.9 Chloride 96 L Carbon Dioxide 19 L Anion Gap 28 H BUN 36 H Creatinine 3.8 H Est GFR ( Amer) 20 Est GFR (Non-Af Amer) 16 Random Glucose 139 H Calcium 7.1 L Phosphorus 9.7 H Magnesium 2.5 H Total Bilirubin 1.9 H AST 149 H ALT 108 H Alkaline Phosphatase 319 H Troponin I 0.62 H* D Total Protein 6.8 Albumin 3.2 Globulin 3.5 Albumin/Globulin Ratio 0.9 L Procalcitonin Arterial Blood Potassium Venous Blood Potassium Cold Agglutinins Negative 07/04/18 07/04/18 07/04/18 12:03 12:15 14:00 WBC RBC Hgb Hct MCV MCH MCHC RDW Plt Count Manual Plt Count Gran % Lymph % (Auto) [place] % (Auto) Eos % (Auto) Baso % (Auto) Gran # Lymph # (Auto) [place] # (Auto) Eos # (Auto) Baso # (Auto) Neutrophils % (Manual) Band Neutrophils % Lymphocytes % (Manual) Monocytes % (Manual) Plt Clumps, EDTA PT INR APTT Fibrinogen Fibrin Degrad Products pCO2 54 H 26 L pO2 199.0 H 169.0 H HCO3 17.6 L 16.9 L ABG pH 7.12 L* 7.42 ABG Total CO2 19.3 L 17.7 L ABG O2 Saturation 99.8 H 99.8 H ABG O2 Content 14.0 L ABG Base Excess -12.0 L -6.4 L ABG Hemoglobin 10.0 L ABG Carboxyhemoglobin 1.9 H POC ABG HHb (Measured) 0.2 ABG Methemoglobin 0.9 ABG O2 Capacity 14.0 L ABG Potassium 4.3 VBG pH VBG pCO2 VBG HCO3 VBG Total CO2 VBG O2 Sat (Calc) VBG Base Excess VBG Potassium Hgb O2 Saturation 96.9 Glucose 126 H Lactate 9.7 H* Mechanical Rate 14 FiO2 100.0 40.0 Tidal Volume 360 PEEP 5 Sodium 136.0 Potassium Chloride 98.0 Carbon Dioxide Anion Gap BUN Creatinine Est GFR ( Amer) Est GFR (Non-Af Amer) Random Glucose Calcium Phosphorus Magnesium Total Bilirubin AST ALT Alkaline Phosphatase Troponin I Total Protein Albumin Globulin Albumin/Globulin Ratio Procalcitonin 4.06 H Arterial Blood Potassium 4.3 Venous Blood Potassium Cold Agglutinins 07/04/18 07/04/18 07/04/18 16:10 16:10 16:10 WBC RBC Hgb Hct MCV MCH MCHC RDW Plt Count Manual Plt Count Gran % Lymph % (Auto) [place] % (Auto) Eos % (Auto) Baso % (Auto) Gran # Lymph # (Auto) [place] # (Auto) Eos # (Auto) Baso # (Auto) Neutrophils % (Manual) Band Neutrophils % Lymphocytes % (Manual) Monocytes % (Manual) Plt Clumps, EDTA PT 25.9 H INR 2.23 APTT 30.5 Fibrinogen 228 Fibrin Degrad Products >40 ug/ml pCO2 pO2 93 H HCO3 ABG pH ABG Total CO2 ABG O2 Saturation ABG O2 Content ABG Base Excess ABG Hemoglobin ABG Carboxyhemoglobin POC ABG HHb (Measured) ABG Methemoglobin ABG O2 Capacity ABG Potassium VBG pH 7.37 VBG pCO2 31.0 L VBG HCO3 17.9 L VBG Total CO2 18.9 L VBG O2 Sat (Calc) 98.9 H VBG Base Excess -6.2 L VBG Potassium 5.1 Hgb O2 Saturation Glucose 245 H Lactate 7.5 H* Mechanical Rate FiO2 21.0 Tidal Volume PEEP Sodium 134.0 Potassium Chloride 95.0 L Carbon Dioxide Anion Gap BUN Creatinine Est GFR ( Amer) Est GFR (Non-Af Amer) Random Glucose Calcium Phosphorus Magnesium Total Bilirubin AST ALT Alkaline Phosphatase Troponin I Total Protein Albumin Globulin Albumin/Globulin Ratio Procalcitonin Arterial Blood Potassium Venous Blood Potassium 5.1 Cold Agglutinins 07/04/18 07/05/18 07/05/18 22:34 06:00 06:00 WBC 7.7 RBC 2.85 L Hgb 7.9 L D Hct 23.6 L MCV 82.8 MCH 27.7 MCHC 33.5 RDW 17.6 H Plt Count 108 L Manual Plt Count 180 Gran % 92.8 H Lymph % (Auto) 4.7 L [place] % (Auto) 2.5 Eos % (Auto) 0.0 L Baso % (Auto) 0.0 Gran # 7.10 H Lymph # (Auto) 0.4 L [place] # (Auto) 0.2 Eos # (Auto) 0.0 Baso # (Auto) 0.00 Neutrophils % (Manual) 89 H Band Neutrophils % 2 Lymphocytes % (Manual) 8 L Monocytes % (Manual) 1 Plt Clumps, EDTA Present PT INR APTT Fibrinogen Fibrin Degrad Products pCO2 pO2 63 H HCO3 ABG pH ABG Total CO2 ABG O2 Saturation ABG O2 Content ABG Base Excess ABG Hemoglobin ABG Carboxyhemoglobin POC ABG HHb (Measured) ABG Methemoglobin ABG O2 Capacity ABG Potassium VBG pH 7.38 VBG pCO2 32.0 L VBG HCO3 18.9 L VBG Total CO2 19.9 L VBG O2 Sat (Calc) 95.6 H VBG Base Excess -5.2 L VBG Potassium 5.2 Hgb O2 Saturation Glucose 373 H Lactate 4.2 H* Mechanical Rate FiO2 21.0 Tidal Volume PEEP Sodium 134.0 136 Potassium 5.6 H* Chloride 94.0 L 93 L Carbon Dioxide 20 L Anion Gap 28 H BUN 51 H Creatinine 4.4 H Est GFR ( Amer) 17 Est GFR (Non-Af Amer) 14 Random Glucose 408 H* D Calcium 6.7 L* Phosphorus Magnesium Total Bilirubin 1.6 H AST 113 H D ALT 84 H Alkaline Phosphatase 230 H D Troponin I Total Protein 6.2 Albumin 3.0 Globulin 3.2 Albumin/Globulin Ratio 0.9 L Procalcitonin Arterial Blood Potassium Venous Blood Potassium 5.2 Cold Agglutinins 07/05/18 07/05/18 06:00 06:30 WBC RBC Hgb Hct MCV MCH MCHC RDW Plt Count Manual Plt Count Gran % Lymph % (Auto) [place] % (Auto) Eos % (Auto) Baso % (Auto) Gran # Lymph # (Auto) [place] # (Auto) Eos # (Auto) Baso # (Auto) Neutrophils % (Manual) Band Neutrophils % Lymphocytes % (Manual) Monocytes % (Manual) Plt Clumps, EDTA PT INR APTT Fibrinogen Fibrin Degrad Products pCO2 34 L pO2 55 195.0 H HCO3 18.8 L ABG pH 7.35 ABG Total CO2 19.8 L ABG O2 Saturation 100.2 H ABG O2 Content 12.0 L ABG Base Excess -6.2 L ABG Hemoglobin 8.4 L ABG Carboxyhemoglobin 1.8 H POC ABG HHb (Measured) -0.2 L ABG Methemoglobin 0.6 ABG O2 Capacity 12.0 L ABG Potassium VBG pH 7.32 VBG pCO2 42.0 VBG HCO3 21.6 VBG Total CO2 22.9 VBG O2 Sat (Calc) 90.6 H VBG Base Excess -4.3 L VBG Potassium 5.6 H Hgb O2 Saturation 97.9 Glucose 427 H* Lactate 2.3 H Mechanical Rate FiO2 21.0 60.0 Tidal Volume PEEP Sodium 133.0 Potassium Chloride 96.0 L Carbon Dioxide Anion Gap BUN Creatinine Est GFR ( Amer) Est GFR (Non-Af Amer) Random Glucose Calcium Phosphorus Magnesium Total Bilirubin AST ALT Alkaline Phosphatase Troponin I Total Protein Albumin Globulin Albumin/Globulin Ratio Procalcitonin Arterial Blood Potassium Venous Blood Potassium 5.6 H Cold Agglutinins EKG/Cardiology Studies: Cardiology / EKG Studies 07/05/18 07:38 EKG [ELECTROCARDIOGRAM] Stat Comment: Reason For Exam: hyperkalemia Fingerstick Blood Sugar Results: 107 Review of Systems - Review of Systems Review of Systems: unable to be obtained Critical Care Progress Note - Nutrition Nutrition: Nutrition Category Date Time Status Heart Healthy Diet [DIET] Diets 07/01/18 Dinner Active Assessment/Plan - Assessment and Plan (Free Text) Assessment: 62 y/o M s/p L hip ORIF admitted to ICU s/p code blue x 3. PEA with ROSC in ICU Plan: Neuro: Sedated, intubated non-responsive CT head showed new subarachnoid/subdural layering around the tentorium with a subarachnoid hemorrhage seen layering dependently in the 4th ventricle and in the cerebellar fossa. Per neurosurgery, no surgical intervention at this time Neurology to f/u video EEG FFP transfusion Keppra q12 hrs Cardio: Normotensive, regular rate s/p CPR with ROSC Currently on dobutamine drip Currently on levophed drip Sedated with midazolam, intubated R femoral arterial line in place Maintain MAP > 65. Pulm: Sedated with midazolam Intubated on PRVC 400/20/60%/5 Maintain SaO2 >90& ID: Stress dose steroids lactate improving GI: Distended IV protonix /Renal: ESRD Tues, Thurs, Sa Recs per nephro Monitor I/Os Heme: Thrombocytopenic tranfuse if Hgb <7 Case seen, examined and discussed with attending physician, Dr. Urena <Pramod Urena - Last Filed: 07/05/18 11:40> CCU Objective - Vital Signs / Intake & Output Vital Signs (Last 4 hours): Vital Signs Temp Pulse Pulse Ox 07/05/18 10:30 98.4 F 86 100 07/05/18 10:20 98.4 F 85 100 07/05/18 10:10 98.4 F 85 100 07/05/18 10:00 98.4 F 85 100 07/05/18 09:50 98.4 F 87 100 07/05/18 09:40 98.2 F 87 100 07/05/18 09:30 98.4 F 85 100 07/05/18 09:20 98.6 F 85 100 07/05/18 09:10 98.8 F 83 91 L 07/05/18 09:00 98.8 F 83 92 L 07/05/18 08:56 99.0 F 83 07/05/18 08:55 99.0 F 84 07/05/18 08:54 99.0 F 84 07/05/18 08:53 99.0 F 84 07/05/18 08:52 99.0 F 84 07/05/18 08:50 99.0 F 84 92 L 07/05/18 08:40 99.1 F 83 93 L 07/05/18 08:32 99.3 F 83 07/05/18 08:31 99.3 F 83 07/05/18 08:30 99.3 F 83 07/05/18 08:29 99.3 F 83 07/05/18 08:28 99.3 F 84 07/05/18 08:27 99.3 F 84 07/05/18 08:26 99.3 F 83 07/05/18 08:25 99.3 F 84 07/05/18 08:24 99.3 F 84 07/05/18 08:23 99.3 F 84 07/05/18 08:22 99.3 F 84 07/05/18 08:21 99.3 F 84 07/05/18 08:20 99.3 F 84 07/05/18 08:10 99.3 F 84 99 07/05/18 08:00 99.3 F 84 99 07/05/18 07:50 99.3 F 84 100 07/05/18 07:40 99.3 F 84 98 Intake and Output (Last 8hrs): Intake & Output 07/04/18 07/05/18 07/05/18 22:59 06:59 14:59 Intake Total 100 340 112 Balance 100 340 112 Intake: IV 100 340 112 - Medications Active Medications: Active Medications Generic Name Dose Route Start Last Admin Trade Name Freq PRN Reason Stop Dose Admin Albuterol/Ipratropium 3 ml 07/01/18 20:43 07/04/18 13:20 Duoneb 3 Mg/0.5 Mg (3 Ml) Ud IH 3 ml [id number] PRN Administration Shortness of Breath Famotidine 20 mg 07/01/18 22:00 07/03/18 15:49 Pepcid PO Not Given 1000,2200 [facility] Gabapentin 300 mg 07/02/18 10:00 07/03/18 15:29 Neurontin PO 300 mg DAILY ARELIS Administration Protocol Hydralazine HCl 25 mg 07/02/18 10:00 07/04/18 15:41 Apresoline PO Not Given TID ARELIS Hydrocortisone Sodium Succinate 50 mg 07/04/18 12:15 07/05/18 06:00 Solu-Cortef IVP 50 mg Q6H ARELIS Administration Hydroxyzine HCl 25 mg 07/02/18 10:00 07/05/18 09:39 Atarax PO Not Given TID ARELIS Epinephrine HCl 1 mg/ Sodium 51 mls @ 3.06 mls/hr 07/04/18 11:23 Chloride IV .[id number] PRN TITRATE PER MD ORDER Protocol 1 MCG/MIN Dobutamine HCl/Dextrose 500 mg in 250 mls @ 10.553 mls/hr 07/04/18 12:08 07/05/18 10:52 Dobutamine/Dextrose 5% 500mg/250ml IV 7.5 mcg/kg/min .[id number] PRN 15.829 mls/hr TITRATE PER PROTOCOL Administration Protocol 5 MCG/KG/MIN Vasopressin 20 units/ Sodium 101 mls @ 9.09 mls/hr 07/04/18 13:00 07/05/18 01:12 Chloride IV 9.09 mls/hr .[id number] ARELIS Administration Protocol 0.03 U/MIN Levetiracetam 100 mls @ 460 mls/hr 07/04/18 14:00 07/04/18 22:40 Keppra 1000mg/100ml Ns IV 460 mls/hr Q12 ARELIS Administration Midazolam 100 mg/100ml in NS 100 mg in 100 mls @ 1 mls/hr 07/04/18 14:05 07/05/18 10:51 Midazolam 100 Mg/100ml In Ns IV 10 mg/hr .Q24H PRN 10 mls/hr Agitation Administration Protocol 1 MG/HR NOREPINEPHRINE BIT/0.9 % NACL 4 mg in 250 mls @ 15 mls/hr 07/05/18 09:00 07/05/18 10:02 Levophed 4 Mg/ 250 Ml Ns Premixed IV 2 mcg/min .[id number] PRN 7.5 mls/hr TITRATE PER MD ORDER Titration Protocol 4 MCG/MIN Insulin Human Lispro 0 units 07/02/18 16:30 07/05/18 09:46 Humalog High SC 12 units ACHS ARELIS Administration Protocol Isosorbide Mononitrate 120 mg 07/02/18 10:00 07/03/18 15:29 Imdur PO 120 mg DAILY ARELIS Administration Morphine Sulfate 2 mg 07/01/18 20:43 07/03/18 18:25 Morphine IVP 2 mg Q4H PRN Administration Pain, severe (8-10) Pantoprazole Sodium 40 mg 07/05/18 10:00 07/05/18 09:47 Protonix Inj IVP 40 mg DAILY ARELIS Administration Prednisone 5 mg 07/02/18 10:00 07/03/18 15:48 Prednisone Tab PO 5 mg DAILY ARELIS Administration - Patient Studies Lab Studies: Lab Studies 07/05/18 07/05/18 07/05/18 Range/Units 10:00 08:53 06:30 WBC (4.5-11.0) 10^3/uL RBC (3.5-6.1) 10^6/uL Hgb (14.0-18.0) g/dL Hct (42.0-52.0) % MCV (80.0-105.0) fl MCH (25.0-35.0) pg MCHC (31.0-37.0) g/dl RDW (11.5-14.5) % Plt Count (120.0-450.0) 10^3/uL Manual Plt Count (120-450) K/mm3 Gran % (50.0-68.0) % Lymph % (Auto) (22.0-35.0) % [place] % (Auto) (1.0-6.0) % Eos % (Auto) (1.5-5.0) % Baso % (Auto) (0.0-3.0) % Gran # (1.4-6.5) Lymph # (Auto) (1.2-3.4) [place] # (Auto) (0.1-0.6) Eos # (Auto) (0.0-0.7) Baso # (Auto) (0.0-2.0) K/mm3 Neutrophils % (Manual) (50.0-70.0) % Band Neutrophils % (0-2) % Lymphocytes % (Manual) (22.0-35.0) % Monocytes % (Manual) (1.0-6.0) % Plt Clumps, EDTA PT (9.4-12.5) SECONDS INR APTT (25.1-36.5) Seconds Fibrinogen (200-400) mg/dl Fibrin Degrad Products (< 10 ug/mL) pCO2 34 L (35-45) mm/Hg pO2 72 H 195.0 H (80-100) mm/Hg HCO3 18.8 L (21-28) mmol/L ABG pH 7.35 (7.35-7.45) ABG Total CO2 19.8 L (22-28) mmol.L ABG O2 Saturation 100.2 H (95-98) % ABG O2 Content 12.0 L (15-23) ML/dl ABG Base Excess -6.2 L (-2.0-3.0) mmol/L ABG Hemoglobin 8.4 L (11.7-17.4) g/dL ABG Carboxyhemoglobin 1.8 H (0.5-1.5) % POC ABG HHb (Measured) -0.2 L (0-5) % ABG Methemoglobin 0.6 (0.0-3.0) % ABG O2 Capacity 12.0 L (16-24) mL/dl ABG Potassium (3.6-5.2) mmol/L VBG pH 7.30 L (7.32-7.43) VBG pCO2 48.0 (40-60) VBG HCO3 23.6 (21-28) mmol/l VBG Total CO2 25.1 (22-28) mmol.L VBG O2 Sat (Calc) 96.5 H (40-65) % VBG Base Excess -3.2 L (0.0-2.0) mmol/L VBG Potassium 4.9 (3.6-5.2) mmol/L Hgb O2 Saturation 97.9 (95.0-98.0) % Glucose 360 H (75-110) mg/dl Lactate 1.9 (0.7-2.1) mmol/L Mechanical Rate FiO2 21.0 60.0 % Tidal Volume PEEP Sodium 134.0 (132-148) mmol/L Potassium (3.6-5.0) mmol/L Chloride 95.0 L (98-107) mmol/L Carbon Dioxide (21-33) mmol/L Anion Gap (10-20) BUN (7-21) mg/dL Creatinine (0.8-1.5) mg/dl Est GFR ( Amer) Est GFR (Non-Af Amer) POC Glucose (mg/dL) 377 H (65-110) mg/dL Random Glucose (70-110) mg/dL Calcium (8.4-10.5) mg/dL Phosphorus (2.5-4.5) mg/dL Magnesium (1.7-2.2) mg/dL Total Bilirubin (0.2-1.3) mg/dL AST (17-59) U/L ALT (7-56) U/L Alkaline Phosphatase (38-126) U/L Troponin I ng/mL Total Protein (5.8-8.3) g/dL Albumin (3.0-4.8) g/dL Globulin gm/dL Albumin/Globulin Ratio (1.1-1.8) Procalcitonin (0.19-0.49) NG/ML Arterial Blood Potassium (3.6-5.2) mmol/L Venous Blood Potassium 4.9 (3.6-5.2) mmol/L Cold Agglutinins (NEGATIVE) 07/05/18 07/05/18 07/05/18 Range/Units 06:00 06:00 06:00 WBC 7.7 (4.5-11.0) 10^3/uL RBC 2.85 L (3.5-6.1) 10^6/uL Hgb 7.9 L D (14.0-18.0) g/dL Hct 23.6 L (42.0-52.0) % MCV 82.8 (80.0-105.0) fl MCH 27.7 (25.0-35.0) pg MCHC 33.5 (31.0-37.0) g/dl RDW 17.6 H (11.5-14.5) % Plt Count 108 L (120.0-450.0) 10^3/uL Manual Plt Count 180 (120-450) K/mm3 Gran % 92.8 H (50.0-68.0) % Lymph % (Auto) 4.7 L (22.0-35.0) % [place] % (Auto) 2.5 (1.0-6.0) % Eos % (Auto) 0.0 L (1.5-5.0) % Baso % (Auto) 0.0 (0.0-3.0) % Gran # 7.10 H (1.4-6.5) Lymph # (Auto) 0.4 L (1.2-3.4) [place] # (Auto) 0.2 (0.1-0.6) Eos # (Auto) 0.0 (0.0-0.7) Baso # (Auto) 0.00 (0.0-2.0) K/mm3 Neutrophils % (Manual) 89 H (50.0-70.0) % Band Neutrophils % 2 (0-2) % Lymphocytes % (Manual) 8 L (22.0-35.0) % Monocytes % (Manual) 1 (1.0-6.0) % Plt Clumps, EDTA Present PT (9.4-12.5) SECONDS INR APTT (25.1-36.5) Seconds Fibrinogen (200-400) mg/dl Fibrin Degrad Products (< 10 ug/mL) pCO2 (35-45) mm/Hg pO2 55 (80-100) mm/Hg HCO3 (21-28) mmol/L ABG pH (7.35-7.45) ABG Total CO2 (22-28) mmol.L ABG O2 Saturation (95-98) % ABG O2 Content (15-23) ML/dl ABG Base Excess (-2.0-3.0) mmol/L ABG Hemoglobin (11.7-17.4) g/dL ABG Carboxyhemoglobin (0.5-1.5) % POC ABG HHb (Measured) (0-5) % ABG Methemoglobin (0.0-3.0) % ABG O2 Capacity (16-24) mL/dl ABG Potassium (3.6-5.2) mmol/L VBG pH 7.32 (7.32-7.43) VBG pCO2 42.0 (40-60) VBG HCO3 21.6 (21-28) mmol/l VBG Total CO2 22.9 (22-28) mmol.L VBG O2 Sat (Calc) 90.6 H (40-65) % VBG Base Excess -4.3 L (0.0-2.0) mmol/L VBG Potassium 5.6 H (3.6-5.2) mmol/L Hgb O2 Saturation (95.0-98.0) % Glucose 427 H* (75-110) mg/dl Lactate 2.3 H (0.7-2.1) mmol/L Mechanical Rate FiO2 21.0 % Tidal Volume PEEP Sodium 133.0 136 (132-148) mmol/L Potassium 5.6 H* (3.6-5.0) mmol/L Chloride 96.0 L 93 L (98-107) mmol/L Carbon Dioxide 20 L (21-33) mmol/L Anion Gap 28 H (10-20) BUN 51 H (7-21) mg/dL Creatinine 4.4 H (0.8-1.5) mg/dl Est GFR ( Amer) 17 Est GFR (Non-Af Amer) 14 POC Glucose (mg/dL) (65-110) mg/dL Random Glucose 408 H* D (70-110) mg/dL Calcium 6.7 L* (8.4-10.5) mg/dL Phosphorus (2.5-4.5) mg/dL Magnesium (1.7-2.2) mg/dL Total Bilirubin 1.6 H (0.2-1.3) mg/dL AST 113 H D (17-59) U/L ALT 84 H (7-56) U/L Alkaline Phosphatase 230 H D (38-126) U/L Troponin I ng/mL Total Protein 6.2 (5.8-8.3) g/dL Albumin 3.0 (3.0-4.8) g/dL Globulin 3.2 gm/dL Albumin/Globulin Ratio 0.9 L (1.1-1.8) Procalcitonin (0.19-0.49) NG/ML Arterial Blood Potassium (3.6-5.2) mmol/L Venous Blood Potassium 5.6 H (3.6-5.2) mmol/L Cold Agglutinins (NEGATIVE) 07/04/18 07/04/18 07/04/18 Range/Units 22:34 16:10 16:10 WBC (4.5-11.0) 10^3/uL RBC (3.5-6.1) 10^6/uL Hgb (14.0-18.0) g/dL Hct (42.0-52.0) % MCV (80.0-105.0) fl MCH (25.0-35.0) pg MCHC (31.0-37.0) g/dl RDW (11.5-14.5) % Plt Count (120.0-450.0) 10^3/uL Manual Plt Count (120-450) K/mm3 Gran % (50.0-68.0) % Lymph % (Auto) (22.0-35.0) % [place] % (Auto) (1.0-6.0) % Eos % (Auto) (1.5-5.0) % Baso % (Auto) (0.0-3.0) % Gran # (1.4-6.5) Lymph # (Auto) (1.2-3.4) [place] # (Auto) (0.1-0.6) Eos # (Auto) (0.0-0.7) Baso # (Auto) (0.0-2.0) K/mm3 Neutrophils % (Manual) (50.0-70.0) % Band Neutrophils % (0-2) % Lymphocytes % (Manual) (22.0-35.0) % Monocytes % (Manual) (1.0-6.0) % Plt Clumps, EDTA PT (9.4-12.5) SECONDS INR APTT (25.1-36.5) Seconds Fibrinogen (200-400) mg/dl Fibrin Degrad Products >40 ug/ml (< 10 ug/mL) pCO2 (35-45) mm/Hg pO2 63 H 93 H (80-100) mm/Hg HCO3 (21-28) mmol/L ABG pH (7.35-7.45) ABG Total CO2 (22-28) mmol.L ABG O2 Saturation (95-98) % ABG O2 Content (15-23) ML/dl ABG Base Excess (-2.0-3.0) mmol/L ABG Hemoglobin (11.7-17.4) g/dL ABG Carboxyhemoglobin (0.5-1.5) % POC ABG HHb (Measured) (0-5) % ABG Methemoglobin (0.0-3.0) % ABG O2 Capacity (16-24) mL/dl ABG Potassium (3.6-5.2) mmol/L VBG pH 7.38 7.37 (7.32-7.43) VBG pCO2 32.0 L 31.0 L (40-60) VBG HCO3 18.9 L 17.9 L (21-28) mmol/l VBG Total CO2 19.9 L 18.9 L (22-28) mmol.L VBG O2 Sat (Calc) 95.6 H 98.9 H (40-65) % VBG Base Excess -5.2 L -6.2 L (0.0-2.0) mmol/L VBG Potassium 5.2 5.1 (3.6-5.2) mmol/L Hgb O2 Saturation (95.0-98.0) % Glucose 373 H 245 H (75-110) mg/dl Lactate 4.2 H* 7.5 H* (0.7-2.1) mmol/L Mechanical Rate FiO2 21.0 21.0 % Tidal Volume PEEP Sodium 134.0 134.0 (132-148) mmol/L Potassium (3.6-5.0) mmol/L Chloride 94.0 L 95.0 L (98-107) mmol/L Carbon Dioxide (21-33) mmol/L Anion Gap (10-20) BUN (7-21) mg/dL Creatinine (0.8-1.5) mg/dl Est GFR ( Amer) Est GFR (Non-Af Amer) POC Glucose (mg/dL) (65-110) mg/dL Random Glucose (70-110) mg/dL Calcium (8.4-10.5) mg/dL Phosphorus (2.5-4.5) mg/dL Magnesium (1.7-2.2) mg/dL Total Bilirubin (0.2-1.3) mg/dL AST (17-59) U/L ALT (7-56) U/L Alkaline Phosphatase (38-126) U/L Troponin I ng/mL Total Protein (5.8-8.3) g/dL Albumin (3.0-4.8) g/dL Globulin gm/dL Albumin/Globulin Ratio (1.1-1.8) Procalcitonin (0.19-0.49) NG/ML Arterial Blood Potassium (3.6-5.2) mmol/L Venous Blood Potassium 5.2 5.1 (3.6-5.2) mmol/L Cold Agglutinins (NEGATIVE) 07/04/18 07/04/18 07/04/18 Range/Units 16:10 14:00 12:15 WBC (4.5-11.0) 10^3/uL RBC (3.5-6.1) 10^6/uL Hgb (14.0-18.0) g/dL Hct (42.0-52.0) % MCV (80.0-105.0) fl MCH (25.0-35.0) pg MCHC (31.0-37.0) g/dl RDW (11.5-14.5) % Plt Count (120.0-450.0) 10^3/uL Manual Plt Count (120-450) K/mm3 Gran % (50.0-68.0) % Lymph % (Auto) (22.0-35.0) % [place] % (Auto) (1.0-6.0) % Eos % (Auto) (1.5-5.0) % Baso % (Auto) (0.0-3.0) % Gran # (1.4-6.5) Lymph # (Auto) (1.2-3.4) [place] # (Auto) (0.1-0.6) Eos # (Auto) (0.0-0.7) Baso # (Auto) (0.0-2.0) K/mm3 Neutrophils % (Manual) (50.0-70.0) % Band Neutrophils % (0-2) % Lymphocytes % (Manual) (22.0-35.0) % Monocytes % (Manual) (1.0-6.0) % Plt Clumps, EDTA PT 25.9 H (9.4-12.5) SECONDS INR 2.23 APTT 30.5 (25.1-36.5) Seconds Fibrinogen 228 (200-400) mg/dl Fibrin Degrad Products (< 10 ug/mL) pCO2 26 L (35-45) mm/Hg pO2 169.0 H (80-100) mm/Hg HCO3 16.9 L (21-28) mmol/L ABG pH 7.42 (7.35-7.45) ABG Total CO2 17.7 L (22-28) mmol.L ABG O2 Saturation 99.8 H (95-98) % ABG O2 Content 14.0 L (15-23) ML/dl ABG Base Excess -6.4 L (-2.0-3.0) mmol/L ABG Hemoglobin 10.0 L (11.7-17.4) g/dL ABG Carboxyhemoglobin 1.9 H (0.5-1.5) % POC ABG HHb (Measured) 0.2 (0-5) % ABG Methemoglobin 0.9 (0.0-3.0) % ABG O2 Capacity 14.0 L (16-24) mL/dl ABG Potassium (3.6-5.2) mmol/L VBG pH (7.32-7.43) VBG pCO2 (40-60) VBG HCO3 (21-28) mmol/l VBG Total CO2 (22-28) mmol.L VBG O2 Sat (Calc) (40-65) % VBG Base Excess (0.0-2.0) mmol/L VBG Potassium (3.6-5.2) mmol/L Hgb O2 Saturation 96.9 (95.0-98.0) % Glucose (75-110) mg/dl Lactate (0.7-2.1) mmol/L Mechanical Rate FiO2 40.0 % Tidal Volume PEEP Sodium (132-148) mmol/L Potassium (3.6-5.0) mmol/L Chloride (98-107) mmol/L Carbon Dioxide (21-33) mmol/L Anion Gap (10-20) BUN (7-21) mg/dL Creatinine (0.8-1.5) mg/dl Est GFR ( Amer) Est GFR (Non-Af Amer) POC Glucose (mg/dL) (65-110) mg/dL Random Glucose (70-110) mg/dL Calcium (8.4-10.5) mg/dL Phosphorus (2.5-4.5) mg/dL Magnesium (1.7-2.2) mg/dL Total Bilirubin (0.2-1.3) mg/dL AST (17-59) U/L ALT (7-56) U/L Alkaline Phosphatase (38-126) U/L Troponin I ng/mL Total Protein (5.8-8.3) g/dL Albumin (3.0-4.8) g/dL Globulin gm/dL Albumin/Globulin Ratio (1.1-1.8) Procalcitonin 4.06 H (0.19-0.49) NG/ML Arterial Blood Potassium (3.6-5.2) mmol/L Venous Blood Potassium (3.6-5.2) mmol/L Cold Agglutinins (NEGATIVE) 07/04/18 07/04/18 07/04/18 Range/Units 12:03 12:00 12:00 WBC 7.3 (4.5-11.0) 10^3/uL RBC 3.89 (3.5-6.1) 10^6/uL Hgb 10.8 L (14.0-18.0) g/dL Hct 32.5 L (42.0-52.0) % MCV 83.5 (80.0-105.0) fl MCH 27.8 (25.0-35.0) pg MCHC 33.2 (31.0-37.0) g/dl RDW 17.8 H (11.5-14.5) % Plt Count 144 (120.0-450.0) 10^3/uL Manual Plt Count (120-450) K/mm3 Gran % 81.7 H (50.0-68.0) % Lymph % (Auto) 14.2 L (22.0-35.0) % [place] % (Auto) 3.7 (1.0-6.0) % Eos % (Auto) 0.4 L (1.5-5.0) % Baso % (Auto) 0.0 (0.0-3.0) % Gran # 5.97 (1.4-6.5) Lymph # (Auto) 1.0 L (1.2-3.4) [place] # (Auto) 0.3 (0.1-0.6) Eos # (Auto) 0.0 (0.0-0.7) Baso # (Auto) 0.00 (0.0-2.0) K/mm3 Neutrophils % (Manual) (50.0-70.0) % Band Neutrophils % (0-2) % Lymphocytes % (Manual) (22.0-35.0) % Monocytes % (Manual) (1.0-6.0) % Plt Clumps, EDTA PT (9.4-12.5) SECONDS INR APTT (25.1-36.5) Seconds Fibrinogen (200-400) mg/dl Fibrin Degrad Products (< 10 ug/mL) pCO2 54 H (35-45) mm/Hg pO2 199.0 H (80-100) mm/Hg HCO3 17.6 L (21-28) mmol/L ABG pH 7.12 L* (7.35-7.45) ABG Total CO2 19.3 L (22-28) mmol.L ABG O2 Saturation 99.8 H (95-98) % ABG O2 Content (15-23) ML/dl ABG Base Excess -12.0 L (-2.0-3.0) mmol/L ABG Hemoglobin (11.7-17.4) g/dL ABG Carboxyhemoglobin (0.5-1.5) % POC ABG HHb (Measured) (0-5) % ABG Methemoglobin (0.0-3.0) % ABG O2 Capacity (16-24) mL/dl ABG Potassium 4.3 (3.6-5.2) mmol/L VBG pH (7.32-7.43) VBG pCO2 (40-60) VBG HCO3 (21-28) mmol/l VBG Total CO2 (22-28) mmol.L VBG O2 Sat (Calc) (40-65) % VBG Base Excess (0.0-2.0) mmol/L VBG Potassium (3.6-5.2) mmol/L Hgb O2 Saturation (95.0-98.0) % Glucose 126 H (75-110) mg/dl Lactate 9.7 H* (0.7-2.1) mmol/L Mechanical Rate 14 FiO2 100.0 % Tidal Volume 360 PEEP 5 Sodium 136.0 138 (132-148) mmol/L Potassium 4.9 (3.6-5.0) mmol/L Chloride 98.0 96 L (98-107) mmol/L Carbon Dioxide 19 L (21-33) mmol/L Anion Gap 28 H (10-20) BUN 36 H (7-21) mg/dL Creatinine 3.8 H (0.8-1.5) mg/dl Est GFR ( Amer) 20 Est GFR (Non-Af Amer) 16 POC Glucose (mg/dL) (65-110) mg/dL Random Glucose 139 H (70-110) mg/dL Calcium 7.1 L (8.4-10.5) mg/dL Phosphorus 9.7 H (2.5-4.5) mg/dL Magnesium 2.5 H (1.7-2.2) mg/dL Total Bilirubin 1.9 H (0.2-1.3) mg/dL AST 149 H (17-59) U/L ALT 108 H (7-56) U/L Alkaline Phosphatase 319 H (38-126) U/L Troponin I 0.62 H* D ng/mL Total Protein 6.8 (5.8-8.3) g/dL Albumin 3.2 (3.0-4.8) g/dL Globulin 3.5 gm/dL Albumin/Globulin Ratio 0.9 L (1.1-1.8) Procalcitonin (0.19-0.49) NG/ML Arterial Blood Potassium 4.3 (3.6-5.2) mmol/L Venous Blood Potassium (3.6-5.2) mmol/L Cold Agglutinins (NEGATIVE) 07/03/18 Range/Units 17:00 WBC (4.5-11.0) 10^3/uL RBC (3.5-6.1) 10^6/uL Hgb (14.0-18.0) g/dL Hct (42.0-52.0) % MCV (80.0-105.0) fl MCH (25.0-35.0) pg MCHC (31.0-37.0) g/dl RDW (11.5-14.5) % Plt Count (120.0-450.0) 10^3/uL Manual Plt Count (120-450) K/mm3 Gran % (50.0-68.0) % Lymph % (Auto) (22.0-35.0) % [place] % (Auto) (1.0-6.0) % Eos % (Auto) (1.5-5.0) % Baso % (Auto) (0.0-3.0) % Gran # (1.4-6.5) Lymph # (Auto) (1.2-3.4) [place] # (Auto) (0.1-0.6) Eos # (Auto) (0.0-0.7) Baso # (Auto) (0.0-2.0) K/mm3 Neutrophils % (Manual) (50.0-70.0) % Band Neutrophils % (0-2) % Lymphocytes % (Manual) (22.0-35.0) % Monocytes % (Manual) (1.0-6.0) % Plt Clumps, EDTA PT (9.4-12.5) SECONDS INR APTT (25.1-36.5) Seconds Fibrinogen (200-400) mg/dl Fibrin Degrad Products (< 10 ug/mL) pCO2 (35-45) mm/Hg pO2 (80-100) mm/Hg HCO3 (21-28) mmol/L ABG pH (7.35-7.45) ABG Total CO2 (22-28) mmol.L ABG O2 Saturation (95-98) % ABG O2 Content (15-23) ML/dl ABG Base Excess (-2.0-3.0) mmol/L ABG Hemoglobin (11.7-17.4) g/dL ABG Carboxyhemoglobin (0.5-1.5) % POC ABG HHb (Measured) (0-5) % ABG Methemoglobin (0.0-3.0) % ABG O2 Capacity (16-24) mL/dl ABG Potassium (3.6-5.2) mmol/L VBG pH (7.32-7.43) VBG pCO2 (40-60) VBG HCO3 (21-28) mmol/l VBG Total CO2 (22-28) mmol.L VBG O2 Sat (Calc) (40-65) % VBG Base Excess (0.0-2.0) mmol/L VBG Potassium (3.6-5.2) mmol/L Hgb O2 Saturation (95.0-98.0) % Glucose (75-110) mg/dl Lactate (0.7-2.1) mmol/L Mechanical Rate FiO2 % Tidal Volume PEEP Sodium (132-148) mmol/L Potassium (3.6-5.0) mmol/L Chloride (98-107) mmol/L Carbon Dioxide (21-33) mmol/L Anion Gap (10-20) BUN (7-21) mg/dL Creatinine (0.8-1.5) mg/dl Est GFR ( Amer) Est GFR (Non-Af Amer) POC Glucose (mg/dL) (65-110) mg/dL Random Glucose (70-110) mg/dL Calcium (8.4-10.5) mg/dL Phosphorus (2.5-4.5) mg/dL Magnesium (1.7-2.2) mg/dL Total Bilirubin (0.2-1.3) mg/dL AST (17-59) U/L ALT (7-56) U/L Alkaline Phosphatase (38-126) U/L Troponin I ng/mL Total Protein (5.8-8.3) g/dL Albumin (3.0-4.8) g/dL Globulin gm/dL Albumin/Globulin Ratio (1.1-1.8) Procalcitonin (0.19-0.49) NG/ML Arterial Blood Potassium (3.6-5.2) mmol/L Venous Blood Potassium (3.6-5.2) mmol/L Cold Agglutinins Negative (NEGATIVE) Laboratory Results - last 24 hr 07/03/18 07/04/18 07/04/18 17:00 12:00 12:00 WBC 7.3 RBC 3.89 Hgb 10.8 L Hct 32.5 L MCV 83.5 MCH 27.8 MCHC 33.2 RDW 17.8 H Plt Count 144 Manual Plt Count Gran % 81.7 H Lymph % (Auto) 14.2 L [place] % (Auto) 3.7 Eos % (Auto) 0.4 L Baso % (Auto) 0.0 Gran # 5.97 Lymph # (Auto) 1.0 L [place] # (Auto) 0.3 Eos # (Auto) 0.0 Baso # (Auto) 0.00 Neutrophils % (Manual) Band Neutrophils % Lymphocytes % (Manual) Monocytes % (Manual) Plt Clumps, EDTA PT INR APTT Fibrinogen Fibrin Degrad Products pCO2 pO2 HCO3 ABG pH ABG Total CO2 ABG O2 Saturation ABG O2 Content ABG Base Excess ABG Hemoglobin ABG Carboxyhemoglobin POC ABG HHb (Measured) ABG Methemoglobin ABG O2 Capacity ABG Potassium VBG pH VBG pCO2 VBG HCO3 VBG Total CO2 VBG O2 Sat (Calc) VBG Base Excess VBG Potassium Hgb O2 Saturation Glucose Lactate Mechanical Rate FiO2 Tidal Volume PEEP Sodium 138 Potassium 4.9 Chloride 96 L Carbon Dioxide 19 L Anion Gap 28 H BUN 36 H Creatinine 3.8 H Est GFR ( Amer) 20 Est GFR (Non-Af Amer) 16 POC Glucose (mg/dL) Random Glucose 139 H Calcium 7.1 L Phosphorus 9.7 H Magnesium 2.5 H Total Bilirubin 1.9 H AST 149 H ALT 108 H Alkaline Phosphatase 319 H Troponin I 0.62 H* D Total Protein 6.8 Albumin 3.2 Globulin 3.5 Albumin/Globulin Ratio 0.9 L Procalcitonin Arterial Blood Potassium Venous Blood Potassium Cold Agglutinins Negative 07/04/18 07/04/18 07/04/18 12:03 12:15 14:00 WBC RBC Hgb Hct MCV MCH MCHC RDW Plt Count Manual Plt Count Gran % Lymph % (Auto) [place] % (Auto) Eos % (Auto) Baso % (Auto) Gran # Lymph # (Auto) [place] # (Auto) Eos # (Auto) Baso # (Auto) Neutrophils % (Manual) Band Neutrophils % Lymphocytes % (Manual) Monocytes % (Manual) Plt Clumps, EDTA PT INR APTT Fibrinogen Fibrin Degrad Products pCO2 54 H 26 L pO2 199.0 H 169.0 H HCO3 17.6 L 16.9 L ABG pH 7.12 L* 7.42 ABG Total CO2 19.3 L 17.7 L ABG O2 Saturation 99.8 H 99.8 H ABG O2 Content 14.0 L ABG Base Excess -12.0 L -6.4 L ABG Hemoglobin 10.0 L ABG Carboxyhemoglobin 1.9 H POC ABG HHb (Measured) 0.2 ABG Methemoglobin 0.9 ABG O2 Capacity 14.0 L ABG Potassium 4.3 VBG pH VBG pCO2 VBG HCO3 VBG Total CO2 VBG O2 Sat (Calc) VBG Base Excess VBG Potassium Hgb O2 Saturation 96.9 Glucose 126 H Lactate 9.7 H* Mechanical Rate 14 FiO2 100.0 40.0 Tidal Volume 360 PEEP 5 Sodium 136.0 Potassium Chloride 98.0 Carbon Dioxide Anion Gap BUN Creatinine Est GFR ( Amer) Est GFR (Non-Af Amer) POC Glucose (mg/dL) Random Glucose Calcium Phosphorus Magnesium Total Bilirubin AST ALT Alkaline Phosphatase Troponin I Total Protein Albumin Globulin Albumin/Globulin Ratio Procalcitonin 4.06 H Arterial Blood Potassium 4.3 Venous Blood Potassium Cold Agglutinins 07/04/18 07/04/18 07/04/18 16:10 16:10 16:10 WBC RBC Hgb Hct MCV MCH MCHC RDW Plt Count Manual Plt Count Gran % Lymph % (Auto) [place] % (Auto) Eos % (Auto) Baso % (Auto) Gran # Lymph # (Auto) [place] # (Auto) Eos # (Auto) Baso # (Auto) Neutrophils % (Manual) Band Neutrophils % Lymphocytes % (Manual) Monocytes % (Manual) Plt Clumps, EDTA PT 25.9 H INR 2.23 APTT 30.5 Fibrinogen 228 Fibrin Degrad Products >40 ug/ml pCO2 pO2 93 H HCO3 ABG pH ABG Total CO2 ABG O2 Saturation ABG O2 Content ABG Base Excess ABG Hemoglobin ABG Carboxyhemoglobin POC ABG HHb (Measured) ABG Methemoglobin ABG O2 Capacity ABG Potassium VBG pH 7.37 VBG pCO2 31.0 L VBG HCO3 17.9 L VBG Total CO2 18.9 L VBG O2 Sat (Calc) 98.9 H VBG Base Excess -6.2 L VBG Potassium 5.1 Hgb O2 Saturation Glucose 245 H Lactate 7.5 H* Mechanical Rate FiO2 21.0 Tidal Volume PEEP Sodium 134.0 Potassium Chloride 95.0 L Carbon Dioxide Anion Gap BUN Creatinine Est GFR ( Amer) Est GFR (Non-Af Amer) POC Glucose (mg/dL) Random Glucose Calcium Phosphorus Magnesium Total Bilirubin AST ALT Alkaline Phosphatase Troponin I Total Protein Albumin Globulin Albumin/Globulin Ratio Procalcitonin Arterial Blood Potassium Venous Blood Potassium 5.1 Cold Agglutinins 07/04/18 07/05/18 07/05/18 22:34 06:00 06:00 WBC 7.7 RBC 2.85 L Hgb 7.9 L D Hct 23.6 L MCV 82.8 MCH 27.7 MCHC 33.5 RDW 17.6 H Plt Count 108 L Manual Plt Count 180 Gran % 92.8 H Lymph % (Auto) 4.7 L [place] % (Auto) 2.5 Eos % (Auto) 0.0 L Baso % (Auto) 0.0 Gran # 7.10 H Lymph # (Auto) 0.4 L [place] # (Auto) 0.2 Eos # (Auto) 0.0 Baso # (Auto) 0.00 Neutrophils % (Manual) 89 H Band Neutrophils % 2 Lymphocytes % (Manual) 8 L Monocytes % (Manual) 1 Plt Clumps, EDTA Present PT INR APTT Fibrinogen Fibrin Degrad Products pCO2 pO2 63 H HCO3 ABG pH ABG Total CO2 ABG O2 Saturation ABG O2 Content ABG Base Excess ABG Hemoglobin ABG Carboxyhemoglobin POC ABG HHb (Measured) ABG Methemoglobin ABG O2 Capacity ABG Potassium VBG pH 7.38 VBG pCO2 32.0 L VBG HCO3 18.9 L VBG Total CO2 19.9 L VBG O2 Sat (Calc) 95.6 H VBG Base Excess -5.2 L VBG Potassium 5.2 Hgb O2 Saturation Glucose 373 H Lactate 4.2 H* Mechanical Rate FiO2 21.0 Tidal Volume PEEP Sodium 134.0 136 Potassium 5.6 H* Chloride 94.0 L 93 L Carbon Dioxide 20 L Anion Gap 28 H BUN 51 H Creatinine 4.4 H Est GFR ( Amer) 17 Est GFR (Non-Af Amer) 14 POC Glucose (mg/dL) Random Glucose 408 H* D Calcium 6.7 L* Phosphorus Magnesium Total Bilirubin 1.6 H AST 113 H D ALT 84 H Alkaline Phosphatase 230 H D Troponin I Total Protein 6.2 Albumin 3.0 Globulin 3.2 Albumin/Globulin Ratio 0.9 L Procalcitonin Arterial Blood Potassium Venous Blood Potassium 5.2 Cold Agglutinins 07/05/18 07/05/18 07/05/18 06:00 06:30 08:53 WBC RBC Hgb Hct MCV MCH MCHC RDW Plt Count Manual Plt Count Gran % Lymph % (Auto) [place] % (Auto) Eos % (Auto) Baso % (Auto) Gran # Lymph # (Auto) [place] # (Auto) Eos # (Auto) Baso # (Auto) Neutrophils % (Manual) Band Neutrophils % Lymphocytes % (Manual) Monocytes % (Manual) Plt Clumps, EDTA PT INR APTT Fibrinogen Fibrin Degrad Products pCO2 34 L pO2 55 195.0 H HCO3 18.8 L ABG pH 7.35 ABG Total CO2 19.8 L ABG O2 Saturation 100.2 H ABG O2 Content 12.0 L ABG Base Excess -6.2 L ABG Hemoglobin 8.4 L ABG Carboxyhemoglobin 1.8 H POC ABG HHb (Measured) -0.2 L ABG Methemoglobin 0.6 ABG O2 Capacity 12.0 L ABG Potassium VBG pH 7.32 VBG pCO2 42.0 VBG HCO3 21.6 VBG Total CO2 22.9 VBG O2 Sat (Calc) 90.6 H VBG Base Excess -4.3 L VBG Potassium 5.6 H Hgb O2 Saturation 97.9 Glucose 427 H* Lactate 2.3 H Mechanical Rate FiO2 21.0 60.0 Tidal Volume PEEP Sodium 133.0 Potassium Chloride 96.0 L Carbon Dioxide Anion Gap BUN Creatinine Est GFR ( Amer) Est GFR (Non-Af Amer) POC Glucose (mg/dL) 377 H Random Glucose Calcium Phosphorus Magnesium Total Bilirubin AST ALT Alkaline Phosphatase Troponin I Total Protein Albumin Globulin Albumin/Globulin Ratio Procalcitonin Arterial Blood Potassium Venous Blood Potassium 5.6 H Cold Agglutinins 07/05/18 10:00 WBC RBC Hgb Hct MCV MCH MCHC RDW Plt Count Manual Plt Count Gran % Lymph % (Auto) [place] % (Auto) Eos % (Auto) Baso % (Auto) Gran # Lymph # (Auto) [place] # (Auto) Eos # (Auto) Baso # (Auto) Neutrophils % (Manual) Band Neutrophils % Lymphocytes % (Manual) Monocytes % (Manual) Plt Clumps, EDTA PT INR APTT Fibrinogen Fibrin Degrad Products pCO2 pO2 72 H HCO3 ABG pH ABG Total CO2 ABG O2 Saturation ABG O2 Content ABG Base Excess ABG Hemoglobin ABG Carboxyhemoglobin POC ABG HHb (Measured) ABG Methemoglobin ABG O2 Capacity ABG Potassium VBG pH 7.30 L VBG pCO2 48.0 VBG HCO3 23.6 VBG Total CO2 25.1 VBG O2 Sat (Calc) 96.5 H VBG Base Excess -3.2 L VBG Potassium 4.9 Hgb O2 Saturation Glucose 360 H Lactate 1.9 Mechanical Rate FiO2 21.0 Tidal Volume PEEP Sodium 134.0 Potassium Chloride 95.0 L Carbon Dioxide Anion Gap BUN Creatinine Est GFR ( Amer) Est GFR (Non-Af Amer) POC Glucose (mg/dL) Random Glucose Calcium Phosphorus Magnesium Total Bilirubin AST ALT Alkaline Phosphatase Troponin I Total Protein Albumin Globulin Albumin/Globulin Ratio Procalcitonin Arterial Blood Potassium Venous Blood Potassium 4.9 Cold Agglutinins EKG/Cardiology Studies: Cardiology / EKG Studies 07/05/18 07:38 EKG [ELECTROCARDIOGRAM] Stat Comment: Reason For Exam: hyperkalemia Critical Care Progress Note - Nutrition Nutrition: Nutrition Category Date Time Status Heart Healthy Diet [DIET] Diets 07/01/18 Dinner Active Assessment/Plan - Assessment and Plan (Free Text) Plan: Patient seen and examined on rounds with resident, agree with ntoe with following additions, exceptions: Patient is 62yo male with PMHx of ESRD on HD, Pulm HTN, pleural effusions, CHF, HTN, admitted with hip fracture, s/p PEA cardiac arrest x 3 after OR Currently intubated, sedated on ventilatory support VEEG in progress On vasopressor support, Levophed, Dobutamine Labs, imaging, chart reviewed Neurosurgery following, no intervention at this time Undergoing HD currently Neurology following ESRD on HD CHF Pulm HTN, Right sided HF Cardiac Arrest, PEA Hyperkalemia Recommend: - cont with vent support, low tidal vol ventilation, titrate FiO2 to 40 - Stress dose steroids - Vasopressor support, Levophed, Dobutamine - HD as per renal, undergoing HD today - follow up VEEG - follow Neuro - AEDs as per neurology - monitor INR, Platelets - Follow up neurosurgery - NPO - FS control - GI ppx - DVT ppx - Monitor in MICU Overall prognosis extremely poor Critical care time 40 minutes
--- NOTE | 2018-07-05 08:59 | PCM.VEEG ---
Video EEG - Procedure Start Date: 07/04/18 Start Time: 17:05 End Date: 07/05/18 End Time: 07:15 Technical Summary: DATA ACQUISITION: This was a multichannel inpatient video-EEG, a minimum of 22 channels were uti lized, performed in accordance with recommendations specified by the [place] [employer] (Shabana Glez et al. ACNS Guideline 1: Minimum Technical Requirements for Performing Clinical Electroencephalography. Journal of Clinical Neurophysiology 2016;33:303-7). The 10-20 electrode placement system was utilized in accordance with guidelines detailed by the International Federation of Clinical Neurophysiology (Lakesha Shukla et al. The Ten-Twenty Electrode System of the International Federation. Recommendations for the Practice of Clinical Neurophysiology: Guidelines of the International Federation of Clinical Physiology 1999; EEG Suppl. 52.). DATA REVIEW / SPIKE DETECTION / DIGITAL ANALYSIS: The entire EEG was scanned and reviewed. Synchronized audio and video recording were reviewed at the time of each alarm and whenever an abnormality or suspicious activity was noted. The entire recording was analyzed utilizing an automated digital spike and seizure analysis program and all automatic spike and seizure detections were manually reviewed. A compressed spectral array was displayed and reviewed alongside the raw EEG tracings. In addition, further analysis of the EEG was performed when abnormalities were identified, including montage changes, dipole source localization, and frequency band identification. Video portion of the study is necessary to correlate abnormal EEG activity with clinical behavior. This study was attended 24 hours per day. - Interpretation Description of the study: Indication; non convulsive status epilepticus EEG Finding during wakefulness: There was no recognizable awake background EEG Finding during sleep: There was no recognizable sleep architecture Interictal non-epileptiform abnormalities: On this day of monitoring there was a burst suppression pattern characterized by low amplitude burst of sharp activity with inter bursts periods of relative EEG attenuation. In between burst the EEG showed marked attenuation, EEG is nonreactive to stimulation Interictal epileptiform abnormalities: None Ictal epileptiform abnormalities: None - Impression Impression: This is an abnormal video-EEG monitoring study due to the presence of 1- Burst suppression pattern. 2- Marked EEG attenuation/slowing. No seizures, not in status epilepticus INTERPRETATION: These findings support the diagnosis of severe, bi-hemispheric cerebral dysfunction. These findings are non specific.
[2018-07-05] MEDS ORDERED: NOREPINEPHRINE BIT/0.9 % NACL 4 MG/250 ML BAG IV PRN (09:00)
[2018-07-05] MEDS: Insulin Lispro (HUMAlog) HIGH Coverage SC SCH ×4 (09:46→22:10)
--- NOTE | 2018-07-05 10:01 | CP.PCM.PN ---
<Addy Fermin - Last Filed: 07/05/18 16:04> Subjective - Date & Time of Evaluation Date of Evaluation: 07/05/18 Time of Evaluation: 10:01 - Subjective Subjective: Patient seen and examined at bedside in the ICU. Patient placed back on vasopressors overnight to correct hypotension. Continues to be non-responsive to verbal, tactile, painful stimuli. Currently sedated with midazolam, intubated, being evaluated on video EEG. ROS unattainable due to clinical status. Objective - Vital Signs/Intake and Output Vital Signs (last 24 hours): Temp Pulse Resp BP Pulse Ox 99.3 F 84 14 92/40 L 99 07/05/18 08:00 07/05/18 08:00 07/04/18 10:47 07/05/18 01:12 07/05/18 08:00 Intake and Output: 07/05/18 07/05/18 06:59 18:59 Intake Total 200 Balance 200 - Medications Medications: Current Medications Albuterol/Ipratropium (Duoneb 3 Mg/0.5 Mg (3 Ml) Ud) 3 ml IH [id number] PRN PRN Reason: Shortness of Breath Last Admin: 07/04/18 13:20 Dose: 3 ml Famotidine (Pepcid) 20 mg PO 1000,2200 ON LICENSE OF [facility] Last Admin: 07/03/18 15:49 Dose: Not Given Gabapentin (Neurontin) 300 mg PO DAILY ON LICENSE OF [facility]; Protocol Last Admin: 07/03/18 15:29 Dose: 300 mg Hydralazine HCl (Apresoline) 25 mg PO TID ON LICENSE OF [facility] Last Admin: 07/04/18 15:41 Dose: Not Given Hydrocortisone Sodium Succinate (Solu-Cortef) 50 mg IVP Q6H ON LICENSE OF [facility] Last Admin: 07/05/18 06:00 Dose: 50 mg Hydroxyzine HCl (Atarax) 25 mg PO TID ON LICENSE OF [facility] Last Admin: 07/05/18 09:39 Dose: Not Given Epinephrine HCl 1 mg/ Sodium (Chloride) 51 mls @ 3.06 mls/hr IV .[id number] PRN; Protocol PRN Reason: TITRATE PER MD ORDER Dobutamine HCl/Dextrose (Dobutamine/Dextrose 5% 500mg/250ml) 500 mg in 250 mls @ 10.553 mls/hr IV .[id number] PRN; Protocol PRN Reason: TITRATE PER PROTOCOL Last Titration: 07/04/18 12:00 Dose: 7.5 mcg/kg/min, 15.829 mls/hr Vasopressin 20 units/ Sodium (Chloride) 101 mls @ 9.09 mls/hr IV .[id number] ARELIS; Protocol Last Admin: 07/05/18 01:12 Dose: 9.09 mls/hr Levetiracetam (Keppra 1000mg/100ml Ns) 100 mls @ 460 mls/hr IV Q12 ARELIS Last Admin: 07/04/18 22:40 Dose: 460 mls/hr Midazolam 100 mg/100ml in NS (Midazolam 100 Mg/100ml In Ns) 100 mg in 100 mls @ 1 mls/hr IV .Q24H PRN; Protocol PRN Reason: Agitation Last Admin: 07/05/18 01:28 Dose: 10 mg/hr, 10 mls/hr NOREPINEPHRINE BIT/0.9 % NACL (Levophed 4 Mg/ 250 Ml Ns Premixed) 4 mg in 250 mls @ 15 mls/hr IV .[id number] PRN; Protocol PRN Reason: TITRATE PER MD ORDER Last Admin: 07/05/18 09:10 Dose: 4 mcg/min, 15 mls/hr Insulin Human Lispro (Humalog High) 0 units SC ACHS ON LICENSE OF [facility]; Protocol Last Admin: 07/05/18 09:46 Dose: 12 units Isosorbide Mononitrate (Imdur) 120 mg PO DAILY ON LICENSE OF [facility] Last Admin: 07/03/18 15:29 Dose: 120 mg Morphine Sulfate (Morphine) 2 mg IVP Q4H PRN PRN Reason: Pain, severe (8-10) Last Admin: 07/03/18 18:25 Dose: 2 mg Pantoprazole Sodium (Protonix Inj) 40 mg IVP DAILY ON LICENSE OF [facility] Last Admin: 07/05/18 09:47 Dose: 40 mg Prednisone (Prednisone Tab) 5 mg PO DAILY ON LICENSE OF [facility] Last Admin: 07/03/18 15:48 Dose: 5 mg - Labs Labs: 07/05/18 06:00 07/05/18 06:00 PT 25.9 SECONDS (9.4-12.5) H 07/04/18 16:10 INR 2.23 07/04/18 16:10 APTT 30.5 Seconds (25.1-36.5) 07/04/18 16:10 - Constitutional Appears: Chronically Ill - Head Exam Additional comments: Dressing around head, being evaluated on video EEG - Eye Exam Eye Exam: absent: Conjunctival injection Additional comments: Non-reactive - ENT Exam ENT Exam: Mucous Membranes Dry - Respiratory Exam Respiratory Exam: NORMAL BREATHING PATTERN Additional comments: Intubated on ventilator - Cardiovascular Exam Cardiovascular Exam: REGULAR RHYTHM, +S1, +S2 - Exam Additional comments: indwelling garland catheter in place - Extremities Exam Extremities Exam: Normal Inspection - Neurological Exam Neurological Exam: absent: Alert, Oriented x3 - Skin Skin Exam: Dry, Intact, Normal Color, Warm Assessment and Plan - Assessment and Plan (Free Text) Assessment: 62 yo male w/ PMH CAD w/ multiple stents, CABG, CHF (EF 67 in 2017), PVD, DM, dyslipidemia, ESRD (T, Th Sat), HTN, osteoporosis, osteoarthritis, sarcoidosis s/p ORIF for L femoral neck fracture admitted to ICU s/p code blue x 3. PEA with ROSC in ICU. Plan: Neuro: --currently sedated on midazolam, intubated --currently non-responsive --Imaging -CT head (07/04): new subarachnoid/subdural layering around the tentorium with a subarachnoid hemorrhage seen layering dependently in the 4th ventricle and in the cerebellar fossa. -repeat CT head (07/05): severe infarct of the cerebellum, brainstem, and bilateral basal ganglia. New severe hydrocephalus 2/2 compression of the 4th ventricle --Neurosurgery recs (Dr. Banda) appreciated -no surgical intervention at this time --Neurology recs (Dr. Molina) appreciated -Video EEG (07/05): Abnormal video EEG monitoring study due to presence of burst suppression pattern, marked EEG attenuation/slowing. No seizures, not in status epilepticus. Severe, bi-hemispheric cerebral dysfunction. Findings are non-specific. -Since there are no seizures on the EEG, taper off Versed drip and keep keppra for now -repeat EEG tomorrow --Medications -Keppra q12H -midazolam 10 mg/hr Hyperkalemia --K 5.6 --f/u EKG Cardio: --pt currently normotensive, regular rate s/p CPR with ROSC --R femoral arterial line in place --Maintain MAP > 65 --Medications - dobutamine drip 7.5 mcg/kg/min - levophed drip 4 mg in 250 ml @ 15ml/hr - vasopressin 0.03 u/min vasopressin -norepinephrine 2mcg/kg Pulmonary: --pt currently sedated with midazolam --Intubated on PRVC --Maintain SaO2 >90% --400/20/60%/5 ID: --Stress dose steroids --lactate improving GI: --Abdomen distended 2/2 ascites --IV protonix /Renal: --ESRD, pt on HD , , Saturday --I/Os --further recs per Nephrology (Dr. Siu) Heme: --PLT 108 --Hb 7.9 --tranfuse if Hgb <7 Dispo: overall prognosis is grave. patient's is aware of course and continues to remain hopeful. Case discussed with Dr. Kleber Fermin DO, PGY-1 <Roldan Shahid - Last Filed: 07/06/18 14:20> Objective - Vital Signs/Intake and Output Vital Signs (last 24 hours): Temp Pulse Resp BP Pulse Ox 98.2 F 97 H 16 137/47 L 100 07/06/18 12:36 07/06/18 12:36 07/06/18 12:00 07/06/18 12:00 07/06/18 12:36 Intake and Output: 07/06/18 07/06/18 06:59 18:59 Intake Total 10 Balance 10 - Medications Medications: Current Medications Albuterol/Ipratropium (Duoneb 3 Mg/0.5 Mg (3 Ml) Ud) 3 ml IH [id number] PRN PRN Reason: Shortness of Breath Last Admin: 07/04/18 13:20 Dose: 3 ml Famotidine (Pepcid) 20 mg PO 1000,2200 ON LICENSE OF [facility] Last Admin: 07/03/18 15:49 Dose: Not Given Gabapentin (Neurontin) 300 mg PO DAILY ON LICENSE OF [facility]; Protocol Last Admin: 07/03/18 15:29 Dose: 300 mg Hydralazine HCl (Apresoline) 25 mg PO TID ON LICENSE OF [facility] Last Admin: 07/04/18 15:41 Dose: Not Given Hydrocortisone Sodium Succinate (Solu-Cortef) 50 mg IVP Q6H [facility] Last Admin: 07/06/18 11:59 Dose: 50 mg Hydroxyzine HCl (Atarax) 25 mg PO TID [facility]LIS Last Admin: 07/06/18 09:00 Dose: Not Given Epinephrine HCl 1 mg/ Sodium (Chloride) 51 mls @ 3.06 mls/hr IV .[id number] PRN; Protocol PRN Reason: TITRATE PER MD ORDER Dobutamine HCl/Dextrose (Dobutamine/Dextrose 5% 500mg/250ml) 500 mg in 250 mls @ 10.553 mls/hr IV .[id number] PRN; Protocol PRN Reason: TITRATE PER PROTOCOL Last Admin: 07/06/18 06:00 Dose: 5 mcg/kg/min, 10.553 mls/hr Vasopressin 20 units/ Sodium (Chloride) 101 mls @ 9.09 mls/hr IV .[id number] ARELIS; Protocol Last Admin: 07/05/18 01:12 Dose: 9.09 mls/hr Levetiracetam (Keppra 1000mg/100ml Ns) 100 mls @ 460 mls/hr IV Q12 ARELIS Last Admin: 07/06/18 08:59 Dose: 460 mls/hr Midazolam 100 mg/100ml in NS (Midazolam 100 Mg/100ml In Ns) 100 mg in 100 mls @ 1 mls/hr IV .Q24H PRN; Protocol PRN Reason: Agitation Last Titration: 07/06/18 07:10 Dose: 0 mg/hr, 0 mls/hr NOREPINEPHRINE BIT/0.9 % NACL (Levophed 4 Mg/ 250 Ml Ns Premixed) 4 mg in 250 mls @ 15 mls/hr IV .[id number] PRN; Protocol PRN Reason: TITRATE PER MD ORDER Last Titration: 07/05/18 12:40 Dose: 0 mcg/min, 0 mls/hr Insulin Human Lispro (Humalog High) 0 units SC ACHS ON LICENSE OF [facility]; Protocol Last Admin: 07/06/18 11:54 Dose: 7 units Isosorbide Mononitrate (Imdur) 120 mg PO DAILY ON LICENSE OF [facility] Last Admin: 07/03/18 15:29 Dose: 120 mg Morphine Sulfate (Morphine) 2 mg IVP Q4H PRN PRN Reason: Pain, severe (8-10) Last Admin: 07/03/18 18:25 Dose: 2 mg Pantoprazole Sodium (Protonix Inj) 40 mg IVP DAILY ON LICENSE OF [facility] Last Admin: 07/06/18 08:59 Dose: 40 mg Prednisone (Prednisone Tab) 5 mg PO DAILY ON LICENSE OF [facility] Last Admin: 07/03/18 15:48 Dose: 5 mg - Labs Labs: 07/06/18 05:45 07/06/18 01:36 EST PT 25.9 SECONDS (9.4-12.5) H 07/04/18 16:10 INR 2.23 07/04/18 16:10 APTT 30.5 Seconds (25.1-36.5) 07/04/18 16:10 Attending/Attestation - Attestation I have personally seen and examined this patient.: Yes I have fully participated in the care of the patient.: Yes I have reviewed all pertinent clinical information, including history, physical exam and plan: Yes Notes (Text): 07/06/18 14:16 Patient was seen and examined with senior medical transcriptionist. 62 year old male with past medical history of diabetes, hypertension, CAD, CHF with systolic dysfunction , cirrhosis and ESRD on HD , Sarcoidosis,Pulmonary HTN, ascites was admitted with fall found to have transverse displaced fracture of L femoral neck, Patient was coded in OR after surgery and again in ICU on Saturday,Patient is not responsive, CT head showed multiple basal ganglia, cerebellum and brain stem, Patient is also pressor and is on pressor. Prognosis is guarded.
[2018-07-05 10:05] LABS: VENOUS BLOOD GAS BASE EXCESS -3.2 mmol/L (0.0-2.0); VENOUS BLOOD GAS PO2 72 mm/Hg (30-55)
[2018-07-05 10:39] VITALS: O2SAT 100
[2018-07-05] MEDS: DOBUTamine 500mg/250ml D5W 500 MG/250 ML BAG IV PRN (10:52)
--- NOTE | 2018-07-05 10:58 | PN ---
DATE: 07/05/2018 FIRST DAY POSTOP REPORT LOCATION: Presently, he is in 128, bed 4 ICU. SUBJECTIVE: He is 1 day postop left hip ORIF with biomet nail Affixus. The patient had postop complications of cardiac arrest yesterday, resuscitated and brought to ICU where he is still intubated and a new CAT scan done because of inability to respond. We saw a new subarachnoid bleed by CAT scan. The left hip wound is dry. Platelets are within normal limits. Effusion at the lung has improved. He is under medical care for Neurology, Pulmonary, Cardiac services, and Renal. He is going to get dialysis today. The prognosis does not look well and the knows that and hopefully he responds and improves. We will follow him closely in ICU. Stephan Garrison DO BRUN[facility]
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
[2018-07-05] MEDS: levETIRAcetam 1000mg/100ml NS 100 ML IV SCH ×2 (13:36→21:57)
--- NOTE | 2018-07-05 13:49 | CT ---
Date of service: 07/05/2018 PROCEDURE: CT HEAD WITHOUT CONTRAST. HISTORY: repeat study s/p cardiac arrest COMPARISON: CT 07/04/2018 and 07/01/2018 TECHNIQUE: Axial computed tomography images were obtained through the head/brain without intravenous contrast. Radiation dose: Total exam DLP = 843.44 mGy-cm. This CT exam was performed using one or more of the following dose reduction techniques: Automated exposure control, adjustment of the mA and/or kV according to patient size, and/or use of iterative reconstruction technique. FINDINGS: HEMORRHAGE: No intracranial hemorrhage. BRAIN: There is diffuse swelling and edema of the cerebellum and brainstem with obliteration of the 4th ventricle. There is new hydrocephalus. Symmetrical infarcts are also seen in the basal ganglia. Findings have shown rapid progression from the previous study. Findings are consistent with a diffuse hypoxic injury consistent with the history of cardiac arrest. These findings were discussed with the certified medical technician assistant Dr. Howard At 1:30 p.m. 07/05/2018 VENTRICLES: Severe hydrocephalus CALVARIUM: Unremarkable. PARANASAL SINUSES: Unremarkable as visualized. No significant inflammatory changes. MASTOID AIR CELLS: Unremarkable as visualized. No inflammatory changes. OTHER FINDINGS: None. IMPRESSION: Severe infarction of the cerebellum, brainstem and bilateral basal ganglia. There is new severe hydrocephalus secondary to compression of the 4th ventricle
--- NOTE | 2018-07-05 14:47 | PN ---
DATE: SUBJECTIVE: The patient is hypertensive on a ventilator. He is on Dobutrex minute and he is also on vasopressin and Levophed infusion. PHYSICAL EXAMINATION: VITAL SIGNS: Blood pressure 90/40, heart rate 87, temperature 100.4. HEENT: Pale conjunctivae. CHEST: Diminished breath sounds at bases. HEART: S1, S2 regular. EXTREMITIES: 1+ pitting edema. LABORATORY DATA: Hemoglobin and hematocrit 7.9 and 23.6, white count 7.7, platelet count 108,000. Today's SMA-7 prior to hemodialysis: Sodium 136, potassium 5.6, chloride 93, CO2 of 20, glucose 408, BUN 51, creatinine 4.4. FINAL CONCLUSION: Finding support diagnosis of severe bihemispheric cerebral dysfunction. These findings are nonspecific. Today's EKG revealed sinus rhythm with left bundle-branch block. ASSESSMENT: 1. Respiratory failure. 2. Hypotension. 3. Subarachnoid and subdural hemorrhage. 4. End-stage renal disease, on hemodialysis. 5. Biventricular failure. 6. Coronary artery disease status post coronary artery bypass surgery with history of patent stent to the circumflex artery and patent JIMENEZ and saphenous vein graft. CONDITIONS: Continue current Dobutrex infusion at 7.5 mcg per minute, continue Levophed and vasopressin infusion. The patient is about to be initiated on hemodialysis. Overall prognosis is grave. Abdiel Cisneros MD
--- NOTE | 2018-07-05 15:31 | CARD ---
APPROVED REPORT Date of service: 07/05/2018 EKG Measurement Heart [id number] <Conclusion> Normal sinus rhythm Left bundle branch block Abnormal ECG
[2018-07-06 01:50] LABS: ALB/GLOB RATIO 0.9 (1.1-1.8); ALBUMIN 2.9 g/dL (3.0-4.8); CALCIUM 7.1 mg/dL (8.4-10.5)
[2018-07-06 05:59] LABS: ARTERIAL BLOOD GAS HCO3 27.3 mmol/L (21-28); ARTERIAL BLOOD GAS HEMOGLOBIN 8.6 g/dL (11.7-17.4); ARTERIAL BLOOD GAS O2 CAPACITY 12.1 mL/dl (16-24); ARTERIAL BLOOD GAS O2 CONTENT 12.1 ML/dl (15-23); ARTERIAL BLOOD GAS PCO2 53 mm/Hg (35-45); ARTERIAL BLOOD GAS PH 7.32 (7.35-7.45); ARTERIAL BLOOD GAS TCO2 28.9 mmol.L (22-28)
[2018-07-06] MEDS: DOBUTamine 500mg/250ml D5W 500 MG/250 ML BAG IV PRN (06:00)
[2018-07-06] MEDS: Midazolam 100 mg/100ml in NS 100 MG/100 ML SOL IV PRN (06:02)
[2018-07-06 06:47] VITALS: RESP 16
[2018-07-06 07:11] LABS: GRAN # 8.01 (1.4-6.5); GRAN % 93.7 % (50.0-68.0); HEMOGLOBIN 8.5 g/dL (14.0-18.0); LYMPH # 0.4 (1.2-3.4); LYMPH % 4.4 % (22.0-35.0); MEAN CELL VOLUME 82.1 fl (80.0-105.0); MEAN CORPUSCULAR HEMOGLOBIN 27.6 pg (25.0-35.0); MEAN CORPUSCULAR HGB CONC 33.6 g/dl (31.0-37.0); MONO # 0.2 (0.1-0.6); MONO % 1.9 % (1.0-6.0); RBC 3.08 10^6/uL (3.5-6.1); RED CELL DISTRIBUTION WIDTH 17.8 % (11.5-14.5); WHITE BLOOD COUNT 8.6 10^3/uL (4.5-11.0)
--- NOTE | 2018-07-06 07:15 | CP.PCM.PN ---
<Addy Fermin - Last Filed: 07/06/18 11:45> Subjective - Date & Time of Evaluation Date of Evaluation: 07/06/18 Time of Evaluation: 07:14 - Subjective Subjective: PGY-1 Medicine Progress Note for Dr. Shahid Patient seen and examined in ICU this morning with family at bedside. Patient continues to be unresponsive, prognosis grave in light of findings. Family was updated on condition and given time to think about plans moving forward. Objective - Vital Signs/Intake and Output Vital Signs (last 24 hours): Temp Pulse Resp BP Pulse Ox 97.2 F L 88 16 146/52 L 100 07/06/18 06:54 07/06/18 06:55 07/06/18 06:55 07/06/18 06:55 07/06/18 06:55 Intake and Output: 07/06/18 07/06/18 06:59 18:59 Intake Total Balance - Medications Medications: Current Medications Albuterol/Ipratropium (Duoneb 3 Mg/0.5 Mg (3 Ml) Ud) 3 ml IH [id number] PRN PRN Reason: Shortness of Breath Last Admin: 07/04/18 13:20 Dose: 3 ml Famotidine (Pepcid) 20 mg PO 1000,2200 [facility] Last Admin: 07/03/18 15:49 Dose: Not Given Gabapentin (Neurontin) 300 mg PO DAILY [facility]; Protocol Last Admin: 07/03/18 15:29 Dose: 300 mg Hydralazine HCl (Apresoline) 25 mg PO TID [facility] Last Admin: 07/04/18 15:41 Dose: Not Given Hydrocortisone Sodium Succinate (Solu-Cortef) 50 mg IVP Q6H [facility] Last Admin: 07/06/18 06:00 Dose: 50 mg Hydroxyzine HCl (Atarax) 25 mg PO TID [facility] Last Admin: 07/05/18 17:27 Dose: Not Given Epinephrine HCl 1 mg/ Sodium (Chloride) 51 mls @ 3.06 mls/hr IV .[id number] PRN; Protocol PRN Reason: TITRATE PER MD ORDER Dobutamine HCl/Dextrose (Dobutamine/Dextrose 5% 500mg/250ml) 500 mg in 250 mls @ 10.553 mls/hr IV .[id number] PRN; Protocol PRN Reason: TITRATE PER PROTOCOL Last Admin: 07/06/18 06:00 Dose: 5 mcg/kg/min, 10.553 mls/hr Vasopressin 20 units/ Sodium (Chloride) 101 mls @ 9.09 mls/hr IV .Q11H7M [facility]; Protocol Last Admin: 07/05/18 01:12 Dose: 9.09 mls/hr Levetiracetam (Keppra 1000mg/100ml Ns) 100 mls @ 460 mls/hr IV Q12 [facility] Last Admin: 07/05/18 21:57 Dose: 460 mls/hr Midazolam 100 mg/100ml in NS (Midazolam 100 Mg/100ml In Ns) 100 mg in 100 mls @ 1 mls/hr IV .Q24H PRN; Protocol PRN Reason: Agitation Last Admin: 07/06/18 06:02 Dose: 10 mg/hr, 10 mls/hr NOREPINEPHRINE BIT/0.9 % NACL (Levophed 4 Mg/ 250 Ml Ns Premixed) 4 mg in 250 mls @ 15 mls/hr IV .[id number] PRN; Protocol PRN Reason: TITRATE PER MD ORDER Last Titration: 07/05/18 12:40 Dose: 0 mcg/min, 0 mls/hr Insulin Human Lispro (Humalog High) 0 units SC ACHS [facility]; Protocol Last Admin: 07/05/18 22:10 Dose: Not Given Isosorbide Mononitrate (Imdur) 120 mg PO DAILY [facility] Last Admin: 07/03/18 15:29 Dose: 120 mg Morphine Sulfate (Morphine) 2 mg IVP Q4H PRN PRN Reason: Pain, severe (8-10) Last Admin: 07/03/18 18:25 Dose: 2 mg Pantoprazole Sodium (Protonix Inj) 40 mg IVP DAILY [facility] Last Admin: 07/05/18 09:47 Dose: 40 mg Prednisone (Prednisone Tab) 5 mg PO DAILY [facility] Last Admin: 07/03/18 15:48 Dose: 5 mg - Labs Labs: 07/05/18 06:00 07/06/18 01:36 EST PT 25.9 SECONDS (9.4-12.5) H 07/04/18 16:10 INR 2.23 07/04/18 16:10 APTT 30.5 Seconds (25.1-36.5) 11/02/18 16:10 - Constitutional Appears: Chronically Ill - Head Exam Head Exam: ATRAUMATIC, NORMAL INSPECTION, NORMOCEPHALIC - Eye Exam Eye Exam: Conjunctival injection, Scleral icterus Pupil Exam: Fixed, Miosis - ENT Exam ENT Exam: Mucous Membranes Moist - Neck Exam Neck Exam: Normal Inspection - Respiratory Exam Respiratory Exam: NORMAL BREATHING PATTERN - Cardiovascular Exam Cardiovascular Exam: REGULAR RHYTHM, +S1, +S2 - GI/Abdominal Exam GI & Abdominal Exam: Soft, Normal Bowel Sounds - Neurological Exam Additional comments: Sedated on Versed. Pupils are constricted and sluggishly responsive. No response to pain. GCS 3T - Skin Skin Exam: Intact, Normal Color Assessment and Plan - Assessment and Plan (Free Text) Assessment: 62 yo male w/ PMH CAD w/ multiple stents, CABG, CHF (EF 67 in 2017), PVD, DM, dyslipidemia, ESRD (T, Th Sat), HTN, osteoporosis, osteoarthritis, sarcoidosis s/p ORIF for L femoral neck fracture admitted to ICU s/p code blue x 3. PEA with ROSC in ICU. Plan: Neuro: --currently sedated on midazolam, intubated --currently non-responsive --Palliative care on board --Imaging -CT head (07/04): new subarachnoid/subdural layering around the tentorium with a subarachnoid hemorrhage seen layering dependently in the 4th ventricle and in the cerebellar fossa. -repeat CT head (07/05): severe infarct of the cerebellum, brainstem, and bilateral basal ganglia. New severe hydrocephalus 2/2 compression of the 4th ventricle -CXR (07/06): mild vascular pulmonary congestion, small b/l pleural effusions --Neurosurgery recs (Dr. Banda) appreciated -no surgical intervention at this time --Neurology recs (Dr. Molina) appreciated -Video EEG (07/05): Abnormal video EEG monitoring study due to presence of burst suppression pattern, marked EEG attenuation/slowing. No seizures, not in status epilepticus. Severe, bi-hemispheric cerebral dysfunction. Findings are non-specific. -Since there are no seizures on the EEG, taper off Versed drip and keep keppra for now --Medications -Keppra q12H -midazolam 10 mg/hr Hyperkalemia --K 4.8 (11/4) --f/u EKG Cardio: --pt currently normotensive, regular rate s/p CPR with ROSC --R femoral arterial line in place --Maintain MAP > 65 --Medications - dobutamine drip 7.5 mcg/kg/min - levophed drip 4 mg in 250 ml @ 15ml/hr - vasopressin 0.03 u/min vasopressin -norepinephrine 2mcg/kg Pulmonary: --pt currently sedated with midazolam --Intubated on PRVC --Maintain SaO2 >90% --400/20/60%/5 ID: --Stress dose steroids --lactate improving GI: --Abdomen distended 2/2 ascites --IV protonix /Renal: --ESRD, pt on HD , , Saturday --I/Os --further recs per Nephrology (Dr. Siu) Heme: --PLT 22 (07/06) -Heme/Onc (Dr. Giles) notified --Hb 8.5 --tranfuse if Hgb <7 Dispo: overall prognosis is grave. patient's family made aware and given time to think over plans going forward --Palliative care on board Case discussed with Dr. Kleber Fremin DO, PGY-1 <Roldan Shahid - Last Filed: 07/06/18 17:44> Objective - Vital Signs/Intake and Output Vital Signs (last 24 hours): Temp Pulse Resp BP Pulse Ox 99.0 F 92 H 16 149/50 L 100 07/06/18 16:22 07/06/18 16:22 07/06/18 16:00 07/06/18 16:00 07/06/18 16:22 Intake and Output: 07/06/18 07/06/18 06:59 18:59 Intake Total 335 Balance 335 - Medications Medications: Current Medications Albuterol/Ipratropium (Duoneb 3 Mg/0.5 Mg (3 Ml) Ud) 3 ml IH [id number] PRN PRN Reason: Shortness of Breath Last Admin: 07/04/18 13:20 Dose: 3 ml Famotidine (Pepcid) 20 mg PO 1000,2200 [facility] Last Admin: 07/03/18 15:49 Dose: Not Given Gabapentin (Neurontin) 300 mg PO DAILY [facility]; Protocol Last Admin: 07/03/18 15:29 Dose: 300 mg Hydralazine HCl (Apresoline) 25 mg PO TID [facility] Last Admin: 07/04/18 15:41 Dose: Not Given Hydrocortisone Sodium Succinate (Solu-Cortef) 50 mg IVP Q6H [facility] Last Admin: 07/06/18 17:15 Dose: 50 mg Hydroxyzine HCl (Atarax) 25 mg PO TID [facility] Last Admin: 07/06/18 14:22 Dose: Not Given Epinephrine HCl 1 mg/ Sodium (Chloride) 51 mls @ 3.06 mls/hr IV .[id number] PRN; Protocol PRN Reason: TITRATE PER MD ORDER Dobutamine HCl/Dextrose (Dobutamine/Dextrose 5% 500mg/250ml) 500 mg in 250 mls @ 10.553 mls/hr IV .[id number] PRN; Protocol PRN Reason: TITRATE PER PROTOCOL Last Admin: 07/06/18 06:00 Dose: 5 mcg/kg/min, 10.553 mls/hr Vasopressin 20 units/ Sodium (Chloride) 101 mls @ 9.09 mls/hr IV .Q11H7M [facility]; Protocol Last Admin: 07/05/18 01:12 Dose: 9.09 mls/hr Levetiracetam (Keppra 1000mg/100ml Ns) 100 mls @ 460 mls/hr IV Q12 [facility] Last Admin: 07/06/18 08:59 Dose: 460 mls/hr Midazolam 100 mg/100ml in NS (Midazolam 100 Mg/100ml In Ns) 100 mg in 100 mls @ 1 mls/hr IV .Q24H PRN; Protocol PRN Reason: Agitation Last Titration: 07/06/18 07:10 Dose: 0 mg/hr, 0 mls/hr NOREPINEPHRINE BIT/0.9 % NACL (Levophed 4 Mg/ 250 Ml Ns Premixed) 4 mg in 250 mls @ 15 mls/hr IV .[id number] PRN; Protocol PRN Reason: TITRATE PER MD ORDER Last Titration: 07/05/18 12:40 Dose: 0 mcg/min, 0 mls/hr Insulin Human Lispro (Humalog High) 0 units SC ACHS [facility]; Protocol Last Admin: 07/06/18 16:54 Dose: 4 units Isosorbide Mononitrate (Imdur) 120 mg PO DAILY [facility] Last Admin: 07/03/18 15:29 Dose: 120 mg Morphine Sulfate (Morphine) 2 mg IVP Q4H PRN PRN Reason: Pain, severe (8-10) Last Admin: 07/03/18 18:25 Dose: 2 mg Pantoprazole Sodium (Protonix Inj) 40 mg IVP DAILY [facility] Last Admin: 07/06/18 08:59 Dose: 40 mg Prednisone (Prednisone Tab) 5 mg PO DAILY [facility] Last Admin: 07/03/18 15:48 Dose: 5 mg - Labs Labs: 07/06/18 05:45 07/06/18 01:36 EST PT 25.9 SECONDS (9.4-12.5) H 07/04/18 16:10 INR 2.23 07/04/18 16:10 APTT 30.5 Seconds (25.1-36.5) 07/04/18 16:10 Attending/Attestation - Attestation I have personally seen and examined this patient.: Yes I have fully participated in the care of the patient.: Yes I have reviewed all pertinent clinical information, including history, physical exam and plan: Yes Notes (Text): 07/06/18 17:40 Patient was seen and examined with biomedical engineering technologist .Family was in the room. 62 year old male with past medical history of diabetes, hypertension, CAD, CHF with systolic dysfunction , cirrhosis and ESRD on HD , Sarcoidosis, ascites was admitted with fall found to have transverse displaced fracture of L femoral neck, Patient was coded in OR after surgery and again in ICU on Saturday,Patient mental status did not improve. CT head showed multiple basal ganglia, cerebellum and brain stem, EEG is negative for seizure. Thrombocytopenia, has platelet clumping, no evidence of bleeding.Patient is SP one unit of platelet today.We will monitor.Hematology is following. Family is still not ready for DNR/DNI, ., Palliative care is consulted. Prognosis is guarded. Management plan was discussed in detail with patient family. Education was provided
[2018-07-06 08:10] LABS: PLATELET COUNT 22 10^3/uL (120.0-450.0)
[2018-07-06 08:12] LABS: PLATELET COUNT MANUAL 22 K/mm3 (120-450)
--- NOTE | 2018-07-06 08:35 | CP.PCM.PN ---
Subjective - Date & Time of Evaluation Date of Evaluation: 07/06/18 Time of Evaluation: 08:34 - Subjective Subjective: discusseed case wit h Dr Ackerman on Saturday He said formal consult not necessary Objective - Vital Signs/Intake and Output Vital Signs (last 24 hours): Temp Pulse Resp BP Pulse Ox 97.2 F L 88 16 146/52 L 100 07/06/18 06:54 07/06/18 06:55 07/06/18 06:55 07/06/18 06:55 07/06/18 06:55 Intake and Output: 07/06/18 07/06/18 06:59 18:59 Intake Total 10 Balance 10 - Medications Medications: Current Medications Albuterol/Ipratropium (Duoneb 3 Mg/0.5 Mg (3 Ml) Ud) 3 ml IH [id number] PRN PRN Reason: Shortness of Breath Last Admin: 07/04/18 13:20 Dose: 3 ml Famotidine (Pepcid) 20 mg PO 1000,2200 [facility] Last Admin: 07/03/18 15:49 Dose: Not Given Gabapentin (Neurontin) 300 mg PO DAILY [facility]; Protocol Last Admin: 07/03/18 15:29 Dose: 300 mg Hydralazine HCl (Apresoline) 25 mg PO TID [facility] Last Admin: 07/04/18 15:41 Dose: Not Given Hydrocortisone Sodium Succinate (Solu-Cortef) 50 mg IVP Q6H [facility] Last Admin: 07/06/18 06:00 Dose: 50 mg Hydroxyzine HCl (Atarax) 25 mg PO TID [facility] Last Admin: 07/05/18 17:27 Dose: Not Given Epinephrine HCl 1 mg/ Sodium (Chloride) 51 mls @ 3.06 mls/hr IV .[id number] PRN; Protocol PRN Reason: TITRATE PER MD ORDER Dobutamine HCl/Dextrose (Dobutamine/Dextrose 5% 500mg/250ml) 500 mg in 250 mls @ 10.553 mls/hr IV .[id number] PRN; Protocol PRN Reason: TITRATE PER PROTOCOL Last Admin: 07/06/18 06:00 Dose: 5 mcg/kg/min, 10.553 mls/hr Vasopressin 20 units/ Sodium (Chloride) 101 mls @ 9.09 mls/hr IV .Q11H7M [facility]; Protocol Last Admin: 07/05/18 01:12 Dose: 9.09 mls/hr Levetiracetam (Keppra 1000mg/100ml Ns) 100 mls @ 460 mls/hr IV Q12 [facility] Last Admin: 07/05/18 21:57 Dose: 460 mls/hr Midazolam 100 mg/100ml in NS (Midazolam 100 Mg/100ml In Ns) 100 mg in 100 mls @ 1 mls/hr IV .Q24H PRN; Protocol PRN Reason: Agitation Last Titration: 07/06/18 07:10 Dose: 0 mg/hr, 0 mls/hr NOREPINEPHRINE BIT/0.9 % NACL (Levophed 4 Mg/ 250 Ml Ns Premixed) 4 mg in 250 mls @ 15 mls/hr IV .[id number] PRN; Protocol PRN Reason: TITRATE PER MD ORDER Last Titration: 07/05/18 12:40 Dose: 0 mcg/min, 0 mls/hr Insulin Human Lispro (Humalog High) 0 units SC ACHS [facility]; Protocol Last Admin: 07/05/18 22:10 Dose: Not Given Isosorbide Mononitrate (Imdur) 120 mg PO DAILY [facility] Last Admin: 07/03/18 15:29 Dose: 120 mg Morphine Sulfate (Morphine) 2 mg IVP Q4H PRN PRN Reason: Pain, severe (8-10) Last Admin: 07/03/18 18:25 Dose: 2 mg Pantoprazole Sodium (Protonix Inj) 40 mg IVP DAILY [facility] Last Admin: 07/05/18 09:47 Dose: 40 mg Prednisone (Prednisone Tab) 5 mg PO DAILY [facility] Last Admin: 07/03/18 15:48 Dose: 5 mg - Labs Labs: 07/06/18 05:45 07/06/18 01:36 EST PT 25.9 SECONDS (9.4-12.5) H 07/04/18 16:10 INR 2.23 07/04/18 16:10 APTT 30.5 Seconds (25.1-36.5) 07/04/18 16:10
[2018-07-06] MEDS: Insulin Lispro (HUMAlog) HIGH Coverage SC SCH ×4 (08:51→22:11)
[2018-07-06] MEDS: levETIRAcetam 1000mg/100ml NS 100 ML IV SCH ×2 (08:59→21:28)
--- NOTE | 2018-07-06 09:17 | RAD ---
Date of service: 07/06/2018 HISTORY: Intubated COMPARISON: 07/05/2018 FINDINGS: LUNGS: No active pulmonary disease. PLEURA: Small bilateral pleural effusions CARDIOVASCULAR: Aortic calcification Mild cardiomegaly mild vascular congestion OSSEOUS STRUCTURES: No significant abnormalities. VISUALIZED UPPER ABDOMEN: Normal. OTHER FINDINGS: Endotracheal tube and right central line unchanged IMPRESSION: Mild vascular congestion and small bilateral pleural effusions
--- NOTE | 2018-07-06 11:51 | CP.CCUPN ---
<Fabian Riggs - Last Filed: 07/06/18 12:11> CCU Subjective - Physician Review Subjective (Free Text): 07/06/18 11:48 Patient seen and examined at bedside still without pupillary reflex, gag reflex, or corneal reflex. Patient however continues to overbreathe the vent. Patient to get video EEG today. Discussed prognosis with family. CCU Objective - Vital Signs / Intake & Output Vital Signs (Last 4 hours): Vital Signs Temp Pulse Resp BP Pulse Ox 07/06/18 10:37 97.9 F 101 H 100 07/06/18 10:30 97.5 F L 97 H 100 07/06/18 10:20 97.5 F L 95 H 100 07/06/18 10:10 97.5 F L 94 H 100 07/06/18 10:00 97.5 F L 99 H 16 151/58 H 100 07/06/18 09:50 97.3 F L 93 H 100 07/06/18 09:40 97.3 F L 93 H 100 07/06/18 09:30 97.3 F L 92 H 100 07/06/18 09:20 97.3 F L 92 H 100 07/06/18 09:10 97.3 F L 91 H 100 07/06/18 09:00 97.2 F L 94 H 16 152/54 H 100 07/06/18 08:50 97.3 F L 90 100 07/06/18 08:40 97.2 F L 89 100 07/06/18 08:30 97.2 F L 89 100 07/06/18 08:20 97.2 F L 89 100 07/06/18 08:10 97.2 F L 88 100 07/06/18 08:00 97.2 F L 91 H 16 149/53 L 100 Intake and Output (Last 8hrs): Intake & Output 07/05/18 07/06/18 07/06/18 23:59 06:59 14:59 Intake Total 10 Output Total Balance 10 Weight Intake: IV 10 IVPB Versed dobutamine Output: Other Other: # Bowel Movements - Physical Exam Head: Positive for: Other (dressing around head) Pupils: Positive for: Non-Reactive Extroacular Muscles: Positive for: EOMI Conjunctiva: Positive for: Normal Mouth: Positive for: Dry Pharnyx: Positive for: Other (gag reflex absent) Neck: Positive for: Normal Range of Motion Respiratory/Chest: Positive for: Good Air Exchange, Other (intubated on ventilator). Negative for: Accessory Muscle Use, Rales Cardiovascular: Positive for: Regular Rate and Rhythm, Normal S1, S2. Negative for: Murmurs Abdomen: Negative for: Tenderness, Distention, Peritoneal Signs Genitourinary Male: Positive for: Other (garland in place) Upper Extremity: Negative for: Cyanosis, Edema Lower Extremity: Negative for: Edema Neurological: Negative for: GCS=15, CN II-XII Intact, Speech Normal Skin: Positive for: Warm, Dry, Normal Color. Negative for: Rashes Psychiatric: Negative for: Alert, Oriented x 3, Normal Insight, Normal Concentration - Medications Active Medications: Active Medications Generic Name Dose Route Start Last Admin Trade Name Freq PRN Reason Stop Dose Admin Albuterol/Ipratropium 3 ml 07/01/18 20:43 07/04/18 13:20 Duoneb 3 Mg/0.5 Mg (3 Ml) Ud IH 3 ml [id number] PRN Administration Shortness of Breath Famotidine 20 mg 07/01/18 22:00 07/03/18 15:49 Pepcid PO Not Given 1000,2200 ARELIS Gabapentin 300 mg 07/02/18 10:00 07/03/18 15:29 Neurontin PO 300 mg DAILY ARELIS Administration Protocol Hydralazine HCl 25 mg 07/02/18 10:00 07/04/18 15:41 Apresoline PO Not Given TID ARELIS Hydrocortisone Sodium Succinate 50 mg 07/04/18 12:15 07/06/18 06:00 Solu-Cortef IVP 50 mg Q6H ARELIS Administration Hydroxyzine HCl 25 mg 07/02/18 10:00 07/06/18 09:00 Atarax PO Not Given TID ARELIS Epinephrine HCl 1 mg/ Sodium 51 mls @ 3.06 mls/hr 07/04/18 11:23 Chloride IV .[id number] PRN TITRATE PER MD ORDER Protocol 1 MCG/MIN Dobutamine HCl/Dextrose 500 mg in 250 mls @ 10.553 mls/hr 07/04/18 12:08 07/06/18 06:00 Dobutamine/Dextrose 5% 500mg/250ml IV 5 mcg/kg/min .[id number] PRN 10.553 mls/hr TITRATE PER PROTOCOL Administration Protocol 5 MCG/KG/MIN Vasopressin 20 units/ Sodium 101 mls @ 9.09 mls/hr 07/04/18 13:00 07/05/18 01:12 Chloride IV 9.09 mls/hr .[id number] ARELIS Administration Protocol 0.03 U/MIN Levetiracetam 100 mls @ 460 mls/hr 07/04/18 14:00 07/06/18 08:59 Keppra 1000mg/100ml Ns IV 460 mls/hr Q12 ARELIS Administration Midazolam 100 mg/100ml in NS 100 mg in 100 mls @ 1 mls/hr 07/04/18 14:05 07/06/18 07:10 Midazolam 100 Mg/100ml In Ns IV 0 mg/hr .Q24H PRN 0 mls/hr Agitation Titration Protocol 1 MG/HR NOREPINEPHRINE BIT/0.9 % NACL 4 mg in 250 mls @ 15 mls/hr 07/05/18 09:00 07/05/18 12:40 Levophed 4 Mg/ 250 Ml Ns Premixed IV 0 mcg/min .[id number] PRN 0 mls/hr TITRATE PER MD ORDER Titration Protocol 4 MCG/MIN Insulin Human Lispro 0 units 07/02/18 16:30 07/06/18 08:51 Humalog High SC 10 units ACHS ARELIS Administration Protocol Isosorbide Mononitrate 120 mg 07/02/18 10:00 07/03/18 15:29 Imdur PO 120 mg DAILY ARELIS Administration Morphine Sulfate 2 mg 07/01/18 20:43 07/03/18 18:25 Morphine IVP 2 mg Q4H PRN Administration Pain, severe (8-10) Pantoprazole Sodium 40 mg 07/05/18 10:00 07/06/18 08:59 Protonix Inj IVP 40 mg DAILY ARELIS Administration Prednisone 5 mg 07/02/18 10:00 07/03/18 15:48 Prednisone Tab PO 5 mg DAILY ARELIS Administration - Patient Studies Lab Studies: Microbiology Studies 07/04/18 10:45 MRSA Culture (Admit) - Final Naris MRSA NOT DETECTED 07/04/18 13:00 Blood Culture - Preliminary Blood NO GROWTH AFTER 24 HOURS 07/04/18 12:50 Blood Culture - Preliminary Blood NO GROWTH AFTER 24 HOURS Lab Studies 07/06/18 07/06/18 07/06/18 Range/Units 05:45 05:00 01:36 EST WBC 8.6 (4.5-11.0) 10^3/uL RBC 3.08 L (3.5-6.1) 10^6/uL Hgb 8.5 L (14.0-18.0) g/dL Hct 25.3 L (42.0-52.0) % MCV 82.1 (80.0-105.0) fl MCH 27.6 (25.0-35.0) pg MCHC 33.6 (31.0-37.0) g/dl RDW 17.8 H (11.5-14.5) % Plt Count 22 L* (120.0-450.0) 10^3/uL Manual Plt Count 22 L* (120-450) K/mm3 Gran % 93.7 H (50.0-68.0) % Lymph % (Auto) 4.4 L (22.0-35.0) % [place] % (Auto) 1.9 (1.0-6.0) % Eos % (Auto) 0.0 L (1.5-5.0) % Baso % (Auto) 0.0 (0.0-3.0) % Gran # 8.01 H (1.4-6.5) Lymph # (Auto) 0.4 L (1.2-3.4) [place] # (Auto) 0.2 (0.1-0.6) Eos # (Auto) 0.0 (0.0-0.7) Baso # (Auto) 0.00 (0.0-2.0) K/mm3 pCO2 53 H (35-45) mm/Hg pO2 165.0 H (80-100) mm/Hg HCO3 27.3 (21-28) mmol/L ABG pH 7.32 L (7.35-7.45) ABG Total CO2 28.9 H (22-28) mmol.L ABG O2 Saturation 100.0 H (95-98) % ABG O2 Content 12.1 L (15-23) ML/dl ABG Base Excess 0.8 (-2.0-3.0) mmol/L ABG Hemoglobin 8.6 L (11.7-17.4) g/dL ABG Carboxyhemoglobin 2.1 H (0.5-1.5) % POC ABG HHb (Measured) 0 (0-5) % ABG Methemoglobin 1.1 (0.0-3.0) % ABG O2 Capacity 12.1 L (16-24) mL/dl Hgb O2 Saturation 96.8 (95.0-98.0) % FiO2 40.0 % Sodium 136 (132-148) mmol/L Potassium 4.8 (3.6-5.0) mmol/L Chloride 98 (98-107) mmol/L Carbon Dioxide 28 (21-33) mmol/L Anion Gap 14 (10-20) BUN 33 H (7-21) mg/dL Creatinine 2.8 H (0.8-1.5) mg/dl Est GFR ( Amer) 28 Est GFR (Non-Af Amer) 23 POC Glucose (mg/dL) (65-110) mg/dL Random Glucose 237 H (70-110) mg/dL Calcium 7.1 L (8.4-10.5) mg/dL Phosphorus 5.7 H (2.5-4.5) mg/dL Magnesium 2.1 (1.7-2.2) mg/dL Total Bilirubin 1.4 H (0.2-1.3) mg/dL AST 101 H (17-59) U/L ALT 76 H (7-56) U/L Alkaline Phosphatase 238 H (38-126) U/L Total Protein 6.3 (5.8-8.3) g/dL Albumin 2.9 L (3.0-4.8) g/dL Globulin 3.4 gm/dL Albumin/Globulin Ratio 0.9 L (1.1-1.8) 07/05/18 07/05/18 07/05/18 Range/Units 22:11 16:23 11:29 WBC (4.5-11.0) 10^3/uL RBC (3.5-6.1) 10^6/uL Hgb (14.0-18.0) g/dL Hct (42.0-52.0) % MCV (80.0-105.0) fl MCH (25.0-35.0) pg MCHC (31.0-37.0) g/dl RDW (11.5-14.5) % Plt Count (120.0-450.0) 10^3/uL Manual Plt Count (120-450) K/mm3 Gran % (50.0-68.0) % Lymph % (Auto) (22.0-35.0) % [place] % (Auto) (1.0-6.0) % Eos % (Auto) (1.5-5.0) % Baso % (Auto) (0.0-3.0) % Gran # (1.4-6.5) Lymph # (Auto) (1.2-3.4) [place] # (Auto) (0.1-0.6) Eos # (Auto) (0.0-0.7) Baso # (Auto) (0.0-2.0) K/mm3 pCO2 (35-45) mm/Hg pO2 (80-100) mm/Hg HCO3 (21-28) mmol/L ABG pH (7.35-7.45) ABG Total CO2 (22-28) mmol.L ABG O2 Saturation (95-98) % ABG O2 Content (15-23) ML/dl ABG Base Excess (-2.0-3.0) mmol/L ABG Hemoglobin (11.7-17.4) g/dL ABG Carboxyhemoglobin (0.5-1.5) % POC ABG HHb (Measured) (0-5) % ABG Methemoglobin (0.0-3.0) % ABG O2 Capacity (16-24) mL/dl Hgb O2 Saturation (95.0-98.0) % FiO2 % Sodium (132-148) mmol/L Potassium (3.6-5.0) mmol/L Chloride (98-107) mmol/L Carbon Dioxide (21-33) mmol/L Anion Gap (10-20) BUN (7-21) mg/dL Creatinine (0.8-1.5) mg/dl Est GFR ( Amer) Est GFR (Non-Af Amer) POC Glucose (mg/dL) 198 H 291 H 235 H (65-110) mg/dL Random Glucose (70-110) mg/dL Calcium (8.4-10.5) mg/dL Phosphorus (2.5-4.5) mg/dL Magnesium (1.7-2.2) mg/dL Total Bilirubin (0.2-1.3) mg/dL AST (17-59) U/L ALT (7-56) U/L Alkaline Phosphatase (38-126) U/L Total Protein (5.8-8.3) g/dL Albumin (3.0-4.8) g/dL Globulin gm/dL Albumin/Globulin Ratio (1.1-1.8) Laboratory Results - last 24 hr 07/05/18 07/05/18 07/05/18 11:29 16:23 22:11 WBC RBC Hgb Hct MCV MCH MCHC RDW Plt Count Manual Plt Count Gran % Lymph % (Auto) [place] % (Auto) Eos % (Auto) Baso % (Auto) Gran # Lymph # (Auto) [place] # (Auto) Eos # (Auto) Baso # (Auto) pCO2 pO2 HCO3 ABG pH ABG Total CO2 ABG O2 Saturation ABG O2 Content ABG Base Excess ABG Hemoglobin ABG Carboxyhemoglobin POC ABG HHb (Measured) ABG Methemoglobin ABG O2 Capacity Hgb O2 Saturation FiO2 Sodium Potassium Chloride Carbon Dioxide Anion Gap BUN Creatinine Est GFR ( Amer) Est GFR (Non-Af Amer) POC Glucose (mg/dL) 235 H 291 H 198 H Random Glucose Calcium Phosphorus Magnesium Total Bilirubin AST ALT Alkaline Phosphatase Total Protein Albumin Globulin Albumin/Globulin Ratio 07/06/18 07/06/18 07/06/18 01:36 EST 05:00 05:45 WBC 8.6 RBC 3.08 L Hgb 8.5 L Hct 25.3 L MCV 82.1 MCH 27.6 MCHC 33.6 RDW 17.8 H Plt Count 22 L* Manual Plt Count 22 L* Gran % 93.7 H Lymph % (Auto) 4.4 L [place] % (Auto) 1.9 Eos % (Auto) 0.0 L Baso % (Auto) 0.0 Gran # 8.01 H Lymph # (Auto) 0.4 L [place] # (Auto) 0.2 Eos # (Auto) 0.0 Baso # (Auto) 0.00 pCO2 53 H pO2 165.0 H HCO3 27.3 ABG pH 7.32 L ABG Total CO2 28.9 H ABG O2 Saturation 100.0 H ABG O2 Content 12.1 L ABG Base Excess 0.8 ABG Hemoglobin 8.6 L ABG Carboxyhemoglobin 2.1 H POC ABG HHb (Measured) 0 ABG Methemoglobin 1.1 ABG O2 Capacity 12.1 L Hgb O2 Saturation 96.8 FiO2 40.0 Sodium 136 Potassium 4.8 Chloride 98 Carbon Dioxide 28 Anion Gap 14 BUN 33 H Creatinine 2.8 H Est GFR ( Amer) 28 Est GFR (Non-Af Amer) 23 POC Glucose (mg/dL) Random Glucose 237 H Calcium 7.1 L Phosphorus 5.7 H Magnesium 2.1 Total Bilirubin 1.4 H AST 101 H ALT 76 H Alkaline Phosphatase 238 H Total Protein 6.3 Albumin 2.9 L Globulin 3.4 Albumin/Globulin Ratio 0.9 L Fingerstick Blood Sugar Results: 313 Review of Systems - Review of Systems Systems not reviewed;Unavailable: Intubated Critical Care Progress Note - Nutrition Nutrition: Nutrition Category Date Time Status Heart Healthy Diet [DIET] Diets 07/01/18 Dinner Active Assessment/Plan - Assessment and Plan (Free Text) Assessment: Patient is 62yo male with PMHx of ESRD on HD, Pulm HTN, pleural effusions, CHF, HTN, admitted with hip fracture, s/p PEA cardiac arrest x 3 after OR currently intubated, sedated on ventilatory support. Plan: Neuro: Sedated, intubated non-responsive CT head shows subarachnoid/subdural layering around the tentorium with a subarachnoid hemorrhage seen layering dependently in the 4th ventricle and in the cerebellar fossa. Per neurosurgery, no surgical intervention at this time repeat video EEG Continue with Keppra q12 hrs Cardio: Normotensive, regular rate Currently on dobutamine drip R femoral arterial line in place Maintain MAP > 65. Pulm: Intubated on PRVC 450/16/35%/5 Maintain SaO2 >90% ID: Stress dose steroids GI: Distended IV protonix /Renal: ESRD Tu, , Recs per nephro Monitor I/Os Heme: Thrombocytopenic; will transfuse one unit platelets tranfuse if Hgb <7 <Pramod Urena - Last Filed: 07/06/18 12:37> CCU Objective - Vital Signs / Intake & Output Vital Signs (Last 4 hours): Vital Signs Temp Pulse Resp BP Pulse Ox 07/06/18 12:21 98.2 F 97 H 100 07/06/18 12:20 98.1 F 98 H 100 07/06/18 12:10 98.1 F 99 H 100 07/06/18 12:00 98.1 F 100 H 16 137/47 L 100 07/06/18 11:50 97.9 F 100 H 100 07/06/18 11:40 97.9 F 100 H 100 07/06/18 10:37 97.9 F 101 H 100 07/06/18 10:30 97.5 F L 97 H 100 07/06/18 10:20 97.5 F L 95 H 100 07/06/18 10:10 97.5 F L 94 H 100 07/06/18 10:00 97.5 F L 99 H 16 151/58 H 100 07/06/18 09:50 97.3 F L 93 H 100 07/06/18 09:40 97.3 F L 93 H 100 07/06/18 09:30 97.3 F L 92 H 100 07/06/18 09:20 97.3 F L 92 H 100 07/06/18 09:10 97.3 F L 91 H 100 07/06/18 09:00 97.2 F L 94 H 16 152/54 H 100 07/06/18 08:50 97.3 F L 90 100 07/06/18 08:40 97.2 F L 89 100 Intake and Output (Last 8hrs): Intake & Output 07/05/18 07/06/18 07/06/18 23:59 06:59 14:59 Intake Total 10 Output Total Balance 10 Weight Intake: IV 10 IVPB Versed dobutamine Output: Other Other: # Bowel Movements - Medications Active Medications: Active Medications Generic Name Dose Route Start Last Admin Trade Name Freq PRN Reason Stop Dose Admin Albuterol/Ipratropium 3 ml 07/01/18 20:43 07/04/18 13:20 Duoneb 3 Mg/0.5 Mg (3 Ml) Ud IH 3 ml [id number] PRN Administration Shortness of Breath Famotidine 20 mg 07/01/18 22:00 07/03/18 15:49 Pepcid PO Not Given 1000,2200 ARELIS Gabapentin 300 mg 07/02/18 10:00 07/03/18 15:29 Neurontin PO 300 mg DAILY ARELIS Administration Protocol Hydralazine HCl 25 mg 07/02/18 10:00 07/04/18 15:41 Apresoline PO Not Given TID [facility] Hydrocortisone Sodium Succinate 50 mg 07/04/18 12:15 07/06/18 11:59 Solu-Cortef IVP 50 mg Q6H ARELIS Administration Hydroxyzine HCl 25 mg 07/02/18 10:00 07/06/18 09:00 Atarax PO Not Given TID [facility] Epinephrine HCl 1 mg/ Sodium 51 mls @ 3.06 mls/hr 07/04/18 11:23 Chloride IV .[id number] PRN TITRATE PER MD ORDER Protocol 1 MCG/MIN Dobutamine HCl/Dextrose 500 mg in 250 mls @ 10.553 mls/hr 07/04/18 12:08 07/06/18 06:00 Dobutamine/Dextrose 5% 500mg/250ml IV 5 mcg/kg/min .[id number] PRN 10.553 mls/hr TITRATE PER PROTOCOL Administration Protocol 5 MCG/KG/MIN Vasopressin 20 units/ Sodium 101 mls @ 9.09 mls/hr 07/04/18 13:00 07/05/18 01:12 Chloride IV 9.09 mls/hr .[id number] ARELIS Administration Protocol 0.03 U/MIN Levetiracetam 100 mls @ 460 mls/hr 07/04/18 14:00 07/06/18 08:59 Keppra 1000mg/100ml Ns IV 460 mls/hr Q12 ARELIS Administration Midazolam 100 mg/100ml in NS 100 mg in 100 mls @ 1 mls/hr 07/04/18 14:05 07/06/18 07:10 Midazolam 100 Mg/100ml In Ns IV 0 mg/hr .Q24H PRN 0 mls/hr Agitation Titration Protocol 1 MG/HR NOREPINEPHRINE BIT/0.9 % NACL 4 mg in 250 mls @ 15 mls/hr 07/05/18 09:00 07/05/18 12:40 Levophed 4 Mg/ 250 Ml Ns Premixed IV 0 mcg/min .[id number] PRN 0 mls/hr TITRATE PER MD ORDER Titration Protocol 4 MCG/MIN Insulin Human Lispro 0 units 07/02/18 16:30 07/06/18 11:54 Humalog High SC 7 units ACHS ARELIS Administration Protocol Isosorbide Mononitrate 120 mg 07/02/18 10:00 07/03/18 15:29 Imdur PO 120 mg DAILY ARELIS Administration Morphine Sulfate 2 mg 07/01/18 20:43 07/03/18 18:25 Morphine IVP 2 mg Q4H PRN Administration Pain, severe (8-10) Pantoprazole Sodium 40 mg 07/05/18 10:00 07/06/18 08:59 Protonix Inj IVP 40 mg DAILY ARELIS Administration Prednisone 5 mg 07/02/18 10:00 07/03/18 15:48 Prednisone Tab PO 5 mg DAILY ARELIS Administration - Patient Studies Lab Studies: Microbiology Studies 07/04/18 10:45 MRSA Culture (Admit) - Final Naris MRSA NOT DETECTED 07/04/18 13:00 Blood Culture - Preliminary Blood NO GROWTH AFTER 24 HOURS 07/04/18 12:50 Blood Culture - Preliminary Blood NO GROWTH AFTER 24 HOURS Lab Studies 07/06/18 07/06/18 07/06/18 Range/Units 05:45 05:00 01:36 EST WBC 8.6 (4.5-11.0) 10^3/uL RBC 3.08 L (3.5-6.1) 10^6/uL Hgb 8.5 L (14.0-18.0) g/dL Hct 25.3 L (42.0-52.0) % MCV 82.1 (80.0-105.0) fl MCH 27.6 (25.0-35.0) pg MCHC 33.6 (31.0-37.0) g/dl RDW 17.8 H (11.5-14.5) % Plt Count 22 L* (120.0-450.0) 10^3/uL Manual Plt Count 22 L* (120-450) K/mm3 Gran % 93.7 H (50.0-68.0) % Lymph % (Auto) 4.4 L (22.0-35.0) % [place] % (Auto) 1.9 (1.0-6.0) % Eos % (Auto) 0.0 L (1.5-5.0) % Baso % (Auto) 0.0 (0.0-3.0) % Gran # 8.01 H (1.4-6.5) Lymph # (Auto) 0.4 L (1.2-3.4) [place] # (Auto) 0.2 (0.1-0.6) Eos # (Auto) 0.0 (0.0-0.7) Baso # (Auto) 0.00 (0.0-2.0) K/mm3 pCO2 53 H (35-45) mm/Hg pO2 165.0 H (80-100) mm/Hg HCO3 27.3 (21-28) mmol/L ABG pH 7.32 L (7.35-7.45) ABG Total CO2 28.9 H (22-28) mmol.L ABG O2 Saturation 100.0 H (95-98) % ABG O2 Content 12.1 L (15-23) ML/dl ABG Base Excess 0.8 (-2.0-3.0) mmol/L ABG Hemoglobin 8.6 L (11.7-17.4) g/dL ABG Carboxyhemoglobin 2.1 H (0.5-1.5) % POC ABG HHb (Measured) 0 (0-5) % ABG Methemoglobin 1.1 (0.0-3.0) % ABG O2 Capacity 12.1 L (16-24) mL/dl Hgb O2 Saturation 96.8 (95.0-98.0) % FiO2 40.0 % Sodium 136 (132-148) mmol/L Potassium 4.8 (3.6-5.0) mmol/L Chloride 98 (98-107) mmol/L Carbon Dioxide 28 (21-33) mmol/L Anion Gap 14 (10-20) BUN 33 H (7-21) mg/dL Creatinine 2.8 H (0.8-1.5) mg/dl Est GFR ( Amer) 28 Est GFR (Non-Af Amer) 23 POC Glucose (mg/dL) (65-110) mg/dL Random Glucose 237 H (70-110) mg/dL Calcium 7.1 L (8.4-10.5) mg/dL Phosphorus 5.7 H (2.5-4.5) mg/dL Magnesium 2.1 (1.7-2.2) mg/dL Total Bilirubin 1.4 H (0.2-1.3) mg/dL AST 101 H (17-59) U/L ALT 76 H (7-56) U/L Alkaline Phosphatase 238 H (38-126) U/L Total Protein 6.3 (5.8-8.3) g/dL Albumin 2.9 L (3.0-4.8) g/dL Globulin 3.4 gm/dL Albumin/Globulin Ratio 0.9 L (1.1-1.8) 07/05/18 07/05/18 07/05/18 Range/Units 22:11 16:23 11:29 WBC (4.5-11.0) 10^3/uL RBC (3.5-6.1) 10^6/uL Hgb (14.0-18.0) g/dL Hct (42.0-52.0) % MCV (80.0-105.0) fl MCH (25.0-35.0) pg MCHC (31.0-37.0) g/dl RDW (11.5-14.5) % Plt Count (120.0-450.0) 10^3/uL Manual Plt Count (120-450) K/mm3 Gran % (50.0-68.0) % Lymph % (Auto) (22.0-35.0) % [place] % (Auto) (1.0-6.0) % Eos % (Auto) (1.5-5.0) % Baso % (Auto) (0.0-3.0) % Gran # (1.4-6.5) Lymph # (Auto) (1.2-3.4) [place] # (Auto) (0.1-0.6) Eos # (Auto) (0.0-0.7) Baso # (Auto) (0.0-2.0) K/mm3 pCO2 (35-45) mm/Hg pO2 (80-100) mm/Hg HCO3 (21-28) mmol/L ABG pH (7.35-7.45) ABG Total CO2 (22-28) mmol.L ABG O2 Saturation (95-98) % ABG O2 Content (15-23) ML/dl ABG Base Excess (-2.0-3.0) mmol/L ABG Hemoglobin (11.7-17.4) g/dL ABG Carboxyhemoglobin (0.5-1.5) % POC ABG HHb (Measured) (0-5) % ABG Methemoglobin (0.0-3.0) % ABG O2 Capacity (16-24) mL/dl Hgb O2 Saturation (95.0-98.0) % FiO2 % Sodium (132-148) mmol/L Potassium (3.6-5.0) mmol/L Chloride (98-107) mmol/L Carbon Dioxide (21-33) mmol/L Anion Gap (10-20) BUN (7-21) mg/dL Creatinine (0.8-1.5) mg/dl Est GFR ( Amer) Est GFR (Non-Af Amer) POC Glucose (mg/dL) 198 H 291 H 235 H (65-110) mg/dL Random Glucose (70-110) mg/dL Calcium (8.4-10.5) mg/dL Phosphorus (2.5-4.5) mg/dL Magnesium (1.7-2.2) mg/dL Total Bilirubin (0.2-1.3) mg/dL AST (17-59) U/L ALT (7-56) U/L Alkaline Phosphatase (38-126) U/L Total Protein (5.8-8.3) g/dL Albumin (3.0-4.8) g/dL Globulin gm/dL Albumin/Globulin Ratio (1.1-1.8) Laboratory Results - last 24 hr 07/05/18 07/05/18 07/05/18 11:29 16:23 22:11 WBC RBC Hgb Hct MCV MCH MCHC RDW Plt Count Manual Plt Count Gran % Lymph % (Auto) [place] % (Auto) Eos % (Auto) Baso % (Auto) Gran # Lymph # (Auto) [place] # (Auto) Eos # (Auto) Baso # (Auto) pCO2 pO2 HCO3 ABG pH ABG Total CO2 ABG O2 Saturation ABG O2 Content ABG Base Excess ABG Hemoglobin ABG Carboxyhemoglobin POC ABG HHb (Measured) ABG Methemoglobin ABG O2 Capacity Hgb O2 Saturation FiO2 Sodium Potassium Chloride Carbon Dioxide Anion Gap BUN Creatinine Est GFR ( Amer) Est GFR (Non-Af Amer) POC Glucose (mg/dL) 235 H 291 H 198 H Random Glucose Calcium Phosphorus Magnesium Total Bilirubin AST ALT Alkaline Phosphatase Total Protein Albumin Globulin Albumin/Globulin Ratio 07/06/18 07/06/18 07/06/18 01:36 EST 05:00 05:45 WBC 8.6 RBC 3.08 L Hgb 8.5 L Hct 25.3 L MCV 82.1 MCH 27.6 MCHC 33.6 RDW 17.8 H Plt Count 22 L* Manual Plt Count 22 L* Gran % 93.7 H Lymph % (Auto) 4.4 L [place] % (Auto) 1.9 Eos % (Auto) 0.0 L Baso % (Auto) 0.0 Gran # 8.01 H Lymph # (Auto) 0.4 L [place] # (Auto) 0.2 Eos # (Auto) 0.0 Baso # (Auto) 0.00 pCO2 53 H pO2 165.0 H HCO3 27.3 ABG pH 7.32 L ABG Total CO2 28.9 H ABG O2 Saturation 100.0 H ABG O2 Content 12.1 L ABG Base Excess 0.8 ABG Hemoglobin 8.6 L ABG Carboxyhemoglobin 2.1 H POC ABG HHb (Measured) 0 ABG Methemoglobin 1.1 ABG O2 Capacity 12.1 L Hgb O2 Saturation 96.8 FiO2 40.0 Sodium 136 Potassium 4.8 Chloride 98 Carbon Dioxide 28 Anion Gap 14 BUN 33 H Creatinine 2.8 H Est GFR ( Amer) 28 Est GFR (Non-Af Amer) 23 POC Glucose (mg/dL) Random Glucose 237 H Calcium 7.1 L Phosphorus 5.7 H Magnesium 2.1 Total Bilirubin 1.4 H AST 101 H ALT 76 H Alkaline Phosphatase 238 H Total Protein 6.3 Albumin 2.9 L Globulin 3.4 Albumin/Globulin Ratio 0.9 L Critical Care Progress Note - Nutrition Nutrition: Nutrition Category Date Time Status Heart Healthy Diet [DIET] Diets 07/01/18 Dinner Active Assessment/Plan - Assessment and Plan (Free Text) Plan: Patient seen and examined on rounds with resident, agree with ntoe with following additions, exceptions: Patient is 62yo male with PMHx of ESRD on HD, Pulm HTN, pleural effusions, CHF, HTN, admitted with hip fracture, s/p PEA cardiac arrest x 3 after OR Currently intubated, OFF sedation on ventilatory support On vasopressor support, Dobutamine Labs, imaging, chart reviewed Neurology following CT head done yesterday, results noted Patient has no gag reflex, corneal reflex, pupils fixed and dilated, does overbreath the ventilator off sedation Overall prognosis extremely poor ESRD on HD CHF Pulm HTN, Right sided HF Cardiac Arrest, PEA Hyperkalemia Recommend: - cont with vent support, low tidal vol ventilation, titrate FiO2 to 40 - Stress dose steroids - Vasopressor support, Levophed, Dobutamine - HD as per renal - follow up VEEG - follow Neuro - AEDs as per neurology - monitor INR, Platelets - check HIT, transfuse 1u Platelets - NPO - FS control - GI ppx - DVT ppx, SCDs - Monitor in MICU Overall prognosis extremely poor Critical care time 30 minutes
--- NOTE | 2018-07-06 18:14 | CP.PCM.PN ---
Subjective - Date & Time of Evaluation Date of Evaluation: 07/05/18 Time of Evaluation: 19:00 - Subjective Subjective: No acute events ROS: unable to asess Objective - Vital Signs/Intake and Output Vital Signs (last 24 hours): Temp Pulse Resp BP Pulse Ox 99.0 F 92 H 16 149/50 L 100 07/06/18 16:22 07/06/18 16:22 07/06/18 16:00 07/06/18 16:00 07/06/18 16:22 Intake and Output: 07/06/18 07/06/18 06:59 18:59 Intake Total 335 Balance 335 - Medications Medications: Current Medications Albuterol/Ipratropium (Duoneb 3 Mg/0.5 Mg (3 Ml) Ud) 3 ml IH [id number] PRN PRN Reason: Shortness of Breath Last Admin: 07/04/18 13:20 Dose: 3 ml Famotidine (Pepcid) 20 mg PO 1000,2200 [facility] Last Admin: 07/03/18 15:49 Dose: Not Given Gabapentin (Neurontin) 300 mg PO DAILY [facility]; Protocol Last Admin: 07/03/18 15:29 Dose: 300 mg Hydralazine HCl (Apresoline) 25 mg PO TID [facility] Last Admin: 07/04/18 15:41 Dose: Not Given Hydrocortisone Sodium Succinate (Solu-Cortef) 50 mg IVP Q6H [facility] Last Admin: 07/06/18 17:15 Dose: 50 mg Hydroxyzine HCl (Atarax) 25 mg PO TID [facility] Last Admin: 07/06/18 14:22 Dose: Not Given Epinephrine HCl 1 mg/ Sodium (Chloride) 51 mls @ 3.06 mls/hr IV .[id number] PRN; Protocol PRN Reason: TITRATE PER MD ORDER Dobutamine HCl/Dextrose (Dobutamine/Dextrose 5% 500mg/250ml) 500 mg in 250 mls @ 10.553 mls/hr IV .[id number] PRN; Protocol PRN Reason: TITRATE PER PROTOCOL Last Admin: 07/06/18 06:00 Dose: 5 mcg/kg/min, 10.553 mls/hr Vasopressin 20 units/ Sodium (Chloride) 101 mls @ 9.09 mls/hr IV .Q11H7M [facility]; Protocol Last Admin: 07/05/18 01:12 Dose: 9.09 mls/hr Levetiracetam (Keppra 1000mg/100ml Ns) 100 mls @ 460 mls/hr IV Q12 [facility] Last Admin: 07/06/18 08:59 Dose: 460 mls/hr Midazolam 100 mg/100ml in NS (Midazolam 100 Mg/100ml In Ns) 100 mg in 100 mls @ 1 mls/hr IV .Q24H PRN; Protocol PRN Reason: Agitation Last Titration: 07/06/18 07:10 Dose: 0 mg/hr, 0 mls/hr NOREPINEPHRINE BIT/0.9 % NACL (Levophed 4 Mg/ 250 Ml Ns Premixed) 4 mg in 250 mls @ 15 mls/hr IV .[id number] PRN; Protocol PRN Reason: TITRATE PER MD ORDER Last Titration: 07/05/18 12:40 Dose: 0 mcg/min, 0 mls/hr Insulin Human Lispro (Humalog High) 0 units SC ACHS [facility]; Protocol Last Admin: 07/06/18 16:54 Dose: 4 units Isosorbide Mononitrate (Imdur) 120 mg PO DAILY [facility] Last Admin: 07/03/18 15:29 Dose: 120 mg Morphine Sulfate (Morphine) 2 mg IVP Q4H PRN PRN Reason: Pain, severe (8-10) Last Admin: 07/03/18 18:25 Dose: 2 mg Pantoprazole Sodium (Protonix Inj) 40 mg IVP DAILY [facility] Last Admin: 07/06/18 08:59 Dose: 40 mg Prednisone (Prednisone Tab) 5 mg PO DAILY [facility] Last Admin: 07/03/18 15:48 Dose: 5 mg - Labs Labs: 07/06/18 05:45 07/06/18 01:36 EST PT 25.9 SECONDS (9.4-12.5) H 07/04/18 16:10 INR 2.23 07/04/18 16:10 APTT 30.5 Seconds (25.1-36.5) 07/04/18 16:10 - Constitutional Appears: Chronically Ill, Other (sedated, intubated) - Head Exam Head Exam: ATRAUMATIC, NORMAL INSPECTION, NORMOCEPHALIC - Respiratory Exam Respiratory Exam: Clear to Ausculation Bilateral, NORMAL BREATHING PATTERN - Cardiovascular Exam Cardiovascular Exam: REGULAR RHYTHM, +S1, +S2. absent: Murmur - GI/Abdominal Exam GI & Abdominal Exam: Soft, Normal Bowel Sounds. absent: Tenderness - Extremities Exam Extremities Exam: Full ROM, Normal Capillary Refill, Normal Inspection. absent: Joint Swelling, Pedal Edema - Psychiatric Exam Psychiatric exam: Normal Affect, Normal Mood Assessment and Plan - Assessment and Plan (Free Text) Assessment: Mr. Estrada is a 62yo male with PMHx of ESRD on HD, Pulm HTN, pleural effusions, CHF, HTN, admitted with hip fracture, s/p PEA cardiac arrest x 3 after OR who has subsequently undergone anoxic injury. Overall prognosis is poor. Can consider plts threshold for less than 100 if there is concern for any hemorrghaic sequale. Thrombocytopenia likely multifactorial but appears stable. Leonard Giles MD HEmatology Service
--- NOTE | 2018-07-06 18:17 | CP.PCM.PN ---
Subjective - Date & Time of Evaluation Date of Evaluation: 07/06/18 Time of Evaluation: 19:00 - Subjective Subjective: No acute events over night. Family at bedside ROS: unable to assess Objective - Vital Signs/Intake and Output Vital Signs (last 24 hours): Temp Pulse Resp BP Pulse Ox 99.5 F 96 H 16 149/50 L 100 07/06/18 18:05 07/06/18 18:05 07/06/18 16:00 07/06/18 16:00 07/06/18 18:05 Intake and Output: 07/06/18 07/06/18 06:59 18:59 Intake Total 335 Balance 335 - Medications Medications: Current Medications Albuterol/Ipratropium (Duoneb 3 Mg/0.5 Mg (3 Ml) Ud) 3 ml IH [id number] PRN PRN Reason: Shortness of Breath Last Admin: 07/04/18 13:20 Dose: 3 ml Famotidine (Pepcid) 20 mg PO 1000,2200 [facility] Last Admin: 07/03/18 15:49 Dose: Not Given Gabapentin (Neurontin) 300 mg PO DAILY [facility]; Protocol Last Admin: 07/03/18 15:29 Dose: 300 mg Hydralazine HCl (Apresoline) 25 mg PO TID [facility] Last Admin: 07/04/18 15:41 Dose: Not Given Hydrocortisone Sodium Succinate (Solu-Cortef) 50 mg IVP Q6H [facility] Last Admin: 07/06/18 17:15 Dose: 50 mg Hydroxyzine HCl (Atarax) 25 mg PO TID [facility] Last Admin: 07/06/18 14:22 Dose: Not Given Epinephrine HCl 1 mg/ Sodium (Chloride) 51 mls @ 3.06 mls/hr IV .[id number] PRN; Protocol PRN Reason: TITRATE PER MD ORDER Dobutamine HCl/Dextrose (Dobutamine/Dextrose 5% 500mg/250ml) 500 mg in 250 mls @ 10.553 mls/hr IV .[id number] PRN; Protocol PRN Reason: TITRATE PER PROTOCOL Last Admin: 07/06/18 06:00 Dose: 5 mcg/kg/min, 10.553 mls/hr Vasopressin 20 units/ Sodium (Chloride) 101 mls @ 9.09 mls/hr IV .Q11H7M [facility]; Protocol Last Admin: 07/05/18 01:12 Dose: 9.09 mls/hr Levetiracetam (Keppra 1000mg/100ml Ns) 100 mls @ 460 mls/hr IV Q12 [facility] Last Admin: 07/06/18 08:59 Dose: 460 mls/hr Midazolam 100 mg/100ml in NS (Midazolam 100 Mg/100ml In Ns) 100 mg in 100 mls @ 1 mls/hr IV .Q24H PRN; Protocol PRN Reason: Agitation Last Titration: 07/06/18 07:10 Dose: 0 mg/hr, 0 mls/hr NOREPINEPHRINE BIT/0.9 % NACL (Levophed 4 Mg/ 250 Ml Ns Premixed) 4 mg in 250 mls @ 15 mls/hr IV .[id number] PRN; Protocol PRN Reason: TITRATE PER MD ORDER Last Titration: 07/05/18 12:40 Dose: 0 mcg/min, 0 mls/hr Insulin Human Lispro (Humalog High) 0 units SC ACHS [facility]; Protocol Last Admin: 07/06/18 16:54 Dose: 4 units Isosorbide Mononitrate (Imdur) 120 mg PO DAILY [facility] Last Admin: 07/03/18 15:29 Dose: 120 mg Morphine Sulfate (Morphine) 2 mg IVP Q4H PRN PRN Reason: Pain, severe (8-10) Last Admin: 07/03/18 18:25 Dose: 2 mg Pantoprazole Sodium (Protonix Inj) 40 mg IVP DAILY [facility] Last Admin: 07/06/18 08:59 Dose: 40 mg Prednisone (Prednisone Tab) 5 mg PO DAILY [facility] Last Admin: 07/03/18 15:48 Dose: 5 mg - Labs Labs: 07/06/18 05:45 07/06/18 01:36 EST PT 25.9 SECONDS (9.4-12.5) H 07/04/18 16:10 INR 2.23 07/04/18 16:10 APTT 30.5 Seconds (25.1-36.5) 07/04/18 16:10 - Constitutional Appears: Non-toxic, Chronically Ill, Other (sedated and intubated) - Respiratory Exam Respiratory Exam: Clear to Ausculation Bilateral, NORMAL BREATHING PATTERN - Cardiovascular Exam Cardiovascular Exam: REGULAR RHYTHM, +S1, +S2. absent: Murmur - GI/Abdominal Exam GI & Abdominal Exam: Soft, Normal Bowel Sounds. absent: Tenderness - Psychiatric Exam Psychiatric exam: Normal Affect, Normal Mood Assessment and Plan - Assessment and Plan (Free Text) Assessment: Mr. Estrada is a 62yo male with PMHx of ESRD on HD, Pulm HTN, pleural effusions, CHF, HTN, admitted with hip fracture, s/p PEA cardiac arrest x 3 after OR who has subsequently undergone anoxic injury. Overall prognosis is poor. Can consider plts threshold for less than 100 if there is concern for any hemorrghaic sequale. Thrombocytopenia likely multifactorial. Plt count today likely artifact due to clumping. No manual count was obtained. But can transfuse 1 unit. Discussed in [place] with patient's family poor prognosis per primary team's assessment and that hematology issues were largely marginal given over all state. Leonard Giles MD HEmatology Service
--- NOTE | 2018-07-06 19:01 | CP.PCM.PN ---
Subjective - Date & Time of Evaluation Date of Evaluation: 07/06/18 Time of Evaluation: 18:56 - Subjective Subjective: Mr. Estrada was seen and examined today in the ICU off sedation. He continues to be comatose and unresponsive. CT scan was reviewed and showed significant edema. EEG is flat. Objective - Vital Signs/Intake and Output Vital Signs (last 24 hours): Temp Pulse Resp BP Pulse Ox 99.5 F 96 H 16 149/50 L 100 07/06/18 18:05 07/06/18 18:05 07/06/18 16:00 07/06/18 16:00 07/06/18 18:05 Intake and Output: 07/06/18 07/06/18 06:59 18:59 Intake Total 335 Balance 335 - Medications Medications: Current Medications Albuterol/Ipratropium (Duoneb 3 Mg/0.5 Mg (3 Ml) Ud) 3 ml IH [id number] PRN PRN Reason: Shortness of Breath Last Admin: 07/04/18 13:20 Dose: 3 ml Famotidine (Pepcid) 20 mg PO 1000,2200 [facility] Last Admin: 07/03/18 15:49 Dose: Not Given Gabapentin (Neurontin) 300 mg PO DAILY [facility]; Protocol Last Admin: 07/03/18 15:29 Dose: 300 mg Hydralazine HCl (Apresoline) 25 mg PO TID [facility] Last Admin: 07/04/18 15:41 Dose: Not Given Hydrocortisone Sodium Succinate (Solu-Cortef) 50 mg IVP Q6H [facility] Last Admin: 07/06/18 17:15 Dose: 50 mg Hydroxyzine HCl (Atarax) 25 mg PO TID [facility] Last Admin: 07/06/18 14:22 Dose: Not Given Epinephrine HCl 1 mg/ Sodium (Chloride) 51 mls @ 3.06 mls/hr IV .[id number] PRN; Protocol PRN Reason: TITRATE PER MD ORDER Dobutamine HCl/Dextrose (Dobutamine/Dextrose 5% 500mg/250ml) 500 mg in 250 mls @ 10.553 mls/hr IV .[id number] PRN; Protocol PRN Reason: TITRATE PER PROTOCOL Last Admin: 07/06/18 06:00 Dose: 5 mcg/kg/min, 10.553 mls/hr Vasopressin 20 units/ Sodium (Chloride) 101 mls @ 9.09 mls/hr IV .Q11H7M [facility]; Protocol Last Admin: 07/05/18 01:12 Dose: 9.09 mls/hr Levetiracetam (Keppra 1000mg/100ml Ns) 100 mls @ 460 mls/hr IV Q12 [facility] Last Admin: 07/06/18 08:59 Dose: 460 mls/hr Midazolam 100 mg/100ml in NS (Midazolam 100 Mg/100ml In Ns) 100 mg in 100 mls @ 1 mls/hr IV .Q24H PRN; Protocol PRN Reason: Agitation Last Titration: 07/06/18 07:10 Dose: 0 mg/hr, 0 mls/hr NOREPINEPHRINE BIT/0.9 % NACL (Levophed 4 Mg/ 250 Ml Ns Premixed) 4 mg in 250 mls @ 15 mls/hr IV .[id number] PRN; Protocol PRN Reason: TITRATE PER MD ORDER Last Titration: 07/05/18 12:40 Dose: 0 mcg/min, 0 mls/hr Insulin Human Lispro (Humalog High) 0 units SC ACHS [facility]; Protocol Last Admin: 07/06/18 16:54 Dose: 4 units Isosorbide Mononitrate (Imdur) 120 mg PO DAILY [facility] Last Admin: 07/03/18 15:29 Dose: 120 mg Morphine Sulfate (Morphine) 2 mg IVP Q4H PRN PRN Reason: Pain, severe (8-10) Last Admin: 07/03/18 18:25 Dose: 2 mg Pantoprazole Sodium (Protonix Inj) 40 mg IVP DAILY [facility] Last Admin: 07/06/18 08:59 Dose: 40 mg Prednisone (Prednisone Tab) 5 mg PO DAILY [facility] Last Admin: 07/03/18 15:48 Dose: 5 mg - Labs Labs: 07/06/18 05:45 07/06/18 01:36 EST PT 25.9 SECONDS (9.4-12.5) H 07/04/18 16:10 INR 2.23 07/04/18 16:10 APTT 30.5 Seconds (25.1-36.5) 07/04/18 16:10 - Neurological Exam Additional comments: GCS 3T. No pupillary response. No cough or gag appreciated. Occasionally breathing over the vent. Assessment and Plan (1) Anoxic brain injury Assessment & Plan: Now there is evidence of brain herniation after severe posterior circulation infarction, and no significant activity on EEG. The patient has a very poor prognosis with no real chance of recovery. Status: Acute (2) Subarachnoid bleed Assessment & Plan: Stable, minimal. Status: Acute
--- NOTE | 2018-07-06 21:29 | PN ---
DATE: 07/06/2018 COVERING FOR: Abdiel Cisneros MD. SUBJECTIVE: The patient remains on ventilator, status post ICB, status post OR internal fixation. On Dobutrex, vasopressin, and Levophed. The patient remains intubated. PHYSICAL EXAMINATION: GENERAL: Not in apparent distress, being intubated, on Levophed. VITAL SIGNS: Temperature afebrile, heart rate 88, blood pressure 146/52. HEENT: PERRLA. Extraocular muscles intact. NECK: Supple. No carotid bruits, or thyromegaly. CHEST: Clear to auscultation. HEART: S1, S2 regular. ABDOMEN: Soft. EXTREMITIES: Clubbing, cyanosis negative. LABORATORY DATA: WBC 8.6, hemoglobin 8.5, hematocrit 25.3, platelet count 22. Manual platelet count repeated is 22. Sodium 130, potassium 4.8, chloride 98, carbon dioxide 28, anion gap of 14, BUN 33, creatinine 2.8. IMPRESSION: This is a 62-year-old male with past medical history of end-stage renal disease, on dialysis; coronary artery disease, status post coronary artery bypass surgery with history of stent in circumflex, history of coronary artery bypass surgery before; admitted with fall; history of retinopathy; nephropathy; cirrhosis of liver, cryptogenic; status post fall, status post open reduction and internal fixation, after orthopedic surgery, had a rapid response, intubated, on vasopressors, history of intracerebral bleed, repeat CAT scan yesterday. Severe infarction in the cerebellum, brain stem, and ganglia with severe hydrocephalus secondary to compression of the fourth ventricle, also severely decreased platelets, probably heparin-induced thrombocytopenia. Respiratory failure; hypotension; subarachnoid and subdural bleed; end-stage renal disease, on dialysis; biventricular failure. RECOMMENDATIONS: Continue Dobutrex, hem/onc consult, possibly need argatroban. Continue vasopressor. Overall, the patient's condition is critical. Prognosis is extremely guarded. We will follow with you. We will send blood stat for heparin-induced thrombocytopenia and heparin antibody. Thank you, Dr. Graham, for providing opportunity in taking care of your patient, Jim Estrada. Roldan Charles MD
[2018-07-07 07:04] LABS: GRAN # 9.93 (1.4-6.5); GRAN % 94.9 % (50.0-68.0); LYMPH # 0.2 (1.2-3.4); LYMPH % 1.9 % (22.0-35.0); MEAN CELL VOLUME 84.7 fl (80.0-105.0); MEAN CORPUSCULAR HEMOGLOBIN 27.5 pg (25.0-35.0); MEAN CORPUSCULAR HGB CONC 32.5 g/dl (31.0-37.0); MONO # 0.3 (0.1-0.6); MONO % 3.2 % (1.0-6.0); RBC 3.27 10^6/uL (3.5-6.1); RED CELL DISTRIBUTION WIDTH 17.8 % (11.5-14.5); WHITE BLOOD COUNT 10.5 10^3/uL (4.5-11.0)
--- NOTE | 2018-07-07 07:21 | CP.PCM.PN ---
Subjective - Date & Time of Evaluation Date of Evaluation: 07/07/18 Time of Evaluation: 07:20 - Subjective Subjective: PGY-1 Medicine Progress Note for Dr. Flynn Patient seen and examined at bedside in ICU, off sedation. Continues to be intubated, unresponsive to stimuli. No pupillary reflex, gag reflex, or corneal reflex. Prognosis grim. Patient's family at bedside given time to think about plans going forward. Will discuss with all family members and come to a unanimous decision. Palliative on board. Objective - Vital Signs/Intake and Output Vital Signs (last 24 hours): Temp Pulse Resp BP Pulse Ox 98.4 F 96 H 16 109/42 L 100 07/07/18 06:48 07/07/18 06:48 07/07/18 06:00 07/07/18 06:00 07/07/18 06:48 Intake and Output: 07/07/18 07/07/18 06:59 18:59 Intake Total 226 Balance 226 - Medications Medications: Current Medications Albuterol/Ipratropium (Duoneb 3 Mg/0.5 Mg (3 Ml) Ud) 3 ml IH [id number] PRN PRN Reason: Shortness of Breath Last Admin: 07/04/18 13:20 Dose: 3 ml Famotidine (Pepcid) 20 mg PO 1000,2200 [facility] Last Admin: 07/03/18 15:49 Dose: Not Given Gabapentin (Neurontin) 300 mg PO DAILY [facility]; Protocol Last Admin: 07/03/18 15:29 Dose: 300 mg Hydralazine HCl (Apresoline) 25 mg PO TID [facility] Last Admin: 07/04/18 15:41 Dose: Not Given Hydrocortisone Sodium Succinate (Solu-Cortef) 50 mg IVP Q6H [facility] Last Admin: 07/07/18 05:56 Dose: 50 mg Hydroxyzine HCl (Atarax) 25 mg PO TID [facility] Last Admin: 07/06/18 19:21 Dose: Not Given Epinephrine HCl 1 mg/ Sodium (Chloride) 51 mls @ 3.06 mls/hr IV .[id number] PRN; Protocol PRN Reason: TITRATE PER MD ORDER Dobutamine HCl/Dextrose (Dobutamine/Dextrose 5% 500mg/250ml) 500 mg in 250 mls @ 10.553 mls/hr IV .[id number] PRN; Protocol PRN Reason: TITRATE PER PROTOCOL Last Admin: 07/06/18 06:00 Dose: 5 mcg/kg/min, 10.553 mls/hr Vasopressin 20 units/ Sodium (Chloride) 101 mls @ 9.09 mls/hr IV .Q11H7M [facility]; Protocol Last Admin: 07/05/18 01:12 Dose: 9.09 mls/hr Levetiracetam (Keppra 1000mg/100ml Ns) 100 mls @ 460 mls/hr IV Q12 [facility] Last Admin: 07/06/18 21:28 Dose: 460 mls/hr Midazolam 100 mg/100ml in NS (Midazolam 100 Mg/100ml In Ns) 100 mg in 100 mls @ 1 mls/hr IV .Q24H PRN; Protocol PRN Reason: Agitation Last Titration: 07/06/18 07:10 Dose: 0 mg/hr, 0 mls/hr NOREPINEPHRINE BIT/0.9 % NACL (Levophed 4 Mg/ 250 Ml Ns Premixed) 4 mg in 250 mls @ 15 mls/hr IV .[id number] PRN; Protocol PRN Reason: TITRATE PER MD ORDER Last Titration: 07/05/18 12:40 Dose: 0 mcg/min, 0 mls/hr Insulin Human Lispro (Humalog High) 0 units SC ACHS [facility]; Protocol Last Admin: 07/06/18 22:11 Dose: Not Given Isosorbide Mononitrate (Imdur) 120 mg PO DAILY [facility] Last Admin: 07/03/18 15:29 Dose: 120 mg Morphine Sulfate (Morphine) 2 mg IVP Q4H PRN PRN Reason: Pain, severe (8-10) Last Admin: 07/03/18 18:25 Dose: 2 mg Pantoprazole Sodium (Protonix Inj) 40 mg IVP DAILY [facility] Last Admin: 07/06/18 08:59 Dose: 40 mg Prednisone (Prednisone Tab) 5 mg PO DAILY [facility] Last Admin: 07/03/18 15:48 Dose: 5 mg - Labs Labs: 07/06/18 05:45 07/06/18 01:36 EST PT 25.9 SECONDS (9.4-12.5) H 07/04/18 16:10 INR 2.23 07/04/18 16:10 APTT 30.5 Seconds (25.1-36.5) 07/04/18 16:10 - Constitutional Appears: Chronically Ill - Head Exam Head Exam: ATRAUMATIC, NORMAL INSPECTION, NORMOCEPHALIC - Neck Exam Neck Exam: Normal Inspection - Respiratory Exam Respiratory Exam: NORMAL BREATHING PATTERN - Cardiovascular Exam Cardiovascular Exam: Bradycardia, +S1, +S2 - GI/Abdominal Exam GI & Abdominal Exam: Soft, Normal Bowel Sounds - Extremities Exam Extremities Exam: Pedal Edema - Skin Skin Exam: Dry, Intact, Normal Color Assessment and Plan - Assessment and Plan (Free Text) Assessment: 62 yo male w/ PMH CAD w/ multiple stents, CABG, CHF (EF 67 in 2017), PVD, DM, dyslipidemia, ESRD (T, Th Sat), HTN, osteoporosis, osteoarthritis, sarcoidosis s/p ORIF for L femoral neck fracture admitted to ICU s/p code blue x 3. PEA with ROSC in ICU. Plan: Neuro: --currently intubated, non-responsive --Palliative care on board --Imaging -CT head (07/04): new subarachnoid/subdural layering around the tentorium with a subarachnoid hemorrhage seen layering dependently in the 4th ventricle and in the cerebellar fossa. -repeat CT head (07/05): severe infarct of the cerebellum, brainstem, and bilateral basal ganglia. New severe hydrocephalus 2/2 compression of the 4th ventricle -CXR (07/06): mild vascular pulmonary congestion, small b/l pleural effusions --Neurosurgery recs (Dr. Banda) appreciated -no surgical intervention at this time --Neurology recs (Dr. Molina) appreciated -Video EEG (07/05): Abnormal video EEG monitoring study due to presence of bur st suppression pattern, marked EEG attenuation/slowing. No seizures, not in status epilepticus. Severe, bi-hemispheric cerebral dysfunction. Findings are non-specific. -Since there are no seizures on the EEG, taper off Versed drip and keep keppra for now --Medications -Keppra q12H -midazolam 10 mg/hr Hyperkalemia --K 5.3 (07/07) --f/u EKG Cardio: --pt currently normotensive, regular rate s/p CPR with ROSC --R femoral arterial line in place --Maintain MAP > 65 --Medications - dobutamine drip 7.5 mcg/kg/min - levophed drip 4 mg in 250 ml @ 15ml/hr - vasopressin 0.03 u/min vasopressin -norepinephrine 2mcg/kg Pulmonary: --pt currently sedated with midazolam --Intubated on PRVC --Maintain SaO2 >90% --400/20/60%/5 ID: --Stress dose steroids --lactate improving GI: --Abdomen distended 2/2 ascites --IV protonix /Renal: --ESRD, pt on HD , , Saturday --I/Os --further recs per Nephrology (Dr. Siu) Heme: --PLT 22 (07/06) -Heme/Onc (Dr. Giles) notified; strong PLT clumping -manual count 105 (07/07) --Hb 9.0 --tranfuse if Hgb <7 Dispo: overall prognosis is grave. patient's family made aware and given time to think over plans going forward --Palliative care on board Case discussed with Dr. Rina Fermin DO, PGY-1
--- NOTE | 2018-07-07 07:36 | CP.PCM.PN ---
Subjective - Date & Time of Evaluation Date of Evaluation: 07/07/18 Time of Evaluation: 09:15 - Subjective Subjective: Emiliano Posey- Internal Medicine Resident- Progress Note on Behalf of Neurology Team Subjective: Patient seen and examined at bedside. No acute events overnight. Patient continues to be comatose and unresponsive. 12 point ROS cannot be determine at this time secondary to altered mental status Physical Examination: - Constitutional Appears: Chronically Ill - Head Exam Head Exam: ATRAUMATIC, NORMOCEPHALIC - Eye Exam Eye Exam: EOMI - ENT Exam ENT Exam: Mucous Membranes Moist - Neck Exam Neck Exam: Full ROM - Respiratory Exam Respiratory Exam: intubated on ventilator - Cardiovascular Exam Cardiovascular Exam: REGULAR RHYTHM, +S1, +S2 - GI/Abdominal Exam GI & Abdominal Exam: soft, nondistented - Extremities Exam Extremities Exam: absent: cyanosis, clubbing - Neurological Exam Neurological Exam: GCS 3T. No pupillary response. No cough or gag appreciated - Skin Skin Exam: Dry, Warm Assessment and Plan: Patient is 62 year old male with a past medical history of ESRD on HD, Pulm HTN, pleural effusions, CHF, HTN, who was admitted for evaluation and treatment of a hip fracture, s/p PEA cardiac arrest x 3. Anoxic brain injury - 07/05/2018 CT Head without Contrast- Severe infarction of the cerebellum, b rainstem and bilateral basal ganglia. There is new severe hydrocephalus secondary to compression of the 4th ventricle - no significant activity on EEG - very poor prognosis with no real chance of recovery. Subarachnoid bleed -stable, no acute intervention Patient case discussed with and plan approved by attending physician, Dr. Ventura. Objective - Vital Signs/Intake and Output Vital Signs (last 24 hours): Temp Pulse Resp BP Pulse Ox 98.4 F 96 H 16 109/42 L 100 07/07/18 06:48 07/07/18 06:48 07/07/18 06:00 07/07/18 06:00 07/07/18 06:48 Intake and Output: 07/07/18 07/07/18 06:59 18:59 Intake Total 226 Balance 226 - Medications Medications: Current Medications Albuterol/Ipratropium (Duoneb 3 Mg/0.5 Mg (3 Ml) Ud) 3 ml IH [id number] PRN PRN Reason: Shortness of Breath Last Admin: 07/04/18 13:20 Dose: 3 ml Famotidine (Pepcid) 20 mg PO 1000,2200 [facility] Last Admin: 07/03/18 15:49 Dose: Not Given Gabapentin (Neurontin) 300 mg PO DAILY [facility]; Protocol Last Admin: 07/03/18 15:29 Dose: 300 mg Hydralazine HCl (Apresoline) 25 mg PO TID [facility] Last Admin: 07/04/18 15:41 Dose: Not Given Hydrocortisone Sodium Succinate (Solu-Cortef) 50 mg IVP Q6H [facility] Last Admin: 07/07/18 05:56 Dose: 50 mg Hydroxyzine HCl (Atarax) 25 mg PO TID [facility] Last Admin: 07/06/18 19:21 Dose: Not Given Epinephrine HCl 1 mg/ Sodium (Chloride) 51 mls @ 3.06 mls/hr IV .[id number] PRN; Protocol PRN Reason: TITRATE PER MD ORDER Dobutamine HCl/Dextrose (Dobutamine/Dextrose 5% 500mg/250ml) 500 mg in 250 mls @ 10.553 mls/hr IV .[id number] PRN; Protocol PRN Reason: TITRATE PER PROTOCOL Last Admin: 07/06/18 06:00 Dose: 5 mcg/kg/min, 10.553 mls/hr Vasopressin 20 units/ Sodium (Chloride) 101 mls @ 9.09 mls/hr IV .Q11H7M [facility]; Protocol Last Admin: 07/05/18 01:12 Dose: 9.09 mls/hr Levetiracetam (Keppra 1000mg/100ml Ns) 100 mls @ 460 mls/hr IV Q12 [facility] Last Admin: 07/06/18 21:28 Dose: 460 mls/hr Midazolam 100 mg/100ml in NS (Midazolam 100 Mg/100ml In Ns) 100 mg in 100 mls @ 1 mls/hr IV .Q24H PRN; Protocol PRN Reason: Agitation Last Titration: 07/06/18 07:10 Dose: 0 mg/hr, 0 mls/hr NOREPINEPHRINE BIT/0.9 % NACL (Levophed 4 Mg/ 250 Ml Ns Premixed) 4 mg in 250 mls @ 15 mls/hr IV .[id number] PRN; Protocol PRN Reason: TITRATE PER MD ORDER Last Titration: 07/05/18 12:40 Dose: 0 mcg/min, 0 mls/hr Insulin Human Lispro (Humalog High) [address] [facility]; Protocol Last Admin: 07/06/18 22:11 Dose: Not Given Isosorbide Mononitrate (Imdur) 120 mg PO DAILY [facility] Last Admin: 07/03/18 15:29 Dose: 120 mg Morphine Sulfate (Morphine) 2 mg IVP Q4H PRN PRN Reason: Pain, severe (8-10) Last Admin: 07/03/18 18:25 Dose: 2 mg Pantoprazole Sodium (Protonix Inj) 40 mg IVP DAILY [facility] Last Admin: 07/06/18 08:59 Dose: 40 mg Prednisone (Prednisone Tab) 5 mg PO DAILY [facility] Last Admin: 07/03/18 15:48 Dose: 5 mg - Labs Labs: 07/06/18 05:45 07/06/18 01:36 EST PT 25.9 SECONDS (9.4-12.5) H 07/04/18 16:10 INR 2.23 07/04/18 16:10 APTT 30.5 Seconds (25.1-36.5) 07/04/18 16:10
--- NOTE | 2018-07-07 07:36 | OP ---
PROCEDURE DATE: 07/04/2018 PREOPERATIVE DIAGNOSIS: Displaced basal neck fracture of the left hip. POSTOPERATIVE DIAGNOSIS: Displaced basal neck fracture of the left hip. PROCEDURE: Affixus intramedullary nail prosthetic. The nail was of short version that was 180 mm long, 11 mm wide, lag screw of 85 mm long with a derotational screw of 75 mm long. TESTER OPERATOR HELPER SURGEON: vonnie blackburn . ANESTHESIA: General endotracheal tube. DESCRIPTION OF PROCEDURE: The patient was taken to the OR. The left hip was prepped and draped in sterile fashion. Fracture was at the base of the neck. With traction, we reduced it quite well. After equipment traction was used and then the fracture table, x-rays showed good position then a 2 cm incision was made 4 cm above the greater trochanter down to the fascia, inserting the guidewire just medial to the greater trochanter and going down the shaft about 8 cm and over reaming it with larger 1 6 mm reamer, then inserting the briseyda until it was in the right position along so that the lag screw would be along the calcar and room for the antirotation screw. With the jig still on, we put the antirotation screw in first thenthe lag screw that was 75 mm long. Then, we put in the lag screw of 85 mm long and that controlled the fracture and was in good position, and we compressed it also. Then, we locked the briseyda distally in the dynamic hole with the cortical screw of 36 mm long. The three wounds were irrigated with normal saline and closed in layers starting with 0 Vicryl to deep layer, 2-0 to subcutaneous tissues and the skin with 3-0 nylon. The patient was taken to the recovery room in good condition. Stephan Garrison DO MTDKristin
[2018-07-07 07:39] LABS: ALB/GLOB RATIO 0.9 (1.1-1.8)
[2018-07-07] MEDS: Insulin Lispro (HUMAlog) HIGH Coverage SC SCH (08:01)
[2018-07-07 08:46] LABS: PLATELET COUNT MANUAL 105 K/mm3 (120-450)
--- NOTE | 2018-07-07 09:20 | PN ---
DATE: 07/07/2018 CARDIOLOGY FOLLOWUP SUBJECTIVE: The patient is in bed, feeling weak, but with no acute distress. PHYSICAL EXAMINATION: VITAL SIGNS: Blood pressure is 156/71, heart rate is in the 70s. NECK: Negative JVD. LUNGS: Decreased breath sounds without rales. HEART: Reveals S1, S2. EXTREMITIES: Without edema. LABORATORY DATA: Hemoglobin is 9.7, white count is 10.4. Chemistries: BUN and creatinine are 43 and 0.9. X-ray reveals no acute changes. IMPRESSION: 1. Status post respiratory failure. 2. History of [id number] myocardial infarction. 3. Nonobstructive coronary artery disease. 4. Weakness. 5. Prerenal azotemia. PLAN: Given these findings, we will discontinue the Braun catheter today. We will continue his Cardizem for heart rate control. We will continue his subcu heparin. Nolberto Akins MD
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
[2018-07-07] MEDS: levETIRAcetam 1000mg/100ml NS 100 ML IV SCH (09:55)
[2018-07-07] MEDS: DOBUTamine 500mg/250ml D5W 500 MG/250 ML BAG IV PRN (09:55)
--- NOTE | 2018-07-07 09:58 | CP.PCM.PN ---
Subjective - Date & Time of Evaluation Date of Evaluation: 07/07/18 Time of Evaluation: 09:58 Objective - Vital Signs/Intake and Output Vital Signs (last 24 hours): Temp Pulse Resp BP Pulse Ox 98.4 F 98 H 16 109/42 L 100 07/07/18 08:58 07/07/18 08:58 07/07/18 06:00 07/07/18 06:00 07/07/18 08:58 Intake and Output: 07/07/18 07/07/18 06:59 18:59 Intake Total 226 Balance 226 - Medications Medications: Current Medications Albuterol/Ipratropium (Duoneb 3 Mg/0.5 Mg (3 Ml) Ud) 3 ml IH [id number] PRN PRN Reason: Shortness of Breath Last Admin: 07/04/18 13:20 Dose: 3 ml Famotidine (Pepcid) 20 mg PO 1000,2200 [facility] Last Admin: 07/03/18 15:49 Dose: Not Given Gabapentin (Neurontin) 300 mg PO DAILY [facility]; Protocol Last Admin: 07/03/18 15:29 Dose: 300 mg Hydralazine HCl (Apresoline) 25 mg PO TID [facility] Last Admin: 07/04/18 15:41 Dose: Not Given Hydrocortisone Sodium Succinate (Solu-Cortef) 50 mg IVP Q6H [facility] Last Admin: 07/07/18 05:56 Dose: 50 mg Hydroxyzine HCl (Atarax) 25 mg PO TID [facility] Last Admin: 07/06/18 19:21 Dose: Not Given Epinephrine HCl 1 mg/ Sodium (Chloride) 51 mls @ 3.06 mls/hr IV .[id number] PRN; Protocol PRN Reason: TITRATE PER MD ORDER Dobutamine HCl/Dextrose (Dobutamine/Dextrose 5% 500mg/250ml) 500 mg in 250 mls @ 10.553 mls/hr IV .[id number] PRN; Protocol PRN Reason: TITRATE PER PROTOCOL Last Admin: 07/06/18 06:00 Dose: 5 mcg/kg/min, 10.553 mls/hr Vasopressin 20 units/ Sodium (Chloride) 101 mls @ 9.09 mls/hr IV .Q11H7M [facility]; Protocol Last Admin: 07/05/18 01:12 Dose: 9.09 mls/hr Levetiracetam (Keppra 1000mg/100ml Ns) 100 mls @ 460 mls/hr IV Q12 [facility] Last Admin: 07/06/18 21:28 Dose: 460 mls/hr Midazolam 100 mg/100ml in NS (Midazolam 100 Mg/100ml In Ns) 100 mg in 100 mls @ 1 mls/hr IV .Q24H PRN; Protocol PRN Reason: Agitation Last Titration: 07/06/18 07:10 Dose: 0 mg/hr, 0 mls/hr NOREPINEPHRINE BIT/0.9 % NACL (Levophed 4 Mg/ 250 Ml Ns Premixed) 4 mg in 250 mls @ 15 mls/hr IV .[id number] PRN; Protocol PRN Reason: TITRATE PER MD ORDER Last Titration: 07/05/18 12:40 Dose: 0 mcg/min, 0 mls/hr Insulin Human Lispro (Humalog High) 0 units SC ACHS [facility]; Protocol Last Admin: 07/07/18 08:01 Dose: 12 units Isosorbide Mononitrate (Imdur) 120 mg PO DAILY [facility] Last Admin: 07/03/18 15:29 Dose: 120 mg Morphine Sulfate (Morphine) 2 mg IVP Q4H PRN PRN Reason: Pain, severe (8-10) Last Admin: 07/03/18 18:25 Dose: 2 mg Pantoprazole Sodium (Protonix Inj) 40 mg IVP DAILY [facility] Last Admin: 07/06/18 08:59 Dose: 40 mg Prednisone (Prednisone Tab) 5 mg PO DAILY [facility] Last Admin: 07/03/18 15:48 Dose: 5 mg - Labs Labs: 07/07/18 05:45 07/07/18 05:45 PT 25.9 SECONDS (9.4-12.5) H 07/04/18 16:10 INR 2.23 07/04/18 16:10 APTT 30.5 Seconds (25.1-36.5) 07/04/18 16:10
--- NOTE | 2018-07-07 10:28 | CP.PCM.PN ---
<Sergo Noguera - Last Filed: 07/07/18 10:23> Subjective - Date & Time of Evaluation Date of Evaluation: 07/07/18 Time of Evaluation: 07:23 - Subjective Subjective: Sergo Noguera PGY2 Nephrology Progress Note for Dr. Siu Patient was seen and examined in ICU. Patient remains intubated, with no gag r eflex noted. He is unresponsive off sedation, and is only on dobutamine gtt. According to neurology notes, the patient's EEG is flat and there is evidence of brain herniation after severe posterior circulation infarction. ICU team will meet with family again today to discuss poor prognosis and future plans; palliative care is consulted. Objective - Vital Signs/Intake and Output Vital Signs (last 24 hours): Temp Pulse Resp BP Pulse Ox 98.4 F 98 H 16 109/42 L 100 07/07/18 08:58 07/07/18 08:58 07/07/18 06:00 07/07/18 06:00 07/07/18 08:58 Intake and Output: 07/07/18 07/07/18 06:59 18:59 Intake Total 476 Balance 476 - Medications Medications: Current Medications Albuterol/Ipratropium (Duoneb 3 Mg/0.5 Mg (3 Ml) Ud) 3 ml IH [id number] PRN PRN Reason: Shortness of Breath Last Admin: 07/04/18 13:20 Dose: 3 ml Famotidine (Pepcid) 20 mg PO 1000,2200 [facility] Last Admin: 07/03/18 15:49 Dose: Not Given Gabapentin (Neurontin) 300 mg PO DAILY [facility]; Protocol Last Admin: 07/03/18 15:29 Dose: 300 mg Hydralazine HCl (Apresoline) 25 mg PO TID [facility] Last Admin: 07/04/18 15:41 Dose: Not Given Hydrocortisone Sodium Succinate (Solu-Cortef) 50 mg IVP Q6H [facility] Last Admin: 07/07/18 05:56 Dose: 50 mg Hydroxyzine HCl (Atarax) 25 mg PO TID [facility] Last Admin: 07/07/18 09:54 Dose: Not Given Epinephrine HCl 1 mg/ Sodium (Chloride) 51 mls @ 3.06 mls/hr IV .[id number] PRN; Protocol PRN Reason: TITRATE PER MD ORDER Dobutamine HCl/Dextrose (Dobutamine/Dextrose 5% 500mg/250ml) 500 mg in 250 mls @ 10.553 mls/hr IV .[id number] PRN; Protocol PRN Reason: TITRATE PER PROTOCOL Last Admin: 07/07/18 09:55 Dose: 5 mcg/kg/min, 10.553 mls/hr Vasopressin 20 units/ Sodium (Chloride) 101 mls @ 9.09 mls/hr IV .[id number] [facility]; Protocol Last Admin: 07/05/18 01:12 Dose: 9.09 mls/hr Levetiracetam (Keppra 1000mg/100ml Ns) 100 mls @ 460 mls/hr IV Q12 [facility] Last Admin: 07/07/18 09:55 Dose: 460 mls/hr Midazolam 100 mg/100ml in NS (Midazolam 100 Mg/100ml In Ns) 100 mg in 100 mls @ 1 mls/hr IV .Q24H PRN; Protocol PRN Reason: Agitation Last Titration: 07/06/18 07:10 Dose: 0 mg/hr, 0 mls/hr NOREPINEPHRINE BIT/0.9 % NACL (Levophed 4 Mg/ 250 Ml Ns Premixed) 4 mg in 250 mls @ 15 mls/hr IV .[id number] PRN; Protocol PRN Reason: TITRATE PER MD ORDER Last Titration: 07/05/18 12:40 Dose: 0 mcg/min, 0 mls/hr Insulin Human Lispro (Humalog High) 0 units SC ACHS [facility]; Protocol Last Admin: 07/07/18 08:01 Dose: 12 units Isosorbide Mononitrate (Imdur) 120 mg PO DAILY [facility] Last Admin: 07/03/18 15:29 Dose: 120 mg Morphine Sulfate (Morphine) 2 mg IVP Q4H PRN PRN Reason: Pain, severe (8-10) Last Admin: 07/03/18 18:25 Dose: 2 mg Pantoprazole Sodium (Protonix Inj) 40 mg IVP DAILY [facility] Last Admin: 07/07/18 09:55 Dose: 40 mg Prednisone (Prednisone Tab) 5 mg PO DAILY [facility] Last Admin: 07/03/18 15:48 Dose: 5 mg - Labs Labs: 07/07/18 05:45 07/07/18 05:45 PT 25.9 SECONDS (9.4-12.5) H 07/04/18 16:10 INR 2.23 07/04/18 16:10 APTT 30.5 Seconds (25.1-36.5) 07/04/18 16:10 - Constitutional Appears: Non-toxic, No Acute Distress - Head Exam Head Exam: ATRAUMATIC, NORMAL INSPECTION - Eye Exam Eye Exam: absent: EOMI, PERRL Pupil Exam: Fixed - ENT Exam ENT Exam: Mucous Membranes Dry Additional comments: intubated, on vent no gag reflex - Neck Exam Neck Exam: Normal Inspection Additional comments: RIJ TLC - Respiratory Exam Respiratory Exam: absent: Rales, Rhonchi, Wheezes Additional comments: intubated, on vent - Cardiovascular Exam Cardiovascular Exam: RRR, +S1, +S2. absent: JVD, Murmur - GI/Abdominal Exam GI & Abdominal Exam: Soft, Normal Bowel Sounds. absent: Distended, Tenderness - Extremities Exam Extremities Exam: Normal Inspection. 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 Nephrology was consulted for ESRD. Post-op, the patient had 2 code blue called and he has remained unrespon sive since that time. Neurology is following, and are indicating anoxic brain injury w/ herniation. Prognosis is very poor. There are no plans for dialysis or any aggressive intervention at this time for the hypocalcemia, hyperphosphatemia. Plan: - will continue to monitor patient - will follow-up with ICU team regarding results of family meeting - prognosis is poor - further recs per Dr. Siu Case was reviewed and discussed with attending, Dr. Sherron Noguera PGY2 <Pascual Siu S - Last Filed: 07/07/18 19:47> Objective - Vital Signs/Intake and Output Vital Signs (last 24 hours): Temp Pulse Resp BP Pulse Ox 98.6 F 96 H 16 25/ L 100 07/07/18 11:11 07/07/18 11:11 07/07/18 10:00 07/07/18 11:00 07/07/18 11:11 - Labs Labs: 07/07/18 05:45 07/07/18 05:45 PT 25.9 SECONDS (9.4-12.5) H 07/04/18 16:10 INR 2.23 07/04/18 16:10 APTT 30.5 Seconds (25.1-36.5) 07/04/18 16:10 Assessment and Plan - Assessment and Plan (Free Text) Plan: Pt seen and examined. I have reviewed the note of the medical front desk coordinator and agree with it. I have discussed the assessment and plan with the resident. I have reviewed the patient's labs and medications. Pt with CVA and anoxic encephalopathy. Prognosis is poor. I spoke to Aidee from palliative care. Pt with ESRD. HD on hold for now. Withdrawl of care possible today. Spoke to ICU team. Poor prognosis.
[2018-07-07] MEDS ORDERED: Morphine PCA 1 mg/ml (30ml) 30 ML IV PRN (10:31)
[2018-07-07] MEDS ORDERED: Morphine 4 mg/ml ISec IVP STA (10:31)
[2018-07-07 11:11] VITALS: PULSE 96; TEMP 98.6
[2018-07-07 11:13] VITALS: BP 25/22
--- NOTE | 2018-07-07 11:22 | PN ---
DATE: 07/07/2018 SUBJECTIVE: The patient remains on a ventilator after 2 cardiopulmonary arrests. PHYSICAL EXAMINATION: VITAL SIGNS: Blood pressure 118/80, heart rate is 100. NECK: Negative JVD. LUNGS: Decreased breath sounds. HEART: S1, S2. EXTREMITIES: Without edema. LABORATORY DATA: Hemoglobin is 9. Chemistries, BUN and creatinine are 52 and 4.2. The glucose is 365. ASSESSMENT: 1. Status post cardiopulmonary arrest x2 post hip fracture surgery. 2. Ischemic dilated cardiomyopathy. 3. End-stage renal disease. 4. Anoxic encephalopathy. 5. Diabetes mellitus. 6. End-stage renal disease. PLAN: Given these findings, the patient's prognosis is poor. I sat with the family went over his condition in detail. They are trying to decide on whether the patient should be a DNR and whether future intervention should be done. Nolberto Akins MD
--- NOTE | 2018-07-07 12:07 | CP.PCM.PRO ---
Pronouncement of Note - Clinical Findings Physical Exam: No Response Verbal/Painful Stimuli, Absent Peripheral Puls es{Carotid & Femoral}, Absent Heart & Breath Sounds, No Pupillary Light Reflex, No Corneal Reflex, Pupils Fixed & Dilated, Absence of Vital Signs - Pronouncement Time Time of Pronouncement of : 11:17 - Notifications Pronouncement Notifications: Family Notified, Atending Notified Grinder Set Up Operator Jig Notified: No - Autopsy Autopsy Requested: No [place] [id number]
--- NOTE | 2018-07-07 12:17 | CP.CCUPN ---
<Fabian Riggs - Last Filed: 07/07/18 12:32> CCU Subjective - Physician Review Events Since Last Encounter (Free Text): 07/07/18 12:08 Patient seen and examined at bedside ventilated on dobutamine drip. Pupillary, corneal, and gag reflex absent. Discussed with patient's family in [place] (their rampart tongue) regarding patient's status which was determined to be clinically brain as of last night as per video EEG read by neurology. Patient's family had a full understanding and decided that they would do best for patient and requested palliative care to be consulted and guide them through this process. Aidee Flaherty came and along with myself, discussed in detail the process of comfort care. The family decided it would be in the patient's best interest to terminally extubate. Subjective (Free Text): 07/06/18 11:48 Patient seen and examined at bedside still without pupillary reflex, gag reflex, or corneal reflex. Patient however continues to overbreathe the vent. Patient to get video EEG today. Discussed prognosis with family. CCU Objective - Vital Signs / Intake & Output Vital Signs (Last 4 hours): Vital Signs Temp Pulse Resp BP Pulse Ox 07/07/18 11:11 98.2 F 49 L 24 L 07/07/18 11:10 98.6 F 96 H 100 07/07/18 11:00 98.6 F 96 H 25/22 L 100 07/07/18 10:50 98.4 F 97 H 100 07/07/18 10:40 98.4 F 97 H 100 07/07/18 10:30 98.6 F 97 H 100 07/07/18 10:20 98.4 F 98 H 100 07/07/18 10:10 98.4 F 98 H 100 07/07/18 10:00 98.4 F 98 H 16 121/44 L 100 07/07/18 09:00 95 H 16 108/40 L 100 07/07/18 08:58 98.4 F 98 H 100 07/07/18 08:50 98.4 F 95 H 100 07/07/18 08:40 98.4 F 95 H 100 07/07/18 08:30 98.2 F 95 H 100 07/07/18 08:20 98.4 F 95 H 100 07/07/18 08:18 98.2 F 95 H 100 07/07/18 08:10 98.4 F 95 H 100 Intake and Output (Last 8hrs): Intake & Output 07/06/18 07/07/18 07/07/18 22:59 06:59 14:59 Intake Total 325 476 Balance 325 476 Weight 70.806 kg Intake: IV 325 476 Blood Transfusions 199 IVPB 100 dobutamine 126 126 - Physical Exam Head: Positive for: Other (dressing around head) Pupils: Positive for: Non-Reactive Conjunctiva: Positive for: Normal Mouth: Positive for: Dry Pharnyx: Positive for: Other (gag reflex absent) Neck: Positive for: Normal Range of Motion Respiratory/Chest: Positive for: Good Air Exchange, Other (intubated on ventilator). Negative for: Accessory Muscle Use, Rales Cardiovascular: Positive for: Regular Rate and Rhythm, Normal S1, S2. Negative for: Murmurs Abdomen: Negative for: Tenderness, Distention, Peritoneal Signs Genitourinary Male: Positive for: Other (garland in place) Back: Positive for: Normal Inspection Upper Extremity: Negative for: Cyanosis, Edema Lower Extremity: Negative for: Edema Neurological: Negative for: GCS=15, CN II-XII Intact, Speech Normal Skin: Positive for: Warm, Dry, Normal Color. Negative for: Rashes Psychiatric: Negative for: Alert, Oriented x 3, Normal Insight, Normal Concentration - Medications Active Medications: Active Medications Generic Name Dose Route Start Last Admin Trade Name Freq PRN Reason Stop Dose Admin Morphine Sulfate 30 mls @ 2 mls/hr 07/07/18 10:31 Morphine Senior Account Representative 1 Mg/Ml IV PRN PRN CARBURETOR MECHANIC PER MD ORDER Protocol 2 MG/HR Lorazepam 1 mg 07/07/18 10:31 Ativan IVP Q6H PRN Anxiety Protocol - Patient Studies Lab Studies: Microbiology Studies 07/04/18 13:00 Blood Culture - Preliminary Blood NO GROWTH AFTER 48 HOURS 07/04/18 12:50 Blood Culture - Preliminary Blood NO GROWTH AFTER 48 HOURS Lab Studies 07/07/18 07/07/18 07/07/18 Range/Units 07:33 05:45 05:45 WBC 10.5 D (4.5-11.0) 10^3/uL RBC 3.27 L (3.5-6.1) 10^6/uL Hgb 9.0 L (14.0-18.0) g/dL Hct 27.7 L (42.0-52.0) % MCV 84.7 (80.0-105.0) fl MCH 27.5 (25.0-35.0) pg MCHC 32.5 (31.0-37.0) g/dl RDW 17.8 H (11.5-14.5) % Plt Count (120.0-450.0) 10^3/uL Manual Plt Count 105 L (120-450) K/mm3 Gran % 94.9 H (50.0-68.0) % Lymph % (Auto) 1.9 L (22.0-35.0) % [place] % (Auto) 3.2 (1.0-6.0) % Eos % (Auto) 0.0 L (1.5-5.0) % Baso % (Auto) 0.0 (0.0-3.0) % Gran # 9.93 H (1.4-6.5) Lymph # (Auto) 0.2 L (1.2-3.4) [place] # (Auto) 0.3 (0.1-0.6) Eos # (Auto) 0.0 (0.0-0.7) Baso # (Auto) 0.00 (0.0-2.0) K/mm3 Sodium 135 (132-148) mmol/L Potassium 5.3 H (3.6-5.0) mmol/L Chloride 97 L (98-107) mmol/L Carbon Dioxide 22 (21-33) mmol/L Anion Gap 22 H (10-20) BUN 52 H (7-21) mg/dL Creatinine 4.2 H (0.8-1.5) mg/dl Est GFR ( Amer) 18 Est GFR (Non-Af Amer) 15 POC Glucose (mg/dL) 395 H (65-110) mg/dL Random Glucose 365 H* D (70-110) mg/dL Calcium 7.0 L (8.4-10.5) mg/dL Phosphorus 7.2 H (2.5-4.5) mg/dL Magnesium 2.4 H (1.7-2.2) mg/dL Total Bilirubin 1.4 H (0.2-1.3) mg/dL AST 77 H D (17-59) U/L ALT 59 H (7-56) U/L Alkaline Phosphatase 251 H (38-126) U/L Total Protein 6.5 (5.8-8.3) g/dL Albumin 3.0 (3.0-4.8) g/dL Globulin 3.5 gm/dL Albumin/Globulin Ratio 0.9 L (1.1-1.8) Direct Plt-Bound IgG Ab (NEGATIVE) Crossmatch 07/06/18 07/06/18 07/06/18 Range/Units 21:34 16:07 11:56 WBC (4.5-11.0) 10^3/uL RBC (3.5-6.1) 10^6/uL Hgb (14.0-18.0) g/dL Hct (42.0-52.0) % MCV (80.0-105.0) fl MCH (25.0-35.0) pg MCHC (31.0-37.0) g/dl RDW (11.5-14.5) % Plt Count (120.0-450.0) 10^3/uL Manual Plt Count (120-450) K/mm3 Gran % (50.0-68.0) % Lymph % (Auto) (22.0-35.0) % [place] % (Auto) (1.0-6.0) % Eos % (Auto) (1.5-5.0) % Baso % (Auto) (0.0-3.0) % Gran # (1.4-6.5) Lymph # (Auto) (1.2-3.4) [place] # (Auto) (0.1-0.6) Eos # (Auto) (0.0-0.7) Baso # (Auto) (0.0-2.0) K/mm3 Sodium (132-148) mmol/L Potassium (3.6-5.0) mmol/L Chloride (98-107) mmol/L Carbon Dioxide (21-33) mmol/L Anion Gap (10-20) BUN (7-21) mg/dL Creatinine (0.8-1.5) mg/dl Est GFR ( Amer) Est GFR (Non-Af Amer) POC Glucose (mg/dL) 270 H 241 H 268 H (65-110) mg/dL Random Glucose (70-110) mg/dL Calcium (8.4-10.5) mg/dL Phosphorus (2.5-4.5) mg/dL Magnesium (1.7-2.2) mg/dL Total Bilirubin (0.2-1.3) mg/dL AST (17-59) U/L ALT (7-56) U/L Alkaline Phosphatase (38-126) U/L Total Protein (5.8-8.3) g/dL Albumin (3.0-4.8) g/dL Globulin gm/dL Albumin/Globulin Ratio (1.1-1.8) Direct Plt-Bound IgG Ab (NEGATIVE) Crossmatch 07/06/18 07/04/18 07/04/18 Range/Units 09:08 06:00 06:00 WBC (4.5-11.0) 10^3/uL RBC (3.5-6.1) 10^6/uL Hgb (14.0-18.0) g/dL Hct (42.0-52.0) % MCV (80.0-105.0) fl MCH (25.0-35.0) pg MCHC (31.0-37.0) g/dl RDW (11.5-14.5) % Plt Count (120.0-450.0) 10^3/uL Manual Plt Count (120-450) K/mm3 Gran % (50.0-68.0) % Lymph % (Auto) (22.0-35.0) % [place] % (Auto) (1.0-6.0) % Eos % (Auto) (1.5-5.0) % Baso % (Auto) (0.0-3.0) % Gran # (1.4-6.5) Lymph # (Auto) (1.2-3.4) [place] # (Auto) (0.1-0.6) Eos # (Auto) (0.0-0.7) Baso # (Auto) (0.0-2.0) K/mm3 Sodium (132-148) mmol/L Potassium (3.6-5.0) mmol/L Chloride (98-107) mmol/L Carbon Dioxide (21-33) mmol/L Anion Gap (10-20) BUN (7-21) mg/dL Creatinine (0.8-1.5) mg/dl Est GFR ( Amer) Est GFR (Non-Af Amer) POC Glucose (mg/dL) 313 H (65-110) mg/dL Random Glucose (70-110) mg/dL Calcium (8.4-10.5) mg/dL Phosphorus (2.5-4.5) mg/dL Magnesium (1.7-2.2) mg/dL Total Bilirubin (0.2-1.3) mg/dL AST (17-59) U/L ALT (7-56) U/L Alkaline Phosphatase (38-126) U/L Total Protein (5.8-8.3) g/dL Albumin (3.0-4.8) g/dL Globulin gm/dL Albumin/Globulin Ratio (1.1-1.8) Direct Plt-Bound IgG Ab Negative (NEGATIVE) Crossmatch See Detail Laboratory Results - last 24 hr 07/04/18 07/04/18 07/06/18 06:00 06:00 09:08 WBC RBC Hgb Hct MCV MCH MCHC RDW Plt Count Manual Plt Count Gran % Lymph % (Auto) [place] % (Auto) Eos % (Auto) Baso % (Auto) Gran # Lymph # (Auto) [place] # (Auto) Eos # (Auto) Baso # (Auto) Sodium Potassium Chloride Carbon Dioxide Anion Gap BUN Creatinine Est GFR ( Amer) Est GFR (Non-Af Amer) POC Glucose (mg/dL) 313 H Random Glucose Calcium Phosphorus Magnesium Total Bilirubin AST ALT Alkaline Phosphatase Total Protein Albumin Globulin Albumin/Globulin Ratio Direct Plt-Bound IgG Ab Negative Crossmatch See Detail 07/06/18 07/06/18 07/06/18 11:56 16:07 21:34 WBC RBC Hgb Hct MCV MCH MCHC RDW Plt Count Manual Plt Count Gran % Lymph % (Auto) [place] % (Auto) Eos % (Auto) Baso % (Auto) Gran # Lymph # (Auto) [place] # (Auto) Eos # (Auto) Baso # (Auto) Sodium Potassium Chloride Carbon Dioxide Anion Gap BUN Creatinine Est GFR ( Amer) Est GFR (Non-Af Amer) POC Glucose (mg/dL) 268 H 241 H 270 H Random Glucose Calcium Phosphorus Magnesium Total Bilirubin AST ALT Alkaline Phosphatase Total Protein Albumin Globulin Albumin/Globulin Ratio Direct Plt-Bound IgG Ab Crossmatch 07/07/18 07/07/18 07/07/18 05:45 05:45 07:33 WBC 10.5 D RBC 3.27 L Hgb 9.0 L Hct 27.7 L MCV 84.7 MCH 27.5 MCHC 32.5 RDW 17.8 H Plt Count Manual Plt Count 105 L Gran % 94.9 H Lymph % (Auto) 1.9 L [place] % (Auto) 3.2 Eos % (Auto) 0.0 L Baso % (Auto) 0.0 Gran # 9.93 H Lymph # (Auto) 0.2 L [place] # (Auto) 0.3 Eos # (Auto) 0.0 Baso # (Auto) 0.00 Sodium 135 Potassium 5.3 H Chloride 97 L Carbon Dioxide 22 Anion Gap 22 H BUN 52 H Creatinine 4.2 H Est GFR ( Amer) 18 Est GFR (Non-Af Amer) 15 POC Glucose (mg/dL) 395 H Random Glucose 365 H* D Calcium 7.0 L Phosphorus 7.2 H Magnesium 2.4 H Total Bilirubin 1.4 H AST 77 H D ALT 59 H Alkaline Phosphatase 251 H Total Protein 6.5 Albumin 3.0 Globulin 3.5 Albumin/Globulin Ratio 0.9 L Direct Plt-Bound IgG Ab Crossmatch Fingerstick Blood Sugar Results: 395 Review of Systems - Review of Systems Systems not reviewed;Unavailable: Intubated Critical Care Progress Note - Nutrition Nutrition: Nutrition Category Date Time Status Heart Healthy Diet [DIET] Diets 07/01/18 Dinner Active Assessment/Plan - Assessment and Plan (Free Text) Plan: Patient is 62yo male with PMHx of ESRD on HD, Pulm HTN, pleural effusions, CHF, HTN, admitted with hip fracture, s/p PEA cardiac arrest x 3 after OR currently intubated, sedated on ventilatory support. Plan: Neuro/Psych: Sedated, intubated non-responsive CT head shows subarachnoid/subdural layering around the tentorium with a subarachnoid hemorrhage seen layering dependently in the 4th ventricle and in the cerebellar fossa. Per neurosurgery, no surgical intervention at this time repeat video EEG reveals flat line; patient clinically brain Continue with Keppra q12 hrs Palliative consulted Cardio: Normotensive, regular rate Currently on dobutamine drip R femoral arterial line in place Maintain MAP > 65. Pulm: Intubated on PRVC 450/16/35%/5 Maintain SaO2 >90% ID: Stress dose steroids GI: Distended IV protonix /Renal: ESRD Tues, Thurs, Sa; will hold off on dialysis Recs per nephro Monitor I/Os Heme: Thrombocytopenic; will transfuse one unit platelets tranfuse if Hgb <7 <Pramod Urena - Last Filed: 07/07/18 13:46> CCU Objective - Vital Signs / Intake & Output Vital Signs (Last 4 hours): Vital Signs Temp Pulse Resp BP Pulse Ox 07/07/18 11:11 98.2 F 49 L 24 L 07/07/18 11:10 98.6 F 96 H 100 07/07/18 11:00 98.6 F 96 H 25/22 L 100 07/07/18 10:50 98.4 F 97 H 100 07/07/18 10:40 98.4 F 97 H 100 07/07/18 10:30 98.6 F 97 H 100 07/07/18 10:20 98.4 F 98 H 100 07/07/18 10:10 98.4 F 98 H 100 07/07/18 10:00 98.4 F 98 H 16 121/44 L 100 Intake and Output (Last 8hrs): Intake & Output 07/06/18 07/07/18 07/07/18 22:59 06:59 14:59 Intake Total 325 476 Balance 325 476 Weight 156 lb 1.6 oz Intake: IV 325 476 Blood Transfusions 199 IVPB 100 dobutamine 126 126 - Medications Active Medications: Active Medications Generic Name Dose Route Start Last Admin Trade Name Freq PRN Reason Stop Dose Admin Morphine Sulfate 30 mls @ 2 mls/hr 07/07/18 10:31 Morphine Senior Account Representative 1 Mg/Ml IV PRN PRN CARBURETOR MECHANIC PER MD ORDER Protocol 2 MG/HR Lorazepam 1 mg 07/07/18 10:31 Ativan IVP Q6H PRN Anxiety Protocol - Patient Studies Lab Studies: Microbiology Studies 07/04/18 13:00 Blood Culture - Preliminary Blood NO GROWTH AFTER 3 DAYS 07/04/18 12:50 Blood Culture - Preliminary Blood NO GROWTH AFTER 3 DAYS Lab Studies 07/07/18 07/07/18 07/07/18 Range/Units 07:33 05:45 05:45 WBC 10.5 D (4.5-11.0) 10^3/uL RBC 3.27 L (3.5-6.1) 10^6/uL Hgb 9.0 L (14.0-18.0) g/dL Hct 27.7 L (42.0-52.0) % MCV 84.7 (80.0-105.0) fl MCH 27.5 (25.0-35.0) pg MCHC 32.5 (31.0-37.0) g/dl RDW 17.8 H (11.5-14.5) % Plt Count (120.0-450.0) 10^3/uL Manual Plt Count 105 L (120-450) K/mm3 Gran % 94.9 H (50.0-68.0) % Lymph % (Auto) 1.9 L (22.0-35.0) % [place] % (Auto) 3.2 (1.0-6.0) % Eos % (Auto) 0.0 L (1.5-5.0) % Baso % (Auto) 0.0 (0.0-3.0) % Gran # 9.93 H (1.4-6.5) Lymph # (Auto) 0.2 L (1.2-3.4) [place] # (Auto) 0.3 (0.1-0.6) Eos # (Auto) 0.0 (0.0-0.7) Baso # (Auto) 0.00 (0.0-2.0) K/mm3 Sodium 135 (132-148) mmol/L Potassium 5.3 H (3.6-5.0) mmol/L Chloride 97 L (98-107) mmol/L Carbon Dioxide 22 (21-33) mmol/L Anion Gap 22 H (10-20) BUN 52 H (7-21) mg/dL Creatinine 4.2 H (0.8-1.5) mg/dl Est GFR ( Amer) 18 Est GFR (Non-Af Amer) 15 POC Glucose (mg/dL) 395 H (65-110) mg/dL Random Glucose 365 H* D (70-110) mg/dL Calcium 7.0 L (8.4-10.5) mg/dL Phosphorus 7.2 H (2.5-4.5) mg/dL Magnesium 2.4 H (1.7-2.2) mg/dL Total Bilirubin 1.4 H (0.2-1.3) mg/dL AST 77 H D (17-59) U/L ALT 59 H (7-56) U/L Alkaline Phosphatase 251 H (38-126) U/L Total Protein 6.5 (5.8-8.3) g/dL Albumin 3.0 (3.0-4.8) g/dL Globulin 3.5 gm/dL Albumin/Globulin Ratio 0.9 L (1.1-1.8) Direct Plt-Bound IgG Ab (NEGATIVE) Crossmatch 07/06/18 07/06/18 07/06/18 Range/Units 21:34 16:07 11:56 WBC (4.5-11.0) 10^3/uL RBC (3.5-6.1) 10^6/uL Hgb (14.0-18.0) g/dL Hct (42.0-52.0) % MCV (80.0-105.0) fl MCH (25.0-35.0) pg MCHC (31.0-37.0) g/dl RDW (11.5-14.5) % Plt Count (120.0-450.0) 10^3/uL Manual Plt Count (120-450) K/mm3 Gran % (50.0-68.0) % Lymph % (Auto) (22.0-35.0) % [place] % (Auto) (1.0-6.0) % Eos % (Auto) (1.5-5.0) % Baso % (Auto) (0.0-3.0) % Gran # (1.4-6.5) Lymph # (Auto) (1.2-3.4) [place] # (Auto) (0.1-0.6) Eos # (Auto) (0.0-0.7) Baso # (Auto) (0.0-2.0) K/mm3 Sodium (132-148) mmol/L Potassium (3.6-5.0) mmol/L Chloride (98-107) mmol/L Carbon Dioxide (21-33) mmol/L Anion Gap (10-20) BUN (7-21) mg/dL Creatinine (0.8-1.5) mg/dl Est GFR ( Amer) Est GFR (Non-Af Amer) POC Glucose (mg/dL) 270 H 241 H 268 H (65-110) mg/dL Random Glucose (70-110) mg/dL Calcium (8.4-10.5) mg/dL Phosphorus (2.5-4.5) mg/dL Magnesium (1.7-2.2) mg/dL Total Bilirubin (0.2-1.3) mg/dL AST (17-59) U/L ALT (7-56) U/L Alkaline Phosphatase (38-126) U/L Total Protein (5.8-8.3) g/dL Albumin (3.0-4.8) g/dL Globulin gm/dL Albumin/Globulin Ratio (1.1-1.8) Direct Plt-Bound IgG Ab (NEGATIVE) Crossmatch 07/06/18 07/04/18 07/04/18 Range/Units 09:08 06:00 06:00 WBC (4.5-11.0) 10^3/uL RBC (3.5-6.1) 10^6/uL Hgb (14.0-18.0) g/dL Hct (42.0-52.0) % MCV (80.0-105.0) fl MCH (25.0-35.0) pg MCHC (31.0-37.0) g/dl RDW (11.5-14.5) % Plt Count (120.0-450.0) 10^3/uL Manual Plt Count (120-450) K/mm3 Gran % (50.0-68.0) % Lymph % (Auto) (22.0-35.0) % [place] % (Auto) (1.0-6.0) % Eos % (Auto) (1.5-5.0) % Baso % (Auto) (0.0-3.0) % Gran # (1.4-6.5) Lymph # (Auto) (1.2-3.4) [place] # (Auto) (0.1-0.6) Eos # (Auto) (0.0-0.7) Baso # (Auto) (0.0-2.0) K/mm3 Sodium (132-148) mmol/L Potassium (3.6-5.0) mmol/L Chloride (98-107) mmol/L Carbon Dioxide (21-33) mmol/L Anion Gap (10-20) BUN (7-21) mg/dL Creatinine (0.8-1.5) mg/dl Est GFR ( Amer) Est GFR (Non-Af Amer) POC Glucose (mg/dL) 313 H (65-110) mg/dL Random Glucose (70-110) mg/dL Calcium (8.4-10.5) mg/dL Phosphorus (2.5-4.5) mg/dL Magnesium (1.7-2.2) mg/dL Total Bilirubin (0.2-1.3) mg/dL AST (17-59) U/L ALT (7-56) U/L Alkaline Phosphatase (38-126) U/L Total Protein (5.8-8.3) g/dL Albumin (3.0-4.8) g/dL Globulin gm/dL Albumin/Globulin Ratio (1.1-1.8) Direct Plt-Bound IgG Ab Negative (NEGATIVE) Crossmatch See Detail Laboratory Results - last 24 hr 07/04/18 07/04/18 07/06/18 06:00 06:00 09:08 WBC RBC Hgb Hct MCV MCH MCHC RDW Plt Count Manual Plt Count Gran % Lymph % (Auto) [place] % (Auto) Eos % (Auto) Baso % (Auto) Gran # Lymph # (Auto) [place] # (Auto) Eos # (Auto) Baso # (Auto) Sodium Potassium Chloride Carbon Dioxide Anion Gap BUN Creatinine Est GFR ( Amer) Est GFR (Non-Af Amer) POC Glucose (mg/dL) 313 H Random Glucose Calcium Phosphorus Magnesium Total Bilirubin AST ALT Alkaline Phosphatase Total Protein Albumin Globulin Albumin/Globulin Ratio Direct Plt-Bound IgG Ab Negative Crossmatch See Detail 07/06/18 07/06/18 07/06/18 11:56 16:07 21:34 WBC RBC Hgb Hct MCV MCH MCHC RDW Plt Count Manual Plt Count Gran % Lymph % (Auto) [place] % (Auto) Eos % (Auto) Baso % (Auto) Gran # Lymph # (Auto) [place] # (Auto) Eos # (Auto) Baso # (Auto) Sodium Potassium Chloride Carbon Dioxide Anion Gap BUN Creatinine Est GFR ( Amer) Est GFR (Non-Af Amer) POC Glucose (mg/dL) 268 H 241 H 270 H Random Glucose Calcium Phosphorus Magnesium Total Bilirubin AST ALT Alkaline Phosphatase Total Protein Albumin Globulin Albumin/Globulin Ratio Direct Plt-Bound IgG Ab Crossmatch 07/07/18 07/07/18 07/07/18 05:45 05:45 07:33 WBC 10.5 D RBC 3.27 L Hgb 9.0 L Hct 27.7 L MCV 84.7 MCH 27.5 MCHC 32.5 RDW 17.8 H Plt Count Manual Plt Count 105 L Gran % 94.9 H Lymph % (Auto) 1.9 L [place] % (Auto) 3.2 Eos % (Auto) 0.0 L Baso % (Auto) 0.0 Gran # 9.93 H Lymph # (Auto) 0.2 L [place] # (Auto) 0.3 Eos # (Auto) 0.0 Baso # (Auto) 0.00 Sodium 135 Potassium 5.3 H Chloride 97 L Carbon Dioxide 22 Anion Gap 22 H BUN 52 H Creatinine 4.2 H Est GFR ( Amer) 18 Est GFR (Non-Af Amer) 15 POC Glucose (mg/dL) 395 H Random Glucose 365 H* D Calcium 7.0 L Phosphorus 7.2 H Magnesium 2.4 H Total Bilirubin 1.4 H AST 77 H D ALT 59 H Alkaline Phosphatase 251 H Total Protein 6.5 Albumin 3.0 Globulin 3.5 Albumin/Globulin Ratio 0.9 L Direct Plt-Bound IgG Ab Crossmatch Critical Care Progress Note - Nutrition Nutrition: Nutrition Category Date Time Status Heart Healthy Diet [DIET] Diets 07/01/18 Dinner Active Assessment/Plan - Assessment and Plan (Free Text) Plan: Patient seen and examined with resident, on rounds at 730am, agree with note with following additions/exceptions: Patient is 62yo male with PMhx of ESRD on HD, CHF, Pulm HTN, HTN, admitted s/p cardiac arrest after OR repair of hip fracture, cardiac arrest x 3. Clinically neurological exam consistent with brain . Family informed of fidings throughout hospital stay, and updated This morning, daughter and at bedside, informing staff that they do not want any further treatment, would like for the patient to be terminally extubated. Patient terminally extubated, Moprhine PRN Palliative car consulted, recs appreciated DNR/DNI Terminal extubation
--- NOTE | 2018-07-07 16:20 | CP.PCM.DIS ---
<JenyAddy - Last Filed: 07/07/18 22:36> Provider - Provider Date of Admission: 07/01/18 19:27 Attending physician: Miracle Flynn MD Time Spent in preparation of Discharge (in minutes): 40 Hospital Course - Lab Results Lab Results: Micro Results 07/04/18 13:00 Blood Blood Culture - Preliminary NO GROWTH AFTER 3 DAYS 07/04/18 12:50 Blood Blood Culture - Preliminary NO GROWTH AFTER 3 DAYS 07/04/18 10:45 Naris MRSA Culture (Admit) - Final MRSA NOT DETECTED Most Recent Lab Values WBC 10.5 10^3/uL (4.5-11.0) D 07/07/18 05:45 RBC 3.27 10^6/uL (3.5-6.1) L 07/07/18 05:45 Hgb 9.0 g/dL (14.0-18.0) L 07/07/18 05:45 Hct 27.7 % (42.0-52.0) L 07/07/18 05:45 MCV 84.7 fl (80.0-105.0) 07/07/18 05:45 MCH 27.5 pg (25.0-35.0) 07/07/18 05:45 MCHC 32.5 g/dl (31.0-37.0) 07/07/18 05:45 RDW 17.8 % (11.5-14.5) H 07/07/18 05:45 Plt Count 10^3/uL (120.0-450.0) 07/07/18 05:45 Manual Plt Count 105 K/mm3 (120-450) L 07/07/18 05:45 MPV fl (7.0-11.0) 07/03/18 05:30 Gran % 94.9 % (50.0-68.0) H 07/07/18 05:45 Lymph % (Auto) 1.9 % (22.0-35.0) L 07/07/18 05:45 Vigo % (Auto) 3.2 % (1.0-6.0) 07/07/18 05:45 Eos % (Auto) 0.0 % (1.5-5.0) L 07/07/18 05:45 Baso % (Auto) 0.0 % (0.0-3.0) 07/07/18 05:45 Gran # 9.93 (1.4-6.5) H 07/07/18 05:45 Lymph # (Auto) 0.2 (1.2-3.4) L 07/07/18 05:45 [place]igo # (Auto) 0.3 (0.1-0.6) 07/07/18 05:45 Eos # (Auto) 0.0 (0.0-0.7) 07/07/18 05:45 Baso # (Auto) 0.00 K/mm3 (0.0-2.0) 07/07/18 05:45 Neutrophils % (Manual) 89 % (50.0-70.0) H 07/05/18 06:00 Band Neutrophils % 2 % (0-2) 07/05/18 06:00 Lymphocytes % (Manual) 8 % (22.0-35.0) L 07/05/18 06:00 Monocytes % (Manual) 1 % (1.0-6.0) 07/05/18 06:00 Differential Comment Done 07/03/18 15:00 Plt Clumps, EDTA Present 07/05/18 06:00 PT 25.9 SECONDS (9.4-12.5) H 07/04/18 16:10 INR 2.23 07/04/18 16:10 APTT 30.5 Seconds (25.1-36.5) 07/04/18 16:10 Fibrinogen 228 mg/dl (200-400) 07/04/18 16:10 Fibrin Degrad Products >40 ug/ml (< 10 ug/mL) 07/04/18 16:10 pCO2 53 mm/Hg (35-45) H 07/06/18 05:00 pO2 165.0 mm/Hg (80-100) H 07/06/18 05:00 HCO3 27.3 mmol/L (21-28) 07/06/18 05:00 ABG pH 7.32 (7.35-7.45) L 07/06/18 05:00 ABG Total CO2 28.9 mmol.L (22-28) H 07/06/18 05:00 ABG O2 Saturation 100.0 % (95-98) H 07/06/18 05:00 ABG O2 Content 12.1 ML/dl (15-23) L 07/06/18 05:00 ABG Base Excess 0.8 mmol/L (-2.0-3.0) 07/06/18 05:00 ABG Hemoglobin 8.6 g/dL (11.7-17.4) L 07/06/18 05:00 ABG Carboxyhemoglobin 2.1 % (0.5-1.5) H 07/06/18 05:00 POC ABG HHb (Measured) 0 % (0-5) 07/06/18 05:00 ABG Methemoglobin 1.1 % (0.0-3.0) 07/06/18 05:00 ABG O2 Capacity 12.1 mL/dl (16-24) L 07/06/18 05:00 ABG Potassium 4.3 mmol/L (3.6-5.2) 07/04/18 12:03 VBG pH 7.30 (7.32-7.43) L 07/05/18 10:00 VBG pCO2 48.0 (40-60) 07/05/18 10:00 VBG HCO3 23.6 mmol/l (21-28) 07/05/18 10:00 VBG Total CO2 25.1 mmol.L (22-28) 07/05/18 10:00 VBG O2 Sat (Calc) 96.5 % (40-65) H 07/05/18 10:00 VBG Base Excess -3.2 mmol/L (0.0-2.0) L 07/05/18 10:00 VBG Potassium 4.9 mmol/L (3.6-5.2) 07/05/18 10:00 Hgb O2 Saturation 96.8 % (95.0-98.0) 07/06/18 05:00 Sodium 134.0 mmol/L (132-148) 07/05/18 10:00 Chloride 95.0 mmol/L (98-107) L 07/05/18 10:00 Glucose 360 mg/dl (75-110) H 07/05/18 10:00 Lactate 1.9 mmol/L (0.7-2.1) 07/05/18 10:00 Mechanical Rate 14 07/04/18 12:03 FiO2 40.0 % 07/06/18 05:00 Tidal Volume 360 07/04/18 12:03 PEEP 5 07/04/18 12:03 Sodium 135 mmol/L (132-148) 07/07/18 05:45 Potassium 5.3 mmol/L (3.6-5.0) H 07/07/18 05:45 Chloride 97 mmol/L (98-107) L 07/07/18 05:45 Carbon Dioxide 22 mmol/L (21-33) 07/07/18 05:45 Anion Gap 22 (10-20) H 07/07/18 05:45 BUN 52 mg/dL (7-21) H 07/07/18 05:45 Creatinine 4.2 mg/dl (0.8-1.5) H 07/07/18 05:45 Est GFR ( Amer) 18 07/07/18 05:45 Est GFR (Non-Af Amer) 15 07/07/18 05:45 POC Glucose (mg/dL) 395 mg/dL (65-110) H 07/07/18 07:33 Random Glucose 365 mg/dL (70-110) H* D 07/07/18 05:45 Calcium 7.0 mg/dL (8.4-10.5) L 07/07/18 05:45 Phosphorus 7.2 mg/dL (2.5-4.5) H 07/07/18 05:45 Magnesium 2.4 mg/dL (1.7-2.2) H 07/07/18 05:45 Iron 123 ug/dL (45-180) 07/01/18 18:14 TIBC 238 ug/dL (261-462) L 07/01/18 18:14 % Saturation 52 % (20-55) 07/01/18 18:14 Transferrin 180.11 mg/dL (206-381) L 07/01/18 18:14 Ferritin 967.0 ng/mL 07/01/18 18:14 Total Bilirubin 1.4 mg/dL (0.2-1.3) H 07/07/18 05:45 AST 77 U/L (17-59) H D 07/07/18 05:45 ALT 59 U/L (7-56) H 07/07/18 05:45 Alkaline Phosphatase 251 U/L (38-126) H 07/07/18 05:45 Troponin I 0.62 ng/mL H* D 07/04/18 12:00 Total Protein 6.5 g/dL (5.8-8.3) 07/07/18 05:45 Albumin 3.0 g/dL (3.0-4.8) 07/07/18 05:45 Globulin 3.5 gm/dL 07/07/18 05:45 Albumin/Globulin Ratio 0.9 (1.1-1.8) L 07/07/18 05:45 Lipase 209 U/L (23-300) 07/02/18 10:13 Vitamin B12 > 1000 pg/mL (239-931) H 07/01/18 18:14 RBC Folate 1157 ng/mL RBC (>280) 07/01/18 18:14 Procalcitonin 4.06 NG/ML (0.19-0.49) H 07/04/18 12:15 Arterial Blood Potassium 4.3 mmol/L (3.6-5.2) 07/04/18 12:03 Venous Blood Potassium 4.9 mmol/L (3.6-5.2) 07/05/18 10:00 Cold Agglutinins Negative (NEGATIVE) 07/03/18 17:00 Direct Plt-Bound IgG Ab Negative (NEGATIVE) 07/04/18 06:00 Hep Bs Antigen Negative (NEGATIVE) 07/03/18 05:30 Hep Bs Antibody Positive (NEGATIVE) 07/03/18 05:30 Blood Type B POSITIVE 07/04/18 06:00 Antibody Screen Negative 07/04/18 06:00 Crossmatch See Detail 07/04/18 06:00 BBK History Checked Patient has bt 07/04/18 06:00 - Hospital Course Hospital Course: HPI: Patient is a 62 year old Mong[place]ian-speaking male with past medical history of CAD s/p multiple stents, CABG (2008), CHF (ED 67%, 2017), PVD, history of blood clots, diabetes mellitus, end stage renal disease (on HD , , ), hypertension, hyperlipidemia, osteoarthritis, and sarcoidosis presenting to the ED complaining of L hip pain s/p mechanical fall. Per patient, he was walking out of his dialysis session and became distracted when looking around outside for his car ride home. As his head was turned, he did not notice the auto-sensor door exit closing and got his R foot stuck, causing him to trip and fall on his L side. He denies any head trauma or loss of consciousness, no dizziness or syncopal episode. He states the pain is sharp, localized to the left hip, rated 10/10 in severity upon arrival but 8/10 after receiving a dose of morphine in the ED. Of note, patient was [place] [facility] and ascites. No fevers/chills, headaches, dizziness, acute changes in vision, chest pain, palpitations, sob, cough, abdominal pain, nausea/vomiting/diarrhea/constipation, dysuria, or changes in stool. During the course of admission: Hip/Pelvis Xray demonstrated displaced fracture of the left femoral neck. Orthopedics was consulted and patient was medically optimized for L hip surgery scheduled for Saturday. Cardiology was consulted. Per Cardiology, patient's ischemic dilated CM makes his risk for anesthesia and surgery a higher risk. His end stage renal disease also complicates procedure; however, patient's cardiac status is at its optimal state. No additional meds or interventions required prior to surgery. Chest xray demonstrated severe pulmonary vascular congestion with pleural effusion R>L. Pulmonology was consulted. Bedside lung u/s demonstrated moderate R pleural effusion with B lines, L side minimal pleural effusion with B lines. Per recommendations, fluid balance was optimized, hemodialysis was continued, and thoracentesis was recommneded after surgery. Heme/Onc was consulted due to thrombocytopenia. Per recommendations, patient was find to have mild thrombocytopenia with superimposed pseudothrombocytopenia due to platelet clumping. Mild thrombocytopenia likely secondary to chronic liver disease (Recently negative for hepatitis, HIV and H. Pylori). Heparin and pepcid were stopped. Patient was cleared to proceed with surgery but would advise to transfuse one unit of platelets and one unit of pRBC's just prior to surgical procedure. GI was consulted for elevated Liver function tests and abdominal ascites. Calculated MELD score was 26, outpatient referral to liver transplant center was recommended for further evaluation given advanced disease. Nephrology was consulted for end stage renal disease; patient had HD session with units of packed red blood cells transfused with appropriate response. Patient was taken to OR on Saturday and surgery was performed. After surgery was completed, patient became bradycardic and hypotensive. Code Blue was called, CPR was perfomed. Patient was resuscitated in the OR, regained pulses and BP, and tr ansferred to the ICU for further evaluation. While in the ICU, patient had PEA with ROSC x2. He was intubated, sedated on midazolam, unresponsive to verbal or tactile stimuli. CT head demonstrated severe infarct of the cerebellum, brainstem, and bilateral basal ganglia. New severe hydrocephalus 2/2 compression of the 4th ventricle. Neurology was consulted and video EEG demonstrated severe bihemispheric cerebral dysfunction. Patient's family was made aware of grim prognosis. Patient was put on vasopressors to maintain blood pressure, on dobutamine and levophed drip. We discussed with patient's family in [place]ian (their lower [place] tongue) regarding patient's status which was determined to be clinically brain as of last night as per video EEG read by neurology. Patient's family had a full u nderstanding and decided that they would do best for patient and requested palliative care to be consulted and guide them through this process. Aidee Flaherty came and along with myself, discussed in detail the process of comfort care. The family decided it would be in the patient's best interest to terminally extubate. Patient's was pronounced at 11:17 AM on 07/07/2018. No response to verba l/painful stimuli was noted, no peripheral pulses, no pupillary light reflex, no corneal reflex, pupils were fixed and dilated, no vital signs were present. The following is a summary of hospital course. For further detail, please refer to EMR. - Date & Time of H&P Date of H&P: 07/07/18 Time of H&P: 15:50 Discharge Exam - Head Exam Head Exam: ATRAUMATIC, NORMAL INSPECTION, NORMOCEPHALIC - Eye Exam Pupil Exam: Fixed - ENT Exam ENT Exam: Mucous Membranes Dry - Respiratory Exam Respiratory Exam: absent: NORMAL BREATHING PATTERN - Cardiovascular Exam Cardiovascular Exam: absent: REGULAR RHYTHM, +S1, +S2 - Skin Skin Exam: Dry, Intact Discharge Plan - Follow Up Plan Condition: Disposition: WITH WITHOUT AUTOPSY <Miracle Flynn - Last Filed: 07/08/18 07:38> Provider - Provider Date of Admission: 07/01/18 19:27 Attending physician: Miracle Flynn MD Hospital Course - Lab Results Lab Results: Micro Results 07/04/18 13:00 Blood Blood Culture - Preliminary NO GROWTH AFTER 3 DAYS 07/04/18 12:50 Blood Blood Culture - Preliminary NO GROWTH AFTER 3 DAYS 07/04/18 10:45 Naris MRSA Culture (Admit) - Final MRSA NOT DETECTED Most Recent Lab Values WBC 10.5 10^3/uL (4.5-11.0) D 07/07/18 05:45 RBC 3.27 10^6/uL (3.5-6.1) L 07/07/18 05:45 Hgb 9.0 g/dL (14.0-18.0) L 07/07/18 05:45 Hct 27.7 % (42.0-52.0) L 07/07/18 05:45 MCV 84.7 fl (80.0-105.0) 07/07/18 05:45 MCH 27.5 pg (25.0-35.0) 07/07/18 05:45 MCHC 32.5 g/dl (31.0-37.0) 07/07/18 05:45 RDW 17.8 % (11.5-14.5) H 07/07/18 05:45 Plt Count 10^3/uL (120.0-450.0) 07/07/18 05:45 Manual Plt Count 105 K/mm3 (120-450) L 07/07/18 05:45 MPV fl (7.0-11.0) 07/03/18 05:30 Gran % 94.9 % (50.0-68.0) H 07/07/18 05:45 Lymph % (Auto) 1.9 % (22.0-35.0) L 07/07/18 05:45 Vigo % (Auto) 3.2 % (1.0-6.0) 07/07/18 05:45 Eos % (Auto) 0.0 % (1.5-5.0) L 07/07/18 05:45 Baso % (Auto) 0.0 % (0.0-3.0) 07/07/18 05:45 Gran # 9.93 (1.4-6.5) H 07/07/18 05:45 Lymph # (Auto) 0.2 (1.2-3.4) L 07/07/18 05:45 Vigo # (Auto) 0.3 (0.1-0.6) 07/07/18 05:45 Eos # (Auto) 0.0 (0.0-0.7) 07/07/18 05:45 Baso # (Auto) 0.00 K/mm3 (0.0-2.0) 07/07/18 05:45 Neutrophils % (Manual) 89 % (50.0-70.0) H 07/05/18 06:00 Band Neutrophils % 2 % (0-2) 07/05/18 06:00 Lymphocytes % (Manual) 8 % (22.0-35.0) L 07/05/18 06:00 Monocytes % (Manual) 1 % (1.0-6.0) 07/05/18 06:00 Differential Comment Done 07/03/18 15:00 Plt Clumps, EDTA Present 07/05/18 06:00 PT 25.9 SECONDS (9.4-12.5) H 07/04/18 16:10 INR 2.23 07/04/18 16:10 APTT 30.5 Seconds (25.1-36.5) 07/04/18 16:10 Fibrinogen 228 mg/dl (200-400) 07/04/18 16:10 Fibrin Degrad Products >40 ug/ml (< 10 ug/mL) 07/04/18 16:10 pCO2 53 mm/Hg (35-45) H 07/06/18 05:00 pO2 165.0 mm/Hg (80-100) H 07/06/18 05:00 HCO3 27.3 mmol/L (21-28) 07/06/18 05:00 ABG pH 7.32 (7.35-7.45) L 07/06/18 05:00 ABG Total CO2 28.9 mmol.L (22-28) H 07/06/18 05:00 ABG O2 Saturation 100.0 % (95-98) H 07/06/18 05:00 ABG O2 Content 12.1 ML/dl (15-23) L 07/06/18 05:00 ABG Base Excess 0.8 mmol/L (-2.0-3.0) 07/06/18 05:00 ABG Hemoglobin 8.6 g/dL (11.7-17.4) L 07/06/18 05:00 ABG Carboxyhemoglobin 2.1 % (0.5-1.5) H 07/06/18 05:00 POC ABG HHb (Measured) 0 % (0-5) 07/06/18 05:00 ABG Methemoglobin 1.1 % (0.0-3.0) 07/06/18 05:00 ABG O2 Capacity 12.1 mL/dl (16-24) L 07/06/18 05:00 ABG Potassium 4.3 mmol/L (3.6-5.2) 07/04/18 12:03 VBG pH 7.30 (7.32-7.43) L 07/05/18 10:00 VBG pCO2 48.0 (40-60) 07/05/18 10:00 VBG HCO3 23.6 mmol/l (21-28) 07/05/18 10:00 VBG Total CO2 25.1 mmol.L (22-28) 07/05/18 10:00 VBG O2 Sat (Calc) 96.5 % (40-65) H 07/05/18 10:00 VBG Base Excess -3.2 mmol/L (0.0-2.0) L 07/05/18 10:00 VBG Potassium 4.9 mmol/L (3.6-5.2) 07/05/18 10:00 Hgb O2 Saturation 96.8 % (95.0-98.0) 07/06/18 05:00 Sodium 134.0 mmol/L (132-148) 07/05/18 10:00 Chloride 95.0 mmol/L (98-107) L 07/05/18 10:00 Glucose 360 mg/dl (75-110) H 07/05/18 10:00 Lactate 1.9 mmol/L (0.7-2.1) 07/05/18 10:00 Mechanical Rate 14 07/04/18 12:03 FiO2 40.0 % 07/06/18 05:00 Tidal Volume 360 07/04/18 12:03 PEEP 5 07/04/18 12:03 Sodium 135 mmol/L (132-148) 07/07/18 05:45 Potassium 5.3 mmol/L (3.6-5.0) H 07/07/18 05:45 Chloride 97 mmol/L (98-107) L 07/07/18 05:45 Carbon Dioxide 22 mmol/L (21-33) 07/07/18 05:45 Anion Gap 22 (10-20) H 07/07/18 05:45 BUN 52 mg/dL (7-21) H 07/07/18 05:45 Creatinine 4.2 mg/dl (0.8-1.5) H 07/07/18 05:45 Est GFR ( Amer) 18 07/07/18 05:45 Est GFR (Non-Af Amer) 15 07/07/18 05:45 POC Glucose (mg/dL) 395 mg/dL (65-110) H 07/07/18 07:33 Random Glucose 365 mg/dL (70-110) H* D 07/07/18 05:45 Calcium 7.0 mg/dL (8.4-10.5) L 07/07/18 05:45 Phosphorus 7.2 mg/dL (2.5-4.5) H 07/07/18 05:45 Magnesium 2.4 mg/dL (1.7-2.2) H 07/07/18 05:45 Iron 123 ug/dL (45-180) 07/01/18 18:14 TIBC 238 ug/dL (261-462) L 07/01/18 18:14 % Saturation 52 % (20-55) 07/01/18 18:14 Transferrin 180.11 mg/dL (206-381) L 07/01/18 18:14 Ferritin 967.0 ng/mL 07/01/18 18:14 Total Bilirubin 1.4 mg/dL (0.2-1.3) H 07/07/18 05:45 AST 77 U/L (17-59) H D 07/07/18 05:45 ALT 59 U/L (7-56) H 07/07/18 05:45 Alkaline Phosphatase 251 U/L (38-126) H 07/07/18 05:45 Troponin I 0.62 ng/mL H* D 07/04/18 12:00 Total Protein 6.5 g/dL (5.8-8.3) 07/07/18 05:45 Albumin 3.0 g/dL (3.0-4.8) 07/07/18 05:45 Globulin 3.5 gm/dL 07/07/18 05:45 Albumin/Globulin Ratio 0.9 (1.1-1.8) L 07/07/18 05:45 Lipase 209 U/L (23-300) 07/02/18 10:13 Vitamin B12 > 1000 pg/mL (239-931) H 07/01/18 18:14 RBC Folate 1157 ng/mL RBC (>280) 07/01/18 18:14 Procalcitonin 4.06 NG/ML (0.19-0.49) H 07/04/18 12:15 Arterial Blood Potassium 4.3 mmol/L (3.6-5.2) 07/04/18 12:03 Venous Blood Potassium 4.9 mmol/L (3.6-5.2) 07/05/18 10:00 Cold Agglutinins Negative (NEGATIVE) 07/03/18 17:00 Direct Plt-Bound IgG Ab Negative (NEGATIVE) 07/04/18 06:00 Platelet IgG Antibody Negative (NEGATIVE) 07/03/18 17:00 Hep Bs Antigen Negative (NEGATIVE) 07/03/18 05:30 Hep Bs Antibody Positive (NEGATIVE) 07/03/18 05:30 Blood Type B POSITIVE 07/04/18 06:00 Antibody Screen Negative 07/04/18 06:00 Crossmatch See Detail 07/04/18 06:00 BBK History Checked Patient has bt 07/04/18 06:00 Attending/Attestation - Attestation I have personally seen and examined this patient.: Yes I have fully participated in the care of the patient.: Yes I have reviewed all pertinent clinical information, including history, physical exam and plan: Yes Notes (Text): 07/07/18 62 year old female with past medical history of CAD s/p stents s/p CABG, CHF, PVD, diabetes and ESRD who presented s/p mechanical fall found to have displaced fracture of the left femoral neck. He was seen by orthopedics and underwent surgery last week. He coded in the OR after surgery and again in the ICU. CT head showed severe infarct of the cerebellum, brainstem and bilateral basal ganglia, severe hydrocephalus secondary to compression of the 4th ventricle. Neurology/neurosurgery input was appreciated. Patient was started on pressors. His mental status did not improve. Family meeting was done and palliative care evaluation was requested. Family decided on DNR/DNI and comfort measures. Patient was terminally extubated and shortly afterwards. Miracle Flynn MD Hospitalist.
== END 2018-07-07 15:38 | DRG 480 ==
LOC: ED 14:35 → ERH 19:27 → 5RSO 22:07 → 2RNO 07-02 00:42 → ICU 07-04 10:35
PROVIDERS: ADMIT Internal Medicine; ATTEND Internal Medicine
PROC: 5A1D70Z Performance of Urinary Filtration, Intermittent, Less than 6 Hours Per Day (ICD-10-PCS; 2018-07-03)
PROC: 30233N1 Transfusion of Nonautologous Red Blood Cells into Peripheral Vein, Percutaneous Approach (ICD-10-PCS; 2018-07-03)
PROC: 0BH17EZ Insertion of Endotracheal Airway into Trachea, Via Natural or Artificial Opening (ICD-10-PCS; 2018-07-04)
PROC: 5A1945Z Respiratory Ventilation, 24-96 Consecutive Hours (ICD-10-PCS; 2018-07-04)
PROC: 02HV33Z Insertion of Infusion Device into Superior Vena Cava, Percutaneous Approach (ICD-10-PCS; 2018-07-04)
PROC: B543ZZA Ultrasonography of Right Jugular Veins, Guidance (ICD-10-PCS; 2018-07-04)
PROC: 4A133BC Monitoring of Arterial Pressure, Coronary, Percutaneous Approach (ICD-10-PCS; 2018-07-04)
PROC: 30233K1 Transfusion of Nonautologous Frozen Plasma into Peripheral Vein, Percutaneous Approach (ICD-10-PCS; 2018-07-04)
PROC: 0QH706Z Insertion of Intramedullary Internal Fixation Device into Left Upper Femur, Open Approach (ICD-10-PCS; principal; 2018-07-04 07:30)
PROC: 5A1D70Z Performance of Urinary Filtration, Intermittent, Less than 6 Hours Per Day (ICD-10-PCS; 2018-07-05)
PROC: 6A550Z2 Pheresis of Platelets, Single (ICD-10-PCS; 2018-07-06)
DX: S72.002A Fracture of unspecified part of neck of left femur, initial encounter for closed fracture (principal); N18.6 End stage renal disease; G93.5 Compression of brain; I60.9 Nontraumatic subarachnoid hemorrhage, unspecified; I62.00 Nontraumatic subdural hemorrhage, unspecified; J96.90 Respiratory failure, unspecified, unspecified whether with hypoxia or hypercapnia; R40.20 Unspecified coma; I13.2 Hypertensive heart and chronic kidney disease with heart failure and with stage 5 chronic kidney disease, or end stage renal disease; J90 Pleural effusion, not elsewhere classified; R18.8 Other ascites; E87.2 Acidosis; G93.1 Anoxic brain damage, not elsewhere classified; I42.0 Dilated cardiomyopathy; I50.22 Chronic systolic (congestive) heart failure; N25.81 Secondary hyperparathyroidism of renal origin; R57.9 Shock, unspecified; Z99.2 Dependence on renal dialysis; Z79.4 Long term (current) use of insulin; Z79.02 Long term (current) use of antithrombotics/antiplatelets; W01.0XXA Fall on same level from slipping, tripping and stumbling without subsequent striking against object, initial encounter; M81.0 Age-related osteoporosis without current pathological fracture; Y93.01 Activity, walking, marching and hiking; D86.9 Sarcoidosis, unspecified; Z79.84 Long term (current) use of oral hypoglycemic drugs; E11.42 Type 2 diabetes mellitus with diabetic polyneuropathy; Z95.1 Presence of aortocoronary bypass graft; I50.9 Heart failure, unspecified; D64.9 Anemia, unspecified; D75.82 Heparin induced thrombocytopenia (HIT); E11.319 Type 2 diabetes mellitus with unspecified diabetic retinopathy without macular edema; E11.40 Type 2 diabetes mellitus with diabetic neuropathy, unspecified; E11.51 Type 2 diabetes mellitus with diabetic peripheral angiopathy without gangrene; E78.00 Pure hypercholesterolemia, unspecified; E78.5 Hyperlipidemia, unspecified; E83.39 Other disorders of phosphorus metabolism; E83.51 Hypocalcemia; E87.5 Hyperkalemia; G40.901 Epilepsy, unspecified, not intractable, with status epilepticus; G91.4 Hydrocephalus in diseases classified elsewhere; H40.9 Unspecified glaucoma; H91.90 Unspecified hearing loss, unspecified ear; I25.10 Atherosclerotic heart disease of native coronary artery without angina pectoris; I25.2 Old myocardial infarction; I25.5 Ischemic cardiomyopathy; I27.20 Pulmonary hypertension, unspecified; I44.7 Left bundle-branch block, unspecified; I46.9 Cardiac arrest, cause unspecified; I50.82 Biventricular heart failure; J44.9 Chronic obstructive pulmonary disease, unspecified; K21.9 Gastro-esophageal reflux disease without esophagitis; K74.60 Unspecified cirrhosis of liver; K76.0 Fatty (change of) liver, not elsewhere classified; Z51.5 Encounter for palliative care; Z66 Do not resuscitate; Z82.49 Family history of ischemic heart disease and other diseases of the circulatory system; Z86.718 Personal history of other venous thrombosis and embolism; Z90.49 Acquired absence of other specified parts of digestive tract; Z95.5 Presence of coronary angioplasty implant and graft